=== PATIENT | male | born 1980 | race Caucasian/White ===

== ENCOUNTER 2016-03-21 18:34 | Emergency (ER) | payer SELFPAY ==
[~2016-03-21] VITALS: Ht 172.7 cm; Wt 122.0 kg
[~2016-03-21 18:34] MED LIST: BUPR150T6 PO; CEPASTAT MT; LANT3I SC; LEVO500T72 PO; METF500T PO; NOVO3I SC; Nicotine (14 Mg/24 Hr) TRANSDERM; TOPI25TA38 PO
[2016-03-21 19:07] VITALS: Ht 172.7 cm; Wt 122.0 kg
== END 2016-03-21 18:57 | disposition left against medical advice (07) ==
LOC: E/R 18:34
DX: Z53.21 Procedure and treatment not carried out due to patient leaving prior to being seen by health care provider (principal)

== ENCOUNTER 2016-03-23 12:32 | Emergency (ER) | payer OTHER ==
[~2016-03-23] VITALS: Wt 119.0 kg
[2016-03-23] MEDS ORDERED: SODIUM CHLORIDE 0.9% 1L BAG IV* STA (14:32)
[2016-03-23] MEDS ORDERED: CEFEPIME 2GM/50 ML (PMX) 50 ML IVPB STA (14:32)
[2016-03-23] MEDS ORDERED: LIDOCAINE 1% (MDV) 20 ML INJ SC ONE (15:00)
[2016-03-23] MEDS ORDERED: VANCOMYCIN 1 GM (PMX) 250 ML IVPB ONE (15:00)
[2016-03-23 15:08] LABS: HEMATOCRIT 33.4 % (42.0-52.0); HEMOGLOBIN 10.8 g/dl (14.0-18.0); MEAN CORPUSCULAR HEMOGLOBIN 24.8 pg (29.0-33.0); MEAN CORPUSCULAR HGB CONC 32.5 g/dl (32.0-37.0); MEAN CORPUSCULAR VOLUME 76.5 fl (82.0-101.0); MEAN PLATELET VOLUME 8.7 fl (7.4-10.4); PLATELET COUNT 304 10^3/UL (140-440); RED BLOOD COUNT 4.36 10^6/ul (4.70-6.10); RED CELL DISTRIBUTION WIDTH 15.3 % (11.5-14.5)
[2016-03-23 15:17] LABS: ALBUMIN 3.4 g/dl (3.3-4.9); CHLORIDE 100 mmol/L (97-110); INR 1.17; PT RATIO 1.2; SODIUM 141 mmol/L (135-144)
[2016-03-23 15:18] LABS: POTASSIUM 3.6 mmol/L (3.5-5.1)
[2016-03-23 15:19] LABS: PARTIAL THROMBOPLASTIN TIME 31.7 Sec (25.0-35.0)
[2016-03-23 15:20] LABS: ALANINE AMINOTRANSFERASE 56 IU/L (13-69); ALBUMIN/GLOBULIN RATIO 0.66; ALKALINE PHOSPHATASE 110 IU/L (42-121); ANION GAP 17 (8-16); ASPARTATE AMINO TRANSFERASE 30 IU/L (15-46); BILIRUBIN,INDIRECT 0.1 mg/dl (0-1.1); BILIRUBIN,TOTAL 0.1 mg/dl (0.2-1.3); BLOOD UREA NITROGEN 18 mg/dl (7-20); CARBON DIOXIDE 28 mmol/L (21-31); CREATININE 0.68 mg/dl (0.61-1.24); GLUCOSE 347 mg/dl (70-220); TOTAL PROTEIN 8.5 g/dl (6.1-8.1)
[2016-03-23 15:21] LABS: CALCIUM 8.5 mg/dl (8.4-10.2)
[2016-03-23 15:22] LABS: CONDITION 1; LH ANALYZER COMMENTS 1; SUSPECT 1
--- NOTE | 2016-03-23 15:26 | ERD ---
ER Documentation Chief Complaint Date/Time DATE: 03/23/16 TIME: 15:19 Chief Complaint right foot wound check needs abx and picc line. foul odor HPI Patient is a known noncompliant diabetic who reports to the emergency department complaining of right foot pain. He states that he has been taking care of his foot on his own. He does not know what his blood sugars have been running as he states he has not been taking his insulin nor has he been checking his blood sugars. He states he was getting IV antibiotics through PICC line but the PICC line fell out and he failed to follow up with anybody. He also complains of cough and congestion but denies any sputum production. He denies any sore throat otalgia or rhinorrhea. He denies any carlos alberto chest pain abdominal pain vomiting or diarrhea. ROS All systems reviewed and are negative except as per history of present illness. Medications Home Meds Active Scripts Topiramate* (Topamax*) 25 Mg Tablet, 25 MG PO BID for 30 Days, #60 TAB 1 Refill Prov:IVETTE YAOP S. 03/10/16 Bupropion Hcl* (Bupropion XL*) 150 Mg Tab.er.24h, 150 MG PO DAILY for 30 Days, # 30 1 Refill Prov:AYAAN YAO S. 03/10/16 Insulin Glargine* (Lantus*) 100 Unit/Ml Soln, 45 UNIT SC HS for 30 Days, #1 5 Refills Prov:IVETTE YAOP S. 03/10/16 Throat Lozenges* (Cepastat*) 9 Radha Lozenge, 1 LOZEN[place] MT Q1H Y for SORE THROAT for 30 Days, #90 LOZENGE Prov:IVETTE YAOP S. 03/10/16 [Nicotine (14 Mg/24 Hr)] 1 PATCH PATCH No Conflict Check, 1 PATCH TRANSDERM DAILY for 30 Days, #30 1 Refill Prov:AYAAN YAO S. 03/10/16 Insulin Aspart* (Novolog Insulin Pen*) 100 Unit/Ml Soln, 16 UNIT SC WITH MEALS for 30 Days, #1 5 Refills Prov:IVETTE YAOP S. 03/10/16 Metformin Hcl (Glucophage) 500 Mg Tablet, 500 MG PO BID WITH MEALS for 30 Days, #60 TAB 2 Refills Prov:AYAAN YAO S. 03/10/16 Levofloxacin* (Levaquin*) 500 Mg Tablet, 500 MG PO DAILY@06 for 60 Days, #60 TAB Prov:AYAAN YAO S. 03/10/16 Allergies Allergies: Coded Allergies: codeine (Verified Allergy, Mild, UNKNOWN, 03/23/16) PMhx/Soc History of Surgery: Yes (pls se EMR) Anesthesia Reaction: No Hx Neurological Disorder: No Hx Respiratory Disorders: No Hx Cardiac Disorders: No Hx Psychiatric Problems: No Hx Miscellaneous Medical Probl: Yes (pls see EMR) Hx Alcohol Use: Yes Hx Substance Use: Yes (HEROINE, METAMPHETAMINE) Hx Tobacco Use: Yes FmHx Family History: diabetes Physical Exam Vitals Vital Signs Date Time Temp Pulse Resp B/P Pulse Ox O2 Delivery O2 Flow Rate FiO2 03/23/16 12:45 98.9 102 20 117/83 98 Physical Exam Const: Well-developed well-nourished unkempt male sitting on the bed in no acute distress, obvious foul odor, patient is not making eye contact. He keeps flailing his arms around in keeps his eyes closed. Head: Atraumatic normocephalic Eyes: Normal Conjunctiva ENT: Normal External Ears, Nose and Mouth. Neck: Full range of motion..~ No meningismus. Resp: Clear to auscultation bilaterally Cardio: Regular rate and rhythm, no murmurs Abd: Soft, non tender, non distended. Normal bowel sounds Skin: No petechiae or rashes Back: No midline or flank tenderness Ext: No cyanosis, or edema, right lower extremity has a Kerlix wrap on it which has purulent material soaking through and from which the foul odor seems to be coming Neur: Awake and alert Psych: Normal Mood and Affect Result Diagram: 03/23/16 1445 Results 24 hrs Laboratory Tests Test 03/23/16 14:45 Activated Partial Thromboplast Time Pending Alanine Aminotransferase (ALT/SGPT) Pending Albumin 3.4g/dl Albumin/Globulin Ratio Pending Alkaline Phosphatase Pending Anion Gap Pending Aspartate Amino Transf (AST/SGOT) Pending Blood Urea Nitrogen Pending Calcium Level Pending Carbon Dioxide Level Pending Chloride Level 100mmol/L Creatinine Pending Direct Bilirubin Pending Globulin Pending Glucose Level Pending INR International Normalized Ratio 1.17 Indirect Bilirubin Pending Potassium Level 3.6mmol/L Prothrombin Time 15.0Sec Prothrombin Time Ratio 1.2 Sodium Level 141mmol/L Total Bilirubin Pending Total Protein Pending Troponin I Pending Current Medications Medications (Trade) Dose Ordered Sig/Jovita Route PRN Reason Start Time Stop Time Status Last Admin Dose Admin Sodium Chloride 3690 ml 3,690 ml BOLUS OVER 2 HOURS STAT IV* 03/23/16 14:32 03/23/16 14:38 DC Cefepime HCl 50 ml @ 100 mls/hr ONCE STAT IVPB 03/23/16 14:32 03/23/16 15:01 DC Vancomycin HCl (Vancocin) 250 ml @ 125 mls/hr ONCE ONCE IVPB 03/23/16 15:00 03/23/16 16:59 Lidocaine (Xylocaine 1% (Mdv) 20 ml) 20 ml ONCE ONCE SC 03/23/16 15:00 03/23/16 15:01 DC Procedures/MDM The patient became extremely agitated. He was yelling at other patients and at the nursing staff. He stated he was leaving because he was not getting what he wanted while he was here. At that point he stood up and left the emergency department. Departure Diagnosis: Primary Impression: Cellulitis Site of cellulitis: extremity Site of cellulitis of extremity: lower extremity Laterality: right Qualified Code: L03.115 - Cellulitis of right lower extremity Additional Impressions: Diabetes Diabetes mellitus type: type 2 Diabetes mellitus complication status: with skin complications Diabetes mellitus complication detail: with foot ulcer Diabetes mellitus rat exterminator insulin use: with detention use Qualified Code: E11.621 - Type 2 diabetes mellitus with foot ulcer, with long-term current use of insulin Noncompliance by refusing intervention or support Condition: Fair Patient Instructions: Cellulitis, DIABETES, General Info Referrals: [facility] Additional Instructions: Please see your primary care physician in follow-up. Return to the emergency department for any new or worsening symptoms. JANAE FRENCH Mar 23, 2016 15:25
[2016-03-23 15:38] LABS: TROPONIN-I < 0.010 ng/ml (0.00-0.12)
[2016-03-23 15:50] LABS: EOSINOPHILS # 0.2 10^3/ul (0.0-0.5); LYMPHOCYTES # 1.6 10^3/ul (0.8-2.9); MONOCYTE # 1.1 10^3/ul (0.3-0.9); NEUTROPHIL # 12.3 10^3/ul (1.6-7.5)
== END 2016-03-23 15:10 | disposition left against medical advice (07) ==
LOC: FTE 12:32 → E/R 15:10
DX: L03.115 Cellulitis of right lower limb (principal); E11.621 Type 2 diabetes mellitus with foot ulcer; L97.519 Non-pressure chronic ulcer of other part of right foot with unspecified severity; Z79.4 Long term (current) use of insulin; Z79.84 Long term (current) use of oral hypoglycemic drugs; Z91.19 Patient's noncompliance with other medical treatment and regimen
CPT/HCPCS: 80053; 83605; 84484; 85025; 85610; 85730; 87040; 93005; J7030; Z7502; 82962

== ENCOUNTER 2016-03-23 16:01 | Inpatient (IN) | payer OTHER ==
[~2016-03-23] VITALS: Ht 165.1 cm; Wt 122.0 kg
[2016-03-23] MEDS: INSULIN GLARGINE [LANtus] 3 ML PEN SC SCH (01:00)
[2016-03-23] MEDS ORDERED: SODIUM CHLORIDE 0.9% 1L BAG IV* STA (19:39)
[2016-03-23] MEDS ORDERED: ACETAMINOPHEN 325 MG TAB PO STA (19:39)
[2016-03-23] MEDS ORDERED: PIPER-TAZO 3.375 GM IV (PMX) 100 ML IVPB STA (19:39)
[2016-03-23] MEDS ORDERED: VANCOMYCIN 1 GM (PMX) 250 ML IVPB STA (19:39)
[2016-03-23] MEDS ORDERED: CLINDAMYCIN 900 MG/D5W (PMX) 50 ML IVPB STA (19:39)
[2016-03-23 20:04] LABS: HEMATOCRIT 30.6 % (42.0-52.0); MEAN CORPUSCULAR HGB CONC 32.8 g/dl (32.0-37.0); MEAN CORPUSCULAR VOLUME 76.2 fl (82.0-101.0); MEAN PLATELET VOLUME 8.4 fl (7.4-10.4); PLATELET COUNT 306 10^3/UL (140-440); RED BLOOD COUNT 4.01 10^6/ul (4.70-6.10); RED CELL DISTRIBUTION WIDTH 15.3 % (11.5-14.5); UNCORRECTED WBC 18.7 10^3/ul (4.8-10.8); WHITE BLOOD COUNT 18.7 10^3/ul (4.8-10.8)
[2016-03-23 20:13] LABS: ALBUMIN 2.9 g/dl (3.3-4.9); CHLORIDE 97 mmol/L (97-110); POTASSIUM 3.6 mmol/L (3.5-5.1); SODIUM 134 mmol/L (135-144)
[2016-03-23 20:14] LABS: INR 1.18; PARTIAL THROMBOPLASTIN TIME 32.7 Sec (25.0-35.0); PROTIME 15.1 Sec (12.2-14.2); PT RATIO 1.2
[2016-03-23 20:16] LABS: ALANINE AMINOTRANSFERASE 59 IU/L (13-69); ALKALINE PHOSPHATASE 102 IU/L (42-121); ASPARTATE AMINO TRANSFERASE 29 IU/L (15-46); BILIRUBIN,INDIRECT 0.1 mg/dl (0-1.1); BILIRUBIN,TOTAL 0.1 mg/dl (0.2-1.3); BLOOD UREA NITROGEN 17 mg/dl (7-20); CALCIUM 7.8 mg/dl (8.4-10.2); CARBON DIOXIDE 25 mmol/L (21-31); CREATININE 0.72 mg/dl (0.61-1.24); GLUCOSE 319 mg/dl (70-220); TOTAL PROTEIN 7.4 g/dl (6.1-8.1)
[2016-03-23 20:20] LABS: ALBUMIN/GLOBULIN RATIO 0.64; ANION GAP 16 (8-16)
--- NOTE | 2016-03-23 20:27 | RADRPT ---
PROCEDURE: XR Foot. CLINICAL INDICATION: Right foot pain. Sepsis. TECHNIQUE: AP, lateral and oblique views of the right foot was obtained. The images were reviewed on a PACS workstation. COMPARISON: Right foot series dated 03/02/2016 FINDINGS: Amputation of the first ray at the first metatarsal phalangeal joint. Extensive subcutaneous emphys damian over the foot compatible with infectious process such as gas gangrene. Subcutaneous emphysema is seen from the mid foot to the forefoot, medially and laterally. Emphysema also seen at the plantar aspect of the foot. Soft tissue swelling over the foot. Destructive changes at the head of the second metatarsal, similar in appearance to prior examination , perhaps representing manifestation of osteomyelitis. Plantar and posterior dorsal calcaneal enthesophytes. IMPRESSION: 1. Suspected gas gangrene of the right foot with subcutaneous emphysema from the mid foot to the fo refoot, both medially and laterally. 2. Destructive changes at the head of the second metatarsal suggest sequela of osteomyelitis. RPTAT: [facility] Physician Fitz Date Time Electronically viewed and signed by Physician Fitz on 03/23/2016 20:27 RS/
--- NOTE | 2016-03-23 20:29 | RADRPT ---
PROCEDURE: XR Chest. CLINICAL INDICATION: Patient experiencing possible Sepsis TECHNIQUE: Single AP portable chest. COMPARISON: 03/09/2016 FINDINGS: Evaluation the cardiac silhouette is limited due to marked apical lordotic projection and hypoventil atory changes. This may represent crowding of vascular structures although vascular congestion celia a cannot be excluded. No pneumothorax. The osseous structures and soft tissues are unremarkable. IMPRESSION: Marked hypoventilatory changes limiting evaluation. Vascular congestion and or infiltrate can not b e distinguished vascular crowding from poor inspiratory effort. A repeat study is recommended. RPTAT:AAJJ Bhavya Givens Physician Date Time Electronically viewed and signed by Physician Cathi on 03/23/2016 20:29 ANIYA/
[2016-03-23 20:33] LABS: TROPONIN-I < 0.010 ng/ml (0.00-0.12)
[2016-03-23 20:51] LABS: CONDITION 1; LH ANALYZER COMMENTS 1; SUSPECT 1
[2016-03-23 21:52] LABS: LYMPHOCYTES # 1.7 10^3/ul (0.8-2.9); MONOCYTE # 1.1 10^3/ul (0.3-0.9); NEUTROPHIL # 14.6 10^3/ul (1.6-7.5)
--- NOTE | 2016-03-23 21:54 | ERA ---
ER Documentation Chief Complaint Date/Time DATE: 03/23/16 TIME: 21:53 Chief Complaint right foot pain and drainage and eloped main er. HPI Patient is a 36-year-old male with diabetes and osteomyelitis who presents with foot infection. Please note the history and physical exam is limited secondary to the patient's mental status at this time. The patient had already been seen earlier today but eloped prior to finishing treatment. He was about to pass out so he checked back in. He has a right sided foot infection which he says that he has been dealing with "for a while". Upon review of old medical records he has had multiple visits for foot infections and osteomyelitis. ROS All systems reviewed and are negative except as per history of present illness. Medications Home Meds Active Scripts Topiramate* (Topamax*) 25 Mg Tablet, 25 MG PO BID for 30 Days, #60 TAB 1 Refill Prov:AYAAN YAO S. 03/10/16 Bupropion Hcl* (Bupropion XL*) 150 Mg Tab.er.24h, 150 MG PO DAILY for 30 Days, # 30 1 Refill Prov:AYAAN AYO S. 03/10/16 Insulin Glargine* (Lantus*) 100 Unit/Ml Soln, 45 UNIT SC HS for 30 Days, #1 5 Refills Prov:AYAAN YAO S. 03/10/16 Throat Lozenges* (Cepastat*) 9 Radha Lozenge, 1 LOZ[place] MT Q1H Y for SORE THROAT for 30 Days, #90 LOZENGE Prov:AYAAN YAO S. 03/10/16 [Nicotine (14 Mg/24 Hr)] 1 PATCH PATCH No Conflict Check, 1 PATCH TRANSDERM DAILY for 30 Days, #30 1 Refill Prov:AYAAN YAO S. 03/10/16 Insulin Aspart* (Novolog Insulin Pen*) 100 Unit/Ml Soln, 16 UNIT SC WITH MEALS for 30 Days, #1 5 Refills Prov:IVETTE YAOP S. 03/10/16 Metformin Hcl (Glucophage) 500 Mg Tablet, 500 MG PO BID WITH MEALS for 30 Days, #60 TAB 2 Refills Prov:AYAAN YAO S. 03/10/16 Levofloxacin* (Levaquin*) 500 Mg Tablet, 500 MG PO DAILY@06 for 60 Days, #60 TAB Prov:AYAAN YAO 03/10/16 Allergies Allergies: Coded Allergies: codeine (Verified Allergy, Mild, UNKNOWN, 03/23/16) PMhx/Soc History of Surgery: Yes (pls se EMR) Anesthesia Reaction: No Hx Neurological Disorder: No Hx Respiratory Disorders: No Hx Cardiac Disorders: No Hx Psychiatric Problems: No Hx Miscellaneous Medical Probl: Yes (pls see EMR) Hx Alcohol Use: Yes Hx Substance Use: Yes (HEROINE, METAMPHETAMINE) Hx Tobacco Use: Yes FmHx Unable to obtain Physical Exam Vitals Vital Signs Date Time Temp Pulse Resp B/P Pulse Ox O2 Delivery O2 Flow Rate FiO2 03/23/16 16:44 104.3 132 26 130/77 95 Physical Exam Const: Moderate distress, diaphoretic Head: Atraumatic Eyes: Normal Conjunctiva ENT: Normal External Ears, Nose and Mouth. Neck: Full range of motion..~ No meningismus. Resp: Clear to auscultation bilaterally Cardio: Tachycardic rate without murmur Abd: Soft, non tender, non distended. Normal bowel sounds Skin: Extremely swollen right foot with blistering and skin color changes and putrid smell consistent with gas gangrene, no tracking up the leg to suggest necrotizing fasciitis, diaphoretic Back: No midline or flank tenderness Ext: No cyanosis, or edema Neur: Awake but confused Result Diagram: 03/23/16194403/23/161944 Results 24 hrs Laboratory Tests Test 03/23/16 19:45 Activated Partial Thromboplast Time 32.7Sec Alanine Aminotransferase (ALT/SGPT) 59IU/L Albumin 2.9g/dl Albumin/Globulin Ratio 0.64 Alkaline Phosphatase 102IU/L Anion Gap 16 Aspartate Amino Transf (AST/SGOT) 29IU/L Band Neutrophils % 7.0% Blood Morphology Comment Blood Urea Nitrogen 17mg/dl Calcium Level 7.8mg/dl Carbon Dioxide Level 25mmol/L Chloride Level 97mmol/L Creatinine 0.72mg/dl Direct Bilirubin 0.00mg/dl Globulin 4.50g/dl Glucose Level 319mg/dl Hematocrit 30.6% Hemoglobin 10.0g/dl INR International Normalized Ratio 1.18 Indirect Bilirubin 0.1mg/dl Lactic Acid Level 3.2mmol/L Lymphocytes # 1.710^3/ul Lymphocytes % 9.0% Mean Corpuscular Hemoglobin 25.0pg Mean Corpuscular Hemoglobin Concent 32.8g/dl Mean Corpuscular Volume 76.2fl Mean Platelet Volume 8.4fl Monocytes # 1.110^3/ul Monocytes % 6.0% Neutrophils # 14.610^3/ul Neutrophils % 78.0% Platelet Count 24106^3/UL Potassium Level 3.6mmol/L Prothrombin Time 15.1Sec Prothrombin Time Ratio 1.2 Red Blood Count 4.0110^6/ul Red Cell Distribution Width 15.3% Sodium Level 134mmol/L Total Bilirubin 0.1mg/dl Total Protein 7.4g/dl Troponin I < 0.010ng/ml White Blood Count 18.710^3/ul Current Medications Medications (Trade) Dose Ordered Sig/Jovita Route PRN Reason Start Time Stop Time Status Last Admin Dose Admin Sodium Chloride (NS) 3,800 ml BOLUS OVER 2 HOURS STAT IV* 03/23/16 19:39 03/23/16 19:41 DC 03/23/16 20:38 Acetaminophen 650 mg 650 mg ONCE STAT PO 03/23/16 19:39 03/23/16 19:41 DC 03/23/16 19:39 Vancomycin HCl 250 ml @ 125 mls/hr ONCE STAT IVPB 03/23/16 19:39 03/23/16 21:38 DC 03/23/16 20:40 Clindamycin HCl/ Dextrose 50 ml @ 50 mls/hr ONCE STAT IVPB 03/23/16 19:39 03/23/16 20:38 DC 03/23/16 21:00 Piperacillin Sod/ Tazobactam Sod (Zosyn 3.375gm/ 100 ml (Pmx)) 100 ml @ 100 mls/hr ONCE STAT IVPB 03/23/16 19:39 03/23/16 20:38 DC 03/23/16 20:00 Ondansetron HCl (Zofran Inj) 4 mg BRIDGE ORDER PRN IV NAUSEA AND/OR VOMITING 03/23/16 22:00 03/24/16 21:59 Acetaminophen (Tylenol Tab) 650 mg ER BRIDGE PRN PO MILD PAIN/FEVER 03/23/16 22:00 03/24/16 21:59 Procedures/MDM EKG read by me: Rate/Rhythm: Sinus tachycardia at a rate of 106 Intervals: Normal Impression: Sinus tachycardia without evidence of ischemia Chest x-ray shows no obvious pneumonia per radiology. X-ray Foot 3V Interpreted by me: Bones: Osteomyelitis with gas gangrene Joints: [No dislocation] Foreign body: [None] Admit MDM: Patient's infectious symptoms have not stabilized and the patient is at risk of rapid decompensation. The patient will be admitted for careful hydration, antibiotic therapy, and infectious source control. Severe Sepsis criteria: Infectious source: Gas gangrene of the right foot End organ damage indicated by: Lactate greater than 2 Sepsis Management: Time of recognition of sepsis: 19:45 Within 3 hours of recognition: Blood cultures x 2 before broad-spectrum antibiotics: [Yes] 30 ml/kg NS bolus [Completed] Initial lactate 3.2 Repeat lactate pending Time of recognition of septic shock: [No septic shock] Septic Shock Assessment: Any lactic acid > 4.0 [No] Persistent hypotension (SBP < 90 or 40 mmHg drop, MAP < 65) despite 30 mL/kg IV fluid bolus [No] Volume Re-assessment for Septic Shock (post 30 ml/kg bolus): No septic shock at this time Persistent Hypotension Treatment: Comfort care [No] Central line [Not Required] Vasopressor started [Not required] I considered further perfusion assessment with CVP measurement, SCVO2, bedside ultrasound volume assessment, passive leg raise, trial of further fluid bolus. And proceeded with [30 ml/kg fluid bolus of NSS, broad spectrum antibiotics, and admission.] Accepting Care Team Current data and ongoing care discussed. Admitting Physician: Dr. Nelson Arts Manager(s): Dr. Colten Cuellar from podiatry Outstanding Data: Culture results and repeat lactic acid Critical Care: Critical care time 45 minutes excluding all billable procedures Emergent fluid management while maintaining close respiratory support. Provision of immediate and broad-spectrum antibiotic therapy. Simultaneous assessment for possible sources in order to direct targeted therapy. Consideration for invasive and chemical support to prevent cardiopulmonary collapse. Departure Diagnosis: Primary Impression: Osteomyelitis Qualified Code: M86.171 - Acute osteomyelitis of right foot Additional Impressions: Cellulitis Qualified Code: L03.115 - Cellulitis of right lower extremity Hyperglycemia Severe sepsis Condition: Serious KELIN LESTER MD Mar 23, 2016 21:54
[2016-03-23] MEDS ORDERED: ACETAMINOPHEN 325 MG TAB PO PRN (22:00)
[2016-03-23] MEDS ORDERED: ONDANSETRON 4 MG INJ IV PRN ×2 (22:00→23:00)
[2016-03-23 22:02] LABS: ACETAMINOPHEN < 10.0 ug/ml (10.0-30.0); ETHANOL < 10.0 mg/dl; SALICYLATE < 1.0 mg/dl (5.0-30.0)
[2016-03-23] MEDS ORDERED: NACL 0.9% 3 ML SYG IV SCH (23:00)
[2016-03-23] MEDS ORDERED: VANCOMYCIN IV PER PHARMACY XX SCH (23:00)
[2016-03-23] MEDS ORDERED: DOCUSATE SODIUM 100 MG CAP PO PRN (23:00)
[2016-03-23] MEDS ORDERED: LORAZEPAM 2 MG INJ IV ONE (23:30)
[2016-03-23] MEDS ORDERED: HALOPERIDOL 5 MG INJ IM ONE (23:30)
[2016-03-24] VITALS (10 sets, daily range): BP systolic 126–195; BP diastolic 64–82; PULSE 110–124; RESP 20–24; Ht 165.1 cm; Wt 122.0 kg
[2016-03-24] MEDS ORDERED: DIPHENHYDRAMINE 50 MG INJ IM ONE ×2 (00:30→04:00)
[2016-03-24] MEDS ORDERED: VANCOMYCIN 1 GM in NS 250 ML IVPB ONE (01:00)
[2016-03-24] MEDS: 1/2 NS + KCL 20 MEQ 1,000 ML IV SCH ×3 (01:33→18:47)
[2016-03-24] MEDS: INSULIN ASPART [NOVOLOG] 3 ML PEN SC SCH ×6 (01:34→23:43)
[2016-03-24] MEDS ORDERED: LORAZEPAM 2 MG INJ IV ONE (04:00)
[2016-03-24] MEDS ORDERED: HALOPERIDOL 5 MG INJ IM ONE (04:00)
[2016-03-24] MEDS: morphine 2 MG INJ IV PRN (05:50)
[2016-03-24] MEDS: PIPER-TAZO 3.375 GM IV (PMX) 100 ML IVPB SCH ×5 (06:14→23:49)
[2016-03-24] MEDS: PANTOPRAZOLE 40 MG INJ IV SCH (06:14)
[2016-03-24] MEDS: VANCOMYCIN 1.5 GM in SOD CHLORIDE 0.9% 250 ML IVPB SCH ×3 (06:30→20:00)
--- NOTE | 2016-03-24 06:47 | HP ---
DATE OF ADMISSION: 03/23/2016 TIME: 10:30 p.m. CHIEF COMPLAINT: Right foot pain. HISTORY OF PRESENT ILLNESS: The patient is a 36-year-old male with a history of diabetes and osteom yelitis of the right foot. The patient was recently hospitalized here in February 2016. Patient mueller d a recent I and D of the right foot deep abscess and during the hospitalization, MRI did show osteo myelitis of the right foot. The patient has uncontrolled diabetes, morbid obesity, and history of r ight toe amputation in the past. The patient is currently lethargic and confused. History is obtai inderjit from previous medical records. PAST MEDICAL HISTORY: As per HPI. HOME MEDICATIONS: 1. Topamax. 2. Bupropion. 3. Lantus. 4. Nicotine patch. 5. Throat lozenges. 6. NovoLog. 7. Metformin. 8. Levaquin. ALLERGIES: NO KNOWN DRUG ALLERGIES. FAMILY HISTORY: Unable to obtain. SOCIAL HISTORY: The patient has reported history of alcohol abuse, heroin and methamphetamine abuse , tobacco abuse. REVIEW OF SYSTEMS: A 12-point review of systems cannot be obtained secondary to patient's poor ment ation. PHYSICAL EXAMINATION: VITAL SIGNS: Temperature is 94.3, pulse is 132, respiratory rate is 26, BP is 130/77, saturation 95 % on room air. GENERAL: Lethargic, not alert, not oriented. HEENT: Normocephalic, atraumatic. Pupils equal, round, and reactive to light. LUNGS: Clear to auscultation. CARDIOVASCULAR: Tachycardic. ABDOMEN: Obese, nondistended, nontender, soft. EXTREMITIES: No clubbing, cyanosis, or edema. Right foot infection noted. LABORATORIES: White count 18.7, hemoglobin 7.0, hematocrit 30.6, platelets are 306. Chemistry: So dium is 134, potassium 3.6, creatinine 0.72, glucose 319, lactic acid 3.2. INR is 1.18. Toxicology : Negative alcohol, negative acetaminophen and negative salicylates. DIAGNOSTICS: Foot x-ray shows suspected gas gangrene of the right foot and subacute emphysema of th e midfoot and forefoot, both medially and laterally, and destructive changes of the head of the seco nd metatarsal suggestive of ____ osteomyelitis. Chest x-ray shows marked hypoventilatory changes limiting evaluation as the condition and/or infiltr ate cannot be distinguished from crowding for poor inspiratory effort. ASSESSMENT AND PLAN: 1. Sepsis secondary to right foot osteomyelitis and gas gangrene. The patient has known osteomyeli tis from prior hospitalization. The patient's compliance with antibiotics is questionable. Dr. Cam IBRAHIM has already been called in to the ED. Treat with IV antibiotics. 2. Acute encephalopathy secondary to #1. We will treat underlying sepsis. 3. Diabetes, poor compliance. A1c during last hospitalization was 10.8. We will check another A1c and treat with subcutaneous insulin. 4. History of substance abuse. The patient would benefit from another social science professor evaluation dur ing this hospitalization. 5. Morbid obesity. The patient was advised lifestyle changes upon discharge. 6. Microcytic anemia, likely secondary to chronic disease. 7. Prophylaxis. Heparin. Dictated By: KYLEE LAWRENCE MD BS/NTS Conf#: [id number] DID#: [id number]
[2016-03-24 07:38] LABS: HEMATOCRIT 32.8 % (42.0-52.0); HEMOGLOBIN 10.7 g/dl (14.0-18.0); MEAN CORPUSCULAR HEMOGLOBIN 24.9 pg (29.0-33.0); MEAN CORPUSCULAR HGB CONC 32.5 g/dl (32.0-37.0); MEAN CORPUSCULAR VOLUME 76.6 fl (82.0-101.0); MEAN PLATELET VOLUME 8.6 fl (7.4-10.4); PLATELET COUNT 334 10^3/UL (140-440); RED BLOOD COUNT 4.28 10^6/ul (4.70-6.10); RED CELL DISTRIBUTION WIDTH 15.4 % (11.5-14.5); UNCORRECTED WBC 19.7 10^3/ul (4.8-10.8); WHITE BLOOD COUNT 19.7 10^3/ul (4.8-10.8)
[2016-03-24 07:39] LABS: CONDITION 1; LH ANALYZER COMMENTS 1; SUSPECT 1
[2016-03-24 07:56] LABS: ALBUMIN 3.2 g/dl (3.3-4.9); POTASSIUM 3.7 mmol/L (3.5-5.1)
[2016-03-24 07:58] LABS: CREATININE 0.52 mg/dl (0.61-1.24)
[2016-03-24 07:59] LABS: ALBUMIN/GLOBULIN RATIO 0.65; CALCIUM 7.9 mg/dl (8.4-10.2); PHOSPHORUS 2.9 mg/dl (2.5-4.9); TOTAL PROTEIN 8.1 g/dl (6.1-8.1)
[2016-03-24 08:00] LABS: MAGNESIUM 2.3 mg/dl (1.7-2.5)
[2016-03-24] MEDS: NICOTINE (14 MG/24 HR) PATCH TRANSDERM SCH (09:00)
[2016-03-24] MEDS ORDERED: DEXTROSE 50% 50 ML SYRINGE IV PRN ×2 (09:00)
[2016-03-24] MEDS ORDERED: GLUCOSE GEL 15 GRAM TUBE PO PRN ×2 (09:00)
[2016-03-24] MEDS ORDERED: GLUCAGON 1 MG INJ IM PRN (09:00)
[2016-03-24] MEDS ORDERED: GLUCOSE GEL 15 GRAM TUBE BUCCAL PRN (09:00)
[2016-03-24] MEDS ORDERED: HEPARIN 5,000 UNIT/0.5 ML SYG SC SCH (09:00)
--- NOTE | 2016-03-24 09:14 | CONS ---
Date/Time of Note Date/Time of Note DATE: 03/24/16 TIME: 08:59 Assessment/Plan Assessment/Plan Problems: (1) Gas gangrene of foot Comment: Aseptic bedside drainage and irrigation was done. Irrigation was done using sterile normal saline. Patient is on combination of Haldol, Benadryl and morphine and is nonresponsive to verbal command. Patient has been scheduled for formal incision and drainage. Patient will be monitored closely. (2) Foot abscess, right (3) Noncompliance by refusing intervention or support Status: Acute (4) Osteomyelitis Status: Acute Qualifiers: Qualified Code: M86.171 - Acute osteomyelitis of right foot (5) Diabetes, polyneuropathy Status: Chronic (6) Depression with anxiety Status: Chronic (7) Morbid obesity due to excess calories Status: Chronic (8) Non-pressure chronic ulcer of other part of right foot with fat layer exposed Status: Acute (9) Acquired absence of right great toe Status: Acute (10) Drug abuse and dependence Status: Acute Additional Assessment/Plan Patient to be consented for incision and drainage of right foot deep abscess. Patient is scheduled for surgery Saturday. If patient is not awake to be able to consent, a proxy consent was be obtained. Consultation Date/Type/Reason Admit Date/Time Mar 23, 2016 at 21:33 Date of Consultation: Mar 24, 2016 Type of Consultation: Foot and ankle surgery Reason for Consultation Evaluation of right foot abscess and infection. Hx of Present Illness Thank you very much for involving in the care of this patient. This is a 36- year-old male patient with history of diabetes mellitus, osteomyelitis, previous abscess of the right foot, history of heroin, methamphetamine, alcohol and tobacco abuse who presented to the emergency room on March 23, 2016 with infection of his right foot. He was recently hospitalized in February 2016 and underwent incision and drainage of the right foot deep abscess. During that admission, an MRI showed osteomyelitis of his right foot. Patient currently is sedated on Haldol, morphine and Benadryl and is nonresponsive to verbal command. History was obtained from chart review. As per HPI and H&P. Past Medical History As per history of present illness. Past Surgical History As per history of present illness. Social History Smoking Status: Current every day smoker Exam/Review of Systems Vital Signs Vitals Vital Signs Date Time Temp Pulse Resp B/P Pulse Ox O2 Delivery O2 Flow Rate FiO2 03/24/16 08:29 123 03/24/16 08:05 98.1 20 126/64 92 03/24/16 05:30 Nasal Cannula 3.0 Exam Patient was seen at bedside. He is nonresponsive to verbal commands secondary to being on Haldol, morphine and Benadryl. He has restraints on his hands because he has been combative as per nursing. There is malodor in the room. Bandages from the right foot were removed. Medial midfoot soft eschar present with brown drainage. Macerated skin extending to plantar foot noted with fluctuance. Open wound plantar right foot with yellow, thick purulent drainage noted with surrounding fluctuance. S/P right hallux amputation with fissuring of skin. Cyanotic right fifth toe with maceration. Xray shows lucency in the soft tissue corresponding to the medial foot and soft eschar formation. Non palpable pedal pulses noted on right foot; weakly palpable left foot pedal pulses. Decreased temperature gradient noted on the right lower extremity. Labs and xrays were reviewed. Results Result Diagram: 03/24/16 0646 03/24/16 0646 Results 24 hrs Laboratory Tests Test 03/23/16 19:45 03/23/16 20:59 03/23/16 23:59 03/24/16 06:46 Activated Partial Thromboplast Time 32.7 Alanine Aminotransferase (ALT/SGPT) 59 56 Albumin 2.9 L 3.2 L Albumin/Globulin Ratio 0.64 0.65 Alkaline Phosphatase 102 130 H Anion Gap 16 15 Aspartate Amino Transf (AST/SGOT) 29 34 Band Neutrophils % 7.0 H Blood Morphology Comment Blood Urea Nitrogen 17 13 Calcium Level 7.8 L 7.9 L Carbon Dioxide Level 25 28 Chloride Level 97 104 Creatinine 0.72 0.52 L Direct Bilirubin 0.00 0.00 Globulin 4.50 H 4.90 H Glucose Level 319 H 224 H Hematocrit 30.6 L 32.8 L Hemoglobin 10.0 L 10.7 L INR International Normalized Ratio 1.18 Indirect Bilirubin 0.1 0.0 Lactic Acid Level 3.2 H 1.9 2.1 Lymphocytes # 1.7 Pending Lymphocytes % 9.0 L Pending Mean Corpuscular Hemoglobin 25.0 L 24.9 L Mean Corpuscular Hemoglobin Concent 32.8 32.5 Mean Corpuscular Volume 76.2 L 76.6 L Mean Platelet Volume 8.4 8.6 Monocytes # 1.1 H Pending Monocytes % 6.0 Pending Neutrophils # 14.6 H Pending Neutrophils % 78.0 H Pending Platelet Count 306 334 Potassium Level 3.6 3.7 Prothrombin Time 15.1 H Prothrombin Time Ratio 1.2 Red Blood Count 4.01 L 4.28 L Red Cell Distribution Width 15.3 H 15.4 H Sodium Level 134 L 143 Total Bilirubin 0.1 L 0.0 L Total Protein 7.4 # 8.1 Troponin I < 0.010 White Blood Count 18.7 H 19.7 H Acetaminophen Level < 10.0 L Ethyl Alcohol Level < 10.0 Salicylates Level < 1.0 L Basophils # Pending Basophils % Pending Eosinophils # Pending Eosinophils % Pending Hemoglobin A1c 10.3 H Magnesium Level 2.3 Nucleated Red Blood Cells # Pending Nucleated Red Blood Cells % Pending Phosphorus Level 2.9 Test 03/24/16 08:08 Bedside Glucose 267 H Medications Medications Current Medications Potassium Chloride/Sodium Chloride (03/19 NS + KCl 20 Meq) 1,000 ml @ 100 mls/hr Q10H IV Last administered on 03/24/16 01:33; Admin Dose 100 MLS/HR; Start at 22:47 Ondansetron HCl (Zofran Inj) 4 mg Q6H PRN IV NAUSEA AND/OR VOMITING; Start 03/23 at 23:00 Acetaminophen (Tylenol Tab) 650 mg Q6H PRN PO PAIN LEVEL 1-3 OR FEVER; Start at 23:00 Acetaminophen/ Hydrocodone Bitart ([place] (5/325)) 1 tab Q6H PRN PO MODERATE PAIN LEVEL 4-6; Start 03/23/16 at 23:00 Morphine Sulfate (morphine) 2 mg Q4H PRN IV SEVERE PAIN LEVEL 7-10 Last administered on 03/24/16 05:50; Admin Dose 2 MG; Start 03/23/16 at 23:00 Docusate Sodium (Colace) 100 mg Q12H PRN PO CONSTIPATION; Start 03/23/16 at 23: 00 Pantoprazole (Protonix Iv) 40 mg DAILY@06 IV Last administered on 03/24/16 06: 14; Admin Dose 40 MG; Start 03/24/16 at 06:00 Heparin Sodium (Porcine) 5000 unit 5,000 unit Q12 SC ; Start 03/24/16 at 09:00 Piperacillin Sod/ Tazobactam Sod (Zosyn 3.375gm/ 100 ml (Pmx)) 100 ml @ 200 mls /hr Q6 IVPB Last administered on 03/24/16 06:14; Admin Dose 200 MLS/HR; Start 03/24/16 at 00:00 Nicotine (Nicoderm 14 Mg/ 24hr) 1 patch DAILY TRANSDERM ; Start 03/24/16 at 09:00 Insulin Aspart (Novolog Insulin Pen) NOVOLOG *MODERATE* ALGORI... Q4 SC Last administered on 03/24/16 01:34; Admin Dose 8 UNIT; Start 03/24/16 at 01:00 Insulin Glargine 20 unit 20 unit HS SC Last administered on 03/23/16 01:00; Admin Dose 20 UNIT; Start 03/23/16 at 23:43 Vancomycin HCl/ Sodium Chloride (Vancocin/NS) 250 ml @ 83.333 mls/ hr Q8H IVPB ; Start 03/24/16 at 06:30 Miscellaneous Information 1 ea NOTE XX ; Start 03/24/16 at 09:00 Glucose (Glutose) 15 gm Q15M PRN PO DECREASED GLUCOSE; Start 03/24/16 at 09:00 Glucose (Glutose) 22.5 gm Q15M PRN PO DECREASED GLUCOSE; Start 03/24/16 at 09:00 Dextrose (D50w Syringe) 25 ml Q15M PRN IV DECREASED GLUCOSE; Start 03/24/16 at 09:00 Dextrose (D50w Syringe) 50 ml Q15M PRN IV DECREASED GLUCOSE; Start 03/24/16 at 09:00 Glucagon (Glucagen) 1 mg Q15M PRN IM DECREASED GLUCOSE; Start 03/24/16 at 09:00 Glucose (Glutose) 15 gm Q15M PRN BUCCAL DECREASED GLUCOSE; Start 03/24/16 at 09: 00 ESTEE IBRAHIM DPM Mar 24, 2016 09:11
[2016-03-24] MEDS: LORAZEPAM 2 MG INJ IV PRN ×2 (11:40→19:59)
[2016-03-24 11:42] LABS: LYMPHOCYTES # 1.4 10^3/ul (0.8-2.9)
[2016-03-24 17:17] LABS: HAAIG REFLEX REFLEX FILED
[2016-03-24 18:31] LABS: HEPATITIS B CORE ANTIBODY NEGATIVE (NEGATIVE)
[2016-03-24 18:40] LABS: ADD UMIC YES; URINE BILIRUBIN (Dip) NEGATIVE (NEGATIVE); URINE BLOOD (Dip) 1+ (NEGATIVE); URINE KETONES (Dip) NEGATIVE (NEGATIVE); URINE LEUKOCYTE ESTERASE (Dip) NEGATIVE (NEGATIVE); URINE NITRITE (Dip) NEGATIVE (NEGATIVE); URINE TOTAL PROTEIN (Dip) 1+ (NEGATIVE); URINE UROBILINOGEN (Dip) 0.2 E.U./dL (0.1-1.0)
[2016-03-24] MEDS: ACETAMINOPHEN 325 MG TAB PO PRN (18:49)
[2016-03-24 18:58] LABS: URINE COLOR YELLOW (YELLOW)
[2016-03-24 19:13] LABS: BACTERIA,URINE FEW; MUCUS,URINE FEW; URINE RBCS 0-2 /HPF (0)
--- NOTE | 2016-03-24 20:25 | PN ---
DATE: 03/24/2016 SUBJECTIVE: The patient was recently discharged from the hospital, readmitted with severe sepsis, a cute encephalopathy, and left lower extremity wet gangrene. VITAL SIGNS: He came in with a temperature of 104.3, pulse 132, respirations 26, blood pressure 130 /77, saturation 95%. WBC 18.7, with H and H 10 and 30.6, platelets 216,000, neutrophils 78, bands 7, lymphs 9, monos 6. Sodium 134, BUN 17, creatinine 0.72, glucose 319. Lactic acid 3.2, total bilirubin 0.1, negative tr oponin, normal LFT, albumin 2.9. DIAGNOSTICS: Chest x-ray revealed vascular congestion, questionable infiltrate. X-ray of the foot revealed gas gangrene of the right foot with subcutaneous emphysema, as well as destructive changes at the head of the second metatarsal, suggestive of osteomyelitis. ANTIMICROBIALS: Patient is currently on IV vancomycin and Zosyn. PHYSICAL EXAMINATION: GENERAL: This is a morbidly obese, ill-appearing, middle-aged white man, who is obtunded, restless, in no distress. HEENT: Head atraumatic, normocephalic. Sclerae anicteric. Buccal mucosa dry. NECK: Supple. CHEST: Rise symmetrical. Breath sounds diminished to bases. HEART: S1, S2. ABDOMEN: Soft, obese. Bowel tones present. EXTREMITIES: Left foot dressing intact; however, with a strong foul odor, and some drainage present on the dressing. ASSESSMENT: 1. Severe sepsis with fevers, leukocytosis, lactic acidosis, and acute encephalopathy. 2. Left foot osteomyelitis, abscess, wet gangrene with cultures previously growing Pseudomonas, St reptococcus agalactia, and Corynebacterium species. 3. Morbid obesity. 4. History of drug use 5. Poorly controlled diabetes. 6. History of right hallux amputation. 7. Peripheral vascular disease. PLAN: The patient is covered with broad spectrum antibiotics. Cultures are pending. Podiatry on c ase. We will check his urine drug screen, continue present care, antibiotics, anti-aspiration measu res. Consider checking CT of the brain once patient is less restless. Dictated By: KIRSTEN OLIVAREZ MUSIC SOUND LIGHT TECHNICIAN for [facility] PATIÑO/ROBIN Conf#: [id number] DID#: [id number]
[2016-03-24] MEDS: NYSTATIN 15 GM OINT TOP SCH (21:00)
[2016-03-24] MEDS: INSULIN GLARGINE [LANtus] 3 ML PEN SC SCH (23:42)
[2016-03-25] VITALS (18 sets, daily range): BP systolic 123–165; BP diastolic 64–82; PULSE 103–122; RESP 18–24
[2016-03-25] MEDS: morphine 2 MG INJ IV PRN ×3 (00:07→11:25)
[2016-03-25] MEDS: INSULIN ASPART [NOVOLOG] 3 ML PEN SC SCH ×6 (01:00→20:53)
[2016-03-25] MEDS: ACETAMINOPHEN 650 MG SUPP PR PRN ×2 (01:54→11:23)
[2016-03-25] MEDS: LORAZEPAM 2 MG INJ IV PRN (02:39)
[2016-03-25] MEDS: VANCOMYCIN 1.5 GM in SOD CHLORIDE 0.9% 250 ML IVPB SCH ×2 (02:43→11:23)
[2016-03-25] MEDS: 1/2 NS + KCL 20 MEQ 1,000 ML IV SCH ×2 (04:47→14:47)
[2016-03-25] MEDS: PIPER-TAZO 3.375 GM IV (PMX) 100 ML IVPB SCH ×3 (06:33→18:18)
[2016-03-25] MEDS: PANTOPRAZOLE 40 MG INJ IV SCH (06:33)
--- NOTE | 2016-03-25 07:32 | PN ---
DATE: 03/24/2016 SUBJECTIVE: The patient is still very lethargic, requiring Ativan. Did receive Haldol yesterday as well. Presently being evaluated by infectious diseases' team. Seen by podiatry team earlier this morning. OBJECTIVE: VITAL SIGNS: Presently afebrile, when he came in, he had a T-max of 104.3, 24 hours ago, pulse is 1 10-123, respirations 20-24, blood pressure 126-156 systolic/64-69 diastolic, saturating at 92%-95% o n 3 liters nasal cannula. PHYSICAL EXAMINATION: GENERAL: Patient is moving extremities, but very lethargic. Not alert, not oriented. HEENT: Pupils equal, round, reactive to light. Extraocular muscles intact. NECK: Supple, no thyromegaly. LUNGS: Clear to auscultation bilaterally. CARDIOVASCULAR: S1 and S2 are tachycardic. No rubs or gallops. ABDOMEN: Obese, but otherwise nontender, nondistended, soft. MUSCULOSKELETAL: Right foot significantly infected with bandage noted over the right foot, with colleen kage to the bandage site. Otherwise, no lower-extremity edema bilaterally. NEUROLOGIC: Moves upper and lower extremities. LABORATORY DATA: WBC 19.7, hemoglobin 10.7, hematocrit 32.8, platelets of 334,000. His A1c is 10.3 . His basic metabolic panel is normal. His LFTs are normal, but his sugars have been running from 224-267. His salicylate, Tylenol, and blood alcohol levels are normal. Drug screen is pending. Fo ot x-ray yesterday showed suspected gas gangrene of the right foot with subcutaneous emphysema from the midfoot to the forefoot, both medially and laterally, destructive changes at the head of the sec ond metatarsal, suggesting osteomyelitis. ASSESSMENT AND PLAN: A 36-year-old male, presumably noncompliant history of type 2 diabetes, uncont rolled, and osteomyelitis of the right foot, diagnosed in February 2016, who comes in with sepsis se condary to osteomyelitis and gas gangrene findings. 1. Sepsis. Again secondary to right foot osteomyelitis with gas gangrene found. Follow podiatry a nd infectious diseases' recommendations. Continue broad broad-spectrum antibiotics, wound care as w ell, IV fluids. When sepsis subsides, may need to consider I and D as well. Follow up final cultur e results. Tylenol p.r.n. pain and fevers. 2. Type 2 diabetes, uncontrolled. Continue sliding scale insulin. 3. History of substance abuse. Follow drug screen. On last admission, he had positive methampheta mine, and he is showing signs of lethargy and agitation, and possible withdrawal. Ativan p.r.n. for that and also IV fluids. 4. Morbid obesity. Lifestyle changes will be educated again with the patient 5. History of positive group B strep and Corynebacterium pseudomonas wound infections from the foot last time. Follow up final culture results now. 6. History of smoking. Add nicotine patch. 7. Possible history of depression. Continue to monitor for now. He is on Ativan p.r.n. 8. Gastrointestinal prophylaxis. Continue PPI. 9. Deep venous thrombosis prophylaxis. Add heparin. Dictated By: AYAAN IGNACIO Conf#: [id number] DID#: [id number]
[2016-03-25 07:47] LABS: BASOPHIL # 0.1 10^3/ul (0.0-0.1); BASOPHILS % 0.4 % (0.0-2.0); EOSINOPHILS % 0.2 % (0.0-7.0); HEMATOCRIT 31.2 % (42.0-52.0); HEMOGLOBIN 10.2 g/dl (14.0-18.0); LYMPHOCYTES % 13.2 % (15.0-51.0); MEAN CORPUSCULAR HGB CONC 32.8 g/dl (32.0-37.0); MEAN CORPUSCULAR VOLUME 76.4 fl (82.0-101.0); MEAN PLATELET VOLUME 7.9 fl (7.4-10.4); MONOCYTE # 1.2 10^3/ul (0.3-0.9); MONOCYTES % 7.8 % (0.0-11.0); NEUTROPHILS % 78.4 % (39.0-77.0); PLATELET COUNT 414 10^3/UL (140-440); RED BLOOD COUNT 4.09 10^6/ul (4.70-6.10); RED CELL DISTRIBUTION WIDTH 15.6 % (11.5-14.5); UNCORRECTED WBC 15.4 10^3/ul (4.8-10.8); WHITE BLOOD COUNT 15.4 10^3/ul (4.8-10.8)
[2016-03-25 07:50] LABS: CONDITION 1; LH ANALYZER COMMENTS 1
[2016-03-25 07:59] LABS: POTASSIUM 3.7 mmol/L (3.5-5.1)
[2016-03-25 08:01] LABS: CREATININE 0.58 mg/dl (0.61-1.24)
[2016-03-25 08:02] LABS: CALCIUM 7.8 mg/dl (8.4-10.2)
[2016-03-25] MEDS: NYSTATIN 15 GM OINT TOP SCH ×3 (10:07→20:54)
[2016-03-25] MEDS: NICOTINE (14 MG/24 HR) PATCH TRANSDERM SCH (10:08)
--- NOTE | 2016-03-25 12:16 | PN ---
Date/Time of Note Date/Time of Note DATE: 03/25/16 TIME: 12:10 Assessment/Plan VTE Prophylaxis VTE Prophylaxis Intervention: heparin Lines/Catheters IV Catheter Type (from Nrs): Peripheral IV Urinary Cath still in place: Yes Reason Cath still needed: urinary retention Assessment/Plan Chief Complaint/Hosp Course ASSESSMENT AND PLAN: 36-year-old male, presumably noncompliant history of type 2 diabetes, uncontrolled, and osteomyelitis of the right foot, diagnosed in February 2016, who comes in with sepsis secondary to osteomyelitis and gas gangrene findings. 1. Sepsis - secondary to right foot osteomyelitis with gas gangrene found. - Follow podiatry and infectious diseases' recommendations. - Continue broad broad-spectrum antibiotics, wound care as well, IV fluids. - When sepsis subsides, may need to consider I and D as well. - Follow up final culture results. - Tylenol p.r.n. pain and fevers. 2. Type 2 diabetes, uncontrolled at home, FS improved here in hospital now. - Continue sliding scale insulin. 3. History of substance abuse - On last admission, he had positive methamphetamine, and he is showing signs of lethargy and agitation, and possible withdrawal. - Follow drug screen. - Ativan p.r.n. for that and also IV fluids. 4. Morbid obesity. Lifestyle changes will be educated again with the patient 5. History of positive group B strep and Corynebacterium pseudomonas wound infections from the foot last time. Follow up final culture results now. 6. History of smoking. Add nicotine patch. 7. Possible history of depression. Continue to monitor for now. He is on Ativan p.r.n. 8. Gastrointestinal prophylaxis. Continue PPI. 9. Deep venous thrombosis prophylaxis. Add heparin. Problems: Subjective 24 Hr Interval Summary Free Text/Dictation Pt on restraints, + fevers, seen by podiatry and ID teams. Exam/Review of Systems Vital Signs Vitals Vital Signs Date Time Temp Pulse Resp B/P Pulse Ox O2 Delivery O2 Flow Rate FiO2 03/25/16 11:46 101.2 113 22 123/69 98 03/25/16 09:00 Simple Mask 6.0 Intake and Output 03/24/16 03/24/16 03/25/16 15:00 23:00 07:00 Intake Total 100 ml 350 ml Output Total 1500 ml Balance -1400 ml 350 ml Exam GENERAL: Patient is sleeping presently, in restraints. Not alert, not oriented. HEENT: Pupils equal, round, reactive to light. Extraocular muscles intact. NECK: Supple, no thyromegaly. LUNGS: Clear to auscultation bilaterally. CARDIOVASCULAR: S1 and S2 are tachycardic. No rubs or gallops. ABDOMEN: Obese, but otherwise nontender, nondistended, soft. MUSCULOSKELETAL: Right foot significantly infected with bandage noted over the right foot, with leakage to the bandage site. Otherwise, no lower-extremity edema bilaterally. NEUROLOGIC: Moves upper and lower extremities. Results Result Diagram: 03/25/16 0711 03/25/16 0711 Results 24 hrs Laboratory Tests Test 03/24/16 12:19 03/24/16 16:40 03/24/16 17:00 03/24/16 18:26 Bedside Glucose 238 H 163 Hepatitis B Core Total Antibody NEGATIVE Hepatitis B Surface Antibody INDETERMINATE Hepatitis B Surface Antigen NEGATIVE Hepatitis C Antibody REACTIVE H Urine Amorphous Urates FEW Urine Bacteria FEW Urine Bilirubin NEGATIVE Urine Clarity CLEAR Urine Color YELLOW Urine Glucose 0.5% H Urine Hemoglobin 1+ H Urine Ketones NEGATIVE Urine Leukocyte Esterase NEGATIVE Urine Microscopic RBC 0-2 Urine Microscopic WBC 0-2 Urine Mucus FEW Urine Nitrite NEGATIVE Urine Specific [place] >=1.030 H Urine Total Protein 1+ H Urine Urobilinogen 0.2 E.U./dL Urine pH 5.0 Test 03/24/16 22:42 03/25/16 01:11 03/25/16 06:27 03/25/16 07:11 Bedside Glucose 178 193 132 Anion Gap 14 Basophils # 0.1 Basophils % 0.4 Blood Morphology Comment Blood Urea Nitrogen 14 Calcium Level 7.8 L Carbon Dioxide Level 34 H Chloride Level 105 Creatinine 0.58 L Eosinophils # 0.0 Eosinophils % 0.2 Glucose Level 139 # Hematocrit 31.2 L Hemoglobin 10.2 L Lymphocytes # 2.0 Lymphocytes % 13.2 L Mean Corpuscular Hemoglobin 25.0 L Mean Corpuscular Hemoglobin Concent 32.8 Mean Corpuscular Volume 76.4 L Mean Platelet Volume 7.9 Monocytes # 1.2 H Monocytes % 7.8 Neutrophils # 12.0 H Neutrophils % 78.4 H Nucleated Red Blood Cells # 0.0 Nucleated Red Blood Cells % 0.0 Platelet Count 414 # Potassium Level 3.7 Red Blood Count 4.09 L Red Cell Distribution Width 15.6 H Sodium Level 149 H White Blood Count 15.4 #H Test 03/25/16 08:11 03/25/16 10:10 Bedside Glucose 148 Vancomycin Level Trough 9.9 L Medications Medications Current Medications Potassium Chloride/Sodium Chloride (03/19 NS + KCl 20 Meq) 1,000 ml @ 100 mls/hr Q10H IV Last administered on 03/24/16 10:11; Admin Dose 100 MLS/HR; Start at 22:47 Ondansetron HCl (Zofran Inj) 4 mg Q6H PRN IV NAUSEA AND/OR VOMITING; Start 03/23 at 23:00 Acetaminophen (Tylenol Tab) 650 mg Q6H PRN PO PAIN LEVEL 1-3 OR FEVER Last administered on 03/24/16 18:49; Admin Dose 650 MG; Start 03/23/16 at 23:00 Acetaminophen/ Hydrocodone Bitart ([place] (5/325)) 1 tab Q6H PRN PO MODERATE PAIN LEVEL 4-6; Start 03/23/16 at 23:00 Morphine Sulfate (morphine) 2 mg Q4H PRN IV SEVERE PAIN LEVEL 7-10 Last administered on 03/25/16 11:25; Admin Dose 2 MG; Start 03/23/16 at 23:00 Docusate Sodium (Colace) 100 mg Q12H PRN PO CONSTIPATION; Start 03/23/16 at 23: 00 Pantoprazole 40 mg 40 mg DAILY@06 IV Last administered on 03/25/16 06:33; Admin Dose 40 MG; Start 03/24/16 at 06:00 Piperacillin Sod/ Tazobactam Sod (Zosyn 3.375gm/ 100 ml (Pmx)) 100 ml @ 200 mls /hr Q6 IVPB Last administered on 03/25/16 06:33; Admin Dose 200 MLS/HR; Start 03/24/16 at 00:00 Nicotine (Nicoderm 14 Mg/ 24hr) 1 patch DAILY TRANSDERM Last administered on 10:08; Admin Dose 1 PATCH; Start 03/24/16 at 09:00 Insulin Aspart (Novolog Insulin Pen) NOVOLOG *MODERATE* ALGORI... Q4 SC Last administered on 03/25/16 10:48; Admin Dose 2 UNIT; Start 03/24/16 at 01:00 Insulin Glargine (Lantus) 20 unit HS SC Last administered on 03/24/16 23:42; Admin Dose 20 UNIT; Start 03/23/16 at 23:43 Miscellaneous Information 1 ea NOTE XX ; Start 03/24/16 at 09:00 Glucose (Glutose) 15 gm Q15M PRN PO DECREASED GLUCOSE; Start 03/24/16 at 09:00 Glucose (Glutose) 22.5 gm Q15M PRN PO DECREASED GLUCOSE; Start 03/24/16 at 09:00 Dextrose (D50w Syringe) 25 ml Q15M PRN IV DECREASED GLUCOSE; Start 03/24/16 at 09:00 Dextrose (D50w Syringe) 50 ml Q15M PRN IV DECREASED GLUCOSE; Start 03/24/16 at 09:00 Glucagon (Glucagen) 1 mg Q15M PRN IM DECREASED GLUCOSE; Start 03/24/16 at 09:00 Glucose 15 gm 15 gm Q15M PRN BUCCAL DECREASED GLUCOSE; Start 03/24/16 at 09:00 Vancomycin HCl/ Sodium Chloride (Vancocin/NS) 250 ml @ 83.333 mls/ hr Q8H IVPB Last administered on 03/25/16 11:23; Admin Dose 83.333 MLS/HR; Start 03/24/16 at 19:00 Lorazepam (Ativan) 1 mg Q2H PRN IV AGITATION Last administered on 03/25/16 02: 39; Admin Dose 1 MG; Start 03/24/16 at 11:30 Acetaminophen (Tylenol Supp) 650 mg Q6H PRN [place] fever Last administered on 11:23; Admin Dose 650 MG; Start 03/24/16 at 19:00 Nystatin (Nystatin Oint) 1 applic TID TOP Last administered on 03/25/16 10:07; Admin Dose 1 APPLIC; Start 03/24/16 at 21:00 AYAAN YAO Mar 25, 2016 12:15
--- NOTE | 2016-03-25 14:36 | CONS ---
Date/Time of Note Date/Time of Note DATE: 03/25/16 TIME: 14:34 Consult Date/Type/Reason Admit Date/Time Mar 23, 2016 at 21:33 Initial Consult Date 03/24/16 Type of Consultation: ID Subjective no events, lethargic, nad, spiking fevers Objective Vital Signs Date Time Temp Pulse Resp B/P Pulse Ox O2 Delivery O2 Flow Rate FiO2 03/25/16 14:07 99.4 98 22 148/82 98 03/25/16 09:00 Simple Mask 6.0 Intake and Output 03/24/16 03/24/16 03/25/16 15:00 23:00 07:00 Intake Total 100 ml 350 ml Output Total 1500 ml Balance -1400 ml 350 ml Results/Medications Result Diagram: 03/25/16 0711 03/25/16 0711 Results 24 hrs Laboratory Tests Test 03/24/16 16:40 03/24/16 17:00 03/24/16 18:26 03/24/16 22:42 Hepatitis B Core Total Antibody NEGATIVE Hepatitis B Surface Antibody INDETERMINATE Hepatitis B Surface Antigen NEGATIVE Hepatitis C Antibody REACTIVE H Urine Amorphous Urates FEW Urine Bacteria FEW Urine Bilirubin NEGATIVE Urine Clarity CLEAR Urine Color YELLOW Urine Glucose 0.5% H Urine Hemoglobin 1+ H Urine Ketones NEGATIVE Urine Leukocyte Esterase NEGATIVE Urine Microscopic RBC 0-2 Urine Microscopic WBC 0-2 Urine Mucus FEW Urine Nitrite NEGATIVE Urine Specific [place] >=1.030 H Urine Total Protein 1+ H Urine Urobilinogen 0.2 E.U./dL Urine pH 5.0 Bedside Glucose 163 178 Test 03/25/16 01:11 03/25/16 06:27 03/25/16 07:11 03/25/16 08:11 Bedside Glucose 193 132 148 Anion Gap 14 Basophils # 0.1 Basophils % 0.4 Blood Morphology Comment Blood Urea Nitrogen 14 Calcium Level 7.8 L Carbon Dioxide Level 34 H Chloride Level 105 Creatinine 0.58 L Eosinophils # 0.0 Eosinophils % 0.2 Glucose Level 139 # Hematocrit 31.2 L Hemoglobin 10.2 L Lymphocytes # 2.0 Lymphocytes % 13.2 L Mean Corpuscular Hemoglobin 25.0 L Mean Corpuscular Hemoglobin Concent 32.8 Mean Corpuscular Volume 76.4 L Mean Platelet Volume 7.9 Monocytes # 1.2 H Monocytes % 7.8 Neutrophils # 12.0 H Neutrophils % 78.4 H Nucleated Red Blood Cells # 0.0 Nucleated Red Blood Cells % 0.0 Platelet Count 414 # Potassium Level 3.7 Red Blood Count 4.09 L Red Cell Distribution Width 15.6 H Sodium Level 149 H White Blood Count 15.4 #H Test 03/25/16 10:10 03/25/16 13:17 Vancomycin Level Trough 9.9 L Bedside Glucose 113 Medications Current Medications Potassium Chloride/Sodium Chloride (1/2 NS + KCl 20 Meq) 1,000 ml @ 100 mls/hr Q10H IV Last administered on 03/24/16 10:11; Admin Dose 100 MLS/HR; Start at 22:47 Ondansetron HCl (Zofran Inj) 4 mg Q6H PRN IV NAUSEA AND/OR VOMITING; Start 03/23 at 23:00 Acetaminophen (Tylenol Tab) 650 mg Q6H PRN PO PAIN LEVEL 1-3 OR FEVER Last administered on 03/24/16 18:49; Admin Dose 650 MG; Start 03/23/16 at 23:00 Acetaminophen/ Hydrocodone Bitart ([place] (5/325)) 1 tab Q6H PRN PO MODERATE PAIN LEVEL 4-6; Start 03/23/16 at 23:00 Morphine Sulfate (morphine) 2 mg Q4H PRN IV SEVERE PAIN LEVEL 7-10 Last administered on 03/25/16 11:25; Admin Dose 2 MG; Start 03/23/16 at 23:00 Docusate Sodium (Colace) 100 mg Q12H PRN PO CONSTIPATION; Start 03/23/16 at 23: 00 Pantoprazole 40 mg 40 mg DAILY@06 IV Last administered on 03/25/16 06:33; Admin Dose 40 MG; Start 03/24/16 at 06:00 Piperacillin Sod/ Tazobactam Sod (Zosyn 3.375gm/ 100 ml (Pmx)) 100 ml @ 200 mls /hr Q6 IVPB Last administered on 03/25/16 13:13; Admin Dose 200 MLS/HR; Start 03/24/16 at 00:00 Nicotine (Nicoderm 14 Mg/ 24hr) 1 patch DAILY TRANSDERM Last administered on 10:08; Admin Dose 1 PATCH; Start 03/24/16 at 09:00 Insulin Aspart (Novolog Insulin Pen) NOVOLOG *MODERATE* ALGORI... Q4 SC Last administered on 03/25/16 10:48; Admin Dose 2 UNIT; Start 03/24/16 at 01:00 Insulin Glargine (Lantus) 20 unit HS SC Last administered on 03/24/16 23:42; Admin Dose 20 UNIT; Start 03/23/16 at 23:43 Miscellaneous Information 1 ea NOTE XX ; Start 03/24/16 at 09:00 Glucose (Glutose) 15 gm Q15M PRN PO DECREASED GLUCOSE; Start 03/24/16 at 09:00 Glucose (Glutose) 22.5 gm Q15M PRN PO DECREASED GLUCOSE; Start 03/24/16 at 09:00 Dextrose (D50w Syringe) 25 ml Q15M PRN IV DECREASED GLUCOSE; Start 03/24/16 at 09:00 Dextrose (D50w Syringe) 50 ml Q15M PRN IV DECREASED GLUCOSE; Start 03/24/16 at 09:00 Glucagon (Glucagen) 1 mg Q15M PRN IM DECREASED GLUCOSE; Start 03/24/16 at 09:00 Glucose (Glutose) 15 gm Q15M PRN BUCCAL DECREASED GLUCOSE; Start 03/24/16 at 09: 00 Lorazepam (Ativan) 1 mg Q2H PRN IV AGITATION Last administered on 03/25/16 02: 39; Admin Dose 1 MG; Start 03/24/16 at 11:30 Acetaminophen (Tylenol Supp) 650 mg Q6H PRN [place] fever Last administered on 11:23; Admin Dose 650 MG; Start 03/24/16 at 19:00 Nystatin 1 applic 1 applic TID TOP Last administered on 03/25/16 13:16; Admin Dose 1 APPLIC; Start 03/24/16 at 21:00 Vancomycin HCl/ Sodium Chloride (Vancocin/NS) 500 ml @ 125 mls/hr Q8H IVPB ; Start 03/25/16 at 18:30 Assessment/Plan Chief Complaint/Hosp Course DIAGNOSTICS: Chest x-ray revealed vascular congestion, questionable infiltrate. X-ray of the foot revealed gas gangrene of the right foot with subcutaneous emphysema, as well as destructive changes at the head of the second metatarsal, suggestive of osteomyelitis. ANTIMICROBIALS: IV vancomycin and Zosyn. PHYSICAL EXAMINATION: GENERAL: This is a morbidly obese, ill-appearing, middle-aged white man, who is obtunded, restless, in no distress. HEENT: Head atraumatic, normocephalic. Sclerae anicteric. Buccal mucosa dry. NECK: Supple. CHEST: Rise symmetrical. Breath sounds diminished to bases. HEART: S1, S2. ABDOMEN: Soft, obese. Bowel tones present. EXTREMITIES: Left foot dressing intact; however, with a strong foul odor, and some drainage present on the dressing. ASSESSMENT: 1. Severe sepsis with fevers, leukocytosis, lactic acidosis, and acute encephalopathy 2 to #2. 2. Left foot osteomyelitis, abscess, wet gangrene with cultures previously growing Pseudomonas, Streptococcus agalactia, and Corynebacterium species. 3. Morbid obesity. 4. History of drug use 5. Poorly controlled diabetes. 6. History of right hallux amputation. 7. Peripheral vascular disease. PLAN: Remains unchanged, covered with broad spectrum antibiotics. Cultures are pending. Podiatry on case. Continue present care, antibiotics, anti- aspiration measures. [facility] staff Problems: KIRSTEN OLIVAREZ NP Mar 25, 2016 14:36
--- NOTE | 2016-03-25 18:04 | PN ---
Date/Time of Note Date/Time of Note DATE: 03/25/16 TIME: 17:55 Assessment/Plan Lines/Catheters [facility] Mar[facility]cal [facility] Yes Assessment/Plan Problems: (1) Foot abscess, right Comment: This patient is not properly consented for surgery today. His overall clinical condition is improved slightly since yesterday after I attempted bedside drainage of his right foot. I attempted a second drainage of right foot using aseptic technique at bedside. Proper consent for surgery will be reattempted either from the patient when he is awake and oriented or with medical proxy. At this time, patient will be monitored closely. If condition starts to get worse, then his surgical status will be reevaluated. Patient will be followed in house. (2) Non-pressure chronic ulcer of other part of right foot with fat layer exposed Status: Acute (3) Acquired absence of right great toe Status: Acute (4) Drug abuse and dependence Status: Acute (5) Noncompliance by refusing intervention or support Status: Acute (6) Foot osteomyelitis, right Status: Acute (7) Diabetes, polyneuropathy Status: Chronic Subjective 24 Hr Interval Summary Patient was seen at bedside. He continues to remain sedated and is non responsive to verbal command. Nursing contacted me that the were able to obtain consent from his "roommate" for his surgery. Next of kin not available for consent. He is scheduled for surgery today. Additional Comments Patient is sedated and unable to obtain history from patient. Exam/Review of Systems Vital Signs Vitals Vital Signs Date Time Temp Pulse Resp B/P Pulse Ox O2 Delivery O2 Flow Rate FiO2 03/25/16 16:45 103 03/25/16 15:54 99.4 22 127/74 95 03/25/16 15:26 3.0 03/25/16 09:00 Simple Mask Intake and Output 03/24/16 03/24/16 03/25/16 15:00 23:00 07:00 Intake Total 100 ml 350 ml Output Total 1500 ml Balance -1400 ml 350 ml Exam Free Text/Dictation Morbidly obese male, sedated and in no acute distress. Bandages were removed from his right foot. There is significant malodor present in the room Necrosis of right foot noted in several places with underlying fluctuance. There is macerated soft eschar on the medial and plantar right fifth MPJ with yellow purulent drainage and fluctuance. The right 4th toe is gangrenous with purulent drainage from the base of the toe. Medial right rearfoot soft eschar present with underlying fluctuance and dark colored drainage and malodor. There is an open wound on the plantar right foot s/p previous incision and drainage with yellow pus draining. Overall, there is decrease in edema of the right foot with improved temperature gradient. His WBC is also dropped since admission. Dorsalis pedis and posterior tibial pulses are not palpable. Results Result Diagram: 03/25/16 0711 03/25/16 0711 ESTEE IBRAHIM DPM Mar 25, 2016 18:04
[2016-03-25] MEDS: VANCOMYCIN 1.75 GM in NS 500 ML IVPB SCH (19:05)
[2016-03-25] MEDS: INSULIN GLARGINE [LANtus] 3 ML PEN SC SCH (21:01)
[2016-03-26] VITALS (13 sets, daily range): BP systolic 132–182; BP diastolic 62–86; PULSE 85–104; RESP 18–24
[2016-03-26] MEDS: PIPER-TAZO 3.375 GM IV (PMX) 100 ML IVPB SCH ×5 (00:03→23:39)
[2016-03-26] MEDS: 1/2 NS + KCL 20 MEQ 1,000 ML IV SCH ×3 (00:03→21:42)
[2016-03-26] MEDS: INSULIN ASPART [NOVOLOG] 3 ML PEN SC SCH ×6 (01:00→21:57)
[2016-03-26] MEDS: VANCOMYCIN 1.75 GM in NS 500 ML IVPB SCH ×3 (02:44→21:40)
[2016-03-26] MEDS: PANTOPRAZOLE 40 MG INJ IV SCH (06:02)
[2016-03-26 07:32] LABS: BASOPHIL # 0.1 10^3/ul (0.0-0.1); BASOPHILS % 0.4 % (0.0-2.0); EOSINOPHILS # 0.2 10^3/ul (0.0-0.5); EOSINOPHILS % 1.3 % (0.0-7.0); HEMATOCRIT 32.9 % (42.0-52.0); HEMOGLOBIN 10.6 g/dl (14.0-18.0); LYMPHOCYTES # 1.7 10^3/ul (0.8-2.9); LYMPHOCYTES % 14.3 % (15.0-51.0); MEAN CORPUSCULAR HEMOGLOBIN 24.7 pg (29.0-33.0); MEAN CORPUSCULAR HGB CONC 32.2 g/dl (32.0-37.0); MEAN CORPUSCULAR VOLUME 76.6 fl (82.0-101.0); MEAN PLATELET VOLUME 7.8 fl (7.4-10.4); MONOCYTE # 0.8 10^3/ul (0.3-0.9); MONOCYTES % 6.3 % (0.0-11.0); NEUTROPHIL # 9.3 10^3/ul (1.6-7.5); NEUTROPHILS % 77.7 % (39.0-77.0); PLATELET COUNT 424 10^3/UL (140-440); RED BLOOD COUNT 4.29 10^6/ul (4.70-6.10); RED CELL DISTRIBUTION WIDTH 15.4 % (11.5-14.5)
[2016-03-26 07:36] LABS: CONDITION 1; LH ANALYZER COMMENTS 1
[2016-03-26 07:51] LABS: POTASSIUM 3.7 mmol/L (3.5-5.1)
[2016-03-26 07:53] LABS: CREATININE 0.53 mg/dl (0.61-1.24)
[2016-03-26 07:54] LABS: CALCIUM 8.1 mg/dl (8.4-10.2)
[2016-03-26] MEDS: NYSTATIN 15 GM OINT TOP SCH ×3 (09:00→21:49)
[2016-03-26] MEDS: NICOTINE (14 MG/24 HR) PATCH TRANSDERM SCH (10:27)
--- NOTE | 2016-03-26 12:03 | CONS ---
Date/Time of Note Date/Time of Note DATE: 03/26/16 TIME: 12:01 Consult Date/Type/Reason Admit Date/Time Mar 23, 2016 at 21:33 Initial Consult Date 03/24/16 Type of Consultation: ID Subjective no events, sleeping, nad, no fevers Objective Vital Signs Date Time Temp Pulse Resp B/P Pulse Ox O2 Delivery O2 Flow Rate FiO2 03/26/16 10:57 98.2 87 18 182/86 100 03/26/16 08:15 Nasal Cannula 3.0 Intake and Output 03/25/16 03/25/16 03/26/16 15:00 23:00 07:00 Intake Total 800 ml 2800 ml Output Total 900 ml 1100 ml 2000 ml Balance -900 ml -300 ml 800 ml Results/Medications Result Diagram: 03/26/16 0640 03/26/16 0640 Results 24 hrs Laboratory Tests Test 03/25/16 13:17 03/25/16 18:17 03/25/16 20:53 03/26/16 01:20 Bedside Glucose 113 102 109 112 Test 03/26/16 04:53 03/26/16 06:40 03/26/16 10:14 Bedside Glucose 124 144 Anion Gap 15 Basophils # 0.1 Basophils % 0.4 Blood Morphology Comment Blood Urea Nitrogen 14 Calcium Level 8.1 L Carbon Dioxide Level 34 H Chloride Level 100 Creatinine 0.53 L Eosinophils # 0.2 Eosinophils % 1.3 Glucose Level 125 Hematocrit 32.9 L Hemoglobin 10.6 L Lymphocytes # 1.7 Lymphocytes % 14.3 L Mean Corpuscular Hemoglobin 24.7 L Mean Corpuscular Hemoglobin Concent 32.2 Mean Corpuscular Volume 76.6 L Mean Platelet Volume 7.8 Monocytes # 0.8 Monocytes % 6.3 Neutrophils # 9.3 H Neutrophils % 77.7 H Nucleated Red Blood Cells # 0.0 Nucleated Red Blood Cells % 0.0 Platelet Count 424 Potassium Level 3.7 Red Blood Count 4.29 L Red Cell Distribution Width 15.4 H Sodium Level 145 H White Blood Count 12.0 #H Medications Current Medications Potassium Chloride/Sodium Chloride (1/2 NS + KCl 20 Meq) 1,000 ml @ 100 mls/hr Q10H IV Last administered on 03/26/16t 00:03; Admin Dose 100 MLS/HR; Start at 22:47 Ondansetron HCl (Zofran Inj) 4 mg Q6H PRN IV NAUSEA AND/OR VOMITING; Start 03/23 at 23:00 Acetaminophen (Tylenol Tab) 650 mg Q6H PRN PO PAIN LEVEL 1-3 OR FEVER Last administered on 03/24/16 18:49; Admin Dose 650 MG; Start 03/23/16 at 23:00 Acetaminophen/ Hydrocodone Bitart ([place] (5/325)) 1 tab Q6H PRN PO MODERATE PAIN LEVEL 4-6; Start 03/23/16 at 23:00 Morphine Sulfate (morphine) 2 mg Q4H PRN IV SEVERE PAIN LEVEL 7-10 Last administered on 03/25/16 11:25; Admin Dose 2 MG; Start 03/23/16 at 23:00 Docusate Sodium (Colace) 100 mg Q12H PRN PO CONSTIPATION; Start 03/23/16 at 23: 00 Pantoprazole 40 mg 40 mg DAILY@06 IV Last administered on 03/26/16 06:02; Admin Dose 40 MG; Start 03/24/16 at 06:00 Piperacillin Sod/ Tazobactam Sod (Zosyn 3.375gm/ 100 ml (Pmx)) 100 ml @ 200 mls /hr Q6 IVPB Last administered on 03/26/16 06:02; Admin Dose 200 MLS/HR; Start 03/24/16 at 00:00 Nicotine (Nicoderm 14 Mg/ 24hr) 1 patch DAILY TRANSDERM Last administered on 10:27; Admin Dose 1 PATCH; Start 03/24/16 at 09:00 Insulin Glargine (Lantus) 20 unit HS SC Last administered on 03/25/16 21:01; Admin Dose 20 UNIT; Start 03/23/16 at 23:43 Miscellaneous Information 1 ea NOTE XX ; Start 03/24/16 at 09:00 Glucose (Glutose) 15 gm Q15M PRN PO DECREASED GLUCOSE; Start 03/24/16 at 09:00 Glucose (Glutose) 22.5 gm Q15M PRN PO DECREASED GLUCOSE; Start 03/24/16 at 09:00 Dextrose (D50w Syringe) 25 ml Q15M PRN IV DECREASED GLUCOSE; Start 03/24/16 at 09:00 Dextrose (D50w Syringe) 50 ml Q15M PRN IV DECREASED GLUCOSE; Start 03/24/16 at 09:00 Glucagon (Glucagen) 1 mg Q15M PRN IM DECREASED GLUCOSE; Start 03/24/16 at 09:00 Glucose (Glutose) 15 gm Q15M PRN BUCCAL DECREASED GLUCOSE; Start 03/24/16 at 09: 00 Lorazepam (Ativan) 1 mg Q2H PRN IV AGITATION Last administered on 03/25/16 02: 39; Admin Dose 1 MG; Start 03/24/16 at 11:30 Acetaminophen (Tylenol Supp) 650 mg Q6H PRN [place] fever Last administered on 11:23; Admin Dose 650 MG; Start 03/24/16 at 19:00 Nystatin 1 applic 1 applic TID TOP Last administered on 03/26/16 09:00; Admin Dose 1 APPLIC; Start 03/24/16 at 21:00 Vancomycin HCl/ Sodium Chloride (Vancocin/NS) 500 ml @ 125 mls/hr Q8H IVPB Last administered on 03/26/16 10:35; Admin Dose 125 MLS/HR; Start 03/25/16 at 18: 30 Diagnostic Test (Pha) (Accucheck) 1 ea 02 XX ; Start 03/27/16 at 02:00 Assessment/Plan Chief Complaint/Hosp Course DIAGNOSTICS: Chest x-ray revealed vascular congestion, questionable infiltrate. X-ray of the foot revealed gas gangrene of the right foot with subcutaneous emphysema, as well as destructive changes at the head of the second metatarsal, suggestive of osteomyelitis. ANTIMICROBIALS: IV vancomycin and Zosyn. PHYSICAL EXAMINATION: GENERAL: This is a morbidly obese, ill-appearing, middle-aged white man, who is sleeping, in no distress. HEENT: Head atraumatic, normocephalic. Sclerae anicteric. Buccal mucosa dry. NECK: Supple. CHEST: Rise symmetrical. Breath sounds diminished to bases. HEART: S1, S2. ABDOMEN: Soft, obese. Bowel tones present. EXTREMITIES: Left foot dressing intact; however, with a strong foul odor, and some drainage present on the dressing. ASSESSMENT: 1. Severe sepsis with fevers, leukocytosis, lactic acidosis, and acute encephalopathy 2 to #2. 2. Left foot osteomyelitis, abscess, wet gangrene with cultures previously growing Pseudomonas, Streptococcus agalactia, and Corynebacterium species==> s/ p bedside debridement. 3. Morbid obesity. 4. History of drug use 5. Poorly controlled diabetes. 6. History of right hallux amputation. 7. Peripheral vascular disease. PLAN: Stable, wbc decreasing, no fevers, covered with broad spectrum antibiotics. Cultures are pending. Podiatry on case. Continue present care, antibiotics, anti-aspiration measures. [facility] staff Problems: KIRSTEN OLIVAREZ NP Mar 26, 2016 12:03
--- NOTE | 2016-03-26 18:55 | PN ---
Date/Time of Note Date/Time of Note DATE: 03/26/16 TIME: 18:46 Assessment/Plan Lines/Catheters IV Catheter Type (from [facility]): Peripheral IV Mariscal in Place (from [facility]): Yes Assessment/Plan Problems: (1) Non-pressure chronic ulcer of other part of right foot with fat layer exposed Status: Acute (2) Osteomyelitis Status: Acute Qualifiers: Osteomyelitis location: foot Laterality: right Chronicity: acute Qualified Code: M86.171 - Acute osteomyelitis of right foot (3) Foot osteomyelitis, right Status: Acute (4) Acquired absence of right great toe Status: Acute (5) Diabetes, polyneuropathy Status: Chronic (6) Morbid obesity due to excess calories Status: Chronic Assessment/Plan My recommendation for this patient is below the knee amputation. Patient's condition and his compliance is of great concern. He has not been compliant with his treatment regimen that was given to him during his last visit to the hospital. He complains that he cannot afford the medication. Patient's condition is severe and his prognosis is poor. His clinical status has improved since his admission to the hospital but he continues to have a limb threatening condition. I have also discussed my findings with infectious disease specialist. Patient will be followed in-house. Subjective 24 Hr Interval Summary Patient was seen and examined at bedside. He is more awake and alert. Patient reports "I did not do any drugs" when I asked him what type of illegal drugs he was taking prior to his admission. Patient reports pain in his right foot. Reports no chest pain and denies fever or chills. Constitutional: no complaints Exam/Review of Systems Vital Signs Vitals Vital Signs Date Time Temp Pulse Resp B/P Pulse Ox O2 Delivery O2 Flow Rate FiO2 03/26/16 16:37 87 03/26/16 15:12 97.6 20 132/86 95 03/26/16 08:15 Nasal Cannula 3.0 Intake and Output 03/25/16 03/25/16 03/26/16 15:00 23:00 07:00 Intake Total 800 ml 2800 ml Output Total 900 ml 1100 ml 2000 ml Balance -900 ml -300 ml 800 ml Exam Free Text/Dictation Morbidly obese male in no acute distress. Lethargic. Bandages removed from the right foot. Open wound present plantar right foot with purulent drainage. Necrosis of medial right foot with brown drainage and malodor. Necrosis of right fifth MPJ which is extensive and has deep tissue necrosis. Probing to bone. Fourth toe gangrene continues with purulent drainage. There is decrease in erythema and decrease in edema of the right foot. Temperature gradient is improved on the right lower extremity. No other changes noted on examination today. Results Result Diagram: 03/26/16 0640 03/26/16 0640 ESTEE IBRAHIM DPM Mar 26, 2016 18:55
--- NOTE | 2016-03-26 19:19 | PN ---
Date/Time of Note Date/Time of Note DATE: 03/26/16 TIME: 19:15 Assessment/Plan VTE Prophylaxis VTE Prophylaxis Intervention: heparin Lines/Catheters IV Catheter Type (from Nrs): Peripheral IV Urinary Cath still in place: Yes Reason Cath still needed: other (indicate) (will d/c) Assessment/Plan Assessment/Plan 36-year-old male, presumably noncompliant history of type 2 diabetes, uncontrolled, and osteomyelitis of the right foot, diagnosed in February 2016, who comes in with sepsis secondary to osteomyelitis and gas gangrene findings. 1. Sepsis - secondary to right foot osteomyelitis with gas gangrene found. Blood cultures noted / wound cultures still pending / abx per ID 2. Type 2 diabetes, uncontrolled at home, FS improved here in hospital now. - Continue sliding scale insulin. 3. History of substance abuse - On last admission, he had positive methamphetamine, and he is showing signs of lethargy and agitation, and possible withdrawal. - Follow drug screen. - Ativan p.r.n. for that and also IV fluids. 4. Morbid obesity. Lifestyle changes will be educated again with the patient 5. Group B strep and Corynebacterium pseudomonas wound infections from the foot last time. Follow up final culture results now. 6. Tobacco use/ dependence. Tobacco cessation counselling done and will continue to be reinforced throughout hospitalization. / Nicotine patch 7. Chronic Depression Patient has a history of this condition. No acute issues so far on this admission. 8. Gastrointestinal prophylaxis. Continue PPI. 9. Deep venous thrombosis prophylaxis. Add heparin. Dispo: continue abx / f/upodiatry plan / cont supportive care Subjective 24 Hr Interval Summary Free Text/Dictation Patient seen and examined. continued pain and foul smell R foot Exam/Review of Systems Vital Signs Vitals Vital Signs Date Time Temp Pulse Resp B/P Pulse Ox O2 Delivery O2 Flow Rate FiO2 03/26/16 16:37 87 03/26/16 15:12 97.6 20 132/86 95 03/26/16 08:15 Nasal Cannula 3.0 Intake and Output 03/25/16 03/25/16 03/26/16 15:00 23:00 07:00 Intake Total 800 ml 2800 ml Output Total 900 ml 1100 ml 2000 ml Balance -900 ml -300 ml 800 ml Exam GENERAL: Patient is awake/ alert / oriented HEENT: Pupils equal, round, reactive to light. Extraocular muscles intact. NECK: Supple, no thyromegaly. LUNGS: Clear to auscultation bilaterally. CARDIOVASCULAR: S1 and S2 only. No rubs or gallops. ABDOMEN: Obese, but otherwise nontender, nondistended, soft. MUSCULOSKELETAL: Right foot significantly infected with bandage noted over the right foot, with leakage to the bandage site. Otherwise, no lower-extremity edema bilaterally. NEUROLOGIC: Moves upper and lower extremities. Results Result Diagram: 03/26/16 0640 03/26/16 0640 Results 24 hrs Laboratory Tests Test 03/25/16 20:53 03/26/16 01:20 03/26/16 04:53 03/26/16 06:40 Bedside Glucose 109 112 124 Anion Gap 15 Basophils # 0.1 Basophils % 0.4 Blood Morphology Comment Blood Urea Nitrogen 14 Calcium Level 8.1 L Carbon Dioxide Level 34 H Chloride Level 100 Creatinine 0.53 L Eosinophils # 0.2 Eosinophils % 1.3 Glucose Level 125 Hematocrit 32.9 L Hemoglobin 10.6 L Lymphocytes # 1.7 Lymphocytes % 14.3 L Mean Corpuscular Hemoglobin 24.7 L Mean Corpuscular Hemoglobin Concent 32.2 Mean Corpuscular Volume 76.6 L Mean Platelet Volume 7.8 Monocytes # 0.8 Monocytes % 6.3 Neutrophils # 9.3 H Neutrophils % 77.7 H Nucleated Red Blood Cells # 0.0 Nucleated Red Blood Cells % 0.0 Platelet Count 424 Potassium Level 3.7 Red Blood Count 4.29 L Red Cell Distribution Width 15.4 H Sodium Level 145 H White Blood Count 12.0 #H Test 03/26/16 10:14 03/26/16 12:24 03/26/16 18:47 Bedside Glucose 144 155 373 H Medications Medications Current Medications Potassium Chloride/Sodium Chloride (1/2 NS + KCl 20 Meq) 1,000 ml @ 100 mls/hr Q10H IV Last administered on 03/26/16 00:03; Admin Dose 100 MLS/HR; Start at 22:47 Ondansetron HCl (Zofran Inj) 4 mg Q6H PRN IV NAUSEA AND/OR VOMITING; Start 03/23 at 23:00 Acetaminophen (Tylenol Tab) 650 mg Q6H PRN PO PAIN LEVEL 1-3 OR FEVER Last administered on 03/24/16 18:49; Admin Dose 650 MG; Start 03/23/16 at 23:00 Acetaminophen/ Hydrocodone Bitart ([place] (5/325)) 1 tab Q6H PRN PO MODERATE PAIN LEVEL 4-6; Start 03/23/16 at 23:00 Morphine Sulfate (morphine) 2 mg Q4H PRN IV SEVERE PAIN LEVEL 7-10 Last administered on 03/25/16 11:25; Admin Dose 2 MG; Start 03/23/16 at 23:00 Docusate Sodium (Colace) 100 mg Q12H PRN PO CONSTIPATION; Start 03/23/16 at 23: 00 Pantoprazole 40 mg 40 mg DAILY@06 IV Last administered on 03/26/16 06:02; Admin Dose 40 MG; Start 03/24/16 at 06:00 Piperacillin Sod/ Tazobactam Sod (Zosyn 3.375gm/ 100 ml (Pmx)) 100 ml @ 200 mls /hr Q6 IVPB Last administered on 03/26/16 18:45; Admin Dose 200 MLS/HR; Start 03/24/16 at 00:00 Nicotine (Nicoderm 14 Mg/ 24hr) 1 patch DAILY TRANSDERM Last administered on 10:27; Admin Dose 1 PATCH; Start 03/24/16 at 09:00 Insulin Glargine (Lantus) 20 unit HS SC Last administered on 03/25/16 21:01; Admin Dose 20 UNIT; Start 03/23/16 at 23:43 Miscellaneous Information 1 ea NOTE XX ; Start 03/24/16 at 09:00 Glucose (Glutose) 15 gm Q15M PRN PO DECREASED GLUCOSE; Start 03/24/16 at 09:00 Glucose (Glutose) 22.5 gm Q15M PRN PO DECREASED GLUCOSE; Start 03/24/16 at 09:00 Dextrose (D50w Syringe) 25 ml Q15M PRN IV DECREASED GLUCOSE; Start 03/24/16 at 09:00 Dextrose (D50w Syringe) 50 ml Q15M PRN IV DECREASED GLUCOSE; Start 03/24/16 at 09:00 Glucagon (Glucagen) 1 mg Q15M PRN IM DECREASED GLUCOSE; Start 03/24/16 at 09:00 Glucose (Glutose) 15 gm Q15M PRN BUCCAL DECREASED GLUCOSE; Start 03/24/16 at 09: 00 Lorazepam (Ativan) 1 mg Q2H PRN IV AGITATION Last administered on 03/25/16 02: 39; Admin Dose 1 MG; Start 03/24/16 at 11:30 Acetaminophen (Tylenol Supp) 650 mg Q6H PRN OR fever Last administered on 11:23; Admin Dose 650 MG; Start 03/24/16 at 19:00 Nystatin 1 applic 1 applic TID TOP Last administered on 03/26/16 13:00; Admin Dose 1 APPLIC; Start 03/24/16 at 21:00 Vancomycin HCl/ Sodium Chloride (Vancocin/NS) 500 ml @ 125 mls/hr Q8H IVPB Last administered on 03/26/16 10:35; Admin Dose 125 MLS/HR; Start 03/25/16 at 18: 30 Diagnostic Test (Pha) (Accucheck) 1 ea 02 XX ; Start 03/27/16 at 02:00 DOMENICO BENSON Mar 26, 2016 19:19
[2016-03-26] MEDS: INSULIN GLARGINE [LANtus] 3 ML PEN SC SCH (21:54)
[2016-03-27] VITALS (13 sets, daily range): BP systolic 101–132; BP diastolic 62–78; PULSE 80–112; RESP 15–20
[2016-03-27] MEDS: VANCOMYCIN 1.75 GM in NS 500 ML IVPB SCH (02:41)
[2016-03-27] MEDS: ACCUCHECK XX SCH (02:43)
[2016-03-27] MEDS: PIPER-TAZO 3.375 GM IV (PMX) 100 ML IVPB SCH ×3 (05:11→17:26)
[2016-03-27] MEDS: PANTOPRAZOLE 40 MG INJ IV SCH (05:11)
[2016-03-27] MEDS: morphine 2 MG INJ IV PRN ×2 (05:11→20:26)
[2016-03-27] MEDS: 1/2 NS + KCL 20 MEQ 1,000 ML IV SCH (06:26)
[2016-03-27 07:04] LABS: BASOPHILS % 0.4 % (0.0-2.0); EOSINOPHILS # 0.3 10^3/ul (0.0-0.5); HEMATOCRIT 31.6 % (42.0-52.0); HEMOGLOBIN 10.2 g/dl (14.0-18.0); LYMPHOCYTES # 1.6 10^3/ul (0.8-2.9); LYMPHOCYTES % 18.6 % (15.0-51.0); MEAN CORPUSCULAR HEMOGLOBIN 24.9 pg (29.0-33.0); MEAN CORPUSCULAR HGB CONC 32.4 g/dl (32.0-37.0); MEAN CORPUSCULAR VOLUME 76.7 fl (82.0-101.0); MEAN PLATELET VOLUME 7.6 fl (7.4-10.4); MONOCYTE # 0.5 10^3/ul (0.3-0.9); MONOCYTES % 6.2 % (0.0-11.0); NEUTROPHIL # 6.1 10^3/ul (1.6-7.5); NEUTROPHILS % 71.8 % (39.0-77.0); PLATELET COUNT 358 10^3/UL (140-440); RED BLOOD COUNT 4.11 10^6/ul (4.70-6.10); RED CELL DISTRIBUTION WIDTH 15.8 % (11.5-14.5); UNCORRECTED WBC 8.4 10^3/ul (4.8-10.8); WHITE BLOOD COUNT 8.4 10^3/ul (4.8-10.8)
[2016-03-27 07:07] LABS: POTASSIUM 3.7 mmol/L (3.5-5.1)
[2016-03-27 07:08] LABS: CONDITION 1; LH ANALYZER COMMENTS 1
[2016-03-27 07:10] LABS: CREATININE 0.65 mg/dl (0.61-1.24)
[2016-03-27 07:11] LABS: CALCIUM 7.7 mg/dl (8.4-10.2)
[2016-03-27] MEDS: NICOTINE (14 MG/24 HR) PATCH TRANSDERM SCH (08:22)
[2016-03-27] MEDS: INSULIN ASPART [NOVOLOG] 3 ML PEN SC SCH ×5 (08:22→20:28)
[2016-03-27] MEDS: NYSTATIN TOP SCH ×3 (12:31→20:30)
--- NOTE | 2016-03-27 13:38 | CONS ---
Date/Time of Note Date/Time of Note DATE: 03/27/16 TIME: 13:36 Consult Date/Type/Reason Admit Date/Time Mar 23, 2016 at 21:33 Initial Consult Date 03/24/16 Type of Consultation: ID Subjective no acute changes, looks comfortable, no fevers, nad Objective Vital Signs Date Time Temp Pulse Resp B/P Pulse Ox O2 Delivery O2 Flow Rate FiO2 03/27/16 12:15 112 03/27/16 11:36 98.2 20 115/62 100 03/27/16 08:18 3.0 03/26/16 20:10 Nasal Cannula Intake and Output 03/26/16 03/26/16 03/27/16 15:00 23:00 07:00 Intake Total 4700 ml 1200 ml Output Total 2000 ml Balance 2700 ml 1200 ml Results/Medications Result Diagram: 03/27/16 0600 03/27/16 0600 Results 24 hrs Laboratory Tests Test 03/26/16 18:47 03/26/16 21:15 03/27/16 02:40 03/27/16 06:00 Bedside Glucose 373 H 308 H 208 Anion Gap 12 Basophils # 0.0 Basophils % 0.4 Blood Morphology Comment Blood Urea Nitrogen 16 Calcium Level 7.7 L Carbon Dioxide Level 34 H Chloride Level 99 Creatinine 0.65 Eosinophils # 0.3 Eosinophils % 3.0 Glucose Level 196 Hematocrit 31.6 L Hemoglobin 10.2 L Lymphocytes # 1.6 Lymphocytes % 18.6 Mean Corpuscular Hemoglobin 24.9 L Mean Corpuscular Hemoglobin Concent 32.4 Mean Corpuscular Volume 76.7 L Mean Platelet Volume 7.6 Monocytes # 0.5 Monocytes % 6.2 Neutrophils # 6.1 Neutrophils % 71.8 Nucleated Red Blood Cells # 0.0 Nucleated Red Blood Cells % 0.0 Platelet Count 358 Potassium Level 3.7 Red Blood Count 4.11 L Red Cell Distribution Width 15.8 H Sodium Level 141 White Blood Count 8.4 # Test 03/27/16 08:05 03/27/16 09:15 03/27/16 11:43 Bedside Glucose 223 H 183 Vancomycin Level Trough 23.5 *H Medications Current Medications Potassium Chloride/Sodium Chloride (1/2 NS + KCl 20 Meq) 1,000 ml @ 100 mls/hr Q10H IV Last administered on 03/26/16t 21:42; Admin Dose 100 MLS/HR; Start at 22:47 Ondansetron HCl (Zofran Inj) 4 mg Q6H PRN IV NAUSEA AND/OR VOMITING; Start 03/23 at 23:00 Acetaminophen (Tylenol Tab) 650 mg Q6H PRN PO PAIN LEVEL 1-3 OR FEVER Last administered on 03/24/16 18:49; Admin Dose 650 MG; Start 03/23/16 at 23:00 Acetaminophen/ Hydrocodone Bitart ([place] (5/325)) 1 tab Q6H PRN PO MODERATE PAIN LEVEL 4-6; Start 03/23/16 at 23:00 Morphine Sulfate (morphine) 2 mg Q4H PRN IV SEVERE PAIN LEVEL 7-10 Last administered on 03/27/16 05:11; Admin Dose 2 MG; Start 03/23/16 at 23:00 Docusate Sodium (Colace) 100 mg Q12H PRN PO CONSTIPATION; Start 03/23/16 at 23: 00 Pantoprazole 40 mg 40 mg DAILY@06 IV Last administered on 03/27/16 05:11; Admin Dose 40 MG; Start 03/24/16 at 06:00 Piperacillin Sod/ Tazobactam Sod (Zosyn 3.375gm/ 100 ml (Pmx)) 100 ml @ 200 mls /hr Q6 IVPB Last administered on 03/27/16 12:31; Admin Dose 200 MLS/HR; Start 03/24/16 at 00:00 Nicotine (Nicoderm 14 Mg/ 24hr) 1 patch DAILY TRANSDERM Last administered on 08:22; Admin Dose 1 PATCH; Start 03/24/16 at 09:00 Miscellaneous Information 1 ea NOTE XX ; Start 03/24/16 at 09:00 Glucose (Glutose) 15 gm Q15M PRN PO DECREASED GLUCOSE; Start 03/24/16 at 09:00 Glucose (Glutose) 22.5 gm Q15M PRN PO DECREASED GLUCOSE; Start 03/24/16 at 09:00 Dextrose (D50w Syringe) 25 ml Q15M PRN IV DECREASED GLUCOSE; Start 03/24/16 at 09:00 Dextrose (D50w Syringe) 50 ml Q15M PRN IV DECREASED GLUCOSE; Start 03/24/16 at 09:00 Glucagon (Glucagen) 1 mg Q15M PRN IM DECREASED GLUCOSE; Start 03/24/16 at 09:00 Glucose (Glutose) 15 gm Q15M PRN BUCCAL DECREASED GLUCOSE; Start 03/24/16 at 09: 00 Lorazepam (Ativan) 1 mg Q2H PRN IV AGITATION Last administered on 03/25/16 02: 39; Admin Dose 1 MG; Start 03/24/16 at 11:30 Acetaminophen (Tylenol Supp) 650 mg Q6H PRN [place] fever Last administered on 11:23; Admin Dose 650 MG; Start 03/24/16 at 19:00 Diagnostic Test (Pha) (Accucheck) 1 ea 02 XX Last administered on 03/27/16 02: 43; Admin Dose 1 EA; Start 03/27/16 at 02:00 Insulin Glargine (Lantus) 25 unit HS SC Last administered on 03/26/16 21:54; Admin Dose 25 UNIT; Start 03/26/16 at 21:00 Nystatin 1 applic 1 applic TID TOP Last administered on 03/27/16 12:31; Admin Dose 1 APPLIC; Start 03/27/16 at 09:00 Vancomycin HCl/ Sodium Chloride (Vancocin/NS) 250 ml @ 83.333 mls/ hr Q8H IVPB ; Start 03/27/16 at 16:00 Miscellaneous Information (*Rx Drug Level Order Reminder*) VANCO TROUGH @ 1, 500 ON... ONCE ONCE XX ; Start 03/28/16 at 15:00; Stop 03/28/16 at 15:01 Heparin Sodium (Porcine) (Heparin (5000 Units/0.5 ml)) 5,000 unit Q8 SC ; Start 03/27/16 at 14:00 Assessment/Plan Chief Complaint/Hosp Course DIAGNOSTICS: Chest x-ray revealed vascular congestion, questionable infiltrate. X-ray of the foot revealed gas gangrene of the right foot with subcutaneous emphysema, as well as destructive changes at the head of the second metatarsal, suggestive of osteomyelitis. ANTIMICROBIALS: IV vancomycin and Zosyn. PHYSICAL EXAMINATION: GENERAL: This is a morbidly obese, ill-appearing, middle-aged white man, who is sleeping, in no distress. HEENT: Head atraumatic, normocephalic. Sclerae anicteric. Buccal mucosa dry. NECK: Supple. CHEST: Rise symmetrical. Breath sounds diminished to bases. HEART: S1, S2. ABDOMEN: Soft, obese. Bowel tones present. EXTREMITIES: Left foot dressing intact; however, with a strong foul odor, and some drainage present on the dressing. ASSESSMENT: 1. Severe sepsis with fevers, leukocytosis, lactic acidosis, and acute encephalopathy 2 to #2. 2. Left foot osteomyelitis, abscess, wet gangrene with cultures previously growing Pseudomonas, Streptococcus agalactia, and Corynebacterium species==> s/ p bedside debridement. 3. Morbid obesity. 4. History of drug use 5. Poorly controlled diabetes. 6. History of right hallux amputation. 7. Peripheral vascular disease. PLAN: Improving, no fevers, covered with broad spectrum antibiotics. Cultures are pending. Podiatry on case. Continue present care, antibiotics, anti- aspiration measures. INGE staff Problems: KIRSTEN OLIVAREZ NP Mar 27, 2016 13:38
--- NOTE | 2016-03-27 13:39 | PN ---
Date/Time of Note Date/Time of Note DATE: 03/27/16 TIME: 13:16 Assessment/Plan VTE Prophylaxis VTE Prophylaxis Intervention: heparin Lines/Catheters IV C[facility] Type [facility]from [facility] Peripheral IV Urinary Cath still in place: No Assessment/Plan Assessment/Plan 36-year-old male, presumably noncompliant history of type 2 diabetes, uncontrolled, and osteomyelitis of the right foot, diagnosed in February 2016, who comes in with sepsis secondary to osteomyelitis and gas gangrene findings. 1. Sepsis - secondary to #2 2. Right foot osteomyelitis with gas gangrene found. s/p bedside drainage x2 so far / Blood cultures noted / wound cultures still pending / abx per ID 3. Type 2 diabetes, uncontrolled at home, FS improved here in hospital but still suboptimal. - Continue sliding scale insulin / adjust Lantus dosage and add premeal novolog 4. Substance abuse - On last admission, he had positive methamphetamine, and he is showing signs of lethargy and agitation, and possible withdrawal: improved - Follow drug screen. - Ativan p.r.n. for that and also IV fluids. 5. Morbid obesity. Lifestyle changes will be educated again with the patient 6. Group B strep and Corynebacterium pseudomonas wound infections from the foot last time. Follow up final culture results now. 7. Tobacco use/ dependence. Tobacco cessation counselling done and will continue to be reinforced throughout hospitalization. / Nicotine patch 8. Chronic Depression Patient has a history of this condition. No acute issues so far on this admission. 9. Hepatitis C Dispo: -Patient still with mild tachycardia and on 3L O2 / will repeat CXR / 2D echo. -Spoke in detail with podiatry. We have a treatment dilemma with this patient. This patient is known to us and has a chronic history of noncompliance, but however requires extensive surgical intervention to save his foot. Podiatry is hesitant to intervene, because patient will need fpc wound care, nursing , antibiotics and good hygiene to prevent worse infection. He will need regular doctor visits and good blood sugar control. Patient is not likely to comply. Podiatry recommends a BKA as the safest route but even with that will require the above. -Will obtain Bioethic consultation to assist us on how to proceed. -Continue abx / cont supportive care Gastrointestinal prophylaxis. Continue PPI. Deep venous thrombosis prophylaxis. Add heparin. Exam/Review of Systems Vital Signs Vitals Vital Signs Date Time Temp Pulse Resp B/P Pulse Ox O2 Delivery O2 Flow Rate FiO2 03/27/16 12:15 112 03/27/16 11:36 98.2 20 115/62 100 03/27/16 08:18 3.0 03/26/16 20:10 Nasal Cannula Intake and Output 03/26/16 03/26/16 03/27/16 15:00 23:00 07:00 Intake Total 4700 ml 1200 ml Output Total 2000 ml Balance 2700 ml 1200 ml Results Result Diagram: 03/27/16 0600 03/27/16 0600 Results 24 hrs Laboratory Tests Test 03/26/16 18:47 03/26/16 21:15 03/27/16 02:40 03/27/16 06:00 Bedside Glucose 373 H 308 H 208 Anion Gap 12 Basophils # 0.0 Basophils % 0.4 Blood Morphology Comment Blood Urea Nitrogen 16 Calcium Level 7.7 L Carbon Dioxide Level 34 H Chloride Level 99 Creatinine 0.65 Eosinophils # 0.3 Eosinophils % 3.0 Glucose Level 196 Hematocrit 31.6 L Hemoglobin 10.2 L Lymphocytes # 1.6 Lymphocytes % 18.6 Mean Corpuscular Hemoglobin 24.9 L Mean Corpuscular Hemoglobin Concent 32.4 Mean Corpuscular Volume 76.7 L Mean Platelet Volume 7.6 Monocytes # 0.5 Monocytes % 6.2 Neutrophils # 6.1 Neutrophils % 71.8 Nucleated Red Blood Cells # 0.0 Nucleated Red Blood Cells % 0.0 Platelet Count 358 Potassium Level 3.7 Red Blood Count 4.11 L Red Cell Distribution Width 15.8 H Sodium Level 141 White Blood Count 8.4 # Test 03/27/16 08:05 03/27/16 09:15 03/27/16 11:43 Bedside Glucose 223 H 183 Vancomycin Level Trough 23.5 *H Medications Medications Current Medications Potassium Chloride/Sodium Chloride (1/2 NS + KCl 20 Meq) 1,000 ml @ 100 mls/hr Q10H IV Last administered on 03/26/16t 21:42; Admin Dose 100 MLS/HR; Start at 22:47 Ondansetron HCl (Zofran Inj) 4 mg Q6H PRN IV NAUSEA AND/OR VOMITING; Start 03/23 at 23:00 Acetaminophen (Tylenol Tab) 650 mg Q6H PRN PO PAIN LEVEL 1-3 OR FEVER Last administered on 03/24/16 18:49; Admin Dose 650 MG; Start 03/23/16 at 23:00 Acetaminophen/ Hydrocodone Bitart ([place] (5/325)) 1 tab Q6H PRN PO MODERATE PAIN LEVEL 4-6; Start 03/23/16 at 23:00 Morphine Sulfate (morphine) 2 mg Q4H PRN IV SEVERE PAIN LEVEL 7-10 Last administered on 03/27/16 05:11; Admin Dose 2 MG; Start 03/23/16 at 23:00 Docusate Sodium (Colace) 100 mg Q12H PRN PO CONSTIPATION; Start 03/23/16 at 23: 00 Pantoprazole 40 mg 40 mg DAILY@06 IV Last administered on 03/27/16 05:11; Admin Dose 40 MG; Start 03/24/16 at 06:00 Piperacillin Sod/ Tazobactam Sod (Zosyn 3.375gm/ 100 ml (Pmx)) 100 ml @ 200 mls /hr Q6 IVPB Last administered on 03/27/16 12:31; Admin Dose 200 MLS/HR; Start 03/24/16 at 00:00 Nicotine (Nicoderm 14 Mg/ 24hr) 1 patch DAILY TRANSDERM Last administered on 08:22; Admin Dose 1 PATCH; Start 03/24/16 at 09:00 Miscellaneous Information 1 ea NOTE XX ; Start 03/24/16 at 09:00 Glucose (Glutose) 15 gm Q15M PRN PO DECREASED GLUCOSE; Start 03/24/16 at 09:00 Glucose (Glutose) 22.5 gm Q15M PRN PO DECREASED GLUCOSE; Start 03/24/16 at 09:00 Dextrose (D50w Syringe) 25 ml Q15M PRN IV DECREASED GLUCOSE; Start 03/24/16 at 09:00 Dextrose (D50w Syringe) 50 ml Q15M PRN IV DECREASED GLUCOSE; Start 03/24/16 at 09:00 Glucagon (Glucagen) 1 mg Q15M PRN IM DECREASED GLUCOSE; Start 03/24/16 at 09:00 Glucose (Glutose) 15 gm Q15M PRN BUCCAL DECREASED GLUCOSE; Start 03/24/16 at 09: 00 Lorazepam (Ativan) 1 mg Q2H PRN IV AGITATION Last administered on 03/25/16 02: 39; Admin Dose 1 MG; Start 03/24/16 at 11:30 Acetaminophen (Tylenol Supp) 650 mg Q6H PRN [place] fever Last administered on 11:23; Admin Dose 650 MG; Start 03/24/16 at 19:00 Diagnostic Test (Pha) (Accucheck) 1 ea 02 XX Last administered on 03/27/16 02: 43; Admin Dose 1 EA; Start 03/27/16 at 02:00 Insulin Glargine (Lantus) 25 unit HS SC Last administered on 03/26/16 21:54; Admin Dose 25 UNIT; Start 03/26/16 at 21:00 Nystatin 1 applic 1 applic TID TOP Last administered on 03/27/16 12:31; Admin Dose 1 APPLIC; Start 03/27/16 at 09:00 Vancomycin HCl/ Sodium Chloride (Vancocin/NS) 250 ml @ 83.333 mls/ hr Q8H IVPB ; Start 03/27/16 at 16:00 Miscellaneous Information (*Rx Drug Level Order Reminder*) VANCO TROUGH @ 1, 500 ON... ONCE ONCE XX ; Start 03/28/16 at 15:00; Stop 03/28/16 at 15:01 DOMENICO BENSON Mar 27, 2016 13:30
[2016-03-27] MEDS: HEPARIN 5,000 UNIT/0.5 ML SYG SC SCH ×2 (14:44→22:31)
--- NOTE | 2016-03-27 16:04 | RADRPT ---
PROCEDURE: XR Chest. CLINICAL INDICATION: Hypoxia. Shortness of breath. TECHNIQUE: Single frontal view. COMPARISON: 03/23/2016. FINDINGS: There are low lung volumes and mild atelectasis at the lung bases. The lungs are otherwise clear. The heart size is normal. There is no pleural effusion. There is no pneumothorax. IMPRESSION: 1. Low lung volumes. 2. Mild atelectasis at the lung bases. 3. Otherwise normal chest radiograph. RPTAT: QQ .Romain Wallace MD, MD Date Time Electronically viewed and signed by .Romain Wallace MD, MD on 03/27/2016 16:04 .R/
[2016-03-27] MEDS: VANCOMYCIN 1.25 GM in SOD CHLORIDE 0.9% 250 ML IVPB SCH (16:30)
[2016-03-27] MEDS: INSULIN GLARGINE [LANtus] 3 ML PEN SC SCH (20:30)
[2016-03-27] MEDS ORDERED: INSULIN GLARGINE [LANtus] 3 ML PEN SC SCH (21:00)
[2016-03-28] VITALS (13 sets, daily range): BP systolic 117–135; BP diastolic 62–77; PULSE 83–109; RESP 16–20
[2016-03-28] MEDS: PIPER-TAZO 3.375 GM IV (PMX) 100 ML IVPB SCH ×2 (00:38→06:29)
[2016-03-28] MEDS: ACCUCHECK XX SCH ×2 (02:25→21:16)
[2016-03-28] MEDS: VANCOMYCIN 1.25 GM in SOD CHLORIDE 0.9% 250 ML IVPB SCH (03:44)
[2016-03-28] MEDS: PANTOPRAZOLE 40 MG INJ IV SCH (06:29)
[2016-03-28] MEDS: HEPARIN 5,000 UNIT/0.5 ML SYG SC SCH ×3 (06:33→21:16)
[2016-03-28] MEDS: morphine 2 MG INJ IV PRN (06:33)
[2016-03-28 06:51] LABS: BASOPHILS % 0.6 % (0.0-2.0); EOSINOPHILS # 0.2 10^3/ul (0.0-0.5); EOSINOPHILS % 2.6 % (0.0-7.0); HEMATOCRIT 30.4 % (42.0-52.0); LYMPHOCYTES # 2.1 10^3/ul (0.8-2.9); LYMPHOCYTES % 25.5 % (15.0-51.0); MEAN CORPUSCULAR VOLUME 75.8 fl (82.0-101.0); MEAN PLATELET VOLUME 7.6 fl (7.4-10.4); MONOCYTE # 0.5 10^3/ul (0.3-0.9); NEUTROPHIL # 5.3 10^3/ul (1.6-7.5); NEUTROPHILS % 65.3 % (39.0-77.0); PLATELET COUNT 431 10^3/UL (140-440); RED BLOOD COUNT 4.01 10^6/ul (4.70-6.10); RED CELL DISTRIBUTION WIDTH 15.3 % (11.5-14.5); UNCORRECTED WBC 8.1 10^3/ul (4.8-10.8); WHITE BLOOD COUNT 8.1 10^3/ul (4.8-10.8)
[2016-03-28 06:54] LABS: CONDITION 1; LH ANALYZER COMMENTS 1
[2016-03-28 07:13] LABS: POTASSIUM 3.7 mmol/L (3.5-5.1)
[2016-03-28 07:15] LABS: CREATININE 0.85 mg/dl (0.61-1.24)
[2016-03-28] MEDS: NICOTINE (14 MG/24 HR) PATCH TRANSDERM SCH (08:35)
[2016-03-28] MEDS: NYSTATIN TOP SCH ×3 (08:35→21:16)
[2016-03-28] MEDS: INSULIN ASPART [NOVOLOG] 3 ML PEN SC SCH ×7 (08:37→20:50)
[2016-03-28] MEDS ORDERED: VANCOMYCIN 1.25 GM in SOD CHLORIDE 0.9% 250 ML IVPB SCH (12:00)
--- NOTE | 2016-03-28 13:08 | PN ---
Date/Time of Note Date/Time of Note DATE: 03/28/16 TIME: 13:02 Assessment/Plan VTE Prophylaxis VTE Prophylaxis Intervention: heparin Lines/Catheters IV [facility] [place] Urinary Cath still in place: No Assessment/Plan Assessment/Plan 36-year-old male, presumably noncompliant history of type 2 diabetes, uncontrolled, and osteomyelitis of the right foot, diagnosed in February 2016, who comes in with sepsis secondary to osteomyelitis and gas gangrene findings. 1. Sepsis - secondary to #2 2. Right foot osteomyelitis with gas gangrene found. s/p bedside drainage x2 so far / Blood cultures noted / wound cultures still pending / abx per ID 3. Type 2 diabetes, uncontrolled at home, FS improved here in hospital but still suboptimal. - Continue sliding scale insulin / adjust Lantus dosage and add premeal novolog 4. Substance abuse - On last admission, he had positive methamphetamine, and he is showing signs of lethargy and agitation, and possible withdrawal: improved - Follow drug screen. - Ativan p.r.n. for that and also IV fluids. 5. Morbid obesity. Lifestyle changes will be educated again with the patient 6. Group B strep and Corynebacterium pseudomonas wound infections from the foot last time. Follow up final culture results now. 7. Tobacco use/ dependence. Tobacco cessation counselling done and will continue to be reinforced throughout hospitalization. / Nicotine patch 8. Chronic Depression Patient has a history of this condition. No acute issues so far on this admission. 9. Hepatitis C Dispo: -Downgrade to [facility] -Spoke in detail with podiatry. He will review patient again today and likely proceed with radical debridement as patient does not desire amputation. Patient will likely then need prolonged hospitalization and probable SNF placement. -Continue abx / cont supportive care Gastrointestinal prophylaxis. Continue PPI. Deep venous thrombosis prophylaxis. Add heparin. Subjective 24 Hr Interval Summary Free Text/Dictation Patient seen and examined. Nursing reports no acute overnight events no new complaints Exam/Review of Systems Vital Signs Vitals Vital Signs Date Time Temp Pulse Resp B/P Pulse Ox O2 Delivery O2 Flow Rate FiO2 03/28/16 12:18 93 03/28/16 11:52 98.3 20 135/75 99 03/28/16 05:54 3.0 03/26/16 20:10 Nasal Cannula Intake and Output 03/27/16 03/27/16 03/28/16 15:00 23:00 07:00 Intake Total 1400 ml 250 ml Balance 1400 ml 250 ml Exam GENERAL: Patient is awake/ alert / oriented HEENT: Pupils equal, round, reactive to light. Extraocular muscles intact. NECK: Supple, no thyromegaly. LUNGS: Clear to auscultation bilaterally. CARDIOVASCULAR: S1 and S2 only. No rubs or gallops. ABDOMEN: Obese, but otherwise nontender, nondistended, soft. MUSCULOSKELETAL: Right foot significantly infected with bandage noted over the right foot, foul smelling still. NEUROLOGIC: Moves upper and lower extremities. Results Result Diagram: 03/28/16 0615 03/28/16 0615 Results 24 hrs Laboratory Tests Test 03/27/16 17:06 03/27/16 20:24 03/28/16 02:30 03/28/16 06:15 Bedside Glucose 132 197 242 H Anion Gap 13 Basophils # 0.0 Basophils % 0.6 Blood Morphology Comment Blood Urea Nitrogen 15 Calcium Level 8.0 L Carbon Dioxide Level 31 Chloride Level 100 Creatinine 0.85 Eosinophils # 0.2 Eosinophils % 2.6 Glucose Level 258 H Hematocrit 30.4 L Hemoglobin 10.0 L Lymphocytes # 2.1 Lymphocytes % 25.5 Mean Corpuscular Hemoglobin 25.0 L Mean Corpuscular Hemoglobin Concent 33.0 Mean Corpuscular Volume 75.8 L Mean Platelet Volume 7.6 Monocytes # 0.5 Monocytes % 6.0 Neutrophils # 5.3 Neutrophils % 65.3 Nucleated Red Blood Cells # 0.0 Nucleated Red Blood Cells % 0.0 Platelet Count 431 # Potassium Level 3.7 Red Blood Count 4.01 L Red Cell Distribution Width 15.3 H Sodium Level 140 White Blood Count 8.1 Test 03/28/16 08:26 03/28/16 11:59 Bedside Glucose 228 H 174 Medications Medications Current Medications Ondansetron HCl (Zofran Inj) 4 mg Q6H PRN IV NAUSEA AND/OR VOMITING; Start 03/23 at 23:00 Acetaminophen (Tylenol Tab) 650 mg Q6H PRN PO PAIN LEVEL 1-3 OR FEVER Last administered on 03/24/16t 18:49; Admin Dose 650 MG; Start 03/23/16 at 23:00 Acetaminophen/ Hydrocodone Bitart ([place] (5/325)) 1 tab Q6H PRN PO MODERATE PAIN LEVEL 4-6; Start 03/23/16 at 23:00 Morphine Sulfate (morphine) 2 mg Q4H PRN IV SEVERE PAIN LEVEL 7-10 Last administered on 03/28/16 06:33; Admin Dose 2 MG; Start 03/23/16 at 23:00 Docusate Sodium (Colace) 100 mg Q12H PRN PO CONSTIPATION; Start 03/23/16 at 23: 00 Pantoprazole (Protonix Iv) 40 mg DAILY@06 IV Last administered on 03/28/16 06: 29; Admin Dose 40 MG; Start 03/24/16 at 06:00 Nicotine (Nicoderm 14 Mg/ 24hr) 1 patch DAILY TRANSDERM Last administered on 08:35; Admin Dose 1 PATCH; Start 03/24/16 at 09:00 Miscellaneous Information 1 ea NOTE XX ; Start 03/24/16 at 09:00 Glucose (Glutose) 15 gm Q15M PRN PO DECREASED GLUCOSE; Start 03/24/16 at 09:00 Glucose (Glutose) 22.5 gm Q15M PRN PO DECREASED GLUCOSE; Start 03/24/16 at 09:00 Dextrose (D50w Syringe) 25 ml Q15M PRN IV DECREASED GLUCOSE; Start 03/24/16 at 09:00 Dextrose (D50w Syringe) 50 ml Q15M PRN IV DECREASED GLUCOSE; Start 03/24/16 at 09:00 Glucagon (Glucagen) 1 mg Q15M PRN IM DECREASED GLUCOSE; Start 03/24/16 at 09:00 Glucose (Glutose) 15 gm Q15M PRN BUCCAL DECREASED GLUCOSE; Start 03/24/16 at 09: 00 Lorazepam (Ativan) 1 mg Q2H PRN IV AGITATION Last administered on 03/25/16 02: 39; Admin Dose 1 MG; Start 03/24/16 at 11:30 Acetaminophen (Tylenol Supp) 650 mg Q6H PRN [place] fever Last administered on 11:23; Admin Dose 650 MG; Start 03/24/16 at 19:00 Diagnostic Test (Pha) (Accucheck) 1 ea 02 XX Last administered on 03/28/16 02: 25; Admin Dose 1 EA; Start 03/27/16 at 02:00 Insulin Glargine (Lantus) 25 unit HS SC Last administered on 03/27/16 20:30; Admin Dose 25 UNIT; Start 03/26/16 at 21:00 Nystatin (Nystatin Oint) 1 applic TID TOP Last administered on 03/28/16 08:35 ; Admin Dose 1 APPLIC; Start 03/27/16 at 09:00 Miscellaneous Information (*Rx Drug Level Order Reminder*) VANCO TROUGH @ 1, 500 ON... ONCE ONCE XX ; Start 03/28/16 at 15:00; Stop 03/28/16 at 15:01 Heparin Sodium (Porcine) 5000 unit 5,000 unit Q8 SC Last administered on 06:33; Admin Dose 5,000 UNIT; Start 03/27/16 at 14:00 Vancomycin HCl 1.25 gm/Sodium Chloride 250 ml @ 83.333 mls/ hr Q8H IVPB ; Start 03/28/16 at 12:00 Levofloxacin/ Dextrose (Levaquin 750 Mg/ D5W 150 ml (Pmx)) 150 ml @ 100 mls/hr Q24H IVPB ; Start 03/28/16 at 12:30 DOMENICO BENSON Mar 28, 2016 13:08
[2016-03-28] MEDS: metroNIDAZOLE 500 MG TAB PO SCH ×2 (13:58→21:16)
--- NOTE | 2016-03-28 15:50 | RADRPT ---
Echocardiogram Report Patient Name: SHANE PIRES Gender: Male Date: 1980 Study Date: 27-Mar-2016 Global Climate Change Researcher: Renate Casanova [facility] Location: [id number] Ref. Physician: DOMENICO BENSON Quality: Good Procedures: Transthoracic echocardiogram with complete 2D, M-Mode, and doppler examination. Indications: hypoxia. 2D/M Mode Doppler Measurement Value Normal Ranges Measurement Value Normal Ranges LVIDd 2D 5.0 3.5 - 5.6 cm AV Peak Daniel 1.2 m/sec LVIDs 2D 3.1 2.1 - 4.1 cm AV Peak PG 6.0 mmHg FS 2D 37.9 % LVOT Peak Daniel 1.1 m/sec LVPWd 2D 1.1 0.6 - 1.1 cm LVOT Peak PG 5.0 mmHg IVSd 2D 1.3 0.6 - 1.1 cm MV E Peak Daniel 0.5 m/sec IVS/LVPW 2D 1.1 MV A Peak Danile 0.6 m/sec AoR Diam 2D 2.9 2.0 - 3.7 cm MV E/A 0.9 LA/Ao 2D 2 0 - 1 MV Decel Time 141 msec EDV 2D 124.0 cm3 MV E/A 0.9 ESV 2D 29.8 cm3 TR Peak Daniel 2.6 m/sec LA Dimen 2D 4.6 2.3 - 4.0 cm TR Peak PG 27.0 mmHg RVSP 30.0 mmHg Findings Left Ventricle: Lower limits of normal systolic function. Normal left ventricular cavity size. Mild concentric left ventricular hypertrophy. Ejection fraction is visually estimated at 5055 %. Tissue Doppler/Mitral Doppler indices are consistent with impaired relaxation (Stage I diastolic dysfunction). Right Ventricle: Normal right ventricular size. Normal right ventricular systolic function. Left Atrium: There is mild enlargement of left atrium. Right Atrium: The right atrium is normal in size. Mitral Valve: Mitral valve leaflets appear mildly thickened. Mild mitral annular calcification. Trace mitral regurgitation. Aortic Valve: Normal appearance of the aortic valve. No significant aortic stenosis or insufficiency. Tricuspid Valve: Normal appearance of the tricuspid valve. Estimated peak PA systolic pressure 30 mmHg. There is trace tricuspid regurgitation. Pulmonic Valve: Normal pulmonic valve appearance. There is trace pulmonic regurgitation. Pericardium: Normal pericardium with no significant pericardial effusion. Aorta: Normal aortic root. IVC: Normal size and normal respiratory collapse consistent with normal right atrial pressure. Conclusions 1.Lower limits of normal systolic function. Normal left ventricular cavity size. Mild concentric left ventricular hypertrophy. Ejection fraction is visually estimated at 50-55 %. Tissue Doppler/Mitral Doppler indices are consistent with impaired relaxation (Stage I diastolic dysfunction). 2.There is mild enlargement of left atrium. 3.Mitral valve leaflets appear mildly thickened. Mild mitral annular calcification. Trace mitral regurgitation. 4.Normal appearance of the tricuspid valve. Estimated peak PA systolic pressure 30 mmHg. There is trace tricuspid regurgitation. 5.Normal pulmonic valve appearance. There is trace pulmonic regurgitation. Electronically Signed By: Rafal Augustine 28-Mar-2016 15:50:01 -0800 Patient Name: SHANE PIRES Study Date: 27-Mar-2016 [id number]
--- NOTE | 2016-03-28 16:04 | PN ---
DATE: 03/28/2016 INFECTIOUS DISEASE PROGRESS NOTE SUBJECTIVE: No events overnight. The patient is alert, sitting up in a chair. Denies pain, looks comfortable, no fevers. MICROBIOLOGY: Wound culture growing Stenotrophomonas maltophilia susceptible to Bactrim and Levaqui n. Blood cultures have been negative. ANTIMICROBIALS: 1. Vancomycin. 2. Levaquin. OBJECTIVE: GENERAL: This is a morbidly obese, well-developed, middle-aged white man who is alert, in no distre ss. HEENT: Head atraumatic, normocephalic. Sclerae anicteric. Buccal mucosa dry. NECK: Supple. CHEST: Rise symmetrical. Breath sounds clear. HEART: S1, S2. ABDOMEN: Soft, bowel tones present. EXTREMITIES: Left foot dressing intact, still with foul odor that you can feel standing about 2 met ers away from the patient. ASSESSMENT 1. Status post severe sepsis with shock and acute encephalopathy. 2. Left foot ongoing osteomyelitis, gangrene, status post incision and drainage at bedside. 3. Morbid obesity. 4. History of substance abuse. 5. Poorly controlled diabetes. 6. History of noncompliance. PLAN: The patient remains clinically and hemodynamically stable. We will add Flagyl for anaerobic coverage to the regimen. Continue vancomycin and Levaquin. Per podiatry recommendations, the patie nt would need to have below knee amputation; however, compliance is a great concern. Dictated By: KIRSTEN OLIVAREZ DAIRY SCIENCE TEACHER for GORDON PALMA MD NI/NTS Conf#: [id number] DID#: [id number]
[2016-03-28] MEDS: VANCOMYCIN 1.5 GM in SOD CHLORIDE 0.9% 250 ML IVPB SCH (17:00)
[2016-03-28] MEDS: LEVOFLOXACIN 750MG/D5W (PMX) 150 ML IVPB SCH (17:05)
[2016-03-28] MEDS ORDERED: INSULIN GLARGINE [LANtus] 3 ML PEN SC SCH (21:00)
--- NOTE | 2016-03-28 23:39 | PN ---
Date/Time of Note Date/Time of Note DATE: 03/28/16 TIME: 23:39 Assessment/Plan Lines/Catheters IV Catheter Type (from [facility]): Saline Lock Mariscal in Place (from Nrs): No Assessment/Plan Problems: (1) Foot osteomyelitis, right Status: Acute (2) Non-pressure chronic ulcer of other part of right foot with fat layer exposed Status: Acute (3) Acquired absence of right great toe Status: Acute (4) Drug abuse and dependence Status: Acute (5) Foot abscess, right (6) Diabetes, polyneuropathy Status: Chronic Assessment/Plan Patient is scheduled for surgical debridement and I&D of his right foot necrosis with amputation of right 4th toe gangrene. Patient will require advanced wound care including wound VAC Tx, IVAbx with PICC line, admission to SNF for duration of treatment, HBOT, drug rehab, physical therapy and custom inserts with shoes. Patient will be followed in house. Subjective 24 Hr Interval Summary Patient was seen at bedside in no acute distress. Patient reports that he does not want his right leg amputated and he is willing to cooperate with the treatment plan. He says that he wants to change his life. Pain Control: well controlled Exam/Review of Systems Vital Signs Vitals Vital Signs Date Time Temp Pulse Resp B/P Pulse Ox O2 Delivery O2 Flow Rate FiO2 04/03/16 07:23 97.8 89 18 133/74 95 03/31/16 21:00 21 03/31/16 12:40 Nasal Cannula 2.0 Intake and Output 04/02/16 04/02/16 04/03/16 15:00 23:00 07:00 Intake Total 250 ml 2240 ml 1480 ml Balance 250 ml 2240 ml 1480 ml Exam Free Text/Dictation Morbidly obese male laying supine in bed in no acute distress. Bandages were removed from the right foot. Bandages were loose and it was serosanguineous strikethrough noted. There is foul smell present. Multiple areas of necrosis noted on the right foot including the medial foot with brown drainage. There is a slitlike open wound on the plantar aspect of the right foot with yellow pus. There is a necrotic soft open wound on the fifth MPJ and gangrenous changes to the right fifth toe. There is purulent drainage noted from the fifth MPJ as well. Erythema and edema has decreased since his stay in the hospital and since he has been on IV antibiotics. Patient reports pain on examination of the right foot. Dorsalis pedis and posterior tibial pulse is not palpable in the right foot. No open wound noted on the left foot. Contracted toes present on the left foot. Patient has had amputation of his right big toe and the incision site is healed with cracking of skin noted. There is no bleeding and no pus present. Results Result Diagram: 04/03/16 0500 04/03/16 0500 ESTEE IBRAHIM DPM Mar 28, 2016 23:39
[2016-03-29] VITALS (10 sets, daily range): BP systolic 132–161; BP diastolic 75–83; PULSE 83–97; RESP 16–20
[2016-03-29] MEDS: VANCOMYCIN 1.5 GM in SOD CHLORIDE 0.9% 250 ML IVPB SCH ×3 (00:07→16:19)
[2016-03-29] MEDS: PANTOPRAZOLE (EC) 40 MG TAB PO SCH (05:30)
[2016-03-29] MEDS: metroNIDAZOLE 500 MG TAB PO SCH ×3 (05:30→22:36)
[2016-03-29] MEDS: HEPARIN 5,000 UNIT/0.5 ML SYG SC SCH ×3 (05:31→22:38)
[2016-03-29] MEDS: NICOTINE (14 MG/24 HR) PATCH TRANSDERM SCH (08:52)
[2016-03-29] MEDS: NYSTATIN TOP SCH ×3 (08:52→20:18)
[2016-03-29] MEDS: INSULIN ASPART [NOVOLOG] 3 ML PEN SC SCH ×7 (08:54→20:18)
--- NOTE | 2016-03-29 11:52 | PN ---
Date/Time of Note Date/Time of Note DATE: 03/29/16 TIME: 11:51 Assessment/Plan VTE Prophylaxis VTE Prophylaxis Intervention: heparin Lines/Catheters IV Catheter Type (from [facility]): Peripheral IV Urinary Cath still in place: No Assessment/Plan Assessment/Plan 36-year-old male, presumably noncompliant history of type 2 diabetes, uncontrolled, and osteomyelitis of the right foot, diagnosed in February 2016, who comes in with sepsis secondary to osteomyelitis and gas gangrene findings. 1. Sepsis - secondary to #2 2. Right foot osteomyelitis with gas gangrene found. s/p bedside drainage x2 so far / Blood cultures noted / wound cultures still pending / abx per ID 3. Type 2 diabetes, uncontrolled at home, FS improved here in hospital but still suboptimal. - Continue sliding scale insulin / adjust Lantus dosage and add premeal novolog 4. Substance abuse - On last admission, he had positive methamphetamine, and he is showing signs of lethargy and agitation, and possible withdrawal: improved - Follow drug screen. - Ativan p.r.n. for that and also IV fluids. 5. Morbid obesity. Lifestyle changes will be educated again with the patient 6. Group B strep and Corynebacterium pseudomonas wound infections from the foot last time. Follow up final culture results now. 7. Tobacco use/ dependence. Tobacco cessation counselling done and will continue to be reinforced throughout hospitalization. / Nicotine patch 8. Chronic Depression Patient has a history of this condition. No acute issues so far on this admission. 9. Hepatitis C Dispo: -continue wound care and abx -Podiatry to proceed with radical debridement as patient does not desire amputation. Timing? -Patient will likely then need prolonged hospitalization and probable SNF placement. Gastrointestinal prophylaxis. Continue PPI. Deep venous thrombosis prophylaxis. heparin. Subjective 24 Hr Interval Summary Free Text/Dictation Patient seen and examined. no new issues Exam/Review of Systems Vital Signs Vitals Vital Signs Date Time Temp Pulse Resp B/P Pulse Ox O2 Delivery O2 Flow Rate FiO2 03/29/16 09:48 96 03/29/16 08:23 97.8 20 161/75 97 03/29/16 04:55 3.0 03/26/16 20:10 Nasal Cannula Intake and Output 03/28/16 03/28/16 03/29/16 15:00 23:00 07:00 Intake Total 800 ml 1080 ml 1800 ml Balance 800 ml 1080 ml 1800 ml Exam GENERAL: Patient is awake/ alert / oriented HEENT: Pupils equal, round, reactive to light. Extraocular muscles intact. NECK: Supple, no thyromegaly. LUNGS: Clear to auscultation bilaterally. CARDIOVASCULAR: S1 and S2 only. No rubs or gallops. ABDOMEN: Obese, but otherwise nontender, nondistended, soft. MUSCULOSKELETAL: Right foot significantly infected with bandage noted over the right foot, foul smelling still. NEUROLOGIC: Moves upper and lower extremities. Results Result Diagram: 03/28/16 0615 03/28/16 0615 Results 24 hrs Laboratory Tests Test 03/28/16 11:59 03/28/16 15:15 03/28/16 17:50 03/28/16 20:49 Bedside Glucose 174 207 170 Vancomycin Level Trough 8.0 L Test 03/29/16 07:49 03/29/16 11:31 Bedside Glucose 168 143 Medications Medications Current Medications Ondansetron HCl (Zofran Inj) 4 mg Q6H PRN IV NAUSEA AND/OR VOMITING; Start 03/23 at 23:00 Acetaminophen (Tylenol Tab) 650 mg Q6H PRN PO PAIN LEVEL 1-3 OR FEVER Last administered on 03/24/16 18:49; Admin Dose 650 MG; Start 03/23/16 at 23:00 Acetaminophen/ Hydrocodone Bitart ([place] (5/325)) 1 tab Q6H PRN PO MODERATE PAIN LEVEL 4-6; Start 03/23/16 at 23:00 Morphine Sulfate (morphine) 2 mg Q4H PRN IV SEVERE PAIN LEVEL 7-10 Last administered on 03/28/16 06:33; Admin Dose 2 MG; Start 03/23/16 at 23:00 Docusate Sodium (Colace) 100 mg Q12H PRN PO CONSTIPATION; Start 03/23/16 at 23: 00 Nicotine (Nicoderm 14 Mg/ 24hr) 1 patch DAILY TRANSDERM Last administered on 08:52; Admin Dose 1 PATCH; Start 03/24/16 at 09:00 Miscellaneous Information 1 ea NOTE XX ; Start 03/24/16 at 09:00 Glucose (Glutose) 15 gm Q15M PRN PO DECREASED GLUCOSE; Start 03/24/16 at 09:00 Glucose (Glutose) 22.5 gm Q15M PRN PO DECREASED GLUCOSE; Start 03/24/16 at 09:00 Dextrose (D50w Syringe) 25 ml Q15M PRN IV DECREASED GLUCOSE; Start 03/24/16 at 09:00 Dextrose (D50w Syringe) 50 ml Q15M PRN IV DECREASED GLUCOSE; Start 03/24/16 at 09:00 Glucagon (Glucagen) 1 mg Q15M PRN IM DECREASED GLUCOSE; Start 03/24/16 at 09:00 Glucose (Glutose) 15 gm Q15M PRN BUCCAL DECREASED GLUCOSE; Start 03/24/16 at 09: 00 Lorazepam (Ativan) 1 mg Q2H PRN IV AGITATION Last administered on 03/25/16 02: 39; Admin Dose 1 MG; Start 03/24/16 at 11:30 Acetaminophen (Tylenol Supp) 650 mg Q6H PRN [place] fever Last administered on 11:23; Admin Dose 650 MG; Start 03/24/16 at 19:00 Diagnostic Test (Pha) (Accucheck) 1 ea 02 XX Last administered on 03/28/16 02: 25; Admin Dose 1 EA; Start 03/27/16 at 02:00 Nystatin (Nystatin Oint) 1 applic TID TOP Last administered on 03/29/16 08:52 ; Admin Dose 1 APPLIC; Start 03/27/16 at 09:00 Heparin Sodium (Porcine) 5000 unit 5,000 unit Q8 SC Last administered on 05:31; Admin Dose 5,000 UNIT; Start 03/27/16 at 14:00 Levofloxacin/ Dextrose (Levaquin 750 Mg/ D5W 150 ml (Pmx)) 150 ml @ 100 mls/hr Q24H IVPB Last administered on 03/28/16 17:05; Admin Dose 100 MLS/HR; Start at 12:30 Insulin Glargine (Lantus) 30 unit HS SC Last administered on 03/28/16 21:15; Admin Dose 30 UNIT; Start 03/28/16 at 21:00 Metronidazole 500 mg 500 mg Q8 PO Last administered on 03/29/16 05:30; Admin Dose 500 MG; Start 03/28/16 at 14:00 Vancomycin HCl/ Sodium Chloride (Vancocin/NS) 250 ml @ 83.333 mls/ hr Q8H IVPB Last administered on 03/29/16 09:01; Admin Dose 83.333 MLS/HR; Start at 17:00 Pantoprazole (Protonix Tab) 40 mg DAILY@06 PO Last administered on 03/29/16 05 :30; Admin Dose 40 MG; Start 03/29/16 at 06:00 DOMENICO BENSON Mar 29, 2016 11:52
[2016-03-29] MEDS: LEVOFLOXACIN 750MG/D5W (PMX) 150 ML IVPB SCH (13:04)
[2016-03-29 14:02] LABS: BASOPHILS % 0.5 % (0.0-2.0); EOSINOPHILS # 0.3 10^3/ul (0.0-0.5); EOSINOPHILS % 3.7 % (0.0-7.0); HEMATOCRIT 33.4 % (42.0-52.0); HEMOGLOBIN 10.8 g/dl (14.0-18.0); LYMPHOCYTES # 1.6 10^3/ul (0.8-2.9); LYMPHOCYTES % 22.5 % (15.0-51.0); MEAN CORPUSCULAR HEMOGLOBIN 24.9 pg (29.0-33.0); MEAN CORPUSCULAR HGB CONC 32.4 g/dl (32.0-37.0); MEAN CORPUSCULAR VOLUME 76.7 fl (82.0-101.0); MEAN PLATELET VOLUME 7.9 fl (7.4-10.4); MONOCYTE # 0.3 10^3/ul (0.3-0.9); MONOCYTES % 3.9 % (0.0-11.0); NEUTROPHIL # 5.1 10^3/ul (1.6-7.5); NEUTROPHILS % 69.4 % (39.0-77.0); PLATELET COUNT 293 10^3/UL (140-440); RED BLOOD COUNT 4.36 10^6/ul (4.70-6.10); RED CELL DISTRIBUTION WIDTH 15.8 % (11.5-14.5); UNCORRECTED WBC 7.3 10^3/ul (4.8-10.8); WHITE BLOOD COUNT 7.3 10^3/ul (4.8-10.8)
[2016-03-29 14:04] LABS: CONDITION 1; LH ANALYZER COMMENTS 1
[2016-03-29 14:09] LABS: POTASSIUM 4.3 mmol/L (3.5-5.1)
[2016-03-29 14:11] LABS: CREATININE 0.56 mg/dl (0.61-1.24)
[2016-03-29 14:12] LABS: CALCIUM 8.4 mg/dl (8.4-10.2)
--- NOTE | 2016-03-29 15:37 | CONS ---
Date/Time of Note Date/Time of Note DATE: 03/29/16 TIME: 15:35 Consult Date/Type/Reason Admit Date/Time Mar 23, 2016 at 21:33 Initial Consult Date 03/24/16 Type of Consultation: ID Subjective no acute changes, awake, no fevers, nad Objective Vital Signs Date Time Temp Pulse Resp B/P Pulse Ox O2 Delivery O2 Flow Rate FiO2 03/29/16 12:56 87 03/29/16 08:23 97.8 20 161/75 97 03/29/16 04:55 3.0 03/26/16 20:10 Nasal Cannula Intake and Output 03/28/16 03/28/16 03/29/16 15:00 23:00 07:00 Intake Total 800 ml 1080 ml 1800 ml Balance 800 ml 1080 ml 1800 ml Results/Medications Result Diagram: 03/29/16 1350 03/29/16 1350 Results 24 hrs Laboratory Tests Test 03/28/16 17:50 03/28/16 20:49 03/29/16 07:49 03/29/16 11:31 Bedside Glucose 207 170 168 143 Test 03/29/16 13:50 Anion Gap 14 Basophils # 0.0 Basophils % 0.5 Blood Morphology Comment Blood Urea Nitrogen 17 Calcium Level 8.4 Carbon Dioxide Level 28 Chloride Level 101 Creatinine 0.56 L Eosinophils # 0.3 Eosinophils % 3.7 Glucose Level 185 Hematocrit 33.4 L Hemoglobin 10.8 L Lymphocytes # 1.6 Lymphocytes % 22.5 Mean Corpuscular Hemoglobin 24.9 L Mean Corpuscular Hemoglobin Concent 32.4 Mean Corpuscular Volume 76.7 L Mean Platelet Volume 7.9 Monocytes # 0.3 Monocytes % 3.9 Neutrophils # 5.1 Neutrophils % 69.4 Nucleated Red Blood Cells # 0.0 Nucleated Red Blood Cells % 0.0 Platelet Count 293 # Potassium Level 4.3 Red Blood Count 4.36 L Red Cell Distribution Width 15.8 H Sodium Level 139 White Blood Count 7.3 Medications Current Medications Ondansetron HCl (Zofran Inj) 4 mg Q6H PRN IV NAUSEA AND/OR VOMITING; Start 03/23 at 23:00 Acetaminophen (Tylenol Tab) 650 mg Q6H PRN PO PAIN LEVEL 1-3 OR FEVER Last administered on 03/24/16t 18:49; Admin Dose 650 MG; Start 03/23/16 at 23:00 Acetaminophen/ Hydrocodone Bitart ([place] (5/325)) 1 tab Q6H PRN PO MODERATE PAIN LEVEL 4-6; Start 03/23/16 at 23:00 Morphine Sulfate (morphine) 2 mg Q4H PRN IV SEVERE PAIN LEVEL 7-10 Last administered on 03/28/16 06:33; Admin Dose 2 MG; Start 03/23/16 at 23:00 Docusate Sodium (Colace) 100 mg Q12H PRN PO CONSTIPATION; Start 03/23/16 at 23: 00 Nicotine (Nicoderm 14 Mg/ 24hr) 1 patch DAILY TRANSDERM Last administered on 08:52; Admin Dose 1 PATCH; Start 03/24/16 at 09:00 Miscellaneous Information 1 ea NOTE XX ; Start 03/24/16 at 09:00 Glucose (Glutose) 15 gm Q15M PRN PO DECREASED GLUCOSE; Start 03/24/16 at 09:00 Glucose (Glutose) 22.5 gm Q15M PRN PO DECREASED GLUCOSE; Start 03/24/16 at 09:00 Dextrose (D50w Syringe) 25 ml Q15M PRN IV DECREASED GLUCOSE; Start 03/24/16 at 09:00 Dextrose (D50w Syringe) 50 ml Q15M PRN IV DECREASED GLUCOSE; Start 03/24/16 at 09:00 Glucagon (Glucagen) 1 mg Q15M PRN IM DECREASED GLUCOSE; Start 03/24/16 at 09:00 Glucose (Glutose) 15 gm Q15M PRN BUCCAL DECREASED GLUCOSE; Start 03/24/16 at 09: 00 Lorazepam (Ativan) 1 mg Q2H PRN IV AGITATION Last administered on 03/25/16 02: 39; Admin Dose 1 MG; Start 03/24/16 at 11:30 Acetaminophen (Tylenol Supp) 650 mg Q6H PRN [place] fever Last administered on 11:23; Admin Dose 650 MG; Start 03/24/16 at 19:00 Diagnostic Test (Pha) (Accucheck) 1 ea 02 XX Last administered on 03/28/16 02: 25; Admin Dose 1 EA; Start 03/27/16 at 02:00 Nystatin (Nystatin Oint) 1 applic TID TOP Last administered on 03/29/16 13:06 ; Admin Dose 1 APPLIC; Start 03/27/16 at 09:00 Heparin Sodium (Porcine) 5000 unit 5,000 unit Q8 SC Last administered on 14:02; Admin Dose 5,000 UNIT; Start 03/27/16 at 14:00 Levofloxacin/ Dextrose (Levaquin 750 Mg/ D5W 150 ml (Pmx)) 150 ml @ 100 mls/hr Q24H IVPB Last administered on 03/29/16 13:04; Admin Dose 100 MLS/HR; Start at 12:30 Metronidazole 500 mg 500 mg Q8 PO Last administered on 03/29/16 14:01; Admin Dose 500 MG; Start 03/28/16 at 14:00 Vancomycin HCl/ Sodium Chloride (Vancocin/NS) 250 ml @ 83.333 mls/ hr Q8H IVPB Last administered on 03/29/16 09:01; Admin Dose 83.333 MLS/HR; Start at 17:00 Pantoprazole (Protonix Tab) 40 mg DAILY@06 PO Last administered on 03/29/16 05 :30; Admin Dose 40 MG; Start 03/29/16 at 06:00 Insulin Glargine (Lantus) 33 unit HS SC ; Start 03/29/16 at 21:00 Assessment/Plan Chief Complaint/Hosp Course MICROBIOLOGY: Wound culture growing Stenotrophomonas maltophilia susceptible to Bactrim and Levaquin. Blood cultures have been negative. ANTIMICROBIALS: 1. Vancomycin. 2. Levaquin. 3. Flagyl OBJECTIVE: GENERAL: This is a morbidly obese, well-developed, middle-aged white man who is alert, in no distress. HEENT: Head atraumatic, normocephalic. Sclerae anicteric. Buccal mucosa dry. NECK: Supple. CHEST: Rise symmetrical. Breath sounds clear. HEART: S1, S2. ABDOMEN: Soft, bowel tones present. EXTREMITIES: Left foot dressing intact, still with foul odor that you can feel standing about 2 meters away from the patient. ASSESSMENT 1. Status post severe sepsis with shock and acute encephalopathy. 2. Left foot ongoing osteomyelitis, gangrene, status post incision and drainage at bedside. 3. Morbid obesity. 4. History of substance abuse. 5. Poorly controlled diabetes. 6. History of noncompliance. PLAN: The patient remains clinically and hemodynamically stable. Continue abx, pending debridement/gangrenous toe amputation. Will likely need PICC and wound vac DW staff Problems: KIRSTEN OLIVAREZ NP Mar 29, 2016 15:37
[2016-03-29] MEDS: morphine 2 MG INJ IV PRN ×2 (16:28→21:18)
[2016-03-29] MEDS: INSULIN GLARGINE [LANtus] 3 ML PEN SC SCH (20:18)
[2016-03-30] MEDS: VANCOMYCIN 1.5 GM in SOD CHLORIDE 0.9% 250 ML IVPB SCH ×3 (01:03→17:45)
[2016-03-30] MEDS: ACCUCHECK XX SCH (01:26)
[2016-03-30] MEDS: PANTOPRAZOLE (EC) 40 MG TAB PO SCH (06:18)
[2016-03-30] MEDS: metroNIDAZOLE 500 MG TAB PO SCH ×3 (06:18→20:36)
[2016-03-30] MEDS: HEPARIN 5,000 UNIT/0.5 ML SYG SC SCH ×3 (06:19→20:29)
[2016-03-30 07:09] LABS: IRON 61 ug/dl (35-150)
[2016-03-30 07:18] LABS: TOTAL IRON BINDING CAPACITY 275 ug/dl (241-421)
[2016-03-30] MEDS: INSULIN ASPART [NOVOLOG] 3 ML PEN SC SCH ×7 (08:00→20:17)
[2016-03-30 08:14] VITALS: BP 129/64; RESP 20
[2016-03-30] MEDS: NYSTATIN TOP SCH ×3 (09:00→20:38)
[2016-03-30] MEDS: NICOTINE (14 MG/24 HR) PATCH TRANSDERM SCH (09:12)
[2016-03-30] MEDS: morphine 2 MG INJ IV PRN ×2 (12:01→15:57)
--- NOTE | 2016-03-30 12:58 | CONS ---
Date/Time of Note Date/Time of Note DATE: 03/30/16 TIME: 12:57 Consult Date/Type/Reason Admit Date/Time Mar 23, 2016 at 21:33 Initial Consult Date 03/24/16 Type of Consultation: ID Subjective no events, no fevers, nad Objective Vital Signs Date Time Temp Pulse Resp B/P Pulse Ox O2 Delivery O2 Flow Rate FiO2 03/30/16 09:02 3.0 03/30/16 08:14 98.8 18 20 129/64 96 03/26/16 20:10 Nasal Cannula Intake and Output 03/29/16 03/29/16 03/30/16 15:00 23:00 07:00 Intake Total 800 ml 960 ml Output Total 700 ml Balance -700 ml 800 ml 960 ml Results/Medications Result Diagram: 03/29/16 1350 03/29/16 1350 Results 24 hrs Laboratory Tests Test 03/29/16 13:50 03/29/16 16:24 03/29/16 20:15 03/30/16 04:59 Anion Gap 14 Basophils # 0.0 Basophils % 0.5 Blood Morphology Comment Blood Urea Nitrogen 17 Calcium Level 8.4 Carbon Dioxide Level 28 Chloride Level 101 Creatinine 0.56 L Eosinophils # 0.3 Eosinophils % 3.7 Glucose Level 185 Hematocrit 33.4 L Hemoglobin 10.8 L Lymphocytes # 1.6 Lymphocytes % 22.5 Mean Corpuscular Hemoglobin 24.9 L Mean Corpuscular Hemoglobin Concent 32.4 Mean Corpuscular Volume 76.7 L Mean Platelet Volume 7.9 Monocytes # 0.3 Monocytes % 3.9 Neutrophils # 5.1 Neutrophils % 69.4 Nucleated Red Blood Cells # 0.0 Nucleated Red Blood Cells % 0.0 Platelet Count 293 # Potassium Level 4.3 Red Blood Count 4.36 L Red Cell Distribution Width 15.8 H Sodium Level 139 White Blood Count 7.3 Bedside Glucose 167 122 117 Test 03/30/16 05:01 03/30/16 08:01 03/30/16 11:37 Iron Level 61 Percent Iron Saturation 22 Total Iron Binding Capacity 275 Bedside Glucose 132 128 Medications Current Medications Ondansetron HCl (Zofran Inj) 4 mg Q6H PRN IV NAUSEA AND/OR VOMITING; Start 03/23 at 23:00 Acetaminophen (Tylenol Tab) 650 mg Q6H PRN PO PAIN LEVEL 1-3 OR FEVER Last administered on 03/24/16 18:49; Admin Dose 650 MG; Start 03/23/16 at 23:00 Acetaminophen/ Hydrocodone Bitart ([place] (5/325)) 1 tab Q6H PRN PO MODERATE PAIN LEVEL 4-6; Start 03/23/16 at 23:00 Morphine Sulfate (morphine) 2 mg Q4H PRN IV SEVERE PAIN LEVEL 7-10 Last administered on 03/30/16 12:01; Admin Dose 2 MG; Start 03/23/16 at 23:00 Docusate Sodium (Colace) 100 mg Q12H PRN PO CONSTIPATION; Start 03/23/16 at 23: 00 Nicotine (Nicoderm 14 Mg/ 24hr) 1 patch DAILY TRANSDERM Last administered on 09:12; Admin Dose 1 PATCH; Start 03/24/16 at 09:00 Miscellaneous Information 1 ea NOTE XX ; Start 03/24/16 at 09:00 Glucose (Glutose) 15 gm Q15M PRN PO DECREASED GLUCOSE; Start 03/24/16 at 09:00 Glucose (Glutose) 22.5 gm Q15M PRN PO DECREASED GLUCOSE; Start 03/24/16 at 09:00 Dextrose (D50w Syringe) 25 ml Q15M PRN IV DECREASED GLUCOSE; Start 03/24/16 at 09:00 Dextrose (D50w Syringe) 50 ml Q15M PRN IV DECREASED GLUCOSE; Start 03/24/16 at 09:00 Glucagon (Glucagen) 1 mg Q15M PRN IM DECREASED GLUCOSE; Start 03/24/16 at 09:00 Glucose (Glutose) 15 gm Q15M PRN BUCCAL DECREASED GLUCOSE; Start 03/24/16 at 09: 00 Lorazepam (Ativan) 1 mg Q2H PRN IV AGITATION Last administered on 03/25/16 02: 39; Admin Dose 1 MG; Start 03/24/16 at 11:30 Acetaminophen (Tylenol Supp) 650 mg Q6H PRN [place] fever Last administered on 11:23; Admin Dose 650 MG; Start 03/24/16 at 19:00 Diagnostic Test (Pha) (Accucheck) 1 ea 02 XX Last administered on 03/28/16 02: 25; Admin Dose 1 EA; Start 03/27/16 at 02:00 Nystatin (Nystatin Oint) 1 applic TID TOP Last administered on 03/30/16 09:00 ; Admin Dose 1 APPLIC; Start 03/27/16 at 09:00 Heparin Sodium (Porcine) 5000 unit 5,000 unit Q8 SC Last administered on 06:19; Admin Dose 5,000 UNIT; Start 03/27/16 at 14:00 Levofloxacin/ Dextrose (Levaquin 750 Mg/ D5W 150 ml (Pmx)) 150 ml @ 100 mls/hr Q24H IVPB Last administered on 03/29/16 13:04; Admin Dose 100 MLS/HR; Start at 12:30 Metronidazole 500 mg 500 mg Q8 PO Last administered on 03/30/16 06:18; Admin Dose 500 MG; Start 03/28/16 at 14:00 Vancomycin HCl/ Sodium Chloride (Vancocin/NS) 250 ml @ 83.333 mls/ hr Q8H IVPB Last administered on 03/30/16 10:00; Admin Dose 83.333 MLS/HR; Start at 17:00 Pantoprazole (Protonix Tab) 40 mg DAILY@06 PO Last administered on 03/30/16 06 :18; Admin Dose 40 MG; Start 03/29/16 at 06:00 Insulin Glargine (Lantus) 33 unit HS SC Last administered on 03/29/16 20:18; Admin Dose 33 UNIT; Start 03/29/16 at 21:00 Miscellaneous Information (*Rx Drug Level Order Reminder*) 1 ONCE ONCE XX ; Start 03/31/16 at 00:00; Stop 03/31/16 at 00:01 Assessment/Plan Chief Complaint/Hosp Course MICROBIOLOGY: Wound culture growing Stenotrophomonas maltophilia susceptible to Bactrim and Levaquin and Corynebact sp. Blood cultures have been negative. ANTIMICROBIALS: 1. Vancomycin. 2. Levaquin. 3. Flagyl OBJECTIVE: GENERAL: This is a morbidly obese, well-developed, middle-aged white man who is alert, in no distress. HEENT: Head atraumatic, normocephalic. Sclerae anicteric. Buccal mucosa dry. NECK: Supple. CHEST: Rise symmetrical. Breath sounds clear. HEART: S1, S2. ABDOMEN: Soft, bowel tones present. EXTREMITIES: Left foot dressing intact, still with foul odor that you can feel standing about 2 meters away from the patient. ASSESSMENT 1. Status post severe sepsis with shock and acute encephalopathy. 2. Left foot ongoing osteomyelitis, gangrene, status post incision and drainage at bedside. 3. Morbid obesity. 4. History of substance abuse. 5. Poorly controlled diabetes. 6. History of noncompliance. PLAN: The patient remains stable. Awaiting for debridement/gangrenous toe amputation. Will likely need PICC and wound vac DW staff Problems: KIRSTEN OLIVAREZ NP Mar 30, 2016 12:58
[2016-03-30] MEDS: LEVOFLOXACIN 750MG/D5W (PMX) 150 ML IVPB SCH (14:00)
[2016-03-30] MEDS: ACETAMINOPHEN 325 MG TAB PO PRN (14:53)
--- NOTE | 2016-03-30 14:56 | PN ---
Date/Time of Note Date/Time of Note DATE: 03/30/16 TIME: 14:52 Assessment/Plan VTE Prophylaxis VTE Prophylaxis Intervention: heparin Lines/Catheters IV [facility] Type [facility]from [facility] Saline Lock Urinary Cath still in place: No Assessment/Plan Assessment/Plan 36-year-old male, presumably noncompliant history of type 2 diabetes, uncontrolled, and osteomyelitis of the right foot, diagnosed in February 2016, who comes in with sepsis secondary to osteomyelitis and gas gangrene findings. 1. Sepsis - secondary to #2 2. Right foot osteomyelitis with gas gangrene found. s/p bedside drainage x2 so far / Blood cultures noted / wound cultures still pending / abx per ID 3. Type 2 diabetes, uncontrolled at home, FS improved here in hospital - Continue sliding scale insulin / adjust Lantus dosage and continue premeal novolog 4. Substance abuse - On last admission, he had positive methamphetamine, and he is showing signs of lethargy and agitation, and possible withdrawal: improved - Patient state he is clean now - Ativan p.r.n. for that and also IV fluids. 5. Morbid obesity. Lifestyle changes will be educated again with the patient 6. Group B strep and Corynebacterium pseudomonas wound infections from the foot last time. Cultures still showing Corynebact and Stenotrophomonas / abx per ID 7. Tobacco use/ dependence. Tobacco cessation counselling done and will continue to be reinforced throughout hospitalization. / Nicotine patch 8. Chronic Depression Patient has a history of this condition. No acute issues so far on this admission. 9. Hepatitis C Dispo: -continue wound care and abx -Podiatry to proceed with radical debridement as patient does not desire amputation. Planned for saturday -Patient will likely then need prolonged hospitalization and probable SNF placement. Gastrointestinal prophylaxis. Continue PPI. Deep venous thrombosis prophylaxis. heparin. Subjective 24 Hr Interval Summary Free Text/Dictation Patient seen and examined. Nursing reports no acute overnight events. new issues we discussed upcoming surgery. Exam/Review of Systems Vital Signs Vitals Vital Signs Date Time Temp Pulse Resp B/P Pulse Ox O2 Delivery O2 Flow Rate FiO2 03/30/16 09:02 3.0 03/30/16 08:14 98.8 18 20 129/64 96 03/26/16 20:10 Nasal Cannula Intake and Output 03/29/16 03/29/16 03/30/16 15:00 23:00 07:00 Intake Total 800 ml 960 ml Output Total 700 ml Balance -700 ml 800 ml 960 ml Exam GENERAL: Patient is awake/ alert / oriented HEENT: Pupils equal, round, reactive to light. Extraocular muscles intact. NECK: Supple, no thyromegaly. LUNGS: Clear to auscultation bilaterally. CARDIOVASCULAR: S1 and S2 only. No rubs or gallops. ABDOMEN: Obese, but otherwise nontender, nondistended, soft. MUSCULOSKELETAL: Right foot significantly infected with bandage noted over the right foot, foul smelling still. NEUROLOGIC: Moves upper and lower extremities. Results Result Diagram: 03/29/16 1350 03/29/16 1350 Results 24 hrs Laboratory Tests Test 03/29/16 16:24 03/29/16 20:15 03/30/16 04:59 03/30/16 05:01 Bedside Glucose 167 122 117 Iron Level 61 Percent Iron Saturation 22 Total Iron Binding Capacity 275 Test 03/30/16 08:01 03/30/16 11:37 Bedside Glucose 132 128 Medications Medications Current Medications Ondansetron HCl (Zofran Inj) 4 mg Q6H PRN IV NAUSEA AND/OR VOMITING; Start 03/23 at 23:00 Acetaminophen (Tylenol Tab) 650 mg Q6H PRN PO PAIN LEVEL 1-3 OR FEVER Last administered on 03/24/16 18:49; Admin Dose 650 MG; Start 03/23/16 at 23:00 Acetaminophen/ Hydrocodone Bitart ([place] (5/325)) 1 tab Q6H PRN PO MODERATE PAIN LEVEL 4-6; Start 03/23/16 at 23:00 Morphine Sulfate (morphine) 2 mg Q4H PRN IV SEVERE PAIN LEVEL 7-10 Last administered on 03/30/16 12:01; Admin Dose 2 MG; Start 03/23/16 at 23:00 Docusate Sodium (Colace) 100 mg Q12H PRN PO CONSTIPATION; Start 03/23/16 at 23: 00 Nicotine (Nicoderm 14 Mg/ 24hr) 1 patch DAILY TRANSDERM Last administered on 09:12; Admin Dose 1 PATCH; Start 03/24/16 at 09:00 Miscellaneous Information 1 ea NOTE XX ; Start 03/24/16 at 09:00 Glucose (Glutose) 15 gm Q15M PRN PO DECREASED GLUCOSE; Start 03/24/16 at 09:00 Glucose (Glutose) 22.5 gm Q15M PRN PO DECREASED GLUCOSE; Start 03/24/16 at 09:00 Dextrose (D50w Syringe) 25 ml Q15M PRN IV DECREASED GLUCOSE; Start 03/24/16 at 09:00 Dextrose (D50w Syringe) 50 ml Q15M PRN IV DECREASED GLUCOSE; Start 03/24/16 at 09:00 Glucagon (Glucagen) 1 mg Q15M PRN IM DECREASED GLUCOSE; Start 03/24/16 at 09:00 Glucose (Glutose) 15 gm Q15M PRN BUCCAL DECREASED GLUCOSE; Start 03/24/16 at 09: 00 Lorazepam (Ativan) 1 mg Q2H PRN IV AGITATION Last administered on 03/25/16 02: 39; Admin Dose 1 MG; Start 03/24/16 at 11:30 Acetaminophen (Tylenol Supp) 650 mg Q6H PRN [place] fever Last administered on 11:23; Admin Dose 650 MG; Start 03/24/16 at 19:00 Diagnostic Test (Pha) (Accucheck) 1 ea 02 XX Last administered on 03/28/16 02: 25; Admin Dose 1 EA; Start 03/27/16 at 02:00 Nystatin (Nystatin Oint) 1 applic TID TOP Last administered on 03/30/16 09:00 ; Admin Dose 1 APPLIC; Start 03/27/16 at 09:00 Heparin Sodium (Porcine) 5000 unit 5,000 unit Q8 SC Last administered on 06:19; Admin Dose 5,000 UNIT; Start 03/27/16 at 14:00 Levofloxacin/ Dextrose (Levaquin 750 Mg/ D5W 150 ml (Pmx)) 150 ml @ 100 mls/hr Q24H IVPB Last administered on 03/29/16 13:04; Admin Dose 100 MLS/HR; Start at 12:30 Metronidazole 500 mg 500 mg Q8 PO Last administered on 03/30/16 06:18; Admin Dose 500 MG; Start 03/28/16 at 14:00 Vancomycin HCl/ Sodium Chloride (Vancocin/NS) 250 ml @ 83.333 mls/ hr Q8H IVPB Last administered on 03/30/16 10:00; Admin Dose 83.333 MLS/HR; Start at 17:00 Pantoprazole (Protonix Tab) 40 mg DAILY@06 PO Last administered on 03/30/16 06 :18; Admin Dose 40 MG; Start 03/29/16 at 06:00 Insulin Glargine (Lantus) 33 unit HS SC Last administered on 03/29/16 20:18; Admin Dose 33 UNIT; Start 03/29/16 at 21:00 Miscellaneous Information (*Rx Drug Level Order Reminder*) 1 ONCE ONCE XX ; Start 03/31/16 at 00:00; Stop 03/31/16 at 00:01 DOMENICO BENSON Mar 30, 2016 14:56
[2016-03-30 20:05] VITALS: BP 157/90; RESP 18
[2016-03-30] MEDS: INSULIN GLARGINE [LANtus] 3 ML PEN SC SCH (20:38)
[2016-03-31] VITALS (11 sets, daily range): BP systolic 78–120; BP diastolic 52–68; PULSE 92–100; RESP 14–20
[2016-03-31] MEDS: INSULIN ASPART [NOVOLOG] 3 ML PEN SC SCH ×6 (01:00→20:11)
[2016-03-31] MEDS: SOD CHLORIDE 0.9% 1,000 ML IV SCH ×2 (01:42→14:20)
[2016-03-31] MEDS: morphine 2 MG INJ IV PRN ×2 (01:42→17:41)
[2016-03-31] MEDS: NICOTINE (14 MG/24 HR) PATCH TRANSDERM SCH (01:42)
[2016-03-31] MEDS: LORAZEPAM 2 MG INJ IV PRN (02:25)
[2016-03-31] MEDS: VANCOMYCIN 1.5 GM in SOD CHLORIDE 0.9% 250 ML IVPB SCH ×2 (02:25→09:00)
[2016-03-31] MEDS: metroNIDAZOLE 500 MG TAB PO SCH ×3 (04:55→21:06)
[2016-03-31] MEDS: PANTOPRAZOLE (EC) 40 MG TAB PO SCH (04:55)
[2016-03-31] MEDS: HEPARIN 5,000 UNIT/0.5 ML SYG SC SCH ×3 (04:56→21:08)
[2016-03-31 06:44] LABS: CREATININE 0.73 mg/dl (0.61-1.24)
[2016-03-31] MEDS: NYSTATIN TOP SCH ×3 (09:00→20:12)
--- NOTE | 2016-03-31 09:23 | HPN ---
Date/Time of Note Date/Time of Note DATE: 03/31/16 TIME: 09:22 Interval H&P Admission Note Pt. seen H&P reviewed: No system changes ESTEE IBRAHIM DPM Mar 31, 2016 09:22
[2016-03-31] MEDS ORDERED: FENTAnyl 50 MCG/ML VIAL ONE (10:34)
[2016-03-31] MEDS ORDERED: ONDANSETRON 4 MG INJ ONE (10:34)
[2016-03-31] MEDS ORDERED: NEOSTIGMINE 3 MG/3 ML SYRINGE ONE (10:34)
[2016-03-31] MEDS ORDERED: GLYCOPYRROLATE 0.4 MG INJ ONE (10:34)
[2016-03-31] MEDS ORDERED: LIDOCAINE 100 MG SYRINGE ONE (10:34)
[2016-03-31] MEDS ORDERED: PROPOFOL 20 ML ONE (10:34)
[2016-03-31] MEDS ORDERED: ROCURONIUM 50 MG INJ ONE (10:34)
[2016-03-31] MEDS ORDERED: MIDAZOLAM 1 MG/ML 2 ML INJ ONE (10:34)
[2016-03-31] MEDS ORDERED: DEXAMETHASONE 4 MG/ML 1 ML INJ ONE (10:34)
--- NOTE | 2016-03-31 11:25 | PN ---
Date/Time of Note Date/Time of Note DATE: 03/31/16 TIME: 11:22 Assessment/Plan VTE Prophylaxis VTE Prophylaxis Intervention: heparin Lines/Catheters IV C[facility]ter Type (from [facility]): Saline Lock Urinary Cath still in place: No Assessment/Plan Assessment/Plan 36-year-old male, presumably noncompliant history of type 2 diabetes, uncontrolled, and osteomyelitis of the right foot, diagnosed in February 2016, who comes in with sepsis secondary to osteomyelitis and gas gangrene findings. 1. Sepsis - secondary to #2 2. Right foot osteomyelitis with gas gangrene found. s/p bedside drainage x2 so far / Blood cultures noted / wound cultures still pending / abx per ID 3. Type 2 diabetes, uncontrolled at home, FS improved here in hospital - Continue sliding scale insulin / adjust Lantus dosage and continue premeal novolog 4. Substance abuse with signs of withdrawal on admission - On last admission , he had positive methamphetamine,l: improved - Patient state he is clean now - Ativan p.r.n. for that and also IV fluids. 5. Morbid obesity. Lifestyle changes will be educated again with the patient 6. Group B strep and Corynebacterium pseudomonas wound infections from the foot last time. Cultures still showing Corynebact and Stenotrophomonas / abx per ID 7. Tobacco use/ dependence. Tobacco cessation counselling done and will continue to be reinforced throughout hospitalization. / Nicotine patch 8. Chronic Depression Patient has a history of this condition. No acute issues so far on this admission. 9. Hepatitis C Dispo: -continue wound care and abx -Podiatry to proceed with radical debridement as patient does not desire amputation today -Patient will likely then need prolonged hospitalization and probable SNF placement. Gastrointestinal prophylaxis. Continue PPI. Deep venous thrombosis prophylaxis. heparin. Subjective 24 Hr Interval Summary Free Text/Dictation Patient seen and examined. Nursing reports no acute overnight events. Planned for radical debridement today Exam/Review of Systems Vital Signs Vitals Vital Signs Date Time Temp Pulse Resp B/P Pulse Ox O2 Delivery O2 Flow Rate FiO2 03/31/16 07:34 97.7 95 20 100/56 93 03/31/16 02:44 3.0 Intake and Output 03/30/16 03/30/16 03/31/16 15:00 23:00 07:00 Intake Total 250 ml 1600 ml 1670 ml Output Total 1000 ml Balance 250 ml 1600 ml 670 ml Exam GENERAL: Patient is awake/ alert / oriented HEENT: Pupils equal, round, reactive to light. Extraocular muscles intact. NECK: Supple, no thyromegaly. LUNGS: Clear to auscultation bilaterally. CARDIOVASCULAR: S1 and S2 only. No rubs or gallops. ABDOMEN: Obese, but otherwise nontender, nondistended, soft. MUSCULOSKELETAL: Right foot significantly infected with bandage noted over the right foot, foul smelling still. NEUROLOGIC: Moves upper and lower extremities. Results Result Diagram: 03/29/16 1350 03/31/16 0445 Results 24 hrs Laboratory Tests Test 03/30/16 11:37 03/30/16 17:43 03/30/16 20:15 03/31/16 01:15 Bedside Glucose 128 138 113 Vancomycin Level Trough 11.4 Test 03/31/16 04:37 03/31/16 04:45 03/31/16 07:54 Bedside Glucose 130 151 Blood Urea Nitrogen 16 Creatinine 0.73 Medications Medications Current Medications Ondansetron HCl (Zofran Inj) 4 mg Q6H PRN IV NAUSEA AND/OR VOMITING; Start 03/23 at 23:00 Acetaminophen (Tylenol Tab) 650 mg Q6H PRN PO PAIN LEVEL 1-3 OR FEVER Last administered on 03/30/16 14:53; Admin Dose 650 MG; Start 03/23/16 at 23:00 Acetaminophen/ Hydrocodone Bitart ([place] (5/325)) 1 tab Q6H PRN PO MODERATE PAIN LEVEL 4-6; Start 03/23/16 at 23:00 Morphine Sulfate (morphine) 2 mg Q4H PRN IV SEVERE PAIN LEVEL 7-10 Last administered on 03/31/16 01:42; Admin Dose 2 MG; Start 03/23/16 at 23:00 Docusate Sodium (Colace) 100 mg Q12H PRN PO CONSTIPATION; Start 03/23/16 at 23: 00 Nicotine (Nicoderm 14 Mg/ 24hr) 1 patch DAILY TRANSDERM Last administered on 01:42; Admin Dose 1 PATCH; Start 03/24/16 at 09:00 Miscellaneous Information 1 ea NOTE XX ; Start 03/24/16 at 09:00 Glucose (Glutose) 15 gm Q15M PRN PO DECREASED GLUCOSE; Start 03/24/16 at 09:00 Glucose (Glutose) 22.5 gm Q15M PRN PO DECREASED GLUCOSE; Start 03/24/16 at 09:00 Dextrose (D50w Syringe) 25 ml Q15M PRN IV DECREASED GLUCOSE; Start 03/24/16 at 09:00 Dextrose (D50w Syringe) 50 ml Q15M PRN IV DECREASED GLUCOSE; Start 03/24/16 at 09:00 Glucagon (Glucagen) 1 mg Q15M PRN IM DECREASED GLUCOSE; Start 03/24/16 at 09:00 Glucose (Glutose) 15 gm Q15M PRN BUCCAL DECREASED GLUCOSE; Start 03/24/16 at 09: 00 Lorazepam (Ativan) 1 mg Q2H PRN IV AGITATION Last administered on 03/31/16 02: 25; Admin Dose 1 MG; Start 03/24/16 at 11:30 Acetaminophen (Tylenol Supp) 650 mg Q6H PRN [place] fever Last administered on 11:23; Admin Dose 650 MG; Start 03/24/16 at 19:00 Nystatin (Nystatin Oint) 1 applic TID TOP Last administered on 03/30/16 20:38 ; Admin Dose 1 APPLIC; Start 03/27/16 at 09:00 Heparin Sodium (Porcine) 5000 unit 5,000 unit Q8 SC Last administered on 14:55; Admin Dose 5,000 UNIT; Start 03/27/16 at 14:00 Levofloxacin/ Dextrose (Levaquin 750 Mg/ D5W 150 ml (Pmx)) 150 ml @ 100 mls/hr Q24H IVPB Last administered on 03/30/16 14:00; Admin Dose 100 MLS/HR; Start at 12:30 Metronidazole 500 mg 500 mg Q8 PO Last administered on 03/30/16 20:36; Admin Dose 500 MG; Start 03/28/16 at 14:00 Vancomycin HCl/ Sodium Chloride (Vancocin/NS) 250 ml @ 83.333 mls/ hr Q8H IVPB Last administered on 03/31/16 02:25; Admin Dose 83.333 MLS/HR; Start at 17:00 Pantoprazole (Protonix Tab) 40 mg DAILY@06 PO Last administered on 03/30/16 06 :18; Admin Dose 40 MG; Start 03/29/16 at 06:00 Insulin Glargine (Lantus) 33 unit HS SC Last administered on 03/30/16 20:38; Admin Dose 10 UNIT; Start 03/29/16 at 21:00 Insulin Aspart NOVOLOG *MILD* ALGORI... Q4 SC ; Start 03/31/16 at 01:00 Sodium Chloride (NS) 1,000 ml @ 75 mls/hr [id number] IV Last administered on 03/31 01:42; Admin Dose 75 MLS/HR; Start 03/31/16 at 01:00 DOMENICO BENSON Mar 31, 2016 11:25
[2016-03-31] MEDS ORDERED: FENTAnyl 50 MCG/ML VIAL IV PRN ×3 (12:00)
[2016-03-31] MEDS ORDERED: MIDAZOLAM 1 MG/ML 2 ML INJ IV PRN (12:00)
[2016-03-31] MEDS ORDERED: HYDROmorphONE (0.2 MG/ML) 10ML SYG IV PRN ×3 (12:00)
[2016-03-31] MEDS ORDERED: EPHEDrine SULFATE 50 MG/5 ML SYG IV PRN (12:00)
[2016-03-31] MEDS ORDERED: MEPERIDINE 25 MG INJ IV PRN (12:00)
[2016-03-31] MEDS ORDERED: LABETALOL HCL 20MG INJ IV PRN (12:00)
[2016-03-31] MEDS ORDERED: DIPHENHYDRAMINE 50 MG INJ IV PRN (12:00)
[2016-03-31] MEDS ORDERED: TRIMETHOBENZAMIDE 100 MG/ML VIAL IM PRN (12:00)
[2016-03-31] MEDS ORDERED: hydrALAzine 20 MG INJ IV PRN (12:00)
[2016-03-31] MEDS ORDERED: ONDANSETRON 4 MG INJ IV PRN (12:00)
--- NOTE | 2016-03-31 12:04 | OPR ---
Date/Time of Note Date/Time of Note DATE: 03/31/16 TIME: 11:59 Operative Report Procedure Date: Mar 31, 2016 Preoperative Diagnosis Right foot abscess with cellulitis Necrotic right foot open wounds Gangrene of right fifth toe S/P prior amputation of right hallux Diabetes mellitus Peripheral neuropathy Peripheral vascular disease Morbid obesity Hx of substance abuse Postoperative Diagnosis Right foot abscess with cellulitis Necrotic right foot open wounds Gangrene of right fifth toe S/P prior amputation of right hallux Diabetes mellitus Peripheral neuropathy Peripheral vascular disease Morbid obesity Hx of substance abuse Operation Performed Incision and drainage of right foot abscess with cellulitis Surgical debridement of necrotic open wounds of the left foot Surgeon: ESTEE IBRAHIM DPM Anesthesia: general Estimated Blood Loss: minimal Complications: None Pt Condition Post Procedure: stable Disposition: PACU Indications This is an unfortunate 36-year-old male patient who has history of illegal substance abuse including heroin and methamphetamines who was brought to the hospital and was found to have a significant infection in his right foot. Upon arrival, patient was apparently very combative and he was placed on Haldol, morphine and Ativan. Initially, patient was not medically stable for anesthesia so I did bedside drainage of his multiple abscess formations in the right foot. This was done the second day as well. Patient requires extensive surgical debridement of his right foot. Patient is in significantly high risk for limb loss. This is an attempt for limb salvage and will require multiple surgical procedures. Patient will require staged procedures as there is extensive necrosis. Risks and complications of this type surgery was discussed with patient in great detail. Patient understands risks and complications. A consent was obtained, signed and placed in the chart. Operative Findings Abscess medial right foot, necrotic with malodor and purulent drainage. Abscess distal fifth MPJ with necrotic tissue and cellulitis. Gangrene of right fifth toe with necrosis and drainage of pus. Procedure Description Procedure in detail: The patient was brought into the operating room and was placed on the operating table in the supine position. General anesthesia was administered to the patient by the anesthesiologist. All bony prominences were padded probably. A timeout was called by the circulating nurse. The correct site of surgery was identified. All instrumentation was checked. All necessary preoperative medications have been administered. The right foot was scrubbed, prepped and draped in the usual aseptic manner. Procedure #1: Attention was directed to the right foot: Using sharp instrumentation such as #10 blade, curet, pickups and scissors, I surgically debrided necrotic tissue all the way to bone on the right foot multiple areas including the medial foot, distal fifth MPJ, and fifth toe. There was extensive necrosis of soft tissue noted with multiple deep sinus tracts in both areas. The versa jet was used for fine debridement to bleeding tissue. 3 L of sterile normal saline and bacitracin was used with pulse irrigation to irrigate the wounds. All wounds were packed with iodoform packing. Sterile dressing was applied to the right foot. Patient will require a second debridement and this will be scheduled. The patient tolerated the procedure and anesthesia well. He was transferred to the recovery room with vital signs stable and vascular status intact to the right foot. Patient will be sent back to the floor after postoperative monitoring. Postoperative orders have been written. Patient will be followed up in-house. Nonweightbearing ordered for the right foot. Prognosis is poor. Patient is at high risk for limb loss. ESTEE IBRAHIM DPM Mar 31, 2016 12:04
[2016-03-31] MEDS: LEVOFLOXACIN 750MG/D5W (PMX) 150 ML IVPB SCH (13:29)
[2016-03-31] MEDS: VANCOMYCIN IVPB SCH ×2 (15:16→21:07)
[2016-03-31] MEDS: SOD CHLORIDE 0.9% IVPB SCH ×2 (15:16→21:07)
--- NOTE | 2016-03-31 17:05 | CONS ---
Date/Time of Note Date/Time of Note DATE: 03/31/16 TIME: 17:05 Assessment/Plan Assessment/Plan Chief Complaint/Hosp Course ID PROGRESS NOTE TOTAL ABX DAY # => Vanco IV, Levquin, Flagyl 24H INTERVAL SUMMARY = POD #1 * A/A/O sitting up in chair eating salad, fruit, and 2 large canned sugar sweetened Ice Tea * Low grade temps, VSS, NAD * WOUND CX PRELIMINARY WOUND CULTURE Final Organism 1 CORYNEBACTERIUM SPECIES QUANTITY 3+ No growth after 1 day CORYN SPS Zone Size RX --------- --- * AMPICILLIN S * AMPICILLIN/SULBACTAM S * CEFAZOLIN S * CEFOTAXIME S * CEFUROXIME S * CIPROFLOXACIN S * CLINDAMYCIN R * ERYTHROMYCIN R * PENICILLIN S * VANCOMYCIN S WOUND CULTURE Final Organism 1 STENOTROPHOMONAS MALTOPHILIA QUANTITY 1+ Stenotrophomonas maltophilia susceptibilities are not performed. The drug of choice is Trimethoprim sulfamethoxazole. Aminoglycosides, Imipenem or Quinolones are not effective. STENMAL M.I.C. RX --------- --- LEVOFLOXACIN 0.25 S TRIMETHOPRIM/SULFAMETHOXAZOLE <=20 S PHYSICAL EXAMINATION: GENERAL: 36 yo M, VSS, NAD, A/A/O sitting up in chair HEENT: Unremarkable NECK: Supple, trachea midline. CHEST: Rise symmetrical without dyspnea HEART: RRR ABDOMEN: Soft EXTREMITIES: Warm w/ right foot DSG C/D/I ID ASSESSMENT: 36 yo M w/Morbid obesity, noncompliance admit with: POD #1 =>S/P 03/31/16 Operation Performed: * Incision and drainage of right foot abscess with cellulitis * Surgical debridement of necrotic open wounds of the left foot 1. Status post severe sepsis with shock and acute encephalopathy. 2. Left foot ongoing osteomyelitis, gangrene, status post incision and drainage at bedside. 3. Right foot abscess w/cellulitis 4. History of substance abuse. 5. Poorly controlled diabetes T2 w/DM peripheral neuropathy 6. History of noncompliance. INVASIVES: *PIV CURRENT ABX: # => Vanco IV, Levquin, Flagyl s/p ID RECOMMENDATIONS: CONTINUE Current ABX Will need at least 6 weeks for concern osteomyelitis PICC line per primary if no contraindications . Problems: Consultation Date/Type/Reason Admit Date/Time Mar 23, 2016 at 21:33 Initial Consult Date 03/24/16 Type of Consultation: ID Exam/Review of Systems Vital Signs Vitals Vital Signs Date Time Temp Pulse Resp B/P Pulse Ox O2 Delivery O2 Flow Rate FiO2 03/31/16 12:40 98 18 110/63 96 Nasal Cannula 2.0 03/31/16 12:05 99.2 Intake and Output 03/30/16 03/30/16 03/31/16 15:00 23:00 07:00 Intake Total 250 ml 1600 ml 1670 ml Output Total 1000 ml Balance 250 ml 1600 ml 670 ml Results Result Diagram: 03/29/16 1350 03/31/16 0445 Results 24 hrs Laboratory Tests Test 03/30/16 17:43 03/30/16 20:15 03/31/16 01:15 03/31/16 04:37 Bedside Glucose 138 113 130 Vancomycin Level Trough 11.4 Test 03/31/16 04:45 03/31/16 07:54 03/31/16 13:28 Blood Urea Nitrogen 16 Creatinine 0.73 Bedside Glucose 151 168 Medications Medications Current Medications Ondansetron HCl (Zofran Inj) 4 mg Q6H PRN IV NAUSEA AND/OR VOMITING; Start 03/23 at 23:00 Acetaminophen (Tylenol Tab) 650 mg Q6H PRN PO PAIN LEVEL 1-3 OR FEVER Last administered on 03/30/16 14:53; Admin Dose 650 MG; Start 03/23/16 at 23:00 Acetaminophen/ Hydrocodone Bitart ([place] (5/325)) 1 tab Q6H PRN PO MODERATE PAIN LEVEL 4-6; Start 03/23/16 at 23:00 Morphine Sulfate (morphine) 2 mg Q4H PRN IV SEVERE PAIN LEVEL 7-10 Last administered on 03/31/16 01:42; Admin Dose 2 MG; Start 03/23/16 at 23:00 Docusate Sodium (Colace) 100 mg Q12H PRN PO CONSTIPATION; Start 03/23/16 at 23: 00 Nicotine (Nicoderm 14 Mg/ 24hr) 1 patch DAILY TRANSDERM Last administered on 01:42; Admin Dose 1 PATCH; Start 03/24/16 at 09:00 Miscellaneous Information 1 ea NOTE XX ; Start 03/24/16 at 09:00 Glucose (Glutose) 15 gm Q15M PRN PO DECREASED GLUCOSE; Start 03/24/16 at 09:00 Glucose (Glutose) 22.5 gm Q15M PRN PO DECREASED GLUCOSE; Start 03/24/16 at 09:00 Dextrose (D50w Syringe) 25 ml Q15M PRN IV DECREASED GLUCOSE; Start 03/24/16 at 09:00 Dextrose (D50w Syringe) 50 ml Q15M PRN IV DECREASED GLUCOSE; Start 03/24/16 at 09:00 Glucagon (Glucagen) 1 mg Q15M PRN IM DECREASED GLUCOSE; Start 03/24/16 at 09:00 Glucose (Glutose) 15 gm Q15M PRN BUCCAL DECREASED GLUCOSE; Start 03/24/16 at 09: 00 Lorazepam (Ativan) 1 mg Q2H PRN IV AGITATION Last administered on 03/31/16 02: 25; Admin Dose 1 MG; Start 03/24/16 at 11:30 Acetaminophen (Tylenol Supp) 650 mg Q6H PRN [place] fever Last administered on 11:23; Admin Dose 650 MG; Start 03/24/16 at 19:00 Nystatin (Nystatin Oint) 1 applic TID TOP Last administered on 03/31/16 13:34 ; Admin Dose 1 APPLIC; Start 03/27/16 at 09:00 Heparin Sodium (Porcine) 5000 unit 5,000 unit Q8 SC Last administered on 15:13; Admin Dose 5,000 UNIT; Start 03/27/16 at 14:00 Levofloxacin/ Dextrose (Levaquin 750 Mg/ D5W 150 ml (Pmx)) 150 ml @ 100 mls/hr Q24H IVPB Last administered on 03/31/16 13:29; Admin Dose 100 MLS/HR; Start at 12:30 Metronidazole (Flagyl) 500 mg Q8 PO Last administered on 03/31/16 15:10; Admin Dose 500 MG; Start 03/28/16 at 14:00 Pantoprazole (Protonix Tab) 40 mg DAILY@06 PO Last administered on 03/30/16 06 :18; Admin Dose 40 MG; Start 03/29/16 at 06:00 Insulin Glargine (Lantus) 33 unit HS SC Last administered on 03/30/16 20:38; Admin Dose 10 UNIT; Start 03/29/16 at 21:00 Insulin Aspart NOVOLOG *MILD* [place]... Q4 SC Last administered on 03/31/16 13 :32; Admin Dose 1 UNIT; Start 03/31/16 at 01:00 Sodium Chloride 1,000 ml @ 75 mls/hr [id number] IV Last administered on 01:42; Admin Dose 75 MLS/HR; Start 03/31/16 at 01:00 Vancomycin HCl/ Sodium Chloride (Vancocin/NS) 250 ml @ 83.333 mls/ hr Q8 IVPB Last administered on 03/31/16 15:16; Admin Dose 83.333 MLS/HR; Start 03/31/16 at 14:00 LORIE DARLING NP Mar 31, 2016 17:05
--- NOTE | 2016-03-31 19:29 | RADRPT ---
PROCEDURE: XR Right Foot. CLINICAL INDICATION: Right foot pain. TECHNIQUE: Three views. Frontal, lateral, and oblique. COMPARISON: 03/23/2016. FINDINGS: There has been amputation of the first toe as seen previously. There is chronic deformity of the se cond and third metatarsal heads. There is osteopenia of the fifth metatarsal head which may indicat e osteomyelitis at this site. There is gas in the soft tissues proximally medially and distally lat erally as seen previously. Probable ulcers are present at these sites. Subcutaneous emphysema in the mid foot is no longer present. The articular surfaces are otherwise intact. There is no lytic or blastic lesion. There is no radiopaque foreign body. IMPRESSION: 1. Amputation of the first toe unchanged. 2. Chronic deformity of the second and third middle tarsal heads. 3. Osteopenia of the fifth metatarsal head which may indicate osteomyelitis. 4. Soft tissue ulcers. 5. Improved subcutaneous emphysema. RPTAT: QQ .Romain Wallace MD, MD Date Time Electronically viewed and signed by .Romain Wallace MD, on 03/31/2016 19:29 .R/
[2016-03-31] MEDS: INSULIN GLARGINE [LANtus] 3 ML PEN SC SCH (20:11)
[2016-04-01] MEDS: INSULIN ASPART [NOVOLOG] 3 ML PEN SC SCH ×6 (01:33→20:29)
[2016-04-01] MEDS: morphine 2 MG INJ IV PRN ×3 (01:36→21:50)
[2016-04-01] MEDS: SOD CHLORIDE 0.9% 1,000 ML IV SCH ×3 (03:38→21:42)
[2016-04-01] MEDS: PANTOPRAZOLE (EC) 40 MG TAB PO SCH (05:07)
[2016-04-01] MEDS: metroNIDAZOLE 500 MG TAB PO SCH ×3 (05:07→21:40)
[2016-04-01] MEDS: HEPARIN 5,000 UNIT/0.5 ML SYG SC SCH ×3 (05:09→21:41)
[2016-04-01] MEDS: SOD CHLORIDE 0.9% IVPB SCH ×3 (05:10→21:41)
[2016-04-01] MEDS: VANCOMYCIN IVPB SCH ×3 (05:10→21:41)
[2016-04-01] MEDS: LORAZEPAM 2 MG INJ IV PRN (05:23)
[2016-04-01 07:27] VITALS: BP 118/74; RESP 18
[2016-04-01] MEDS: NICOTINE (14 MG/24 HR) PATCH TRANSDERM SCH (08:40)
[2016-04-01] MEDS: NYSTATIN TOP SCH ×3 (08:51→20:32)
--- NOTE | 2016-04-01 11:20 | PN ---
Date/Time of Note Date/Time of Note DATE: 04/01/16 TIME: 11:16 Assessment/Plan VTE Prophylaxis VTE Prophylaxis Intervention: heparin Lines/Catheters IV Catheter Type (from [facility]): Peripheral IV Urinary Cath still in place: No Assessment/Plan Assessment/Plan 36-year-old male, presumably noncompliant history of type 2 diabetes, uncontrolled, and osteomyelitis of the right foot, diagnosed in February 2016, who comes in with sepsis secondary to osteomyelitis and gas gangrene findings. 1. Sepsis - secondary to #2 2. Right foot osteomyelitis with gas gangrene found. s/p bedside drainage x2 so far / Blood cultures noted / wound cultures still pending / abx per ID 3. Type 2 diabetes, uncontrolled at home, FS improved here in hospital - Continue sliding scale insulin / adjust Lantus dosage and continue premeal novolog 4. Substance abuse with signs of withdrawal on admission - On last admission , he had positive methamphetamine: resolved - Patient state he is clean now - Ativan p.r.n. for that and also IV fluids. 5. Morbid obesity. Lifestyle changes will be educated again with the patient 6. Group B strep and Corynebacterium pseudomonas wound infections from the foot last time. Cultures still showing Corynebact and Stenotrophomonas / abx per ID 7. Tobacco use/ dependence. Tobacco cessation counselling done and will continue to be reinforced throughout hospitalization. / Nicotine patch 8. Chronic Depression Patient has a history of this condition. No acute issues so far on this admission. 9. Hepatitis C 10. Non compliance: non compliant with NWB , with diet/ daily counselling on the need for strict compliance /?psych eval re: lack of insight Dispo: -continue wound care and abx -Podiatry to proceed with radical debridement as patient does not desire amputation today -Patient will likely then need prolonged hospitalization and probable SNF placement. Gastrointestinal prophylaxis. Continue PPI. Deep venous thrombosis prophylaxis. heparin. Subjective 24 Hr Interval Summary Free Text/Dictation Patient seen and examined. s/p debridement yesterday Exam/Review of Systems Vital Signs Vitals Vital Signs Date Time Temp Pulse Resp B/P Pulse Ox O2 Delivery O2 Flow Rate FiO2 04/01/16 07:27 98.4 102 18 118/74 96 03/31/16 21:00 21 03/31/16 12:40 Nasal Cannula 2.0 Intake and Output 103/31/16 04/01/16 15:00 23:00 07:00 Intake Total 600 ml 890.00 ml 1910 ml Output Total 10 ml Balance 590 ml 890.00 ml 1910 ml Exam GENERAL: Patient is awake/ alert / oriented HEENT: Pupils equal, round, reactive to light. Extraocular muscles intact. NECK: Supple, no thyromegaly. LUNGS: Clear to auscultation bilaterally. CARDIOVASCULAR: S1 and S2 only. No rubs or gallops. ABDOMEN: Obese, but otherwise nontender, nondistended, soft. MUSCULOSKELETAL: Right foot bandaged, no more foul smell NEUROLOGIC: Moves upper and lower extremities. Results Result Diagram: 03/29/16 1350 03/31/16 0445 Results 24 hrs Laboratory Tests Test 03/31/16 13:28 03/31/16 17:40 03/31/16 19:42 04/01/16 01:24 Bedside Glucose 168 246 H 240 H 152 Test 04/01/16 05:01 04/01/16 08:41 Bedside Glucose 145 263 H Medications Medications Current Medications Ondansetron HCl (Zofran Inj) 4 mg Q6H PRN IV NAUSEA AND/OR VOMITING; Start 03/23 at 23:00 Acetaminophen (Tylenol Tab) 650 mg Q6H PRN PO PAIN LEVEL 1-3 OR FEVER Last administered on 03/30/16 14:53; Admin Dose 650 MG; Start 03/23/16 at 23:00 Acetaminophen/ Hydrocodone Bitart ([place] (5/325)) 1 tab Q6H PRN PO MODERATE PAIN LEVEL 4-6; Start 03/23/16 at 23:00 Morphine Sulfate (morphine) 2 mg Q4H PRN IV SEVERE PAIN LEVEL 7-10 Last administered on 04/01/16 01:36; Admin Dose 2 MG; Start 03/23/16 at 23:00 Docusate Sodium (Colace) 100 mg Q12H PRN PO CONSTIPATION; Start 03/23/16 at 23: 00 Nicotine (Nicoderm 14 Mg/ 24hr) 1 patch DAILY TRANSDERM Last administered on 08:40; Admin Dose 1 PATCH; Start 03/24/16 at 09:00 Miscellaneous Information 1 ea NOTE XX ; Start 03/24/16 at 09:00 Glucose (Glutose) 15 gm Q15M PRN PO DECREASED GLUCOSE; Start 03/24/16 at 09:00 Glucose (Glutose) 22.5 gm Q15M PRN PO DECREASED GLUCOSE; Start 03/24/16 at 09:00 Dextrose (D50w Syringe) 25 ml Q15M PRN IV DECREASED GLUCOSE; Start 03/24/16 at 09:00 Dextrose (D50w Syringe) 50 ml Q15M PRN IV DECREASED GLUCOSE; Start 03/24/16 at 09:00 Glucagon (Glucagen) 1 mg Q15M PRN IM DECREASED GLUCOSE; Start 03/24/16 at 09:00 Glucose (Glutose) 15 gm Q15M PRN BUCCAL DECREASED GLUCOSE; Start 03/24/16 at 09: 00 Lorazepam (Ativan) 1 mg Q2H PRN IV AGITATION Last administered on 04/01/16 05: 23; Admin Dose 1 MG; Start 03/24/16 at 11:30 Acetaminophen (Tylenol Supp) 650 mg Q6H PRN [place] fever Last administered on 11:23; Admin Dose 650 MG; Start 03/24/16 at 19:00 Nystatin (Nystatin Oint) 1 applic TID TOP Last administered on 04/01/16 08:51 ; Admin Dose 1 APPLIC; Start 03/27/16 at 09:00 Heparin Sodium (Porcine) 5000 unit 5,000 unit Q8 SC Last administered on 05:09; Admin Dose 5,000 UNIT; Start 03/27/16 at 14:00 Levofloxacin/ Dextrose (Levaquin 750 Mg/ D5W 150 ml (Pmx)) 150 ml @ 100 mls/hr Q24H IVPB Last administered on 03/31/16 13:29; Admin Dose 100 MLS/HR; Start at 12:30 Metronidazole (Flagyl) 500 mg Q8 PO Last administered on 04/01/16 05:07; Admin Dose 500 MG; Start 03/28/16 at 14:00 Pantoprazole (Protonix Tab) 40 mg DAILY@06 PO Last administered on 04/01/16 05 :07; Admin Dose 40 MG; Start 03/29/16 at 06:00 Insulin Glargine (Lantus) 33 unit HS SC Last administered on 03/31/16 20:11; Admin Dose 33 UNIT; Start 03/29/16 at 21:00 Insulin Aspart NOVOLOG *MILD* ALGORI... Q4 SC Last administered on 04/01/16 08 :45; Admin Dose 4 UNIT; Start 03/31/16 at 01:00 Sodium Chloride 1,000 ml @ 75 mls/hr [id number] IV Last administered on 01:42; Admin Dose 75 MLS/HR; Start 03/31/16 at 01:00 Vancomycin HCl/ Sodium Chloride (Vancocin/NS) 250 ml @ 83.333 mls/ hr Q8 IVPB Last administered on 04/01/16 05:10; Admin Dose 83.333 MLS/HR; Start 03/31/16 at 14:00 DOMENICO BENSON Apr 01, 2016 11:20
[2016-04-01] MEDS: LEVOFLOXACIN 750MG/D5W (PMX) 150 ML IVPB SCH (14:02)
--- NOTE | 2016-04-01 17:26 | CONS ---
Date/Time of Note Date/Time of Note DATE: 04/01/16 TIME: 17:15 Assessment/Plan Assessment/Plan Chief Complaint/Hosp Course ID PROGRESS NOTE TOTAL ABX DAY #9 => Vanco IV #9, Levaquin #5, Flagyl #5 24H INTERVAL SUMMARY => POD #1 Operation Performed: R-foot I&D abscess + L-foot debridement open necrotic wounds * Doing well, no new issues * Low grade temps, VSS, NAD * WOUND CX PRELIMINARY WOUND CULTURE Final Organism 1 CORYNEBACTERIUM SPECIES QUANTITY 3+ No growth after 1 day CORYN SPS Zone Size RX --------- --- * AMPICILLIN S * AMPICILLIN/SULBACTAM S * CEFAZOLIN S * CEFOTAXIME S * CEFUROXIME S * CIPROFLOXACIN S * CLINDAMYCIN R * ERYTHROMYCIN R * PENICILLIN S * VANCOMYCIN S WOUND CULTURE Final Organism 1 STENOTROPHOMONAS MALTOPHILIA QUANTITY 1+ Stenotrophomonas maltophilia susceptibilities are not performed. The drug of choice is Trimethoprim sulfamethoxazole. Aminoglycosides, Imipenem or Quinolones are not effective. [facility] M.I.C. RX --------- --- LEVOFLOXACIN 0.25 S TRIMETHOPRIM/SULFAMETHOXAZOLE <=20 S 03/31/16 FOOT X-FAY: IMPRESSION: 1. Amputation of the first toe unchanged. 2. Chronic deformity of the second and third middle tarsal heads. 3. Osteopenia of the fifth metatarsal head which may indicate osteomyelitis. 4. Soft tissue ulcers. 5. Improved subcutaneous emphysema. PHYSICAL EXAMINATION: GENERAL: 36 yo M, VSS, NAD, A/A/O sitting up in chair HEENT: Unremarkable NECK: Supple, trachea midline. CHEST: Rise symmetrical without dyspnea HEART: RRR ABDOMEN: Soft EXTREMITIES: Warm w/ right foot DSG C/D/I ID ASSESSMENT: 36 yo M w/Morbid obesity, noncompliance admit with: * POD #1=> Operation Performed: R-foot I&D abscess + L-foot debridement open necrotic wounds 1. Status post severe sepsis with shock and acute encephalopathy. 2. Left foot ongoing osteomyelitis, gangrene, status post incision and drainage at bedside. 3. Right foot abscess w/cellulitis -> Possible osteomyelitis * 03/31/15 X-RAY RIGHT FOOT: Osteopenia of the fifth metatarsal head which may indicate osteomyelitis. * RIGHT FOOT WOUND CX: STENOTROPHOMONAS MALTOPHILIA + CORYNEBACTERIUM SPECIES (Not JK) 4. History of substance abuse. 5. Poorly controlled diabetes T2 w/DM peripheral neuropathy 6. History of noncompliance. INVASIVES: *PIV CURRENT ABX: TOTAL ABX DAY #9 => Vanco IV #9, Levaquin #5, Flagyl #5 s/p ID RECOMMENDATIONS: CONTINUE Current ABX Will need at least 6 weeks for concern osteomyelitis => Vanco IV x 6 weeks + Levaquin 500mg IV PICC line per primary if no contraindications . Problems: Consultation Date/Type/Reason Admit Date/Time Mar 23, 2016 at 21:33 Initial Consult Date 03/24/16 Type of Consultation: ID Exam/Review of Systems Vital Signs Vitals Vital Signs Date Time Temp Pulse Resp B/P Pulse Ox O2 Delivery O2 Flow Rate FiO2 04/01/16 07:27 98.4 102 18 118/74 96 03/31/16 21:00 21 03/31/16 12:40 Nasal Cannula 2.0 Intake and Output 03/31/16 03/31/16 04/01/16 15:00 23:00 07:00 Intake Total 600 ml 890.00 ml 1910 ml Output Total 10 ml Balance 590 ml 890.00 ml 1910 ml Results Result Diagram: 03/29/16 1350 03/31/16 0445 Results 24 hrs Laboratory Tests Test 03/31/16 17:40 03/31/16 19:42 04/01/16 01:24 04/01/16 05:01 Bedside Glucose 246 H 240 H 152 145 Test 04/01/16 08:41 04/01/16 11:48 04/01/16 16:55 Bedside Glucose 263 H 104 115 Medications Medications Current Medications Ondansetron HCl (Zofran Inj) 4 mg Q6H PRN IV NAUSEA AND/OR VOMITING; Start 03/23 at 23:00 Acetaminophen (Tylenol Tab) 650 mg Q6H PRN PO PAIN LEVEL 1-3 OR FEVER Last administered on 03/30/16 14:53; Admin Dose 650 MG; Start 03/23/16 at 23:00 Acetaminophen/ Hydrocodone Bitart ([place] (5/325)) 1 tab Q6H PRN PO MODERATE PAIN LEVEL 4-6; Start 03/23/16 at 23:00 Morphine Sulfate (morphine) 2 mg Q4H PRN IV SEVERE PAIN LEVEL 7-10 Last administered on 04/01/16 14:16; Admin Dose 2 MG; Start 03/23/16 at 23:00 Docusate Sodium (Colace) 100 mg Q12H PRN PO CONSTIPATION; Start 03/23/16 at 23: 00 Nicotine (Nicoderm 14 Mg/ 24hr) 1 patch DAILY TRANSDERM Last administered on 08:40; Admin Dose 1 PATCH; Start 03/24/16 at 09:00 Miscellaneous Information 1 ea NOTE XX ; Start 03/24/16 at 09:00 Glucose (Glutose) 15 gm Q15M PRN PO DECREASED GLUCOSE; Start 03/24/16 at 09:00 Glucose (Glutose) 22.5 gm Q15M PRN PO DECREASED GLUCOSE; Start 03/24/16 at 09:00 Dextrose (D50w Syringe) 25 ml Q15M PRN IV DECREASED GLUCOSE; Start 03/24/16 at 09:00 Dextrose (D50w Syringe) 50 ml Q15M PRN IV DECREASED GLUCOSE; Start 03/24/16 at 09:00 Glucagon (Glucagen) 1 mg Q15M PRN IM DECREASED GLUCOSE; Start 03/24/16 at 09:00 Glucose (Glutose) 15 gm Q15M PRN BUCCAL DECREASED GLUCOSE; Start 03/24/16 at 09: 00 Lorazepam (Ativan) 1 mg Q2H PRN IV AGITATION Last administered on 04/01/16 05: 23; Admin Dose 1 MG; Start 03/24/16 at 11:30 Acetaminophen (Tylenol Supp) 650 mg Q6H PRN [place] fever Last administered on 11:23; Admin Dose 650 MG; Start 03/24/16 at 19:00 Nystatin (Nystatin Oint) 1 applic TID TOP Last administered on 04/01/16 14:01 ; Admin Dose 1 APPLIC; Start 03/27/16 at 09:00 Heparin Sodium (Porcine) 5000 unit 5,000 unit Q8 SC Last administered on 14:22; Admin Dose 5,000 UNIT; Start 03/27/16 at 14:00 Levofloxacin/ Dextrose (Levaquin 750 Mg/ D5W 150 ml (Pmx)) 150 ml @ 100 mls/hr Q24H IVPB Last administered on 04/01/16 14:02; Admin Dose 100 MLS/HR; Start at 12:30 Metronidazole (Flagyl) 500 mg Q8 PO Last administered on 04/01/16 14:17; Admin Dose 500 MG; Start 03/28/16 at 14:00 Pantoprazole (Protonix Tab) 40 mg DAILY@06 PO Last administered on 04/01/16 05 :07; Admin Dose 40 MG; Start 03/29/16 at 06:00 Insulin Glargine 33 unit 33 unit HS SC Last administered on 03/31/16 20:11; Admin Dose 33 UNIT; Start 03/29/16 at 21:00 Sodium Chloride 1,000 ml @ 75 mls/hr [id number] IV Last administered on 01:42; Admin Dose 75 MLS/HR; Start 03/31/16 at 01:00 Vancomycin HCl/ Sodium Chloride (Vancocin/NS) 250 ml @ 83.333 mls/ hr Q8 IVPB Last administered on 04/01/16 16:19; Admin Dose 83.333 MLS/HR; Start 03/31/16 at 14:00 Zolpidem Tartrate (Ambien) 5 mg QHS PRN PO INSOMNIA; Start 04/01/16 at 13:30 Miscellaneous Information (*Rx Drug Level Order Reminder*) VANCO TROUGH @ 0, 500 ON... ONCE ONCE XX ; Start 04/02/16 at 05:00; Stop 04/02/16 at 05:01 LORIE DARLING NP Apr 01, 2016 17:25
[2016-04-01 20:23] VITALS: BP 130/73; RESP 20
[2016-04-01] MEDS: INSULIN GLARGINE [LANtus] 3 ML PEN SC SCH (20:31)
[2016-04-02] MEDS: morphine 2 MG INJ IV PRN ×2 (04:33→21:50)
[2016-04-02] MEDS: PANTOPRAZOLE (EC) 40 MG TAB PO SCH (06:15)
[2016-04-02] MEDS: metroNIDAZOLE 500 MG TAB PO SCH ×3 (06:15→21:47)
[2016-04-02] MEDS: HEPARIN 5,000 UNIT/0.5 ML SYG SC SCH ×3 (06:15→21:48)
[2016-04-02 06:29] LABS: CREATININE 0.88 mg/dl (0.61-1.24)
[2016-04-02] MEDS: VANCOMYCIN IVPB SCH ×3 (06:58→21:47)
[2016-04-02] MEDS: SOD CHLORIDE 0.9% IVPB SCH ×3 (06:58→21:47)
[2016-04-02 07:27] VITALS: BP 124/85; RESP 16
[2016-04-02] MEDS: LORAZEPAM 2 MG INJ IV PRN (08:32)
[2016-04-02] MEDS: NICOTINE (14 MG/24 HR) PATCH TRANSDERM SCH (08:33)
[2016-04-02] MEDS: INSULIN ASPART [NOVOLOG] 3 ML PEN SC SCH ×5 (08:36→21:00)
[2016-04-02] MEDS: NYSTATIN TOP SCH ×3 (08:37→21:47)
--- NOTE | 2016-04-02 11:54 | PN ---
Date/Time of Note Date/Time of Note DATE: 04/02/16 TIME: 11:49 Assessment/Plan VTE Prophylaxis VTE Prophylaxis Intervention: LMWH Lines/Catheters IV Catheter Type (from Nrs): Peripheral IV Urinary Cath still in place: No Assessment/Plan Chief Complaint/Hosp Course Assessment and plan 1. Right foot abscess; sp debridement. Stable cont wound care. Will need physical therapy SNF/wound VAC. 2. Right fourth toe gangrene; refused amputation 3. Diabetic foot infection/osteomyelitis. Cont antibiotics. PO vs IV's. High risk of nonadherence w PICC! Will check with infectious disease. 4. Nonadherence; high risk of sepsis/life and limb loss. 5. Chronic diabetes 6. Substance abuse: Heroin, meth, tobacco 7. Chronic hepatitis C viremia 8. Debility Problems: Subjective 24 Hr Interval Summary Free Text/Dictation Hospitalist coverage: Events noted. No fever. Pain controlled. Exam/Review of Systems Vital Signs Vitals Vital Signs Date Time Temp Pulse Resp B/P Pulse Ox O2 Delivery O2 Flow Rate FiO2 04/02/16 07:27 98.5 96 16 124/85 98 03/31/16 21:00 21 03/31/16 12:40 Nasal Cannula 2.0 Intake and Output 04/01/16 04/01/16 04/02/16 15:00 23:00 07:00 Intake Total 100 ml 4243.33 ml 1330 ml Balance 100 ml 4243.33 ml 1330 ml Exam Cardiovascular: regular rate and rhythm Gastrointestinal: non-tender (nondistended, no r r g. Positive obesity.), soft Extremities: other (right foot dressed.) Results Result Diagram: 03/29/16 1350 04/02/16 0455 Results 24 hrs Laboratory Tests Test 04/01/16 16:55 04/01/16 19:48 04/02/16 04:55 04/02/16 07:50 Bedside Glucose 115 140 167 Blood Urea Nitrogen 16 Creatinine 0.88 Vancomycin Level Trough 18.6 Medications Medications Current Medications Ondansetron HCl (Zofran Inj) 4 mg Q6H PRN IV NAUSEA AND/OR VOMITING; Start 03/23 at 23:00 Acetaminophen (Tylenol Tab) 650 mg Q6H PRN PO PAIN LEVEL 1-3 OR FEVER Last administered on 03/30/16t 14:53; Admin Dose 650 MG; Start 03/23/16 at 23:00 Acetaminophen/ Hydrocodone Bitart ([place] (5/325)) 1 tab Q6H PRN PO MODERATE PAIN LEVEL 4-6; Start 03/23/16 at 23:00 Morphine Sulfate (morphine) 2 mg Q4H PRN IV SEVERE PAIN LEVEL 7-10 Last administered on 04/02/16 04:33; Admin Dose 2 MG; Start 03/23/16 at 23:00 Docusate Sodium (Colace) 100 mg Q12H PRN PO CONSTIPATION; Start 03/23/16 at 23: 00 Nicotine (Nicoderm 14 Mg/ 24hr) 1 patch DAILY TRANSDERM Last administered on 08:33; Admin Dose 1 PATCH; Start 03/24/16 at 09:00 Miscellaneous Information 1 ea NOTE XX ; Start 03/24/16 at 09:00 Glucose (Glutose) 15 gm Q15M PRN PO DECREASED GLUCOSE; Start 03/24/16 at 09:00 Glucose (Glutose) 22.5 gm Q15M PRN PO DECREASED GLUCOSE; Start 03/24/16 at 09:00 Dextrose (D50w Syringe) 25 ml Q15M PRN IV DECREASED GLUCOSE; Start 03/24/16 at 09:00 Dextrose (D50w Syringe) 50 ml Q15M PRN IV DECREASED GLUCOSE; Start 03/24/16 at 09:00 Glucagon (Glucagen) 1 mg Q15M PRN IM DECREASED GLUCOSE; Start 03/24/16 at 09:00 Glucose (Glutose) 15 gm Q15M PRN BUCCAL DECREASED GLUCOSE; Start 03/24/16 at 09: 00 Lorazepam (Ativan) 1 mg Q2H PRN IV AGITATION Last administered on 04/02/16 08: 32; Admin Dose 1 MG; Start 03/24/16 at 11:30 Acetaminophen (Tylenol Supp) 650 mg Q6H PRN [place] fever Last administered on 11:23; Admin Dose 650 MG; Start 03/24/16 at 19:00 Nystatin (Nystatin Oint) 1 applic TID TOP Last administered on 04/02/16 08:37 ; Admin Dose 1 APPLIC; Start 03/27/16 at 09:00 Heparin Sodium (Porcine) 5000 unit 5,000 unit Q8 SC Last administered on 06:15; Admin Dose 5,000 UNIT; Start 03/27/16 at 14:00 Levofloxacin/ Dextrose (Levaquin 750 Mg/ D5W 150 ml (Pmx)) 150 ml @ 100 mls/hr Q24H IVPB Last administered on 04/01/16 14:02; Admin Dose 100 MLS/HR; Start at 12:30 Metronidazole (Flagyl) 500 mg Q8 PO Last administered on 04/02/16 06:15; Admin Dose 500 MG; Start 03/28/16 at 14:00 Pantoprazole (Protonix Tab) 40 mg DAILY@06 PO Last administered on 04/02/16 06 :15; Admin Dose 40 MG; Start 03/29/16 at 06:00 Insulin Glargine 33 unit 33 unit HS SC Last administered on 04/01/16 20:31; Admin Dose 33 UNIT; Start 03/29/16 at 21:00 Sodium Chloride 1,000 ml @ 75 mls/hr [id number] IV Last administered on 21:42; Admin Dose 75 MLS/HR; Start 03/31/16 at 01:00 Vancomycin HCl/ Sodium Chloride (Vancocin/NS) 250 ml @ 83.333 mls/ hr Q8 IVPB Last administered on 04/02/16 06:58; Admin Dose 83.333 MLS/HR; Start 03/31/16 at 14:00 Zolpidem Tartrate (Ambien) 5 mg QHS PRN PO INSOMNIA; Start 04/01/16 at 13:30 Miscellaneous Information (*Rx Drug Level Order Reminder*) VANCOMYCIN TROUGH AT 0500 ONCE ONCE XX ; Start 04/03/16 at 05:00; Stop 04/03/16 at 05:01 MAK FARIAS MD Apr 02, 2016 11:54
[2016-04-02] MEDS: ACETAMINOPHEN 325 MG TAB PO PRN (11:59)
[2016-04-02] MEDS: MULTIVITAMINS THERAPEUTIC TAB PO SCH (12:59)
[2016-04-02] MEDS: LACTOBACILLUS RHAMNOSUS CAP PO SCH ×2 (13:02→21:47)
[2016-04-02] MEDS: HYDROCODONE/APAP (5/325) TAB PO PRN (15:04)
--- NOTE | 2016-04-02 19:02 | CONS ---
Date/Time of Note Date/Time of Note DATE: 04/02/16 TIME: 18:58 Assessment/Plan Assessment/Plan Chief Complaint/Hosp Course ID PROGRESS NOTE TOTAL ABX DAY #10 => Vanco IV #10, Levaquin #6, Flagyl #6 24H INTERVAL SUMMARY => POD #2 Operation Performed on 03/31/16 => R-foot I&D abscess + L-foot debridement open necrotic wounds * Patient is noncompliant -- friends visiting him daily and he has been doing "METH" and drinking tall sugar sweetened TEA * Otherwise d oing well, no new issues * Low grade temps, VSS, NAD * WOUND CX PRELIMINARY WOUND CULTURE Final Organism 1 CORYNEBACTERIUM SPECIES QUANTITY 3+ No growth after 1 day CORYN SPS Zone Size RX --------- --- * AMPICILLIN S * AMPICILLIN/SULBACTAM S * CEFAZOLIN S * CEFOTAXIME S * CEFUROXIME S * CIPROFLOXACIN S * CLINDAMYCIN R * ERYTHROMYCIN R * PENICILLIN S * VANCOMYCIN S WOUND CULTURE Final Organism 1 STENOTROPHOMONAS MALTOPHILIA QUANTITY 1+ Stenotrophomonas maltophilia susceptibilities are not performed. The drug of choice is Trimethoprim sulfamethoxazole. Aminoglycosides, Imipenem or Quinolones are not effective. [facility] M.I.C. RX --------- --- LEVOFLOXACIN 0.25 S TRIMETHOPRIM/SULFAMETHOXAZOLE <=20 S 03/31/16 FOOT X-FAY: IMPRESSION: 1. Amputation of the first toe unchanged. 2. Chronic deformity of the second and third middle tarsal heads. 3. Osteopenia of the fifth metatarsal head which may indicate osteomyelitis. 4. Soft tissue ulcers. 5. Improved subcutaneous emphysema. PHYSICAL EXAMINATION: GENERAL: 36 yo M, VSS, NAD, A/A/O sitting up in chair HEENT: Unremarkable NECK: Supple, trachea midline. CHEST: Rise symmetrical without dyspnea HEART: RRR ABDOMEN: Soft EXTREMITIES: Warm w/ right foot DSG C/D/I ID ASSESSMENT: 36 yo M w/Morbid obesity, noncompliance admit with: * POD #2=> Operation Performed: R-foot I&D abscess + L-foot debridement open necrotic wounds 1. Status post severe sepsis with shock and acute encephalopathy. 2. Left foot ongoing osteomyelitis, gangrene, status post incision and drainage at bedside. 3. Right foot abscess w/cellulitis -> Possible osteomyelitis * 03/31/15 X-RAY RIGHT FOOT: Osteopenia of the fifth metatarsal head which may indicate osteomyelitis. * RIGHT FOOT WOUND CX: STENOTROPHOMONAS MALTOPHILIA + CORYNEBACTERIUM SPECIES (Not JK) 4. History of substance abuse. 5. Poorly controlled diabetes T2 w/DM peripheral neuropathy 6. History of noncompliance. INVASIVES: *PIV CURRENT ABX: TOTAL ABX DAY #10 => Vanco IV #10, Levaquin #6, Flagyl #6 s/p ID RECOMMENDATIONS: CONTINUE Current ABX Will need at least 6 weeks for concern osteomyelitis => Vanco IV x 6 weeks + Levaquin 500mg IV PICC line per primary if no contraindications *NOTE: Patient is noncompliant -- friends visiting him daily and he has been doing "METH" and drinking tall sugar sweetened TEA . Problems: Consultation Date/Type/Reason Admit Date/Time Mar 23, 2016 at 21:33 Initial Consult Date 03/24/16 Type of Consultation: ID Exam/Review of Systems Vital Signs Vitals Vital Signs Date Time Temp Pulse Resp B/P Pulse Ox O2 Delivery O2 Flow Rate FiO2 04/02/16 07:27 98.5 96 16 124/85 98 03/31/16 21:00 21 03/31/16 12:40 Nasal Cannula 2.0 Intake and Output 04/01/16 04/01/16 04/02/16 15:00 23:00 07:00 Intake Total 100 ml 4243.33 ml 1330 ml Balance 100 ml 4243.33 ml 1330 ml Results Result Diagram: 03/29/16 1350 04/02/16 0455 Results 24 hrs Laboratory Tests Test 04/01/16 19:48 04/02/16 04:55 04/02/16 07:50 04/02/16 11:52 Bedside Glucose 140 167 120 Blood Urea Nitrogen 16 Creatinine 0.88 Vancomycin Level Trough 18.6 Test 04/02/16 16:46 Bedside Glucose 141 Medications Medications Current Medications Ondansetron HCl (Zofran Inj) 4 mg Q6H PRN IV NAUSEA AND/OR VOMITING; Start 03/23 at 23:00 Acetaminophen (Tylenol Tab) 650 mg Q6H PRN PO PAIN LEVEL 1-3 OR FEVER Last administered on 04/02/16 11:59; Admin Dose 650 MG; Start 03/23/16 at 23:00 Acetaminophen/ Hydrocodone Bitart ([place] (5/325)) 1 tab Q6H PRN PO MODERATE PAIN LEVEL 4-6 Last administered on 04/02/16 15:04; Admin Dose 1 TAB; Start 03/23/16 at 23:00 Morphine Sulfate (morphine) 2 mg Q4H PRN IV SEVERE PAIN LEVEL 7-10 Last administered on 04/02/16 04:33; Admin Dose 2 MG; Start 03/23/16 at 23:00 Docusate Sodium (Colace) 100 mg Q12H PRN PO CONSTIPATION Last administered on 15:04; Admin Dose 100 MG; Start 03/23/16 at 23:00 Nicotine (Nicoderm 14 Mg/ 24hr) 1 patch DAILY TRANSDERM Last administered on 08:33; Admin Dose 1 PATCH; Start 03/24/16 at 09:00 Miscellaneous Information 1 ea NOTE XX ; Start 03/24/16 at 09:00 Glucose (Glutose) 15 gm Q15M PRN PO DECREASED GLUCOSE; Start 03/24/16 at 09:00 Glucose (Glutose) 22.5 gm Q15M PRN PO DECREASED GLUCOSE; Start 03/24/16 at 09:00 Dextrose (D50w Syringe) 25 ml Q15M PRN IV DECREASED GLUCOSE; Start 03/24/16 at 09:00 Dextrose (D50w Syringe) 50 ml Q15M PRN IV DECREASED GLUCOSE; Start 03/24/16 at 09:00 Glucagon (Glucagen) 1 mg Q15M PRN IM DECREASED GLUCOSE; Start 03/24/16 at 09:00 Glucose (Glutose) 15 gm Q15M PRN BUCCAL DECREASED GLUCOSE; Start 03/24/16 at 09: 00 Lorazepam (Ativan) 1 mg Q2H PRN IV AGITATION Last administered on 04/02/16 08: 32; Admin Dose 1 MG; Start 03/24/16 at 11:30 Nystatin (Nystatin Oint) 1 applic TID TOP Last administered on 04/02/16 11:59 ; Admin Dose 1 APPLIC; Start 03/27/16 at 09:00 Heparin Sodium (Porcine) (Heparin (5000 Units/0.5 ml)) 5,000 unit Q8 SC Last administered on 04/02/16 13:02; Admin Dose 5,000 UNIT; Start 03/27/16 at 14:00 Metronidazole (Flagyl) 500 mg Q8 PO Last administered on 04/02/16 13:03; Admin Dose 500 MG; Start 03/28/16 at 14:00 Pantoprazole 40 mg 40 mg DAILY@06 PO Last administered on 04/02/16 06:15; Admin Dose 40 MG; Start 03/29/16 at 06:00 Vancomycin HCl/ Sodium Chloride (Vancocin/NS) 250 ml @ 83.333 mls/ hr Q8 IVPB Last administered on 04/02/16 13:03; Admin Dose 83.333 MLS/HR; Start 03/31/16 at 14:00 Zolpidem Tartrate (Ambien) 5 mg QHS PRN PO INSOMNIA; Start 04/01/16 at 13:30 Miscellaneous Information (*Rx Drug Level Order Reminder*) VANCOMYCIN TROUGH AT 0500 ONCE ONCE XX ; Start 04/03/16 at 05:00; Stop 04/03/16 at 05:01 Levofloxacin (Levaquin) 750 mg DAILY@06 PO ; Start 04/03/16 at 06:00 Lactobacillus Acidophilus/ Rhamnosus (Culturelle) 1 cap BID PO Last administered on 04/02/16 13:02; Admin Dose 1 CAP; Start 04/02/16 at 12:00 Multivitamins Therapeutic (Theragran) 1 tab DAILY PO Last administered on 12:59; Admin Dose 1 TAB; Start 04/02/16 at 12:00 Insulin Glargine (Lantus) 20 unit HS SC ; Start 04/02/16 at 21:00 Acetaminophen/ Hydrocodone Bitart ([place] (10/325)) 1 tab Q3H PRN PO PAIN; Start 04/02/16 at 13:00 LORIE DARLING NP Apr 02, 2016 19:02
[2016-04-02 20:20] VITALS: BP 137/78; RESP 19
[2016-04-02] MEDS: INSULIN GLARGINE [LANtus] 3 ML PEN SC SCH (21:49)
[2016-04-03] MEDS: morphine 2 MG INJ IV PRN ×2 (05:51→21:47)
[2016-04-03] MEDS: metroNIDAZOLE 500 MG TAB PO SCH ×3 (05:51→21:42)
[2016-04-03] MEDS: LEVOFLOXACIN 750 MG TABLET PO SCH (05:51)
[2016-04-03] MEDS: PANTOPRAZOLE (EC) 40 MG TAB PO SCH (05:51)
[2016-04-03] MEDS: HEPARIN 5,000 UNIT/0.5 ML SYG SC SCH ×3 (05:54→21:45)
[2016-04-03] MEDS: VANCOMYCIN IVPB SCH (06:00)
[2016-04-03] MEDS: SOD CHLORIDE 0.9% IVPB SCH (06:00)
[2016-04-03 06:10] LABS: INR 1.01; PROTIME 13.3 Sec (12.2-14.2)
[2016-04-03 06:27] LABS: ALBUMIN 3.4 g/dl (3.3-4.9); POTASSIUM 4.1 mmol/L (3.5-5.1)
[2016-04-03 06:29] LABS: BILIRUBIN,INDIRECT 0.2 mg/dl (0-1.1); BILIRUBIN,TOTAL 0.2 mg/dl (0.2-1.3); CREATININE 0.83 mg/dl (0.61-1.24)
[2016-04-03 06:30] LABS: ALBUMIN/GLOBULIN RATIO 0.75; CALCIUM 8.7 mg/dl (8.4-10.2); MAGNESIUM 2.1 mg/dl (1.7-2.5); PHOSPHORUS 4.8 mg/dl (2.5-4.9); TOTAL PROTEIN 7.9 g/dl (6.1-8.1)
[2016-04-03 07:00] LABS: THYROID STIMULATING HORMONE 2.65 MIU/L (0.465-4.680)
[2016-04-03 07:23] VITALS: BP 133/74; RESP 18
[2016-04-03 08:04] LABS: BASOPHILS % 0.5 % (0.0-2.0); EOSINOPHILS # 0.1 10^3/ul (0.0-0.5); EOSINOPHILS % 1.2 % (0.0-7.0); HEMATOCRIT 37.5 % (42.0-52.0); HEMOGLOBIN 12.2 g/dl (14.0-18.0); LYMPHOCYTES # 2.6 10^3/ul (0.8-2.9); MEAN CORPUSCULAR HGB CONC 32.5 g/dl (32.0-37.0); MEAN CORPUSCULAR VOLUME 76.7 fl (82.0-101.0); MEAN PLATELET VOLUME 7.7 fl (7.4-10.4); MONOCYTE # 0.6 10^3/ul (0.3-0.9); MONOCYTES % 5.7 % (0.0-11.0); NEUTROPHILS % 67.6 % (39.0-77.0); PLATELET COUNT 395 10^3/UL (140-440); RED BLOOD COUNT 4.89 10^6/ul (4.70-6.10); UNCORRECTED WBC 10.3 10^3/ul (4.8-10.8); WHITE BLOOD COUNT 10.3 10^3/ul (4.8-10.8)
[2016-04-03 08:06] LABS: CONDITION 1; LH ANALYZER COMMENTS 1
[2016-04-03] MEDS: INSULIN ASPART [NOVOLOG] 3 ML PEN SC SCH ×7 (08:59→21:00)
[2016-04-03] MEDS: LACTOBACILLUS RHAMNOSUS CAP PO SCH ×2 (09:00→21:46)
[2016-04-03] MEDS: MULTIVITAMINS THERAPEUTIC TAB PO SCH (09:00)
[2016-04-03] MEDS: NICOTINE (14 MG/24 HR) PATCH TRANSDERM SCH (09:00)
[2016-04-03] MEDS: NYSTATIN TOP SCH ×3 (09:06→21:48)
[2016-04-03] MEDS: VANCOMYCIN 1.25 GM in SOD CHLORIDE 0.9% 250 ML IVPB SCH ×2 (11:06→17:34)
--- NOTE | 2016-04-03 11:09 | PN ---
Date/Time of Note Date/Time of Note DATE: 04/03/16 TIME: 11:06 Assessment/Plan VTE Prophylaxis VTE Prophylaxis Intervention: LMWH Lines/Catheters [facility] Peripheral IV Urinary Cath still in place: No Assessment/Plan Chief Complaint/Hosp Course A/P 1. Rt foot abscess; sp debridement. Stable, cont wound care. Will need PT/home health; no SNF. wound VAC? 2. Rt fourth toe gangrene; refused amputation? Rt fifth metatarsal likely osteomyelitis/gangrene. Reconsider if adherent. 3. Diabetic foot infection/osteomyelitis. Cont atb's: PO vs IVs. High risk of nonadherence w PICC! Will check w ID. 4. Nonadherence; high risk of sepsis/life & limb loss. sp counseling 5. Chronic diabetes; still with dietary nonadherence. A1c 9.1 6. Substance abuse: Heroin, meth, tobacco; tox screen pending 7. Chr HCV viremia 8. Debility Problems: Subjective 24 Hr Interval Summary Free Text/Dictation Hospitalist coverage: No fever chills toxicity. Awake alert/encephalopathy resolved. Appreciate social service assistance. Seen by podiatry yesterday. If adherence is appropriate and substance abuse has resolved, consider further aggressive surgical intervention. Exam/Review of Systems Vital Signs Vitals Vital Signs Date Time Temp Pulse Resp B/P Pulse Ox O2 Delivery O2 Flow Rate FiO2 04/03/16 07:23 97.8 89 18 133/74 95 03/31/16 21:00 21 03/31/16 12:40 Nasal Cannula 2.0 Intake and Output 04/02/16 04/02/16 04/03/16 15:00 23:00 07:00 Intake Total 250 ml 2240 ml 1480 ml Balance 250 ml 2240 ml 1480 ml Exam Constitutional: alert, oriented Respiratory: clear to auscultation Cardiovascular: regular rate and rhythm Gastrointestinal: non-tender, soft Extremities: other (right foot dressed.) Results Result Diagram: 04/03/16 0500 04/03/16 0500 Results 24 hrs Laboratory Tests Test 04/02/16 11:52 04/02/16 16:46 04/02/16 20:04 04/03/16 05:00 Bedside Glucose 120 141 127 Alanine Aminotransferase (ALT/SGPT) 32 Albumin 3.4 Albumin/Globulin Ratio 0.75 Alkaline Phosphatase 75 Anion Gap 15 Aspartate Amino Transf (AST/SGOT) 20 Basophils # 0.0 Basophils % 0.5 Blood Morphology Comment Blood Urea Nitrogen 16 Calcium Level 8.7 Carbon Dioxide Level 27 Chloride Level 100 Creatinine 0.83 Direct Bilirubin 0.00 Eosinophils # 0.1 Eosinophils % 1.2 Globulin 4.50 H Glucose Level 148 Hematocrit 37.5 L Hemoglobin 12.2 L Hemoglobin A1c 9.3 H INR International Normalized Ratio 1.01 Indirect Bilirubin 0.2 Lymphocytes # 2.6 Lymphocytes % 25.0 Magnesium Level 2.1 Mean Corpuscular Hemoglobin 25.0 L Mean Corpuscular Hemoglobin Concent 32.5 Mean Corpuscular Volume 76.7 L Mean Platelet Volume 7.7 Monocytes # 0.6 Monocytes % 5.7 Neutrophils # 7.0 Neutrophils % 67.6 Nucleated Red Blood Cells # 0.0 Nucleated Red Blood Cells % 0.0 Phosphorus Level 4.8 Platelet Count 395 # Potassium Level 4.1 Prothrombin Time 13.3 Prothrombin Time Ratio 1.0 Red Blood Count 4.89 Red Cell Distribution Width 17.0 H Sodium Level 138 Thyroid Stimulating Hormone (TSH) 2.650 Total Bilirubin 0.2 Total Protein 7.9 Vancomycin Level Trough 23.1 *H White Blood Count 10.3 # Test 04/03/16 07:58 Bedside Glucose 150 Medications Medications Current Medications Ondansetron HCl (Zofran Inj) 4 mg Q6H PRN IV NAUSEA AND/OR VOMITING; Start 03/23 at 23:00 Acetaminophen (Tylenol Tab) 650 mg Q6H PRN PO PAIN LEVEL 1-3 OR FEVER Last administered on 04/02/16 11:59; Admin Dose 650 MG; Start 03/23/16 at 23:00 Acetaminophen/ Hydrocodone Bitart ([place] (5/325)) 1 tab Q6H PRN PO MODERATE PAIN LEVEL 4-6 Last administered on 04/02/16 15:04; Admin Dose 1 TAB; Start 03/23/16 at 23:00 Morphine Sulfate (morphine) 2 mg Q4H PRN IV SEVERE PAIN LEVEL 7-10 Last administered on 04/03/16 05:51; Admin Dose 2 MG; Start 03/23/16 at 23:00 Docusate Sodium (Colace) 100 mg Q12H PRN PO CONSTIPATION Last administered on 15:04; Admin Dose 100 MG; Start 03/23/16 at 23:00 Nicotine (Nicoderm 14 Mg/ 24hr) 1 patch DAILY TRANSDERM Last administered on 09:00; Admin Dose 1 PATCH; Start 03/24/16 at 09:00 Miscellaneous Information 1 ea NOTE XX ; Start 03/24/16 at 09:00 Glucose (Glutose) 15 gm Q15M PRN PO DECREASED GLUCOSE; Start 03/24/16 at 09:00 Glucose (Glutose) 22.5 gm Q15M PRN PO DECREASED GLUCOSE; Start 03/24/16 at 09:00 Dextrose (D50w Syringe) 25 ml Q15M PRN IV DECREASED GLUCOSE; Start 03/24/16 at 09:00 Dextrose (D50w Syringe) 50 ml Q15M PRN IV DECREASED GLUCOSE; Start 03/24/16 at 09:00 Glucagon (Glucagen) 1 mg Q15M PRN IM DECREASED GLUCOSE; Start 03/24/16 at 09:00 Glucose (Glutose) 15 gm Q15M PRN BUCCAL DECREASED GLUCOSE; Start 03/24/16 at 09: 00 Lorazepam (Ativan) 1 mg Q2H PRN IV AGITATION Last administered on 04/02/16 08: 32; Admin Dose 1 MG; Start 03/24/16 at 11:30 Nystatin (Nystatin Oint) 1 applic TID TOP Last administered on 04/03/16 09:06 ; Admin Dose 1 APPLIC; Start 03/27/16 at 09:00 Heparin Sodium (Porcine) (Heparin (5000 Units/0.5 ml)) 5,000 unit Q8 SC Last administered on 04/03/16 05:54; Admin Dose 5,000 UNIT; Start 03/27/16 at 14:00 Metronidazole (Flagyl) 500 mg Q8 PO Last administered on 04/03/16 05:51; Admin Dose 500 MG; Start 03/28/16 at 14:00 Pantoprazole (Protonix Tab) 40 mg DAILY@06 PO Last administered on 04/03/16 05 :51; Admin Dose 40 MG; Start 03/29/16 at 06:00 Zolpidem Tartrate (Ambien) 5 mg QHS PRN PO INSOMNIA; Start 04/01/16 at 13:30 Levofloxacin (Levaquin) 750 mg DAILY@06 PO Last administered on 04/03/16 05:51 ; Admin Dose 750 MG; Start 04/03/16 at 06:00 Lactobacillus Acidophilus/ Rhamnosus (Culturelle) 1 cap BID PO Last administered on 04/03/16 09:00; Admin Dose 1 CAP; Start 04/02/16 at 12:00 Multivitamins Therapeutic (Theragran) 1 tab DAILY PO Last administered on 09:00; Admin Dose 1 TAB; Start 04/02/16 at 12:00 Insulin Glargine (Lantus) 20 unit HS SC Last administered on 04/02/16 21:49; Admin Dose 20 UNIT; Start 04/02/16 at 21:00 Acetaminophen/ Hydrocodone Bitart 1 tab 1 tab Q3H PRN PO PAIN; Start 04/02/16 at 13:00 Vancomycin HCl/ Sodium Chloride (Vancocin/NS) 250 ml @ 83.333 mls/ hr Q8H IVPB ; Start 04/03/16 at 10:00 MAK FARIAS MD Apr 03, 2016 11:09
[2016-04-03 12:31] LABS: ADD UMIC NO; URINE BILIRUBIN (Dip) NEGATIVE (NEGATIVE); URINE BLOOD (Dip) NEGATIVE (NEGATIVE); URINE COLOR LT. YELLOW (YELLOW); URINE GLUCOSE (Dip) NEGATIVE (NEGATIVE); URINE KETONES (Dip) NEGATIVE (NEGATIVE); URINE LEUKOCYTE ESTERASE (Dip) NEGATIVE (NEGATIVE); URINE NITRITE (Dip) NEGATIVE (NEGATIVE); URINE TOTAL PROTEIN (Dip) NEGATIVE (NEGATIVE); URINE UROBILINOGEN (Dip) 0.2 E.U./dL (0.1-1.0)
--- NOTE | 2016-04-03 13:48 | CONS ---
Date/Time of Note Date/Time of Note DATE: 04/03/16 TIME: 13:46 Consult Date/Type/Reason Admit Date/Time Mar 23, 2016 at 21:33 Initial Consult Date 03/24/16 Type of Consultation: ID Subjective all noted, awake, no fevers, nad Objective Vital Signs Date Time Temp Pulse Resp B/P Pulse Ox O2 Delivery O2 Flow Rate FiO2 04/03/16 07:23 97.8 89 18 133/74 95 03/31/16 21:00 21 03/31/16 12:40 Nasal Cannula 2.0 Intake and Output 04/02/16 04/02/16 04/03/16 15:00 23:00 07:00 Intake Total 250 ml 2240 ml 1480 ml Balance 250 ml 2240 ml 1480 ml Results/Medications Result Diagram: 04/03/16 0500 04/03/16 0500 Results 24 hrs Laboratory Tests Test 04/02/16 16:46 04/02/16 20:04 04/03/16 05:00 04/03/16 07:58 Bedside Glucose 141 127 150 Alanine Aminotransferase (ALT/SGPT) 32 Albumin 3.4 Albumin/Globulin Ratio 0.75 Alkaline Phosphatase 75 Anion Gap 15 Aspartate Amino Transf (AST/SGOT) 20 Basophils # 0.0 Basophils % 0.5 Blood Morphology Comment Blood Urea Nitrogen 16 Calcium Level 8.7 Carbon Dioxide Level 27 Chloride Level 100 Creatinine 0.83 Direct Bilirubin 0.00 Eosinophils # 0.1 Eosinophils % 1.2 Globulin 4.50 H Glucose Level 148 Hematocrit 37.5 L Hemoglobin 12.2 L Hemoglobin A1c 9.3 H INR International Normalized Ratio 1.01 Indirect Bilirubin 0.2 Lymphocytes # 2.6 Lymphocytes % 25.0 Magnesium Level 2.1 Mean Corpuscular Hemoglobin 25.0 L Mean Corpuscular Hemoglobin Concent 32.5 Mean Corpuscular Volume 76.7 L Mean Platelet Volume 7.7 Monocytes # 0.6 Monocytes % 5.7 Neutrophils # 7.0 Neutrophils % 67.6 Nucleated Red Blood Cells # 0.0 Nucleated Red Blood Cells % 0.0 Phosphorus Level 4.8 Platelet Count 395 # Potassium Level 4.1 Prothrombin Time 13.3 Prothrombin Time Ratio 1.0 Red Blood Count 4.89 Red Cell Distribution Width 17.0 H Sodium Level 138 Thyroid Stimulating Hormone (TSH) 2.650 Total Bilirubin 0.2 Total Protein 7.9 Vancomycin Level Trough 23.1 *H White Blood Count 10.3 # Test 04/03/16 11:20 04/03/16 11:24 Urine Bilirubin NEGATIVE Urine Clarity CLEAR Urine Color LT. YELLOW Urine Glucose NEGATIVE Urine Hemoglobin NEGATIVE Urine Ketones NEGATIVE Urine Leukocyte Esterase NEGATIVE Urine Nitrite NEGATIVE Urine Specific [place] 1.010 Urine Total Protein NEGATIVE Urine Urobilinogen 0.2 E.U./dL Urine pH 6.0 Bedside Glucose 136 Medications Current Medications Ondansetron HCl (Zofran Inj) 4 mg Q6H PRN IV NAUSEA AND/OR VOMITING; Start 03/23 at 23:00 Acetaminophen (Tylenol Tab) 650 mg Q6H PRN PO PAIN LEVEL 1-3 OR FEVER Last administered on 04/02/16 11:59; Admin Dose 650 MG; Start 03/23/16 at 23:00 Acetaminophen/ Hydrocodone Bitart ([place] (5/325)) 1 tab Q6H PRN PO MODERATE PAIN LEVEL 4-6 Last administered on 04/02/16 15:04; Admin Dose 1 TAB; Start 03/23/16 at 23:00 Morphine Sulfate (morphine) 2 mg Q4H PRN IV SEVERE PAIN LEVEL 7-10 Last administered on 04/03/16 05:51; Admin Dose 2 MG; Start 03/23/16 at 23:00 Docusate Sodium (Colace) 100 mg Q12H PRN PO CONSTIPATION Last administered on 15:04; Admin Dose 100 MG; Start 03/23/16 at 23:00 Nicotine (Nicoderm 14 Mg/ 24hr) 1 patch DAILY TRANSDERM Last administered on 09:00; Admin Dose 1 PATCH; Start 03/24/16 at 09:00 Miscellaneous Information 1 ea NOTE XX ; Start 03/24/16 at 09:00 Glucose (Glutose) 15 gm Q15M PRN PO DECREASED GLUCOSE; Start 03/24/16 at 09:00 Glucose (Glutose) 22.5 gm Q15M PRN PO DECREASED GLUCOSE; Start 03/24/16 at 09:00 Dextrose (D50w Syringe) 25 ml Q15M PRN IV DECREASED GLUCOSE; Start 03/24/16 at 09:00 Dextrose (D50w Syringe) 50 ml Q15M PRN IV DECREASED GLUCOSE; Start 03/24/16 at 09:00 Glucagon (Glucagen) 1 mg Q15M PRN IM DECREASED GLUCOSE; Start 03/24/16 at 09:00 Glucose (Glutose) 15 gm Q15M PRN BUCCAL DECREASED GLUCOSE; Start 03/24/16 at 09: 00 Lorazepam (Ativan) 1 mg Q2H PRN IV AGITATION Last administered on 04/02/16 08: 32; Admin Dose 1 MG; Start 03/24/16 at 11:30 Nystatin (Nystatin Oint) 1 applic TID TOP Last administered on 04/03/16 12:03 ; Admin Dose 1 APPLIC; Start 03/27/16 at 09:00 Heparin Sodium (Porcine) (Heparin (5000 Units/0.5 ml)) 5,000 unit Q8 SC Last administered on 04/03/16 05:54; Admin Dose 5,000 UNIT; Start 03/27/16 at 14:00 Metronidazole (Flagyl) 500 mg Q8 PO Last administered on 04/03/16 05:51; Admin Dose 500 MG; Start 03/28/16 at 14:00 Zolpidem Tartrate (Ambien) 5 mg QHS PRN PO INSOMNIA; Start 04/01/16 at 13:30 Levofloxacin (Levaquin) 750 mg DAILY@06 PO Last administered on 04/03/16 05:51 ; Admin Dose 750 MG; Start 04/03/16 at 06:00 Lactobacillus Acidophilus/ Rhamnosus (Culturelle) 1 cap BID PO Last administered on 04/03/16 09:00; Admin Dose 1 CAP; Start 04/02/16 at 12:00 Multivitamins Therapeutic (Theragran) 1 tab DAILY PO Last administered on 09:00; Admin Dose 1 TAB; Start 04/02/16 at 12:00 Insulin Glargine (Lantus) 20 unit HS SC Last administered on 04/02/16 21:49; Admin Dose 20 UNIT; Start 04/02/16 at 21:00 Acetaminophen/ Hydrocodone Bitart 1 tab 1 tab Q3H PRN PO PAIN; Start 04/02/16 at 13:00 Vancomycin HCl/ Sodium Chloride (Vancocin/NS) 250 ml @ 83.333 mls/ hr Q8H IVPB Last administered on 04/03/16 11:06; Admin Dose 83.333 MLS/HR; Start at 10:00 Famotidine (Pepcid) 20 mg DAILY PO ; Start 04/04/16 at 09:00 Miscellaneous Information (*Rx Drug Level Order Reminder*) VANCO TROUGH @ 0, 900 ON... ONCE ONCE XX ; Start 04/04/16 at 09:00; Stop 04/04/16 at 09:01 Assessment/Plan Chief Complaint/Hosp Course MICROBIOLOGY: Wound culture growing Stenotrophomonas maltophilia susceptible to Bactrim and Levaquin and Corynebact sp. Blood cultures have been negative. ANTIMICROBIALS: 1. Vancomycin. 2. Levaquin. 3. Flagyl OBJECTIVE: GENERAL: This is a morbidly obese, well-developed, middle-aged white man who is alert, in no distress. HEENT: Head atraumatic, normocephalic. Sclerae anicteric. Buccal mucosa dry. NECK: Supple. CHEST: Rise symmetrical. Breath sounds clear. HEART: S1, S2. ABDOMEN: Soft, bowel tones present. EXTREMITIES: Left foot dressing intact, still with foul odor that you can feel standing about 2 meters away from the patient. ASSESSMENT 1. Status post severe sepsis with shock and acute encephalopathy. 2. Left foot ongoing osteomyelitis, gangrene, status post incision and drainage at bedside. 3. Morbid obesity. 4. Substance abuse==> ongoing. 5. Poorly controlled diabetes. 6. History of noncompliance. PLAN: Remains unchanged, pending another debridement, not a candidate for PICC 2 to substance abuse, will try to get approval for Zyvox and anticipate to send home on PO abx. DW staff INGE [place] Problems: KIRSTEN OLIVAREZ NP Apr 03, 2016 13:48
[2016-04-03] MEDS: ACETAMINOPHEN 325 MG TAB PO PRN (14:00)
[2016-04-03] MEDS: INSULIN GLARGINE [LANtus] 3 ML PEN SC SCH (21:44)
[2016-04-04] MEDS: morphine 2 MG INJ IV PRN (02:04)
[2016-04-04] MEDS: VANCOMYCIN 1.25 GM in SOD CHLORIDE 0.9% 250 ML IVPB SCH ×4 (02:15→20:43)
[2016-04-04] MEDS: LEVOFLOXACIN 750 MG TABLET PO SCH (05:54)
[2016-04-04] MEDS: metroNIDAZOLE 500 MG TAB PO SCH ×3 (05:54→21:09)
[2016-04-04] MEDS: HEPARIN 5,000 UNIT/0.5 ML SYG SC SCH ×3 (05:55→21:09)
[2016-04-04] MEDS: NICOTINE (14 MG/24 HR) PATCH TRANSDERM SCH (08:10)
[2016-04-04] MEDS: FAMOTIDINE 20 MG TAB PO SCH (08:10)
[2016-04-04] MEDS: LACTOBACILLUS RHAMNOSUS CAP PO SCH ×2 (08:11→20:47)
[2016-04-04] MEDS: MULTIVITAMINS THERAPEUTIC TAB PO SCH (08:11)
[2016-04-04] MEDS: INSULIN ASPART [NOVOLOG] 3 ML PEN SC SCH ×7 (08:12→20:52)
[2016-04-04] MEDS: NYSTATIN TOP SCH ×3 (08:14→20:58)
[2016-04-04 08:17] VITALS: BP 123/63; PULSE 98; RESP 18
[2016-04-04] MEDS: HYDROCODONE/APAP (5/325) TAB PO PRN ×2 (11:30→20:53)
--- NOTE | 2016-04-04 15:22 | PN ---
Date/Time of Note Date/Time of Note DATE: 04/04/16 TIME: 15:15 Assessment/Plan VTE Prophylaxis VTE Prophylaxis Intervention: heparin Lines/Catheters IV Catheter Type (from [facility]): Peripheral IV Urinary Cath still in place: No Assessment/Plan Chief Complaint/Hosp Course Assessment and plan 1. Right foot cellulitis/abscess with suspect osteomyelitis. Patient is status post debridement. Continue with wound care per podiatry. Continue on antibiotics per ID recommendations. Analgesics as needed. Tentative plan for further podiatry intervention. Continue with surgeon recommendations 2. Diabetic foot infection. Continue with insulin regimen. Adjust as needed 3. Medical noncompliance. Patient advised about consequences of medical noncompliance. We'll follow-up 4. History of substance abuse with methamphetamine. Patient did have positive history of methamphetamine with also admission of amphetamine use. Patient educated about cessation. 5. Morbid obese. Reduction advised 6. Corynebacterium Pseudomonas wound infection on right foot. Continue antibiotics per ID 7. History of hepatitis C. No active issue noted at this time. Patient to follow -up with this as outpatient Disposition and plan: Continue on antibiotics. Tentative plan for podiatry intervention. We'll follow-up. Discussed plan of care with Dr. Ramey Problems: Subjective 24 Hr Interval Summary Free Text/Dictation Comfortable at present per no current distress seen. Exam/Review of Systems Vital Signs Vitals Vital Signs Date Time Temp Pulse Resp B/P Pulse Ox O2 Delivery O2 Flow Rate FiO2 04/04/16 08:17 98.1 98 18 123/63 97 Room Air 03/31/16 21:00 21 03/31/16 12:40 2.0 Intake and Output 04/03/16 04/03/16 04/04/16 14:59 22:59 06:59 Intake Total 2160 ml 2406.66 ml Balance 2160 ml 2406.66 ml Exam General: No acute signs or symptoms of distress Eyes: pupils equal round, Anicteric sclera Neck: Supple nontender, no JVD Cardiac: S1, S2 auscultated, regular rhythm and rate Pulmonary: No coarse rhonchi or breathing auscultated GI: Abdomen soft nontender nondistended, bowel sounds active Extremities: [Right lower extremity edema minimal. Wrapped in Bi wraps Skin: Surgical site on right lower extremity clean dry and intact Neurologic: Alert to person place and time and situation Results Result Diagram: 04/03/16 0500 04/03/16 0500 Results 24 hrs Laboratory Tests Test 04/03/16 16:55 04/03/16 21:41 04/04/16 08:06 04/04/16 09:00 Bedside Glucose 156 166 146 Vancomycin Level Trough 16.1 Test 04/04/16 11:25 Bedside Glucose 134 Medications Medications Current Medications Ondansetron HCl (Zofran Inj) 4 mg Q6H PRN IV NAUSEA AND/OR VOMITING; Start 03/23 at 23:00 Acetaminophen (Tylenol Tab) 650 mg Q6H PRN PO PAIN LEVEL 1-3 OR FEVER Last administered on 04/03/16 14:00; Admin Dose 650 MG; Start 03/23/16 at 23:00 Acetaminophen/ Hydrocodone Bitart ([place] (5/325)) 1 tab Q6H PRN PO MODERATE PAIN LEVEL 4-6 Last administered on 04/04/16 11:30; Admin Dose 1 TAB; Start 03/23/16 at 23:00 Morphine Sulfate (morphine) 2 mg Q4H PRN IV SEVERE PAIN LEVEL 7-10 Last administered on 04/04/16 02:04; Admin Dose 2 MG; Start 03/23/16 at 23:00 Docusate Sodium (Colace) 100 mg Q12H PRN PO CONSTIPATION Last administered on 15:04; Admin Dose 100 MG; Start 03/23/16 at 23:00 Nicotine (Nicoderm 14 Mg/ 24hr) 1 patch DAILY TRANSDERM Last administered on 08:10; Admin Dose 1 PATCH; Start 03/24/16 at 09:00 Miscellaneous Information 1 ea NOTE XX ; Start 03/24/16 at 09:00 Glucose (Glutose) 15 gm Q15M PRN PO DECREASED GLUCOSE; Start 03/24/16 at 09:00 Glucose (Glutose) 22.5 gm Q15M PRN PO DECREASED GLUCOSE; Start 03/24/16 at 09:00 Dextrose (D50w Syringe) 25 ml Q15M PRN IV DECREASED GLUCOSE; Start 03/24/16 at 09:00 Dextrose (D50w Syringe) 50 ml Q15M PRN IV DECREASED GLUCOSE; Start 03/24/16 at 09:00 Glucagon (Glucagen) 1 mg Q15M PRN IM DECREASED GLUCOSE; Start 03/24/16 at 09:00 Glucose (Glutose) 15 gm Q15M PRN BUCCAL DECREASED GLUCOSE; Start 03/24/16 at 09: 00 Lorazepam (Ativan) 1 mg Q2H PRN IV AGITATION Last administered on 04/02/16 08: 32; Admin Dose 1 MG; Start 03/24/16 at 11:30 Nystatin (Nystatin Oint) 1 applic TID TOP Last administered on 04/04/16 13:40 ; Admin Dose 1 APPLIC; Start 03/27/16 at 09:00 Heparin Sodium (Porcine) (Heparin (5000 Units/0.5 ml)) 5,000 unit Q8 SC Last administered on 04/04/16 13:30; Admin Dose 5,000 UNIT; Start 03/27/16 at 14:00 Metronidazole (Flagyl) 500 mg Q8 PO Last administered on 04/04/16 13:30; Admin Dose 500 MG; Start 03/28/16 at 14:00 Zolpidem Tartrate (Ambien) 5 mg QHS PRN PO INSOMNIA; Start 04/01/16 at 13:30 Levofloxacin (Levaquin) 750 mg DAILY@06 PO Last administered on 04/04/16 05:54 ; Admin Dose 750 MG; Start 04/03/16 at 06:00 Lactobacillus Acidophilus/ Rhamnosus (Culturelle) 1 cap BID PO Last administered on 04/04/16 08:11; Admin Dose 1 CAP; Start 04/02/16 at 12:00 Multivitamins Therapeutic (Theragran) 1 tab DAILY PO Last administered on 08:11; Admin Dose 1 TAB; Start 04/02/16 at 12:00 Insulin Glargine (Lantus) 20 unit HS SC Last administered on 04/03/16 21:44; Admin Dose 20 UNIT; Start 04/02/16 at 21:00 Acetaminophen/ Hydrocodone Bitart ([place]night (10325)) 1 tab Q3H PRN PO PAIN; Start 04/02/16 at 13:00 Famotidine 20 mg 20 mg DAILY PO Last administered on 04/04/16 08:10; Admin Dose 20 MG; Start 04/04/16 at 09:00 Vancomycin HCl/ Sodium Chloride (Vancocin/NS) 250 ml @ 83.333 mls/ hr Q8H IVPB Last administered on 04/04/16t 13:30; Admin Dose 83.333 MLS/HR; Start at 12:00 IGNACIO ROSALES Apr 04, 2016 15:22
[2016-04-04 19:33] VITALS: BP 116/65; RESP 18
[2016-04-04] MEDS: ACETAMINOPHEN 325 MG TAB PO PRN (20:41)
[2016-04-04] MEDS: INSULIN GLARGINE [LANtus] 3 ML PEN SC SCH (20:53)
[2016-04-04] MEDS: LORAZEPAM 2 MG INJ IV PRN (23:39)
[2016-04-04] MEDS: ZOLPIDEM 5 MG TAB PO PRN (23:39)
[2016-04-05] MEDS: VANCOMYCIN 1.25 GM in SOD CHLORIDE 0.9% 250 ML IVPB SCH ×3 (04:04→21:28)
[2016-04-05] MEDS: metroNIDAZOLE 500 MG TAB PO SCH ×3 (06:25→21:25)
[2016-04-05] MEDS: LEVOFLOXACIN 750 MG TABLET PO SCH (06:25)
[2016-04-05] MEDS: HEPARIN 5,000 UNIT/0.5 ML SYG SC SCH ×3 (06:27→21:29)
[2016-04-05] MEDS: INSULIN ASPART [NOVOLOG] 3 ML PEN SC SCH ×7 (09:05→21:30)
[2016-04-05] MEDS: MULTIVITAMINS THERAPEUTIC TAB PO SCH (09:06)
[2016-04-05] MEDS: FAMOTIDINE 20 MG TAB PO SCH (09:06)
[2016-04-05] MEDS: NICOTINE (14 MG/24 HR) PATCH TRANSDERM SCH (09:06)
[2016-04-05] MEDS: LACTOBACILLUS RHAMNOSUS CAP PO SCH ×2 (09:09→21:25)
[2016-04-05] MEDS: HYDROCODONE/APAP (5/325) TAB PO PRN ×3 (09:09→21:26)
[2016-04-05] MEDS: NYSTATIN TOP SCH ×3 (09:13→21:26)
[2016-04-05 12:18] LABS: CREATININE 0.72 mg/dl (0.61-1.24)
--- NOTE | 2016-04-05 13:55 | PN ---
Date/Time of Note Date/Time of Note DATE: 04/05/16 TIME: 13:52 Assessment/Plan VTE Prophylaxis VTE Prophylaxis Intervention: heparin Lines/Catheters IV [facility] Type [facility] Saline Lock Urinary Cath still in place: No Assessment/Plan Chief Complaint/Hosp Course Assessment and plan 1. Right foot cellulitis/abscess with suspect osteomyelitis. Patient is status post debridement. Continue with wound care per podiatry. Continue on antibiotics per ID recommendations. Analgesics as needed. Tentative plan for further podiatry intervention. Continue with surgeon recommendations 2. Diabetic foot infection. Continue with insulin regimen. Adjust as needed 3. Medical noncompliance. Patient advised about consequences of medical noncompliance. We'll follow-up 4. History of substance abuse with methamphetamine. Patient did have positive history of methamphetamine with also admission of amphetamine use. Patient educated about cessation. 5. Morbid obese. Reduction advised 6. Corynebacterium Pseudomonas wound infection on right foot. Continue antibiotics per ID 7. History of hepatitis C. No active issue noted at this time. Patient to follow -up with this as outpatient Disposition and plan: Continue on antibiotics. Tentative plan for podiatry intervention. Continue with wound care. Of note patient was recently told that his ex-partner was recently diagnosed with AIDS. We'll follow-up on HIV panel and CD4 for the patient Discussed plan of care with Dr. Ramey Problems: Subjective 24 Hr Interval Summary Free Text/Dictation no s/s of distress. comfortable at this time Exam/Review of Systems Vital Signs Vitals Vital Signs Date Time Temp Pulse Resp B/P Pulse Ox O2 Delivery O2 Flow Rate FiO2 04/04/16 19:33 98.6 98 18 116/65 97 04/04/16 08:17 Room Air Intake and Output 04/04/16 04/04/16 04/05/16 15:00 23:00 07:00 Intake Total 1480 ml 1310 ml Output Total 200 ml Balance 1280 ml 1310 ml Exam General: No acute signs or symptoms of distress Eyes: pupils equal round, Anicteric sclera Neck: Supple nontender, no JVD Cardiac: S1, S2 auscultated, regular rhythm and rate Pulmonary: No coarse rhonchi or breathing auscultated GI: Abdomen soft nontender nondistended, bowel sounds active Extremities: [Right lower extremity edema minimal. Wrapped in Bi wraps Skin: Surgical site on right lower extremity clean dry and intact Neurologic: Alert to person place and time and situation Results Result Diagram: 04/03/16 0500 04/05/16 1145 Results 24 hrs Laboratory Tests Test 04/04/16 16:23 04/04/16 20:43 04/05/16 02:20 04/05/16 08:05 Bedside Glucose 147 178 172 126 Test 04/05/16 11:45 04/05/16 12:01 Blood Urea Nitrogen 20 Creatinine 0.72 Bedside Glucose 138 Medications Medications Current Medications Ondansetron HCl (Zofran Inj) 4 mg Q6H PRN IV NAUSEA AND/OR VOMITING; Start 03/23 at 23:00 Acetaminophen (Tylenol Tab) 650 mg Q6H PRN PO PAIN LEVEL 1-3 OR FEVER Last administered on 04/04/16 20:41; Admin Dose 650 MG; Start 03/23/16 at 23:00 Acetaminophen/ Hydrocodone Bitart ([place] (5/325)) 1 tab Q6H PRN PO MODERATE PAIN LEVEL 4-6 Last administered on 04/05/16 09:09; Admin Dose 1 TAB; Start 03/23/16 at 23:00 Morphine Sulfate (morphine) 2 mg Q4H PRN IV SEVERE PAIN LEVEL 7-10 Last administered on 04/04/16 02:04; Admin Dose 2 MG; Start 03/23/16 at 23:00 Docusate Sodium (Colace) 100 mg Q12H PRN PO CONSTIPATION Last administered on 15:04; Admin Dose 100 MG; Start 03/23/16 at 23:00 Nicotine (Nicoderm 14 Mg/ 24hr) 1 patch DAILY TRANSDERM Last administered on 09:06; Admin Dose 1 PATCH; Start 03/24/16 at 09:00 Miscellaneous Information 1 ea NOTE XX ; Start 03/24/16 at 09:00 Glucose (Glutose) 15 gm Q15M PRN PO DECREASED GLUCOSE; Start 03/24/16 at 09:00 Glucose (Glutose) 22.5 gm Q15M PRN PO DECREASED GLUCOSE; Start 03/24/16 at 09:00 Dextrose (D50w Syringe) 25 ml Q15M PRN IV DECREASED GLUCOSE; Start 03/24/16 at 09:00 Dextrose (D50w Syringe) 50 ml Q15M PRN IV DECREASED GLUCOSE; Start 03/24/16 at 09:00 Glucagon (Glucagen) 1 mg Q15M PRN IM DECREASED GLUCOSE; Start 03/24/16 at 09:00 Glucose (Glutose) 15 gm Q15M PRN BUCCAL DECREASED GLUCOSE; Start 03/24/16 at 09: 00 Lorazepam (Ativan) 1 mg Q2H PRN IV AGITATION Last administered on 04/04/16 23: 39; Admin Dose 1 MG; Start 03/24/16 at 11:30 Nystatin (Nystatin Oint) 1 applic TID TOP Last administered on 04/05/16 09:13 ; Admin Dose 1 APPLIC; Start 03/27/16 at 09:00 Heparin Sodium (Porcine) (Heparin (5000 Units/0.5 ml)) 5,000 unit Q8 SC Last administered on 04/05/16 06:27; Admin Dose 5,000 UNIT; Start 03/27/16 at 14:00 Metronidazole (Flagyl) 500 mg Q8 PO Last administered on 04/05/16 06:25; Admin Dose 500 MG; Start 03/28/16 at 14:00 Zolpidem Tartrate (Ambien) 5 mg QHS PRN PO INSOMNIA Last administered on 23:39; Admin Dose 5 MG; Start 04/01/16 at 13:30 Levofloxacin (Levaquin) 750 mg DAILY@06 PO Last administered on 04/05/16 06:25 ; Admin Dose 750 MG; Start 04/03/16 at 06:00 Lactobacillus Acidophilus/ Rhamnosus (Culturelle) 1 cap BID PO Last administered on 04/05/16 09:09; Admin Dose 1 CAP; Start 04/02/16 at 12:00 Multivitamins Therapeutic (Theragran) 1 tab DAILY PO Last administered on 09:06; Admin Dose 1 TAB; Start 04/02/16 at 12:00 Insulin Glargine (Lantus) 20 unit HS SC Last administered on 04/04/16 20:53; Admin Dose 20 UNIT; Start 04/02/16 at 21:00 Acetaminophen/ Hydrocodone Bitart ([place]one (10/325)) 1 tab Q3H PRN PO PAIN; Start 04/02/16 at 13:00 Famotidine 20 mg 20 mg DAILY PO Last administered on 04/05/16 09:06; Admin Dose 20 MG; Start 04/04/16 at 09:00 Vancomycin HCl/ Sodium Chloride (Vancocin/NS) 250 ml @ 83.333 mls/ hr Q8H IVPB Last administered on 04/05/16 12:15; Admin Dose 83.333 MLS/HR; Start at 12:00 IGNACIO ROSALES Apr 05, 2016 13:55
[2016-04-05 20:04] VITALS: BP 138/80; RESP 18
[2016-04-05] MEDS: INSULIN GLARGINE [LANtus] 3 ML PEN SC SCH (21:31)
[2016-04-05] MEDS: ZOLPIDEM 5 MG TAB PO PRN (23:49)
[2016-04-05] MEDS: LORAZEPAM 2 MG INJ IV PRN (23:50)
[2016-04-06] MEDS: HYDROCODONE/APAP (5/325) TAB PO PRN ×4 (03:18→23:32)
[2016-04-06] MEDS: VANCOMYCIN 1.25 GM in SOD CHLORIDE 0.9% 250 ML IVPB SCH ×2 (04:49→11:49)
[2016-04-06] MEDS: metroNIDAZOLE 500 MG TAB PO SCH ×3 (06:21→21:17)
[2016-04-06] MEDS: LEVOFLOXACIN 750 MG TABLET PO SCH (06:21)
[2016-04-06] MEDS: HEPARIN 5,000 UNIT/0.5 ML SYG SC SCH ×3 (06:23→21:28)
[2016-04-06 06:55] LABS: BASOPHILS % 0.5 % (0.0-2.0); EOSINOPHILS # 0.2 10^3/ul (0.0-0.5); EOSINOPHILS % 1.8 % (0.0-7.0); HEMATOCRIT 37.1 % (42.0-52.0); HEMOGLOBIN 12.1 g/dl (14.0-18.0); LYMPHOCYTES # 2.6 10^3/ul (0.8-2.9); LYMPHOCYTES % 27.8 % (15.0-51.0); MEAN CORPUSCULAR HGB CONC 32.7 g/dl (32.0-37.0); MEAN CORPUSCULAR VOLUME 76.5 fl (82.0-101.0); MEAN PLATELET VOLUME 7.6 fl (7.4-10.4); MONOCYTE # 0.7 10^3/ul (0.3-0.9); MONOCYTES % 7.1 % (0.0-11.0); NEUTROPHIL # 5.9 10^3/ul (1.6-7.5); NEUTROPHILS % 62.8 % (39.0-77.0); PLATELET COUNT 351 10^3/UL (140-440); RED BLOOD COUNT 4.85 10^6/ul (4.70-6.10); RED CELL DISTRIBUTION WIDTH 17.2 % (11.5-14.5); UNCORRECTED WBC 9.4 10^3/ul (4.8-10.8); WHITE BLOOD COUNT 9.4 10^3/ul (4.8-10.8)
[2016-04-06 07:04] LABS: POTASSIUM 4.3 mmol/L (3.5-5.1)
[2016-04-06 07:07] LABS: CREATININE 0.72 mg/dl (0.61-1.24)
[2016-04-06 07:08] LABS: CALCIUM 8.7 mg/dl (8.4-10.2)
[2016-04-06 07:15] LABS: CONDITION 1; LH ANALYZER COMMENTS 1
[2016-04-06 07:36] VITALS: BP 135/81; RESP 18
[2016-04-06] MEDS: INSULIN ASPART [NOVOLOG] 3 ML PEN SC SCH ×7 (08:39→21:26)
[2016-04-06] MEDS: NICOTINE (14 MG/24 HR) PATCH TRANSDERM SCH (08:41)
[2016-04-06] MEDS: FAMOTIDINE 20 MG TAB PO SCH (08:41)
[2016-04-06] MEDS: LACTOBACILLUS RHAMNOSUS CAP PO SCH ×2 (08:41→21:34)
[2016-04-06] MEDS: MULTIVITAMINS THERAPEUTIC TAB PO SCH (08:41)
[2016-04-06] MEDS: NYSTATIN TOP SCH ×3 (08:42→21:18)
[2016-04-06 13:22] LABS: ALBUMIN 3.7 g/dl (3.3-4.9)
[2016-04-06 13:24] LABS: BILIRUBIN,INDIRECT 0.1 mg/dl (0-1.1); BILIRUBIN,TOTAL 0.1 mg/dl (0.2-1.3)
[2016-04-06 13:25] LABS: TOTAL PROTEIN 8.3 g/dl (6.1-8.1)
--- NOTE | 2016-04-06 14:04 | PN ---
Date/Time of Note Date/Time of Note DATE: 04/06/16 TIME: 14:02 Assessment/Plan VTE Prophylaxis VTE Prophylaxis Intervention: heparin Lines/Catheters IV C[facility]ter Type (from [facility]): Saline Lock Urinary Cath still in place: No Assessment/Plan Chief Complaint/Hosp Course Assessment and plan 1. Right foot cellulitis/abscess with suspect osteomyelitis. Patient is status post debridement. Continue with wound care per podiatry. Continue on antibiotics per ID recommendations. Analgesics as needed. Tentative plan for further podiatry intervention. Continue with surgeon recommendations 2. Diabetic foot infection. Continue with insulin regimen. Adjust as needed 3. Medical noncompliance. Patient advised about consequences of medical noncompliance. We'll follow-up 4. History of substance abuse with methamphetamine. Patient did have positive history of methamphetamine with also admission of amphetamine use. Patient educated about cessation. 5. Morbid obese. Reduction advised 6. Corynebacterium Pseudomonas wound infection on right foot. Continue antibiotics per ID 7. History of hepatitis C. No active issue noted at this time. Patient to follow -up with this as outpatient Disposition and plan: Continue on antibiotics. Tentative plan for podiatry intervention. Await podiatry input. Discussed plan of care with Dr. Ramey Problems: Subjective 24 Hr Interval Summary Free Text/Dictation No current distress noted at this time. Appears comfortable Exam/Review of Systems Vital Signs Vitals Vital Signs Date Time Temp Pulse Resp B/P Pulse Ox O2 Delivery O2 Flow Rate FiO2 04/06/16 07:36 97.6 95 18 135/81 97 04/04/16 08:17 Room Air Intake and Output 04/05/16 04/05/16 04/06/16 14:59 22:59 06:59 Intake Total 250 ml 2750 ml 1310 ml Balance 250 ml 2750 ml 1310 ml Exam General: No acute signs or symptoms of distress Eyes: pupils equal round, Anicteric sclera Neck: Supple nontender, no JVD Cardiac: S1, S2 auscultated, regular rhythm and rate Pulmonary: No coarse rhonchi or breathing auscultated GI: Abdomen soft nontender nondistended, bowel sounds active Extremities: [Right lower extremity edema minimal. Wrapped in Bi wraps Skin: Surgical site on right lower extremity clean dry and intact Neurologic: Alert to person place and time and situation Results Result Diagram: 04/06/1625 04/06/16 0623 Results 24 hrs Laboratory Tests Test 04/05/16 16:35 04/05/16 19:46 04/06/16 02:37 04/06/16 06:23 Bedside Glucose 161 174 143 Anion Gap 15 Blood Urea Nitrogen 17 Calcium Level 8.7 Carbon Dioxide Level 27 Chloride Level 102 Creatinine 0.72 Glucose Level 142 Potassium Level 4.3 Sodium Level 140 Test 04/06/16 06:25 04/06/16 07:45 04/06/16 11:23 04/06/16 12:55 Basophils # 0.0 Basophils % 0.5 Blood Morphology Comment Eosinophils # 0.2 Eosinophils % 1.8 Hematocrit 37.1 L Hemoglobin 12.1 L Lymphocytes # 2.6 Lymphocytes % 27.8 Mean Corpuscular Hemoglobin 25.0 L Mean Corpuscular Hemoglobin Concent 32.7 Mean Corpuscular Volume 76.5 L Mean Platelet Volume 7.6 Monocytes # 0.7 Monocytes % 7.1 Neutrophils # 5.9 Neutrophils % 62.8 Nucleated Red Blood Cells # 0.0 Nucleated Red Blood Cells % 0.0 Platelet Count 351 Red Blood Count 4.85 Red Cell Distribution Width 17.2 H White Blood Count 9.4 Bedside Glucose 153 137 Alanine Aminotransferase (ALT/SGPT) 32 Albumin 3.7 Alkaline Phosphatase 69 Aspartate Amino Transf (AST/SGOT) 21 Direct Bilirubin 0.00 Indirect Bilirubin 0.1 Total Bilirubin 0.1 L Total Protein 8.3 H Medications Medications Current Medications Ondansetron HCl (Zofran Inj) 4 mg Q6H PRN IV NAUSEA AND/OR VOMITING; Start 03/23 at 23:00 Acetaminophen (Tylenol Tab) 650 mg Q6H PRN PO PAIN LEVEL 1-3 OR FEVER Last administered on 04/04/16 20:41; Admin Dose 650 MG; Start 03/23/16 at 23:00 Acetaminophen/ Hydrocodone Bitart ([place] (5/325)) 1 tab Q6H PRN PO MODERATE PAIN LEVEL 4-6 Last administered on 04/06/16 08:52; Admin Dose 1 TAB; Start 03/23/16 at 23:00 Morphine Sulfate (morphine) 2 mg Q4H PRN IV SEVERE PAIN LEVEL 7-10 Last administered on 04/04/16 02:04; Admin Dose 2 MG; Start 03/23/16 at 23:00 Docusate Sodium (Colace) 100 mg Q12H PRN PO CONSTIPATION Last administered on 15:04; Admin Dose 100 MG; Start 03/23/16 at 23:00 Nicotine (Nicoderm 14 Mg/ 24hr) 1 patch DAILY TRANSDERM Last administered on 08:41; Admin Dose 1 PATCH; Start 03/24/16 at 09:00 Miscellaneous Information 1 ea NOTE XX ; Start 03/24/16 at 09:00 Glucose (Glutose) 15 gm Q15M PRN PO DECREASED GLUCOSE; Start 03/24/16 at 09:00 Glucose (Glutose) 22.5 gm Q15M PRN PO DECREASED GLUCOSE; Start 03/24/16 at 09:00 Dextrose (D50w Syringe) 25 ml Q15M PRN IV DECREASED GLUCOSE; Start 03/24/16 at 09:00 Dextrose (D50w Syringe) 50 ml Q15M PRN IV DECREASED GLUCOSE; Start 03/24/16 at 09:00 Glucagon (Glucagen) 1 mg Q15M PRN IM DECREASED GLUCOSE; Start 03/24/16 at 09:00 Glucose (Glutose) 15 gm Q15M PRN BUCCAL DECREASED GLUCOSE; Start 03/24/16 at 09: 00 Lorazepam (Ativan) 1 mg Q2H PRN IV AGITATION Last administered on 04/05/16 23: 50; Admin Dose 1 MG; Start 03/24/16 at 11:30 Nystatin (Nystatin Oint) 1 applic TID TOP Last administered on 04/06/16 11:52 ; Admin Dose 1 APPLIC; Start 03/27/16 at 09:00 Heparin Sodium (Porcine) (Heparin (5000 Units/0.5 ml)) 5,000 unit Q8 SC Last administered on 04/06/16 13:26; Admin Dose 5,000 UNIT; Start 03/27/16 at 14:00 Metronidazole (Flagyl) 500 mg Q8 PO Last administered on 04/06/16 13:26; Admin Dose 500 MG; Start 03/28/16 at 14:00 Zolpidem Tartrate (Ambien) 5 mg QHS PRN PO INSOMNIA Last administered on 23:49; Admin Dose 5 MG; Start 04/01/16 at 13:30 Levofloxacin (Levaquin) 750 mg DAILY@06 PO Last administered on 04/06/16 06:21 ; Admin Dose 750 MG; Start 04/03/16 at 06:00 Lactobacillus Acidophilus/ Rhamnosus (Culturelle) 1 cap BID PO Last administered on 04/06/16 08:41; Admin Dose 1 CAP; Start 04/02/16 at 12:00 Multivitamins Therapeutic (Theragran) 1 tab DAILY PO Last administered on 08:41; Admin Dose 1 TAB; Start 04/02/16 at 12:00 Insulin Glargine (Lantus) 20 unit HS SC Last administered on 04/05/16 21:31; Admin Dose 20 UNIT; Start 04/02/16 at 21:00 Acetaminophen/ Hydrocodone Bitart ([place] (10/325)) 1 tab Q3H PRN PO PAIN; Start 04/02/16 at 13:00 Famotidine 20 mg 20 mg DAILY PO Last administered on 04/06/16 08:41; Admin Dose 20 MG; Start 04/04/16 at 09:00 Vancomycin HCl/ Sodium Chloride (Vancocin/NS) 250 ml @ 83.333 mls/ hr Q8H IVPB Last administered on 04/06/16 11:49; Admin Dose 83.333 MLS/HR; Start at 12:00 Collagenase (Santyl) 1 applic DAILY TOP ; Start 04/06/16 at 13:30 IGNACIO ROSALES Apr 06, 2016 14:04
[2016-04-06] MEDS: COLLAGENASE 30 GM TUBE TOP SCH (14:50)
[2016-04-06 19:45] VITALS: BP 103/67; RESP 19
[2016-04-06] MEDS ORDERED: VANCOMYCIN 1.25 GM in SOD CHLORIDE 0.9% 250 ML IVPB SCH (21:00)
[2016-04-06] MEDS: INSULIN GLARGINE [LANtus] 3 ML PEN SC SCH (21:27)
[2016-04-06] MEDS: VANCOMYCIN IVPB SCH (21:32)
[2016-04-06] MEDS: SOD CHLORIDE 0.9% IVPB SCH (21:32)
[2016-04-06] MEDS: ZOLPIDEM 5 MG TAB PO PRN (23:32)
[2016-04-07] VITALS (11 sets, daily range): BP systolic 99–136; BP diastolic 54–85; PULSE 82–92; RESP 12–25
[2016-04-07] MEDS: LORAZEPAM 2 MG INJ IV PRN ×2 (00:20→23:36)
[2016-04-07] MEDS: metroNIDAZOLE 500 MG TAB PO SCH ×3 (04:25→21:31)
[2016-04-07] MEDS: HEPARIN 5,000 UNIT/0.5 ML SYG SC SCH ×3 (04:26→21:33)
[2016-04-07] MEDS: LEVOFLOXACIN 750 MG TABLET PO SCH (04:26)
[2016-04-07] MEDS: SOD CHLORIDE 0.9% IVPB SCH ×3 (04:29→23:36)
[2016-04-07] MEDS: VANCOMYCIN IVPB SCH ×3 (04:29→23:36)
[2016-04-07] MEDS: INSULIN ASPART [NOVOLOG] 3 ML PEN SC SCH ×7 (05:49→21:00)
[2016-04-07] MEDS ORDERED: ETOMIDATE 20 MG INJ ONE (07:00)
--- NOTE | 2016-04-07 08:03 | HPN ---
Date/Time of Note Date/Time of Note DATE: 04/07/16 TIME: 08:03 Interval H&P Admission Note Pt. seen H&P reviewed: No system changes ESTEE IBRAHIM DPM Apr 07, 2016 08:03
[2016-04-07] MEDS: MULTIVITAMINS THERAPEUTIC TAB PO SCH (08:09)
[2016-04-07] MEDS: FAMOTIDINE 20 MG TAB PO SCH (08:09)
[2016-04-07] MEDS: COLLAGENASE 30 GM TUBE TOP SCH (08:09)
[2016-04-07] MEDS: LACTOBACILLUS RHAMNOSUS CAP PO SCH ×2 (08:09→21:31)
[2016-04-07] MEDS: NYSTATIN TOP SCH ×4 (08:09→23:41)
[2016-04-07] MEDS: NICOTINE (14 MG/24 HR) PATCH TRANSDERM SCH (08:09)
[2016-04-07] MEDS ORDERED: MIDAZOLAM 1 MG/ML 2 ML INJ ONE (08:12)
[2016-04-07] MEDS ORDERED: PROPOFOL 20 ML ONE (08:59)
[2016-04-07] MEDS ORDERED: CEFAZOLIN 1 GM INJ ONE (08:59)
[2016-04-07] MEDS ORDERED: LIDOCAINE 2% (SDV) 5 ML INJ ONE (08:59)
[2016-04-07] MEDS ORDERED: DIPHENHYDRAMINE 50 MG INJ IV PRN (09:00)
[2016-04-07] MEDS ORDERED: MEPERIDINE 25 MG INJ IV PRN (09:00)
[2016-04-07] MEDS ORDERED: FENTAnyl 50 MCG/ML VIAL IV PRN (09:00)
[2016-04-07] MEDS ORDERED: ONDANSETRON 4 MG INJ ONE (09:00)
[2016-04-07] MEDS ORDERED: ONDANSETRON 4 MG INJ IV PRN (09:00)
[2016-04-07] MEDS ORDERED: HYDROmorphONE (0.2 MG/ML) 10ML SYG IV PRN ×2 (09:00)
--- NOTE | 2016-04-07 09:12 | OPR ---
Date/Time of Note Date/Time of Note DATE: 04/07/16 TIME: 09:11 Operative Report Procedure Date: Apr 07, 2016 Preoperative Diagnosis Gangrene of the right fifth toe Multiple necrotic open wounds of the right foot S/P right hallux amputation Diabetes mellitus Peripheral vascular disease Peripheral neuropathy Morbid obesity History of substance abuse Postoperative Diagnosis Gangrene of the right fifth toe Multiple necrotic open wounds of the right foot S/P right hallux amputation Diabetes mellitus Peripheral vascular disease Peripheral neuropathy Morbid obesity History of substance abuse Operation Performed 1. Amputation of gangrenous right fifth toe 2. Surgical debridement of multiple open wounds using a sharp #15 blade to bleeding tendon and muscle tissue measuring 8 x 8 cm Surgeon: ESTEE IBRAHIM DPM Anesthesia: general Estimated Blood Loss: 0 - 10 ml's Specimens Right fifth gangrenous toe Complications: None Pt Condition Post Procedure: stable Disposition: PACU Indications Severe infection of the right foot with gangrene of the right fifth toe and necrotic open wounds in various stage of healing. S/P prior right hallux amputation. This is an unfortunate 36-year-old male patient suffering from severe infection of his right foot with multiple open wounds and gangrene of the right fifth toe. Patient has undergone one set of surgical debridement and requires a second set. He has been on IV antibiotics for several days in the hospital. Risks and complications of this type surgery was discussed with patient in great detail including but not limited to postoperative infection, postoperative pain, limb loss, failure of surgery to correct the problem, need for additional surgical procedures, DVT and loss of life. An informed consent was obtained, signed and placed in the chart. Procedure Description The patient was brought into the operating room and was placed on the operating table in the supine position. General anesthesia was administered by the anesthesiologist. The right lower extremity was scrubbed, prepped and draped in the usual aseptic manner. Attention was directed to the right foot. The right fifth toe was amputated at the base using a sharp #10 blade. Bleeders were cauterized as necessary. The toe was disarticulated at the metatarsophalangeal joint. Corresponding lateral proximal MPJ wound was also sharply debrided to bleeding tissue. This area was communicating after the debridement of necrotic tissues. There was extensive necrosis of bone muscle and tendon along with soft tissues in this area. All necrotic soft tissue bone and tendon was sharply debrided using a #10 blade, curet, scissors and pickups. A second open wound was on the medial aspect of the rear foot on the right foot. This area was also sharply debrided using a #15 blade to bleeding tendon and muscle tissue. A versa jet was used for debridement of both areas. Copious amounts of sterile normal saline was used for irrigation. I packed both wounds with half inch iodoform packing. Sterile dressing was applied to the right foot. The wound on the medial right rear foot measures 3 x 4 cm with undermining. The wound on the distal lateral aspect of the right foot measures 6 x 3 cm. Patient tolerated the procedure and anesthesia well. He was transferred to the recovery room with vital signs stable and vascular status intact to the right lower extremity. Patient will be seen postoperatively in-house. Nonweightbearing in the right foot. Patient continues to remain at risk for limb loss. ESTEE IBRAHIM DPM Apr 07, 2016 09:12
[2016-04-07] MEDS: HYDROCODONE/APAP (5/325) TAB PO PRN (12:27)
--- NOTE | 2016-04-07 13:16 | PN ---
Date/Time of Note Date/Time of Note DATE: 04/07/16 TIME: 13:12 Assessment/Plan VTE Prophylaxis VTE Prophylaxis Intervention: heparin Lines/Catheters IV [facility] (from [facility] Saline Lock Urinary Cath still in place: No Assessment/Plan Chief Complaint/Hosp Course Assessment and plan 1. Right foot cellulitis/abscess with suspect osteomyelitis. Patient is status post debridement. Continue with wound care per podiatry. Continue on antibiotics per ID recommendations. Analgesics as needed. s/p podiatry intervention 04/07/16. Continue with surgeon recommendations 2. Diabetic foot infection. Continue with insulin regimen. Adjust as needed 3. Medical noncompliance. Patient advised about consequences of medical noncompliance. We'll follow-up 4. History of substance abuse with methamphetamine. Patient did have positive history of methamphetamine with also admission of amphetamine use. Patient educated about cessation. 5. Morbid obese. Reduction advised 6. Corynebacterium Pseudomonas wound infection on right foot. Continue antibiotics per ID 7. History of hepatitis C. No active issue noted at this time. Patient to follow -up with this as outpatient Disposition and plan: Continue on antibiotics. cont wound care. Follow up with case management for abx therapy as outpatient Discussed plan of care with Dr. Ramey Problems: Subjective 24 Hr Interval Summary Free Text/Dictation comfortable, s/p podiatry intervention. No apparent distress Exam/Review of Systems Vital Signs Vitals Vital Signs Date Time Temp Pulse Resp B/P Pulse Ox O2 Delivery O2 Flow Rate FiO2 04/07/16 09:49 86 18 111/74 96 Room Air 04/07/16 09:18 98.0 04/07/16 09:14 8.0 Intake and Output 04/06/16 04/06/16 04/07/16 15:00 23:00 07:00 Intake Total 250 ml 1683.33 ml 1136.66 ml Output Total 900 ml Balance 250 ml 1683.33 ml 236.66 ml Exam General: No acute signs or symptoms of distress Eyes: pupils equal round, Anicteric sclera Neck: Supple nontender, no JVD Cardiac: S1, S2 auscultated, regular rhythm and rate Pulmonary: No coarse rhonchi or breathing auscultated GI: Abdomen soft nontender nondistended, bowel sounds active Extremities: [Right lower extremity edema minimal. Wrapped in Bi wraps Skin: Surgical site on right lower extremity clean dry and intact Neurologic: Alert to person place and time and situation Results Result Diagram: 04/06/16 0625 04/06/16 0623 Results 24 hrs Laboratory Tests Test 04/06/16 16:26 04/06/16 21:15 04/07/16 05:33 04/07/16 12:10 Bedside Glucose 170 161 134 231 H Medications Medications Current Medications Ondansetron HCl (Zofran Inj) 4 mg Q6H PRN IV NAUSEA AND/OR VOMITING; Start 03/23 at 23:00 Acetaminophen (Tylenol Tab) 650 mg Q6H PRN PO PAIN LEVEL 1-3 OR FEVER Last administered on 04/04/16 20:41; Admin Dose 650 MG; Start 03/23/16 at 23:00 Acetaminophen/ Hydrocodone Bitart (Penn (5/325)) 1 tab Q6H PRN PO MODERATE PAIN LEVEL 4-6 Last administered on 04/07/16 12:27; Admin Dose 1 TAB; Start 03/23/16 at 23:00 Morphine Sulfate (morphine) 2 mg Q4H PRN IV SEVERE PAIN LEVEL 7-10 Last administered on 04/04/16 02:04; Admin Dose 2 MG; Start 03/23/16 at 23:00 Docusate Sodium (Colace) 100 mg Q12H PRN PO CONSTIPATION Last administered on 15:04; Admin Dose 100 MG; Start 03/23/16 at 23:00 Nicotine (Nicoderm 14 Mg/ 24hr) 1 patch DAILY TRANSDERM Last administered on 08:41; Admin Dose 1 PATCH; Start 03/24/16 at 09:00 Miscellaneous Information 1 ea NOTE XX ; Start 03/24/16 at 09:00 Glucose (Glutose) 15 gm Q15M PRN PO DECREASED GLUCOSE; Start 03/24/16 at 09:00 Glucose (Glutose) 22.5 gm Q15M PRN PO DECREASED GLUCOSE; Start 03/24/16 at 09:00 Dextrose (D50w Syringe) 25 ml Q15M PRN IV DECREASED GLUCOSE; Start 03/24/16 at 09:00 Dextrose (D50w Syringe) 50 ml Q15M PRN IV DECREASED GLUCOSE; Start 03/24/16 at 09:00 Glucagon (Glucagen) 1 mg Q15M PRN IM DECREASED GLUCOSE; Start 03/24/16 at 09:00 Glucose (Glutose) 15 gm Q15M PRN BUCCAL DECREASED GLUCOSE; Start 03/24/16 at 09: 00 Lorazepam (Ativan) 1 mg Q2H PRN IV AGITATION Last administered on 04/07/16 00: 20; Admin Dose 1 MG; Start 03/24/16 at 11:30 Nystatin (Nystatin Oint) 1 applic TID TOP Last administered on 04/07/16 12:19 ; Admin Dose 1 APPLIC; Start 03/27/16 at 09:00 Heparin Sodium (Porcine) (Heparin (5000 Units/0.5 ml)) 5,000 unit Q8 SC Last administered on 04/06/16 21:28; Admin Dose 5,000 UNIT; Start 03/27/16 at 14:00 Metronidazole (Flagyl) 500 mg Q8 PO Last administered on 04/06/16 21:17; Admin Dose 500 MG; Start 03/28/16 at 14:00 Zolpidem Tartrate (Ambien) 5 mg QHS PRN PO INSOMNIA Last administered on 23:32; Admin Dose 5 MG; Start 04/01/16 at 13:30 Levofloxacin (Levaquin) 750 mg DAILY@06 PO Last administered on 04/06/16 06:21 ; Admin Dose 750 MG; Start 04/03/16 at 06:00 Lactobacillus Acidophilus/ Rhamnosus (Culturelle) 1 cap BID PO Last administered on 04/06/16 21:34; Admin Dose 1 CAP; Start 04/02/16 at 12:00 Multivitamins Therapeutic (Theragran) 1 tab DAILY PO Last administered on 08:41; Admin Dose 1 TAB; Start 04/02/16 at 12:00 Insulin Glargine (Lantus) 20 unit HS SC Last administered on 04/06/16 21:27; Admin Dose 20 UNIT; Start 04/02/16 at 21:00 Acetaminophen/ Hydrocodone Bitart (Penn (10/325)) 1 tab Q3H PRN PO PAIN; Start 04/02/16 at 13:00 Famotidine (Pepcid) 20 mg DAILY PO Last administered on 04/06/16 08:41; Admin Dose 20 MG; Start 04/04/16 at 09:00 Collagenase 1 applic 1 applic DAILY TOP Last administered on 04/06/16 14:50; Admin Dose 1 APPLIC; Start 04/06/16 at 13:30 Vancomycin HCl/ Sodium Chloride (Vancocin/NS) 250 ml @ 83.333 mls/ hr Q8H IVPB Last administered on 04/07/16 12:15; Admin Dose 83.333 MLS/HR; Start at 21:00 IGNACIO ROSALES Apr 07, 2016 13:16
[2016-04-07 15:18] LABS: LYMPHOCYTE - % CD4 (HELPER) 44 % (30-61); LYMPHOCYTE - %CD8 (SUPPRESSOR) 24 % (12-42); LYMPHOCYTE - ABSOLUTE CD4 1151 cells/uL (490-1740); LYMPHOCYTE - ABSOLUTE CD8 634 cells/uL (180-1170); LYMPHOCYTE - CD4/CD8 RATIO 1.82 (0.86-5.00)
--- NOTE | 2016-04-07 20:35 | RADRPT ---
PROCEDURE: XR Foot. CLINICAL INDICATION: Post operative xrays TECHNIQUE: AP, lateral and oblique views of the right foot was obtained. COMPARISON: None. FINDINGS: Postoperative changes compatible with amputation of the fifth toe. The right toe is surgically abse nt at the metatarsophalangeal joint. The remaining bones of the foot are intact. Postsurgical yao ges of the soft tissues of the anterolateral foot. IMPRESSION: Postoperative changes compatible with amputation of the fifth toe. RPTAT:AAJJ Physician Cathi Date Time Electronically viewed and signed by Physician Cathi on 04/07/2016 20:35 ANIYA/
[2016-04-07] MEDS: INSULIN GLARGINE [LANtus] 3 ML PEN SC SCH (21:34)
[2016-04-08] MEDS: HYDROCODONE/APAP (10/325) TAB PO PRN ×4 (01:34→20:32)
[2016-04-08] MEDS: LEVOFLOXACIN 750 MG TABLET PO SCH (05:06)
[2016-04-08] MEDS: metroNIDAZOLE 500 MG TAB PO SCH ×3 (05:06→21:48)
[2016-04-08] MEDS: HEPARIN 5,000 UNIT/0.5 ML SYG SC SCH ×3 (05:09→21:50)
[2016-04-08] MEDS: VANCOMYCIN IVPB SCH ×3 (06:07→23:22)
[2016-04-08] MEDS: SOD CHLORIDE 0.9% IVPB SCH ×3 (06:07→23:22)
[2016-04-08] MEDS: INSULIN ASPART [NOVOLOG] 3 ML PEN SC SCH ×7 (07:30→20:55)
[2016-04-08 08:00] VITALS: BP 126/76; PULSE 89; RESP 18
[2016-04-08] MEDS: FAMOTIDINE 20 MG TAB PO SCH (08:04)
[2016-04-08] MEDS: LACTOBACILLUS RHAMNOSUS CAP PO SCH ×2 (08:04→20:33)
[2016-04-08] MEDS: MULTIVITAMINS THERAPEUTIC TAB PO SCH (08:04)
[2016-04-08] MEDS: NICOTINE (14 MG/24 HR) PATCH TRANSDERM SCH (08:04)
[2016-04-08] MEDS: COLLAGENASE 30 GM TUBE TOP SCH (08:12)
[2016-04-08] MEDS ORDERED: KETOROLAC 30 MG INJ IV STA (10:39)
[2016-04-08] MEDS: NYSTATIN TOP SCH ×2 (12:04→20:53)
--- NOTE | 2016-04-08 12:12 | PN ---
Date/Time of Note Date/Time of Note DATE: 04/08/16 TIME: 12:11 Assessment/Plan VTE Prophylaxis VTE Prophylaxis Intervention: heparin Lines/Catheters IV [facility] Type [facility]from [facility] Saline Lock Urinary Cath still in place: No Assessment/Plan Chief Complaint/Hosp Course Assessment and plan 1. Right foot cellulitis/abscess with suspect osteomyelitis. Patient is status post debridement. Continue with wound care per podiatry. Continue on antibiotics per ID recommendations. Analgesics as needed. s/p podiatry intervention 04/07/16. Continue with surgeon recommendations 2. Diabetic foot infection. Continue with insulin regimen. Adjust as needed 3. Medical noncompliance. Patient advised about consequences of medical noncompliance. We'll follow-up 4. History of substance abuse with methamphetamine. Patient did have positive history of methamphetamine with also admission of amphetamine use. Patient educated about cessation. 5. Morbid obese. Reduction advised 6. Corynebacterium Pseudomonas wound infection on right foot. Continue antibiotics per ID 7. History of hepatitis C. No active issue noted at this time. Patient to follow -up with this as outpatient Disposition and plan: Continue on antibiotics. cont wound care. Case management following. Await outpatient set up for abx. d/c when cleared by consultants Discussed plan of care with Dr. Ramey Problems: Subjective 24 Hr Interval Summary Free Text/Dictation Comfortable at present. No specific complaints Exam/Review of Systems Vital Signs Vitals Vital Signs Date Time Temp Pulse Resp B/P Pulse Ox O2 Delivery O2 Flow Rate FiO2 04/08/16 08:00 97.9 89 18 126/76 99 Room Air 04/07/16 09:14 8.0 Intake and Output 04/07/16 04/07/16 04/08/16 15:00 23:00 07:00 Intake Total 433.33 ml 1260 ml 1150 ml Output Total 5 ml Balance 428.33 ml 1260 ml 1150 ml Exam General: No acute signs or symptoms of distress Eyes: pupils equal round, Anicteric sclera Neck: Supple nontender, no JVD Cardiac: S1, S2 auscultated, regular rhythm and rate Pulmonary: No coarse rhonchi or breathing auscultated GI: Abdomen soft nontender nondistended, bowel sounds active Extremities: [Right lower extremity edema minimal. Wrapped in Bi wraps Skin: Surgical site on right lower extremity clean dry and intact Neurologic: Alert to person place and time and situation Results Result Diagram: 04/06/16 0625 04/06/16 0623 Results 24 hrs Laboratory Tests Test 04/07/16 17:05 04/07/16 20:12 04/08/16 01:09 04/08/16 08:03 Bedside Glucose 107 126 118 129 Test 04/08/16 11:55 Bedside Glucose 122 Medications Medications Current Medications Ondansetron HCl (Zofran Inj) 4 mg Q6H PRN IV NAUSEA AND/OR VOMITING; Start 03/23 at 23:00 Acetaminophen (Tylenol Tab) 650 mg Q6H PRN PO PAIN LEVEL 1-3 OR FEVER Last administered on 04/04/16 20:41; Admin Dose 650 MG; Start 03/23/16 at 23:00 Acetaminophen/ Hydrocodone Bitart ([place]olph (5/325)) 1 tab Q6H PRN PO MODERATE PAIN LEVEL 4-6 Last administered on 04/07/16 12:27; Admin Dose 1 TAB; Start 03/23/16 at 23:00 Morphine Sulfate (morphine) 2 mg Q4H PRN IV SEVERE PAIN LEVEL 7-10 Last administered on 04/04/16 02:04; Admin Dose 2 MG; Start 03/23/16 at 23:00 Docusate Sodium (Colace) 100 mg Q12H PRN PO CONSTIPATION Last administered on 15:04; Admin Dose 100 MG; Start 03/23/16 at 23:00 Nicotine (Nicoderm 14 Mg/ 24hr) 1 patch DAILY TRANSDERM Last administered on 08:04; Admin Dose 1 PATCH; Start 03/24/16 at 09:00 Miscellaneous Information 1 ea NOTE XX ; Start 03/24/16 at 09:00 Glucose (Glutose) 15 gm Q15M PRN PO DECREASED GLUCOSE; Start 03/24/16 at 09:00 Glucose (Glutose) 22.5 gm Q15M PRN PO DECREASED GLUCOSE; Start 03/24/16 at 09:00 Dextrose (D50w Syringe) 25 ml Q15M PRN IV DECREASED GLUCOSE; Start 03/24/16 at 09:00 Dextrose (D50w Syringe) 50 ml Q15M PRN IV DECREASED GLUCOSE; Start 03/24/16 at 09:00 Glucagon (Glucagen) 1 mg Q15M PRN IM DECREASED GLUCOSE; Start 03/24/16 at 09:00 Glucose (Glutose) 15 gm Q15M PRN BUCCAL DECREASED GLUCOSE; Start 03/24/16 at 09: 00 Lorazepam (Ativan) 1 mg Q2H PRN IV AGITATION Last administered on 04/07/16 23: 36; Admin Dose 1 MG; Start 03/24/16 at 11:30 Nystatin (Nystatin Oint) 1 applic TID TOP Last administered on 04/08/16 12:04 ; Admin Dose 1 APPLIC; Start 03/27/16 at 09:00 Heparin Sodium (Porcine) (Heparin (5000 Units/0.5 ml)) 5,000 unit Q8 SC Last administered on 04/08/16 05:09; Admin Dose 5,000 UNIT; Start 03/27/16 at 14:00 Metronidazole (Flagyl) 500 mg Q8 PO Last administered on 04/08/16 05:06; Admin Dose 500 MG; Start 03/28/16 at 14:00 Zolpidem Tartrate (Ambien) 5 mg QHS PRN PO INSOMNIA Last administered on 23:32; Admin Dose 5 MG; Start 04/01/16 at 13:30 Levofloxacin (Levaquin) 750 mg DAILY@06 PO Last administered on 04/08/16 05:06 ; Admin Dose 750 MG; Start 04/03/16 at 06:00 Lactobacillus Acidophilus/ Rhamnosus (Culturelle) 1 cap BID PO Last administered on 04/08/16 08:04; Admin Dose 1 CAP; Start 04/02/16 at 12:00 Multivitamins Therapeutic (Theragran) 1 tab DAILY PO Last administered on 08:04; Admin Dose 1 TAB; Start 04/02/16 at 12:00 Insulin Glargine (Lantus) 20 unit HS SC Last administered on 04/07/16 21:34; Admin Dose 20 UNIT; Start 04/02/16 at 21:00 Acetaminophen/ Hydrocodone Bitart (Randolph (10/325)) 1 tab Q3H PRN PO PAIN Last administered on 04/08/16 08:07; Admin Dose 1 TAB; Start 04/02/16 at 13:00 Famotidine (Pepcid) 20 mg DAILY PO Last administered on 04/08/16 08:04; Admin Dose 20 MG; Start 04/04/16 at 09:00 Collagenase 1 applic 1 applic DAILY TOP Last administered on 04/06/16 14:50; Admin Dose 1 APPLIC; Start 04/06/16 at 13:30 Vancomycin HCl/ Sodium Chloride (Vancocin/NS) 250 ml @ 83.333 mls/ hr Q8H IVPB Last administered on 04/08/16 06:07; Admin Dose 83.333 MLS/HR; Start at 23:00 IGNACIO ROSALES Apr 08, 2016 12:12
[2016-04-08 20:00] VITALS: BP 119/80; RESP 19
[2016-04-08] MEDS: LORAZEPAM 2 MG INJ IV PRN (20:33)
[2016-04-08] MEDS: INSULIN GLARGINE [LANtus] 3 ML PEN SC SCH (20:54)
[2016-04-09] MEDS: LORAZEPAM 2 MG INJ IV PRN ×2 (03:31→23:26)
[2016-04-09] MEDS: LEVOFLOXACIN 750 MG TABLET PO SCH (05:42)
[2016-04-09] MEDS: metroNIDAZOLE 500 MG TAB PO SCH ×3 (05:42→22:21)
[2016-04-09] MEDS: HEPARIN 5,000 UNIT/0.5 ML SYG SC SCH ×3 (05:47→22:22)
[2016-04-09 06:19] LABS: CREATININE 0.72 mg/dl (0.61-1.24)
[2016-04-09] MEDS: SOD CHLORIDE 0.9% IVPB SCH ×3 (06:33→23:26)
[2016-04-09] MEDS: VANCOMYCIN IVPB SCH ×3 (06:33→23:26)
[2016-04-09] MEDS: INSULIN ASPART [NOVOLOG] 3 ML PEN SC SCH ×7 (07:30→21:00)
[2016-04-09 08:10] VITALS: BP 117/70; RESP 18
[2016-04-09] MEDS: LACTOBACILLUS RHAMNOSUS CAP PO SCH ×2 (09:05→20:49)
[2016-04-09] MEDS: FAMOTIDINE 20 MG TAB PO SCH (09:05)
[2016-04-09] MEDS: COLLAGENASE 30 GM TUBE TOP SCH (09:05)
[2016-04-09] MEDS: NYSTATIN TOP SCH ×3 (09:05→21:03)
[2016-04-09] MEDS: MULTIVITAMINS THERAPEUTIC TAB PO SCH (09:05)
[2016-04-09] MEDS: NICOTINE (14 MG/24 HR) PATCH TRANSDERM SCH (09:07)
[2016-04-09] MEDS: HYDROCODONE/APAP (10/325) TAB PO PRN ×2 (13:44→20:49)
--- NOTE | 2016-04-09 15:08 | PN ---
Date/Time of Note Date/Time of Note DATE: 04/09/16 TIME: 15:06 Assessment/Plan VTE Prophylaxis VTE Prophylaxis Intervention: SCD's Lines/Catheters IV Catheter Type (from [facility]): Saline Lock Urinary Cath still in place: No Assessment/Plan Chief Complaint/Hosp Course Assessment and plan 1. Right foot cellulitis/abscess with suspect osteomyelitis. Patient is status post debridement. Continue with wound care per podiatry. Continue on antibiotics per ID recommendations. Analgesics as needed. s/p podiatry intervention 04/07/16. Continue with surgeon recommendations. Nonweightbearing for now 2. Diabetic foot infection. Continue with insulin regimen. Adjust as needed 3. Medical noncompliance. Patient advised about consequences of medical noncompliance. We'll follow-up 4. History of substance abuse with methamphetamine. Patient did have positive history of methamphetamine with also admission of amphetamine use. Patient educated about cessation. 5. Morbid obese. Reduction advised 6. Corynebacterium Pseudomonas wound infection on right foot. Continue antibiotics per ID 7. History of hepatitis C. No active issue noted at this time. Patient to follow -up with this as outpatient Disposition and plan: Continue on antibiotics. cont wound care. Discussed with podiatry, patient remains nonweightbearing. Case management following. We'll await also set up for antibiotics as outpatient. Discharge when cleared by consultants Discussed plan of care with Dr. Gruber Problems: Subjective 24 Hr Interval Summary Free Text/Dictation no s/s of distress. comfortable at this time Exam/Review of Systems Vital Signs Vitals Vital Signs Date Time Temp Pulse Resp B/P Pulse Ox O2 Delivery O2 Flow Rate FiO2 04/09/16 08:10 98.2 92 18 117/70 97 04/08/16 08:00 Room Air 04/07/16 09:14 8.0 Intake and Output 04/08/16 04/08/16 04/09/16 14:59 22:59 06:59 Intake Total 250 ml 2730 ml 250 ml Balance 250 ml 2730 ml 250 ml Exam General: No acute signs or symptoms of distress Eyes: pupils equal round, Anicteric sclera Neck: Supple nontender, no JVD Cardiac: S1, S2 auscultated, regular rhythm and rate Pulmonary: No coarse rhonchi or breathing auscultated GI: Abdomen soft nontender nondistended, bowel sounds active Extremities: [Right lower extremity edema minimal. Wrapped in Bi wraps Skin: Surgical site on right lower extremity clean dry and intact Neurologic: Alert to person place and time and situation Results Result Diagram: 04/06/16 0625 04/09/16 0505 Results 24 hrs Laboratory Tests Test 04/08/16 17:23 04/08/16 20:48 04/08/16 22:21 04/09/16 05:05 Bedside Glucose 116 183 Vancomycin Level Trough 13.5 Blood Urea Nitrogen 20 Creatinine 0.72 Test 04/09/16 08:10 04/09/16 12:10 Bedside Glucose 119 134 Medications Medications Current Medications Ondansetron HCl (Zofran Inj) 4 mg Q6H PRN IV NAUSEA AND/OR VOMITING; Start 03/23 at 23:00 Acetaminophen (Tylenol Tab) 650 mg Q6H PRN PO PAIN LEVEL 1-3 OR FEVER Last administered on 04/04/16 20:41; Admin Dose 650 MG; Start 03/23/16 at 23:00 Acetaminophen/ Hydrocodone Bitart ([place] (5/325)) 1 tab Q6H PRN PO MODERATE PAIN LEVEL 4-6 Last administered on 04/07/16 12:27; Admin Dose 1 TAB; Start 03/23/16 at 23:00 Morphine Sulfate (morphine) 2 mg Q4H PRN IV SEVERE PAIN LEVEL 7-10 Last administered on 04/04/16 02:04; Admin Dose 2 MG; Start 03/23/16 at 23:00 Docusate Sodium (Colace) 100 mg Q12H PRN PO CONSTIPATION Last administered on 15:04; Admin Dose 100 MG; Start 03/23/16 at 23:00 Nicotine (Nicoderm 14 Mg/ 24hr) 1 patch DAILY TRANSDERM Last administered on 09:07; Admin Dose 1 PATCH; Start 03/24/16 at 09:00 Miscellaneous Information 1 ea NOTE XX ; Start 03/24/16 at 09:00 Glucose (Glutose) 15 gm Q15M PRN PO DECREASED GLUCOSE; Start 03/24/16 at 09:00 Glucose (Glutose) 22.5 gm Q15M PRN PO DECREASED GLUCOSE; Start 03/24/16 at 09:00 Dextrose (D50w Syringe) 25 ml Q15M PRN IV DECREASED GLUCOSE; Start 03/24/16 at 09:00 Dextrose (D50w Syringe) 50 ml Q15M PRN IV DECREASED GLUCOSE; Start 03/24/16 at 09:00 Glucagon (Glucagen) 1 mg Q15M PRN IM DECREASED GLUCOSE; Start 03/24/16 at 09:00 Glucose (Glutose) 15 gm Q15M PRN BUCCAL DECREASED GLUCOSE; Start 03/24/16 at 09: 00 Lorazepam (Ativan) 1 mg Q2H PRN IV AGITATION Last administered on 04/09/16 03: 31; Admin Dose 1 MG; Start 03/24/16 at 11:30 Nystatin (Nystatin Oint) 1 applic TID TOP Last administered on 04/09/16 12:14 ; Admin Dose 1 APPLIC; Start 03/27/16 at 09:00 Heparin Sodium (Porcine) (Heparin (5000 Units/0.5 ml)) 5,000 unit Q8 SC Last administered on 04/09/16 13:43; Admin Dose 5,000 UNIT; Start 03/27/16 at 14:00 Metronidazole (Flagyl) 500 mg Q8 PO Last administered on 04/09/16 13:40; Admin Dose 500 MG; Start 03/28/16 at 14:00 Zolpidem Tartrate (Ambien) 5 mg QHS PRN PO INSOMNIA Last administered on 23:32; Admin Dose 5 MG; Start 04/01/16 at 13:30 Levofloxacin (Levaquin) 750 mg DAILY@06 PO Last administered on 04/09/16 05:42 ; Admin Dose 750 MG; Start 04/03/16 at 06:00 Lactobacillus Acidophilus/ Rhamnosus (Culturelle) 1 cap BID PO Last administered on 04/09/16 09:05; Admin Dose 1 CAP; Start 04/02/16 at 12:00 Multivitamins Therapeutic (Theragran) 1 tab DAILY PO Last administered on 09:05; Admin Dose 1 TAB; Start 04/02/16 at 12:00 Insulin Glargine (Lantus) 20 unit HS SC Last administered on 04/08/16 20:54; Admin Dose 20 UNIT; Start 04/02/16 at 21:00 Acetaminophen/ Hydrocodone Bitart ([place] (10325)) 1 tab Q3H PRN PO PAIN Last administered on 04/09/16 13:44; Admin Dose 1 TAB; Start 04/02/16 at 13:00 Famotidine (Pepcid) 20 mg DAILY PO Last administered on 04/09/16 09:05; Admin Dose 20 MG; Start 04/04/16 at 09:00 Collagenase 1 applic 1 applic DAILY TOP Last administered on 04/09/16 09:05; Admin Dose 1 APPLIC; Start 04/06/16 at 13:30 Vancomycin HCl/ Sodium Chloride (Vancocin/NS) 250 ml @ 83.333 mls/ hr Q8H IVPB Last administered on 04/09/16 06:33; Admin Dose 83.333 MLS/HR; Start at 23:00 IGNACIO ROSALES Apr 09, 2016 15:08
[2016-04-09 19:50] VITALS: BP 120/65; RESP 19
[2016-04-09] MEDS: INSULIN GLARGINE [LANtus] 3 ML PEN SC SCH (20:58)
--- NOTE | 2016-04-09 22:16 | PN ---
Date/Time of Note Date/Time of Note DATE: 04/09/16 TIME: 22:13 Assessment/Plan Lines/Catheters [facility] Type (from [facility] Saline Lock [facility] in Place (from [facility]): No Assessment/Plan Problems: (1) Non-pressure chronic ulcer of other part of right foot with fat layer exposed Status: Acute (2) Foot osteomyelitis, right Status: Acute (3) Drug abuse and dependence Status: Acute (4) Diabetes, polyneuropathy Status: Chronic (5) Morbid obesity due to excess calories Status: Chronic (6) Depression with anxiety Status: Chronic Assessment/Plan Patient is demonstrating clinical improvement in his right foot. Packing was removed and Santyl ointment was applied to the wounds. Dry dressing was reapplied along with an Bi bandage. Extensive counseling was done regarding wound care and weightbearing. Weightbearing status at this time is nonweightbearing. Patient is at high risk for limb loss. Patient will be monitored in-house. Subjective 24 Hr Interval Summary Patient is status post amputation of right fifth gangrenous toe and surgical debridement of necrotic open wounds of the right foot on April 07, 2016. Patient reports no fever chills nausea or vomiting. He denies trauma to his right foot. Patient states that he has been sober for the past few days and has not done any illegal drugs. He says that he also has not received any heroin from his friends. Constitutional: no complaints Pain Control: well controlled Exam/Review of Systems Vital Signs Vitals Vital Signs Date Time Temp Pulse Resp B/P Pulse Ox O2 Delivery O2 Flow Rate FiO2 04/09/16 19:50 98.4 19 120/65 99 04/09/16 08:10 92 04/08/16 08:00 Room Air 04/07/16 09:14 8.0 Intake and Output 04/08/16 04/08/16 04/09/16 15:00 23:00 07:00 Intake Total 250 ml 2730 ml 333.33 ml Balance 250 ml 2730 ml 333.33 ml Exam Free Text/Dictation Morbidly obese male in no acute distress. Right foot bandages were removed. Packing was removed from the wounds. He is status post right fifth toe gangrene amputation and surgical debridement of multiple necrotic open wounds of the right foot. The wounds look viable and there is no malodor. Previous plantar wound is closed with no complication. There is significant decrease in edema and no erythema today. He status post hallux amputation which is well- healed with no clinical complications. Labs and imaging were reviewed. Results Result Diagram: 04/06/16 0625 04/09/16 0505 ESTEE IBRAHIM DPM Apr 09, 2016 22:16
[2016-04-10] MEDS: metroNIDAZOLE 500 MG TAB PO SCH ×3 (06:36→22:29)
[2016-04-10] MEDS: LEVOFLOXACIN 750 MG TABLET PO SCH (06:36)
[2016-04-10] MEDS: HEPARIN 5,000 UNIT/0.5 ML SYG SC SCH ×3 (06:37→22:31)
[2016-04-10] MEDS: VANCOMYCIN IVPB SCH ×3 (07:05→23:26)
[2016-04-10] MEDS: SOD CHLORIDE 0.9% IVPB SCH ×3 (07:05→23:26)
[2016-04-10] MEDS: INSULIN ASPART [NOVOLOG] 3 ML PEN SC SCH ×7 (07:30→20:45)
[2016-04-10 08:03] VITALS: BP 119/67; RESP 18
[2016-04-10] MEDS: NICOTINE (14 MG/24 HR) PATCH TRANSDERM SCH (09:18)
[2016-04-10] MEDS: HYDROCODONE/APAP (10/325) TAB PO PRN ×4 (09:19→20:38)
[2016-04-10] MEDS: FAMOTIDINE 20 MG TAB PO SCH (09:19)
[2016-04-10] MEDS: MULTIVITAMINS THERAPEUTIC TAB PO SCH (09:19)
[2016-04-10] MEDS: LACTOBACILLUS RHAMNOSUS CAP PO SCH ×2 (09:19→20:37)
[2016-04-10] MEDS: NYSTATIN TOP SCH ×3 (09:22→20:37)
[2016-04-10] MEDS: COLLAGENASE 30 GM TUBE TOP SCH (09:22)
--- NOTE | 2016-04-10 13:08 | PN ---
Date/Time of Note Date/Time of Note DATE: 04/10/16 TIME: 13:05 Assessment/Plan VTE Prophylaxis VTE Prophylaxis Intervention: heparin Lines/Catheters IV Catheter Type (from [facility]): Saline Lock Urinary Cath still in place: No Assessment/Plan Chief Complaint/Hosp Course Assessment and plan 1. Right foot cellulitis/abscess with suspect osteomyelitis. Patient is status post debridement. Continue with wound care per podiatry. Continue on antibiotics per ID recommendations. Analgesics as needed. s/p podiatry intervention 04/07/16. Continue with surgeon recommendations. Nonweightbearing for now 2. Diabetic foot infection. Continue with insulin regimen. Adjust as needed 3. Medical noncompliance. Patient advised about consequences of medical noncompliance. We'll follow-up 4. History of substance abuse with methamphetamine. Patient did have positive history of methamphetamine with also admission of amphetamine use. Patient educated about cessation. 5. Morbid obese. Reduction advised 6. Corynebacterium Pseudomonas wound infection on right foot. Continue antibiotics per ID 7. History of hepatitis C. No active issue noted at this time. Patient to follow -up with this as outpatient Disposition and plan: Continue antibiotics and wound care per podiatry. Still having difficulty with placement due to patient's insurance issue as well as previous medical amphetamine use and need for IV antibiotic. Follow-up with case management for discharge planning. Discussed plan of care with Dr. Gruber Problems: Subjective 24 Hr Interval Summary Free Text/Dictation Comfortable at present. No apparent distress Exam/Review of Systems Vital Signs Vitals Vital Signs Date Time Temp Pulse Resp B/P Pulse Ox O2 Delivery O2 Flow Rate FiO2 04/10/16 08:03 97.4 90 18 119/67 95 04/08/16 08:00 Room Air 04/07/16 09:14 8.0 Intake and Output 04/09/16 04/09/16 04/10/16 15:00 23:00 07:00 Intake Total 166.67 ml 1366.66 ml 1050 ml Balance 166.67 ml 1366.66 ml 1050 ml Exam General: No acute signs or symptoms of distress Eyes: pupils equal round, Anicteric sclera Neck: Supple nontender, no JVD Cardiac: S1, S2 auscultated, regular rhythm and rate Pulmonary: No coarse rhonchi or breathing auscultated GI: Abdomen soft nontender nondistended, bowel sounds active Extremities: [Right lower extremity edema minimal. Wrapped in Bi wraps Skin: Surgical site on right lower extremity clean dry and intact Neurologic: Alert to person place and time and situation Results Result Diagram: 04/06/16 0625 04/09/16 0505 Results 24 hrs Laboratory Tests Test 04/09/16 17:50 04/09/16 20:55 04/10/16 08:02 04/10/16 09:48 Bedside Glucose 135 109 120 Lab Scanned Report REFERENCE LAB Test 04/10/16 12:08 Bedside Glucose 148 Medications Medications Current Medications Ondansetron HCl (Zofran Inj) 4 mg Q6H PRN IV NAUSEA AND/OR VOMITING; Start 03/23 at 23:00 Acetaminophen (Tylenol Tab) 650 mg Q6H PRN PO PAIN LEVEL 1-3 OR FEVER Last administered on 04/04/16 20:41; Admin Dose 650 MG; Start 03/23/16 at 23:00 Acetaminophen/ Hydrocodone Bitart ([place] (5/325)) 1 tab Q6H PRN PO MODERATE PAIN LEVEL 4-6 Last administered on 04/07/16 12:27; Admin Dose 1 TAB; Start 03/23/16 at 23:00 Morphine Sulfate (morphine) 2 mg Q4H PRN IV SEVERE PAIN LEVEL 7-10 Last administered on 04/04/16 02:04; Admin Dose 2 MG; Start 03/23/16 at 23:00 Docusate Sodium (Colace) 100 mg Q12H PRN PO CONSTIPATION Last administered on 15:04; Admin Dose 100 MG; Start 03/23/16 at 23:00 Nicotine (Nicoderm 14 Mg/ 24hr) 1 patch DAILY TRANSDERM Last administered on 09:18; Admin Dose 1 PATCH; Start 03/24/16 at 09:00 Miscellaneous Information 1 ea NOTE XX ; Start 03/24/16 at 09:00 Glucose (Glutose) 15 gm Q15M PRN PO DECREASED GLUCOSE; Start 03/24/16 at 09:00 Glucose (Glutose) 22.5 gm Q15M PRN PO DECREASED GLUCOSE; Start 03/24/16 at 09:00 Dextrose (D50w Syringe) 25 ml Q15M PRN IV DECREASED GLUCOSE; Start 03/24/16 at 09:00 Dextrose (D50w Syringe) 50 ml Q15M PRN IV DECREASED GLUCOSE; Start 03/24/16 at 09:00 Glucagon (Glucagen) 1 mg Q15M PRN IM DECREASED GLUCOSE; Start 03/24/16 at 09:00 Glucose (Glutose) 15 gm Q15M PRN BUCCAL DECREASED GLUCOSE; Start 03/24/16 at 09: 00 Lorazepam (Ativan) 1 mg Q2H PRN IV AGITATION Last administered on 04/09/16 23: 26; Admin Dose 1 MG; Start 03/24/16 at 11:30 Nystatin (Nystatin Oint) 1 applic TID TOP Last administered on 04/10/16 12:12 ; Admin Dose 1 APPLIC; Start 03/27/16 at 09:00 Heparin Sodium (Porcine) (Heparin (5000 Units/0.5 ml)) 5,000 unit Q8 SC Last administered on 04/10/16 06:37; Admin Dose 5,000 UNIT; Start 03/27/16 at 14:00 Metronidazole (Flagyl) 500 mg Q8 PO Last administered on 04/10/16 06:36; Admin Dose 500 MG; Start 03/28/16 at 14:00 Zolpidem Tartrate (Ambien) 5 mg QHS PRN PO INSOMNIA Last administered on 23:32; Admin Dose 5 MG; Start 04/01/16 at 13:30 Levofloxacin (Levaquin) 750 mg DAILY@06 PO Last administered on 04/10/16 06:36 ; Admin Dose 750 MG; Start 04/03/16 at 06:00 Lactobacillus Acidophilus/ Rhamnosus (Culturelle) 1 cap BID PO Last administered on 04/10/16 09:19; Admin Dose 1 CAP; Start 04/02/16 at 12:00 Multivitamins Therapeutic (Theragran) 1 tab DAILY PO Last administered on 09:19; Admin Dose 1 TAB; Start 04/02/16 at 12:00 Insulin Glargine (Lantus) 20 unit HS SC Last administered on 04/09/16 20:58; Admin Dose 20 UNIT; Start 04/02/16 at 21:00 Acetaminophen/ Hydrocodone Bitart ([place] (10/325)) 1 tab Q3H PRN PO PAIN Last administered on 04/10/16 09:19; Admin Dose 1 TAB; Start 04/02/16 at 13:00 Famotidine (Pepcid) 20 mg DAILY PO Last administered on 04/10/16 09:19; Admin Dose 20 MG; Start 04/04/16 at 09:00 Collagenase 1 applic 1 applic DAILY TOP Last administered on 04/10/16 09:22; Admin Dose 1 APPLIC; Start 04/06/16 at 13:30 Vancomycin HCl/ Sodium Chloride (Vancocin/NS) 250 ml @ 83.333 mls/ hr Q8H IVPB Last administered on 04/10/16 07:05; Admin Dose 83.333 MLS/HR; Start at 23:00 IGNACIO ROSALES Apr 10, 2016 13:08
[2016-04-10 20:10] VITALS: BP 134/85; RESP 18
[2016-04-10] MEDS: INSULIN GLARGINE [LANtus] 3 ML PEN SC SCH (20:46)
[2016-04-10] MEDS: LORAZEPAM 2 MG INJ IV PRN (23:39)
[2016-04-11] MEDS: VANCOMYCIN IVPB SCH ×3 (06:32→23:05)
[2016-04-11] MEDS: SOD CHLORIDE 0.9% IVPB SCH ×3 (06:32→23:05)
[2016-04-11] MEDS: metroNIDAZOLE 500 MG TAB PO SCH ×3 (06:32→21:43)
[2016-04-11] MEDS: HEPARIN 5,000 UNIT/0.5 ML SYG SC SCH ×3 (06:33→21:48)
[2016-04-11] MEDS: LEVOFLOXACIN 750 MG TABLET PO SCH (06:39)
[2016-04-11] MEDS: INSULIN ASPART [NOVOLOG] 3 ML PEN SC SCH ×7 (07:30→21:00)
[2016-04-11 08:36] VITALS: BP 110/62; RESP 20
[2016-04-11] MEDS: HYDROCODONE/APAP (10/325) TAB PO PRN ×4 (09:02→22:14)
[2016-04-11] MEDS: MULTIVITAMINS THERAPEUTIC TAB PO SCH (09:17)
[2016-04-11] MEDS: NICOTINE (14 MG/24 HR) PATCH TRANSDERM SCH (09:18)
[2016-04-11] MEDS: FAMOTIDINE 20 MG TAB PO SCH (09:18)
[2016-04-11] MEDS: LACTOBACILLUS RHAMNOSUS CAP PO SCH ×2 (09:18→21:44)
--- NOTE | 2016-04-11 12:51 | PN ---
Date/Time of Note Date/Time of Note DATE: 04/11/16 TIME: 12:49 Assessment/Plan VTE Prophylaxis VTE Prophylaxis Intervention: heparin Lines/Catheters IV [facility] Type [facility]from [facility]): Saline Lock Urinary Cath still in place: No Assessment/Plan Chief Complaint/Hosp Course Assessment and plan 1. Right foot cellulitis/abscess with suspect osteomyelitis. Patient is status post debridement. Continue with wound care per podiatry. Continue on antibiotics per ID recommendations. Analgesics as needed. s/p podiatry intervention 04/07/16. Continue with surgeon recommendations. Nonweightbearing for now 2. Diabetic foot infection. Continue with insulin regimen. Adjust as needed 3. Medical noncompliance. Patient advised about consequences of medical noncompliance. We'll follow-up 4. History of substance abuse with methamphetamine. Patient did have positive history of methamphetamine with also admission of amphetamine use. Patient educated about cessation. 5. Morbid obese. Reduction advised 6. Corynebacterium Pseudomonas wound infection on right foot. Continue antibiotics per ID 7. History of hepatitis C. No active issue noted at this time. Patient to follow -up with this as outpatient Disposition and plan: Continue antibiotics and wound care per podiatry. Still having difficulty with placement due to patient's insurance issue as well as previous amphetamine use and need for IV antibiotic. Follow-up with case management for discharge planning. cont supportive care for now. Discussed plan of care with Dr. Gruber Problems: Subjective 24 Hr Interval Summary Free Text/Dictation no s/s of distress. comfortable at this time Exam/Review of Systems Vital Signs Vitals Vital Signs Date Time Temp Pulse Resp B/P Pulse Ox O2 Delivery O2 Flow Rate FiO2 04/11/16 08:36 97.8 80 20 110/62 96 04/08/16 08:00 Room Air 04/07/16 09:14 8.0 Intake and Output 04/10/16 04/10/16 04/11/16 15:00 23:00 07:00 Intake Total 2710 ml 1750 ml Balance 2710 ml 1750 ml Exam General: No acute signs or symptoms of distress Eyes: pupils equal round, Anicteric sclera Neck: Supple nontender, no JVD Cardiac: S1, S2 auscultated, regular rhythm and rate Pulmonary: No coarse rhonchi or breathing auscultated GI: Abdomen soft nontender nondistended, bowel sounds active Extremities: [Right lower extremity edema minimal. Wrapped in Bi wraps Skin: Surgical site on right lower extremity clean dry and intact Neurologic: Alert to person place and time and situation Results Result Diagram: 04/09/16 0505 Results 24 hrs Laboratory Tests Test 04/10/16 17:02 04/10/16 20:41 04/11/16 07:21 04/11/16 11:39 Bedside Glucose 150 156 124 109 Medications Medications Current Medications Ondansetron HCl (Zofran Inj) 4 mg Q6H PRN IV NAUSEA AND/OR VOMITING; Start 03/23 at 23:00 Acetaminophen (Tylenol Tab) 650 mg Q6H PRN PO PAIN LEVEL 1-3 OR FEVER Last administered on 04/04/16 20:41; Admin Dose 650 MG; Start 03/23/16 at 23:00 Acetaminophen/ Hydrocodone Bitart ([place] (5/325)) 1 tab Q6H PRN PO MODERATE PAIN LEVEL 4-6 Last administered on 04/07/16 12:27; Admin Dose 1 TAB; Start 03/23/16 at 23:00 Morphine Sulfate (morphine) 2 mg Q4H PRN IV SEVERE PAIN LEVEL 7-10 Last administered on 04/04/16 02:04; Admin Dose 2 MG; Start 03/23/16 at 23:00 Docusate Sodium (Colace) 100 mg Q12H PRN PO CONSTIPATION Last administered on 15:04; Admin Dose 100 MG; Start 03/23/16 at 23:00 Nicotine (Nicoderm 14 Mg/ 24hr) 1 patch DAILY TRANSDERM Last administered on 09:18; Admin Dose 1 PATCH; Start 03/24/16 at 09:00 Miscellaneous Information 1 ea NOTE XX ; Start 03/24/16 at 09:00 Glucose (Glutose) 15 gm Q15M PRN PO DECREASED GLUCOSE; Start 03/24/16 at 09:00 Glucose (Glutose) 22.5 gm Q15M PRN PO DECREASED GLUCOSE; Start 03/24/16 at 09:00 Dextrose (D50w Syringe) 25 ml Q15M PRN IV DECREASED GLUCOSE; Start 03/24/16 at 09:00 Dextrose (D50w Syringe) 50 ml Q15M PRN IV DECREASED GLUCOSE; Start 03/24/16 at 09:00 Glucagon (Glucagen) 1 mg Q15M PRN IM DECREASED GLUCOSE; Start 03/24/16 at 09:00 Glucose (Glutose) 15 gm Q15M PRN BUCCAL DECREASED GLUCOSE; Start 03/24/16 at 09: 00 Lorazepam (Ativan) 1 mg Q2H PRN IV AGITATION Last administered on 04/10/16 23: 39; Admin Dose 1 MG; Start 03/24/16 at 11:30 Nystatin (Nystatin Oint) 1 applic TID TOP Last administered on 04/10/16 20:37 ; Admin Dose 1 APPLIC; Start 03/27/16 at 09:00 Heparin Sodium (Porcine) (Heparin (5000 Units/0.5 ml)) 5,000 unit Q8 SC Last administered on 04/11/16 06:33; Admin Dose 5,000 UNIT; Start 03/27/16 at 14:00 Metronidazole (Flagyl) 500 mg Q8 PO Last administered on 04/11/16 06:32; Admin Dose 500 MG; Start 03/28/16 at 14:00 Zolpidem Tartrate (Ambien) 5 mg QHS PRN PO INSOMNIA Last administered on 23:32; Admin Dose 5 MG; Start 04/01/16 at 13:30 Levofloxacin (Levaquin) 750 mg DAILY@06 PO Last administered on 04/11/16 06:39 ; Admin Dose 750 MG; Start 04/03/16 at 06:00 Lactobacillus Acidophilus/ Rhamnosus (Culturelle) 1 cap BID PO Last administered on 04/11/16 09:18; Admin Dose 1 CAP; Start 04/02/16 at 12:00 Multivitamins Therapeutic (Theragran) 1 tab DAILY PO Last administered on 09:17; Admin Dose 1 TAB; Start 04/02/16 at 12:00 Insulin Glargine (Lantus) 20 unit HS SC Last administered on 04/10/16 20:46; Admin Dose 20 UNIT; Start 04/02/16 at 21:00 Acetaminophen/ Hydrocodone Bitart ([place] (10/325)) 1 tab Q3H PRN PO PAIN Last administered on 04/11/16 11:58; Admin Dose 1 TAB; Start 04/02/16 at 13:00 Famotidine (Pepcid) 20 mg DAILY PO Last administered on 04/11/16 09:18; Admin Dose 20 MG; Start 04/04/16 at 09:00 Collagenase 1 applic 1 applic DAILY TOP Last administered on 04/10/16 09:22; Admin Dose 1 APPLIC; Start 04/06/16 at 13:30 Vancomycin HCl/ Sodium Chloride (Vancocin/NS) 250 ml @ 83.333 mls/ hr Q8H IVPB Last administered on 04/11/16 06:32; Admin Dose 83.333 MLS/HR; Start at 23:00 Miscellaneous Information (*Rx Drug Level Order Reminder*) VANCOMYCIN TROUGH AT 2200 ONCE ONCE XX ; Start 04/11/16 at 22:00; Stop 04/11/16 at 22:01 IGNACIO ROSALES Apr 11, 2016 12:51
[2016-04-11] MEDS: NYSTATIN TOP SCH ×3 (13:00→21:44)
[2016-04-11] MEDS: COLLAGENASE 30 GM TUBE TOP SCH (15:03)
[2016-04-11 19:30] VITALS: BP 124/71; RESP 18
[2016-04-11] MEDS: INSULIN GLARGINE [LANtus] 3 ML PEN SC SCH (21:45)
[2016-04-11] MEDS: ZOLPIDEM 5 MG TAB PO PRN (22:14)
[2016-04-12] MEDS: HYDROCODONE/APAP (10/325) TAB PO PRN ×5 (03:00→21:04)
[2016-04-12] MEDS: metroNIDAZOLE 500 MG TAB PO SCH ×3 (05:39→21:03)
[2016-04-12] MEDS: LEVOFLOXACIN 750 MG TABLET PO SCH (05:39)
[2016-04-12] MEDS: HEPARIN 5,000 UNIT/0.5 ML SYG SC SCH ×2 (05:40→13:45)
[2016-04-12 07:29] VITALS: BP 124/64; RESP 18
[2016-04-12] MEDS: INSULIN ASPART [NOVOLOG] 3 ML PEN SC SCH ×7 (07:30→21:07)
[2016-04-12] MEDS: COLLAGENASE 30 GM TUBE TOP SCH (09:29)
[2016-04-12] MEDS: NYSTATIN TOP SCH ×3 (09:30→21:06)
[2016-04-12] MEDS: LACTOBACILLUS RHAMNOSUS CAP PO SCH ×2 (09:30→21:03)
[2016-04-12] MEDS: MULTIVITAMINS THERAPEUTIC TAB PO SCH (09:30)
[2016-04-12] MEDS: FAMOTIDINE 20 MG TAB PO SCH (09:30)
[2016-04-12] MEDS: NICOTINE (14 MG/24 HR) PATCH TRANSDERM SCH (09:31)
[2016-04-12] MEDS: SOD CHLORIDE 0.9% IVPB SCH ×2 (10:11→15:15)
[2016-04-12] MEDS: VANCOMYCIN IVPB SCH ×2 (10:11→15:15)
[2016-04-12] MEDS: LORAZEPAM 2 MG INJ IV PRN (13:43)
--- NOTE | 2016-04-12 16:33 | PN ---
Date/Time of Note Date/Time of Note DATE: 04/12/16 TIME: 16:32 Assessment/Plan VTE Prophylaxis VTE Prophylaxis Intervention: heparin Lines/Catheters IV Catheter Type (from [facility]): Peripheral IV Urinary Cath still in place: No Assessment/Plan Chief Complaint/Hosp Course 1. Right foot cellulitis/abscess with suspect osteomyelitis. Patient is status post debridement. Continue with wound care per podiatry. Continue on antibiotics per ID recommendations. Analgesics as needed. s/p podiatry intervention 04/07/16. Continue with surgeon recommendations. Nonweightbearing for now 2. Diabetic foot infection. Continue with insulin regimen. Adjust as needed 3. Medical noncompliance. Patient advised about consequences of medical noncompliance. We'll follow-up 4. History of substance abuse with methamphetamine. Patient did have positive history of methamphetamine with also admission of amphetamine use. Patient educated about cessation. 5. Morbid obese. Reduction advised 6. Corynebacterium Pseudomonas wound infection on right foot. Continue antibiotics per ID 7. History of hepatitis C. No active issue noted at this time. Patient to follow -up with this as outpatient Disposition and plan: Continue antibiotics and wound care per podiatry. Still having difficulty with placement due to patient's insurance issue as well as previous amphetamine use and need for IV antibiotic. Follow-up with case management for discharge planning. cont supportive care for now PPx- Heparin Problems: Subjective 24 Hr Interval Summary Constitutional: no complaints Exam/Review of Systems Vital Signs Vitals Vital Signs Date Time Temp Pulse Resp B/P Pulse Ox O2 Delivery O2 Flow Rate FiO2 04/12/16 07:29 98.6 86 18 124/64 100 04/08/16 08:00 Room Air Intake and Output 04/11/16 04/11/16 04/12/16 15:00 23:00 07:00 Intake Total 250 ml 1210 ml 1250 ml Balance 250 ml 1210 ml 1250 ml Exam Constitutional: alert, oriented Respiratory: clear to auscultation Cardiovascular: regular rate and rhythm Gastrointestinal: soft, No distended Musculoskeletal: No nl extremities to inspection Results Result Diagram: 04/09/16 0505 Results 24 hrs Laboratory Tests Test 04/11/16 16:51 04/11/16 20:09 04/11/16 21:55 04/12/16 08:05 Bedside Glucose 215 134 125 Vancomycin Level Trough 14.8 Test 04/12/16 11:57 Bedside Glucose 159 Medications Medications Current Medications Ondansetron HCl (Zofran Inj) 4 mg Q6H PRN IV NAUSEA AND/OR VOMITING; Start 03/23 at 23:00 Acetaminophen (Tylenol Tab) 650 mg Q6H PRN PO PAIN LEVEL 1-3 OR FEVER Last administered on 04/04/16 20:41; Admin Dose 650 MG; Start 03/23/16 at 23:00 Acetaminophen/ Hydrocodone Bitart ([place] (5/325)) 1 tab Q6H PRN PO MODERATE PAIN LEVEL 4-6 Last administered on 04/07/16 12:27; Admin Dose 1 TAB; Start 03/23/16 at 23:00 Morphine Sulfate (morphine) 2 mg Q4H PRN IV SEVERE PAIN LEVEL 7-10 Last administered on 04/04/16 02:04; Admin Dose 2 MG; Start 03/23/16 at 23:00 Docusate Sodium (Colace) 100 mg Q12H PRN PO CONSTIPATION Last administered on 15:04; Admin Dose 100 MG; Start 03/23/16 at 23:00 Nicotine (Nicoderm 14 Mg/ 24hr) 1 patch DAILY TRANSDERM Last administered on 09:31; Admin Dose 1 PATCH; Start 03/24/16 at 09:00 Miscellaneous Information 1 ea NOTE XX ; Start 03/24/16 at 09:00 Glucose (Glutose) 15 gm Q15M PRN PO DECREASED GLUCOSE; Start 03/24/16 at 09:00 Glucose (Glutose) 22.5 gm Q15M PRN PO DECREASED GLUCOSE; Start 03/24/16 at 09:00 Dextrose (D50w Syringe) 25 ml Q15M PRN IV DECREASED GLUCOSE; Start 03/24/16 at 09:00 Dextrose (D50w Syringe) 50 ml Q15M PRN IV DECREASED GLUCOSE; Start 03/24/16 at 09:00 Glucagon (Glucagen) 1 mg Q15M PRN IM DECREASED GLUCOSE; Start 03/24/16 at 09:00 Glucose (Glutose) 15 gm Q15M PRN BUCCAL DECREASED GLUCOSE; Start 03/24/16 at 09: 00 Lorazepam (Ativan) 1 mg Q2H PRN IV AGITATION Last administered on 04/12/16 13: 43; Admin Dose 1 MG; Start 03/24/16 at 11:30 Nystatin (Nystatin Oint) 1 applic TID TOP Last administered on 04/12/16 12:04 ; Admin Dose 1 APPLIC; Start 03/27/16 at 09:00 Heparin Sodium (Porcine) (Heparin (5000 Units/0.5 ml)) 5,000 unit Q8 SC Last administered on 04/12/16 13:45; Admin Dose 5,000 UNIT; Start 03/27/16 at 14:00 Metronidazole (Flagyl) 500 mg Q8 PO Last administered on 04/12/16 13:40; Admin Dose 500 MG; Start 03/28/16 at 14:00 Zolpidem Tartrate (Ambien) 5 mg QHS PRN PO INSOMNIA Last administered on 22:14; Admin Dose 5 MG; Start 04/01/16 at 13:30 Levofloxacin (Levaquin) 750 mg DAILY@06 PO Last administered on 04/12/16 05:39 ; Admin Dose 750 MG; Start 04/03/16 at 06:00 Lactobacillus Acidophilus/ Rhamnosus (Culturelle) 1 cap BID PO Last administered on 04/12/16 09:30; Admin Dose 1 CAP; Start 04/02/16 at 12:00 Multivitamins Therapeutic (Theragran) 1 tab DAILY PO Last administered on 09:30; Admin Dose 1 TAB; Start 04/02/16 at 12:00 Insulin Glargine (Lantus) 20 unit HS SC Last administered on 04/11/16 21:45; Admin Dose 20 UNIT; Start 04/02/16 at 21:00 Acetaminophen/ Hydrocodone Bitart ([place] (10/325)) 1 tab Q3H PRN PO PAIN Last administered on 04/12/16 13:43; Admin Dose 1 TAB; Start 04/02/16 at 13:00 Famotidine (Pepcid) 20 mg DAILY PO Last administered on 04/12/16 09:30; Admin Dose 20 MG; Start 04/04/16 at 09:00 Collagenase 1 applic 1 applic DAILY TOP Last administered on 04/12/16 09:29; Admin Dose 1 APPLIC; Start 04/06/16 at 13:30 Vancomycin HCl/ Sodium Chloride (Vancocin/NS) 250 ml @ 83.333 mls/ hr Q8H IVPB Last administered on 04/12/16t 15:15; Admin Dose 83.333 MLS/HR; Start at 23:00 KYLEE LAWRENCE Apr 12, 2016 16:33
[2016-04-12 20:28] VITALS: BP 116/76; RESP 19
[2016-04-12] MEDS: INSULIN GLARGINE [LANtus] 3 ML PEN SC SCH (21:08)
--- NOTE | 2016-04-12 23:45 | CONS ---
Date/Time of Note Date/Time of Note DATE: 04/12/16 TIME: 23:45 Consult Date/Type/Reason Admit Date/Time Mar 23, 2016 at 21:33 Initial Consult Date 03/24/16 Type of Consultation: ID Subjective Patient is status post amputation of right fifth toe gangrene with incision and drainage of right fifth foot abscess on April 07, 2016. Reports improvement. Denies significant pain. Denies fever chills nausea or vomiting. Objective Morbidly obese male in no acute distress. Right foot bandages were removed. Right foot is improved since his surgery. There is decrease in edema. There is decrease in erythema as well with mild tenderness to palpation. Decrease in malodor. Continues to have nonpalpable dorsalis pedis pulse secondary to the edema present. Labs reviewed. Vital Signs Date Time Temp Pulse Resp B/P Pulse Ox O2 Delivery O2 Flow Rate FiO2 04/12/16 20:28 97.8 90 19 116/76 98 04/08/16 08:00 Room Air Intake and Output 04/11/16 04/11/16 04/12/16 15:00 23:00 07:00 Intake Total 250 ml 1210 ml 1250 ml Balance 250 ml 1210 ml 1250 ml Results/Medications Result Diagram: 04/09/16 0505 Results 24 hrs Laboratory Tests Test 04/12/16 08:05 04/12/16 11:57 04/12/16 16:46 04/12/16 20:02 Bedside Glucose 125 159 122 174 Medications Current Medications Ondansetron HCl (Zofran Inj) 4 mg Q6H PRN IV NAUSEA AND/OR VOMITING; Start 03/23 at 23:00 Acetaminophen (Tylenol Tab) 650 mg Q6H PRN PO PAIN LEVEL 1-3 OR FEVER Last administered on 04/04/16 20:41; Admin Dose 650 MG; Start 03/23/16 at 23:00 Acetaminophen/ Hydrocodone Bitart ([place] (5/325)) 1 tab Q6H PRN PO MODERATE PAIN LEVEL 4-6 Last administered on 04/07/16 12:27; Admin Dose 1 TAB; Start 03/23/16 at 23:00 Morphine Sulfate (morphine) 2 mg Q4H PRN IV SEVERE PAIN LEVEL 7-10 Last administered on 04/04/16 02:04; Admin Dose 2 MG; Start 03/23/16 at 23:00 Docusate Sodium (Colace) 100 mg Q12H PRN PO CONSTIPATION Last administered on 15:04; Admin Dose 100 MG; Start 03/23/16 at 23:00 Nicotine (Nicoderm 14 Mg/ 24hr) 1 patch DAILY TRANSDERM Last administered on 09:31; Admin Dose 1 PATCH; Start 03/24/16 at 09:00 Miscellaneous Information 1 ea NOTE XX ; Start 03/24/16 at 09:00 Glucose (Glutose) 15 gm Q15M PRN PO DECREASED GLUCOSE; Start 03/24/16 at 09:00 Glucose (Glutose) 22.5 gm Q15M PRN PO DECREASED GLUCOSE; Start 03/24/16 at 09:00 Dextrose (D50w Syringe) 25 ml Q15M PRN IV DECREASED GLUCOSE; Start 03/24/16 at 09:00 Dextrose (D50w Syringe) 50 ml Q15M PRN IV DECREASED GLUCOSE; Start 03/24/16 at 09:00 Glucagon (Glucagen) 1 mg Q15M PRN IM DECREASED GLUCOSE; Start 03/24/16 at 09:00 Glucose (Glutose) 15 gm Q15M PRN BUCCAL DECREASED GLUCOSE; Start 03/24/16 at 09: 00 Lorazepam (Ativan) 1 mg Q2H PRN IV AGITATION Last administered on 04/12/16 13: 43; Admin Dose 1 MG; Start 03/24/16 at 11:30 Nystatin (Nystatin Oint) 1 applic TID TOP Last administered on 04/12/16 21:06 ; Admin Dose 1 APPLIC; Start 03/27/16 at 09:00 Metronidazole (Flagyl) 500 mg Q8 PO Last administered on 04/12/16 21:03; Admin Dose 500 MG; Start 03/28/16 at 14:00 Zolpidem Tartrate (Ambien) 5 mg QHS PRN PO INSOMNIA Last administered on 22:14; Admin Dose 5 MG; Start 04/01/16 at 13:30 Levofloxacin (Levaquin) 750 mg DAILY@06 PO Last administered on 04/12/16 05:39 ; Admin Dose 750 MG; Start 04/03/16 at 06:00 Lactobacillus Acidophilus/ Rhamnosus (Culturelle) 1 cap BID PO Last administered on 04/12/16 21:03; Admin Dose 1 CAP; Start 04/02/16 at 12:00 Multivitamins Therapeutic (Theragran) 1 tab DAILY PO Last administered on 09:30; Admin Dose 1 TAB; Start 04/02/16 at 12:00 Insulin Glargine (Lantus) 20 unit HS SC Last administered on 04/12/16 21:08; Admin Dose 20 UNIT; Start 04/02/16 at 21:00 Acetaminophen/ Hydrocodone Bitart ([place] (10/325)) 1 tab Q3H PRN PO PAIN Last administered on 04/12/16 21:04; Admin Dose 1 TAB; Start 04/02/16 at 13:00 Collagenase 1 applic 1 applic DAILY TOP Last administered on 04/12/16 09:29; Admin Dose 1 APPLIC; Start 04/06/16 at 13:30 Vancomycin HCl/ Sodium Chloride (Vancocin/NS) 250 ml @ 83.333 mls/ hr Q8H IVPB Last administered on 04/12/16 15:15; Admin Dose 83.333 MLS/HR; Start at 23:00 Enoxaparin Sodium (Lovenox) 40 mg DAILY SC ; Start 04/13/16 at 09:00 Assessment/Plan Problems: (1) Non-pressure chronic ulcer of other part of right foot with fat layer exposed (2) Acquired absence of right great toe (3) Drug abuse and dependence (4) Morbid obesity due to excess calories (5) Diabetes, polyneuropathy Additional Assessment/Plan Normal postop findings. Prognosis is guarded. At risk for limb loss. Will be followed in-house. ESTEE IBRAHIM DPM Apr 12, 2016 23:45
[2016-04-13] MEDS: SOD CHLORIDE 0.9% IVPB SCH ×4 (00:01→23:16)
[2016-04-13] MEDS: VANCOMYCIN IVPB SCH ×4 (00:01→23:16)
[2016-04-13] MEDS: HYDROCODONE/APAP (10/325) TAB PO PRN ×8 (00:01→23:16)
[2016-04-13] MEDS: ZOLPIDEM 5 MG TAB PO PRN (00:08)
[2016-04-13] MEDS: LEVOFLOXACIN 750 MG TABLET PO SCH (06:23)
[2016-04-13] MEDS: metroNIDAZOLE 500 MG TAB PO SCH ×3 (06:23→21:26)
[2016-04-13 06:43] LABS: CREATININE 0.73 mg/dl (0.61-1.24)
[2016-04-13] MEDS: INSULIN ASPART [NOVOLOG] 3 ML PEN SC SCH ×7 (07:30→20:26)
[2016-04-13 08:11] VITALS: BP 106/65; RESP 20
[2016-04-13] MEDS: LACTOBACILLUS RHAMNOSUS CAP PO SCH ×2 (08:36→20:16)
[2016-04-13] MEDS: NICOTINE (14 MG/24 HR) PATCH TRANSDERM SCH (08:36)
[2016-04-13] MEDS: COLLAGENASE 30 GM TUBE TOP SCH (08:36)
[2016-04-13] MEDS: MULTIVITAMINS THERAPEUTIC TAB PO SCH (08:36)
[2016-04-13] MEDS: NYSTATIN TOP SCH ×3 (08:37→20:24)
[2016-04-13] MEDS: ENOXAPARIN 40 MG/0.4 ML SYG SC SCH (08:39)
--- NOTE | 2016-04-13 10:51 | PN ---
Date/Time of Note Date/Time of Note DATE: 04/13/16 TIME: 10:47 Assessment/Plan VTE Prophylaxis VTE Prophylaxis Intervention: heparin Lines/Catheters IV [facility] (from [facility] Saline Lock Urinary Cath still in place: No Assessment/Plan Chief Complaint/Hosp Course ASSESSMENT AND PLAN: 36-year-old male, presumably noncompliant history of type 2 diabetes, uncontrolled, and osteomyelitis of the right foot, diagnosed in February 2016, who comes in with sepsis secondary to osteomyelitis and gas gangrene findings. 1. Right foot cellulitis/abscess with suspect osteomyelitis. Patient is status post amputation of gangrenous right fifth toe and debridement on 04/07/16. - Continue with wound care per podiatry. - Continue on antibiotics per ID recommendations (per their rec's a few days ago, needs 6 wks total of abx) - Analgesics as needed. s/p podiatry intervention - Continue with surgeon recommendations. Nonweightbearing for now (although pt appears to not be following this recommendation) 2. Diabetic foot infection. Continue with insulin regimen. Adjust as needed 3. Medical noncompliance. Patient advised about consequences of medical noncompliance. We'll follow-up 4. History of substance abuse with methamphetamine. Patient did have positive history of methamphetamine with also admission of amphetamine use. - Patient educated about cessation. 5. Morbid obese. Reduction advised 6. Corynebacterium Pseudomonas wound infection on right foot. Continue antibiotics per ID 7. History of hepatitis C. No active issue noted at this time. Patient to follow -up with this as outpatient Disposition and plan: Continue antibiotics and wound care per podiatry. Still having difficulty with placement due to patient's insurance issue as well as previous amphetamine use and need for IV antibiotic. Follow-up with case management for discharge planning. cont supportive care for now PPx- Heparin Problems: Subjective 24 Hr Interval Summary Free Text/Dictation Pt had no acute events overnight. Exam/Review of Systems Vital Signs Vitals Vital Signs Date Time Temp Pulse Resp B/P Pulse Ox O2 Delivery O2 Flow Rate FiO2 04/13/16 08:11 98.8 76 20 106/65 96 Intake and Output 04/12/16 04/12/16 04/13/16 15:00 23:00 07:00 Intake Total 250.00 ml 1126.66 ml 730 ml Balance 250.00 ml 1126.66 ml 730 ml Exam Constitutional: alert, oriented Respiratory: clear to auscultation Cardiovascular: regular rate and rhythm Gastrointestinal: soft, No distended Musculoskeletal: No nl extremities to inspection Results Result Diagram: 04/13/16 0515 Results 24 hrs Laboratory Tests Test 04/12/16 11:57 04/12/16 16:46 04/12/16 20:02 04/13/16 05:15 Bedside Glucose 159 122 174 Blood Urea Nitrogen 19 Creatinine 0.73 Test 04/13/16 07:57 Bedside Glucose 108 Medications Medications Current Medications Ondansetron HCl (Zofran Inj) 4 mg Q6H PRN IV NAUSEA AND/OR VOMITING; Start 03/23 at 23:00 Acetaminophen (Tylenol Tab) 650 mg Q6H PRN PO PAIN LEVEL 1-3 OR FEVER Last administered on 04/04/16 20:41; Admin Dose 650 MG; Start 03/23/16 at 23:00 Acetaminophen/ Hydrocodone Bitart ([place] (5/325)) 1 tab Q6H PRN PO MODERATE PAIN LEVEL 4-6 Last administered on 04/07/16 12:27; Admin Dose 1 TAB; Start 03/23/16 at 23:00 Morphine Sulfate (morphine) 2 mg Q4H PRN IV SEVERE PAIN LEVEL 7-10 Last administered on 04/04/16 02:04; Admin Dose 2 MG; Start 03/23/16 at 23:00 Docusate Sodium (Colace) 100 mg Q12H PRN PO CONSTIPATION Last administered on 15:04; Admin Dose 100 MG; Start 03/23/16 at 23:00 Nicotine (Nicoderm 14 Mg/ 24hr) 1 patch DAILY TRANSDERM Last administered on 08:36; Admin Dose 1 PATCH; Start 03/24/16 at 09:00 Miscellaneous Information 1 ea NOTE XX ; Start 03/24/16 at 09:00 Glucose (Glutose) 15 gm Q15M PRN PO DECREASED GLUCOSE; Start 03/24/16 at 09:00 Glucose (Glutose) 22.5 gm Q15M PRN PO DECREASED GLUCOSE; Start 03/24/16 at 09:00 Dextrose (D50w Syringe) 25 ml Q15M PRN IV DECREASED GLUCOSE; Start 03/24/16 at 09:00 Dextrose (D50w Syringe) 50 ml Q15M PRN IV DECREASED GLUCOSE; Start 03/24/16 at 09:00 Glucagon (Glucagen) 1 mg Q15M PRN IM DECREASED GLUCOSE; Start 03/24/16 at 09:00 Glucose (Glutose) 15 gm Q15M PRN BUCCAL DECREASED GLUCOSE; Start 03/24/16 at 09: 00 Lorazepam (Ativan) 1 mg Q2H PRN IV AGITATION Last administered on 04/12/16 13: 43; Admin Dose 1 MG; Start 03/24/16 at 11:30 Nystatin (Nystatin Oint) 1 applic TID TOP Last administered on 04/13/16 08:37 ; Admin Dose 1 APPLIC; Start 03/27/16 at 09:00 Metronidazole (Flagyl) 500 mg Q8 PO Last administered on 04/13/16 06:23; Admin Dose 500 MG; Start 03/28/16 at 14:00 Zolpidem Tartrate (Ambien) 5 mg QHS PRN PO INSOMNIA Last administered on 00:08; Admin Dose 5 MG; Start 04/01/16 at 13:30 Levofloxacin (Levaquin) 750 mg DAILY@06 PO Last administered on 04/13/16 06:23 ; Admin Dose 750 MG; Start 04/03/16 at 06:00 Lactobacillus Acidophilus/ Rhamnosus (Culturelle) 1 cap BID PO Last administered on 04/13/16 08:36; Admin Dose 1 CAP; Start 04/02/16 at 12:00 Multivitamins Therapeutic (Theragran) 1 tab DAILY PO Last administered on 08:36; Admin Dose 1 TAB; Start 04/02/16 at 12:00 Insulin Glargine (Lantus) 20 unit HS SC Last administered on 04/12/16 21:08; Admin Dose 20 UNIT; Start 04/02/16 at 21:00 Acetaminophen/ Hydrocodone Bitart ([place] (10325)) 1 tab Q3H PRN PO PAIN Last administered on 04/13/16 09:48; Admin Dose 1 TAB; Start 04/02/16 at 13:00 Collagenase 1 applic 1 applic DAILY TOP Last administered on 04/12/16 09:29; Admin Dose 1 APPLIC; Start 04/06/16 at 13:30 Vancomycin HCl/ Sodium Chloride (Vancocin/NS) 250 ml @ 83.333 mls/ hr Q8H IVPB Last administered on 04/13/16 06:26; Admin Dose 83.333 MLS/HR; Start at 23:00 Enoxaparin Sodium (Lovenox) 40 mg DAILY SC Last administered on 04/13/16 08:39 ; Admin Dose 40 MG; Start 04/13/16 at 09:00 AYAAN YAO Apr 13, 2016 10:51
[2016-04-13] MEDS: INSULIN GLARGINE [LANtus] 3 ML PEN SC SCH (20:18)
[2016-04-13 20:47] VITALS: BP 124/84; RESP 20
[2016-04-14] MEDS: ZOLPIDEM 5 MG TAB PO PRN (01:01)
[2016-04-14] MEDS: LEVOFLOXACIN 750 MG TABLET PO SCH (05:00)
[2016-04-14] MEDS: HYDROCODONE/APAP (10/325) TAB PO PRN ×3 (05:00→20:36)
[2016-04-14] MEDS: metroNIDAZOLE 500 MG TAB PO SCH ×3 (05:00→22:09)
[2016-04-14] MEDS: SOD CHLORIDE 0.9% IVPB SCH ×3 (06:13→23:24)
[2016-04-14] MEDS: VANCOMYCIN IVPB SCH ×3 (06:13→23:24)
[2016-04-14] MEDS: INSULIN ASPART [NOVOLOG] 3 ML PEN SC SCH ×7 (07:30→20:35)
[2016-04-14] MEDS: NICOTINE (14 MG/24 HR) PATCH TRANSDERM SCH (08:12)
[2016-04-14] MEDS: MULTIVITAMINS THERAPEUTIC TAB PO SCH (08:12)
[2016-04-14] MEDS: NYSTATIN TOP SCH ×3 (08:12→20:37)
[2016-04-14] MEDS: LACTOBACILLUS RHAMNOSUS CAP PO SCH ×2 (08:13→20:31)
[2016-04-14] MEDS: COLLAGENASE 30 GM TUBE TOP SCH (08:14)
[2016-04-14] MEDS: ENOXAPARIN 40 MG/0.4 ML SYG SC SCH (08:16)
[2016-04-14 08:23] VITALS: BP 130/79; RESP 20
--- NOTE | 2016-04-14 11:22 | PN ---
Date/Time of Note Date/Time of Note DATE: 04/14/16 TIME: 11:20 Assessment/Plan VTE Prophylaxis VTE Prophylaxis Intervention: other Lines/Catheters [facility]from [facility] Saline Lock Urinary Cath still in place: No Assessment/Plan Problems: (1) Drug abuse and dependence Status: Chronic Comment: Patient reports he wants to go to sober living after he is done with the medical rehabilitation. Please note is my impression that at least at this point in time despite being reportedly 13 days clean and sober that he is not in a position to quit. (2) Osteomyelitis Status: Acute Comment: As per Dr. Cuellar. He will need long-term antibiotics. If this fails he is going to end up with an amputation the patient knows this and actually reiterates this to me Qualifiers: Osteomyelitis location: foot Laterality: right Chronicity: acute Qualified Code: M86.171 - Acute osteomyelitis of right foot (3) Gas gangrene of foot Status: Chronic Comment: Noted (4) Diabetes, polyneuropathy Status: Chronic Comment: Adequate glycemic control. Qualifiers: Diabetes mellitus type: type 2 Qualified Code: E11.42 - Diabetic polyneuropathy associated with type 2 diabetes mellitus Subjective 24 Hr Interval Summary Free Text/Dictation Patient extremely animated with push of speech Respiratory: no complaints Cardiovascular: no complaints Gastrointestinal: no complaints Genitourinary: no complaints Exam/Review of Systems Vital Signs Vitals Vital Signs Date Time Temp Pulse Resp B/P Pulse Ox O2 Delivery O2 Flow Rate FiO2 04/14/16 08:23 97.8 89 20 130/79 98 Intake and Output 04/13/16 04/13/16 04/14/16 15:00 23:00 07:00 Intake Total 1500 ml 1050 ml Balance 1500 ml 1050 ml Exam Constitutional: alert, oriented Respiratory: clear to auscultation, normal air movement Results Result Diagram: 04/13/16 0515 Results 24 hrs Laboratory Tests Test 04/13/16 12:10 04/13/16 16:52 04/13/16 19:37 04/14/16 07:38 Bedside Glucose 101 106 143 112 Medications Medications Current Medications Ondansetron HCl (Zofran Inj) 4 mg Q6H PRN IV NAUSEA AND/OR VOMITING; Start 03/23 at 23:00 Acetaminophen (Tylenol Tab) 650 mg Q6H PRN PO PAIN LEVEL 1-3 OR FEVER Last administered on 04/04/16 20:41; Admin Dose 650 MG; Start 03/23/16 at 23:00 Acetaminophen/ Hydrocodone Bitart ([place] (5/325)) 1 tab Q6H PRN PO MODERATE PAIN LEVEL 4-6 Last administered on 04/07/16 12:27; Admin Dose 1 TAB; Start 03/23/16 at 23:00 Morphine Sulfate (morphine) 2 mg Q4H PRN IV SEVERE PAIN LEVEL 7-10 Last administered on 04/04/16 02:04; Admin Dose 2 MG; Start 03/23/16 at 23:00 Docusate Sodium (Colace) 100 mg Q12H PRN PO CONSTIPATION Last administered on 15:04; Admin Dose 100 MG; Start 03/23/16 at 23:00 Nicotine (Nicoderm 14 Mg/ 24hr) 1 patch DAILY TRANSDERM Last administered on 08:12; Admin Dose 1 PATCH; Start 03/24/16 at 09:00 Miscellaneous Information 1 ea NOTE XX ; Start 03/24/16 at 09:00 Glucose (Glutose) 15 gm Q15M PRN PO DECREASED GLUCOSE; Start 03/24/16 at 09:00 Glucose (Glutose) 22.5 gm Q15M PRN PO DECREASED GLUCOSE; Start 03/24/16 at 09:00 Dextrose (D50w Syringe) 25 ml Q15M PRN IV DECREASED GLUCOSE; Start 03/24/16 at 09:00 Dextrose (D50w Syringe) 50 ml Q15M PRN IV DECREASED GLUCOSE; Start 03/24/16 at 09:00 Glucagon (Glucagen) 1 mg Q15M PRN IM DECREASED GLUCOSE; Start 03/24/16 at 09:00 Glucose (Glutose) 15 gm Q15M PRN BUCCAL DECREASED GLUCOSE; Start 03/24/16 at 09: 00 Lorazepam (Ativan) 1 mg Q2H PRN IV AGITATION Last administered on 04/12/16 13: 43; Admin Dose 1 MG; Start 03/24/16 at 11:30 Nystatin (Nystatin Oint) 1 applic TID TOP Last administered on 04/14/16 08:12 ; Admin Dose 1 APPLIC; Start 03/27/16 at 09:00 Metronidazole (Flagyl) 500 mg Q8 PO Last administered on 04/14/16 05:00; Admin Dose 500 MG; Start 03/28/16 at 14:00 Zolpidem Tartrate (Ambien) 5 mg QHS PRN PO INSOMNIA Last administered on 01:01; Admin Dose 5 MG; Start 04/01/16 at 13:30 Levofloxacin (Levaquin) 750 mg DAILY@06 PO Last administered on 04/14/16 05:00 ; Admin Dose 750 MG; Start 04/03/16 at 06:00 Lactobacillus Acidophilus/ Rhamnosus (Culturelle) 1 cap BID PO Last administered on 04/14/16 08:13; Admin Dose 1 CAP; Start 04/02/16 at 12:00 Multivitamins Therapeutic (Theragran) 1 tab DAILY PO Last administered on 08:12; Admin Dose 1 TAB; Start 04/02/16 at 12:00 Insulin Glargine (Lantus) 20 unit HS SC Last administered on 04/13/16 20:18; Admin Dose 20 UNIT; Start 04/02/16 at 21:00 Acetaminophen/ Hydrocodone Bitart ([place] (10/325)) 1 tab Q3H PRN PO PAIN Last administered on 04/14/16 05:00; Admin Dose 1 TAB; Start 04/02/16 at 13:00 Collagenase 1 applic 1 applic DAILY TOP Last administered on 04/14/16 08:14; Admin Dose 1 APPLIC; Start 04/06/16 at 13:30 Vancomycin HCl/ Sodium Chloride (Vancocin/NS) 250 ml @ 83.333 mls/ hr Q8H IVPB Last administered on 04/14/16 06:13; Admin Dose 83.333 MLS/HR; Start at 23:00 Enoxaparin Sodium (Lovenox) 40 mg DAILY SC Last administered on 04/14/16 08:16 ; Admin Dose 40 MG; Start 04/13/16 at 09:00 SLIME ORTEGA MD Apr 14, 2016 11:22
[2016-04-14 20:30] VITALS: BP 127/59; RESP 18
[2016-04-14] MEDS: INSULIN GLARGINE [LANtus] 3 ML PEN SC SCH (20:34)
[2016-04-15] MEDS: HYDROCODONE/APAP (10/325) TAB PO PRN ×5 (02:36→20:17)
[2016-04-15] MEDS: LORAZEPAM 2 MG INJ IV PRN (03:32)
[2016-04-15] MEDS: metroNIDAZOLE 500 MG TAB PO SCH ×3 (05:07→21:30)
[2016-04-15] MEDS: LEVOFLOXACIN 750 MG TABLET PO SCH (05:07)
[2016-04-15] MEDS: SOD CHLORIDE 0.9% IVPB SCH ×3 (06:04→22:38)
[2016-04-15] MEDS: VANCOMYCIN IVPB SCH ×3 (06:04→22:38)
[2016-04-15] MEDS: INSULIN ASPART [NOVOLOG] 3 ML PEN SC SCH ×7 (07:30→20:19)
[2016-04-15 07:53] VITALS: BP 121/69; RESP 16
[2016-04-15] MEDS: LACTOBACILLUS RHAMNOSUS CAP PO SCH ×2 (09:13→20:18)
[2016-04-15] MEDS: MULTIVITAMINS THERAPEUTIC TAB PO SCH (09:13)
[2016-04-15] MEDS: ENOXAPARIN 40 MG/0.4 ML SYG SC SCH (09:14)
[2016-04-15] MEDS: NYSTATIN TOP SCH ×3 (09:15→20:23)
[2016-04-15] MEDS: NICOTINE (14 MG/24 HR) PATCH TRANSDERM SCH (09:15)
[2016-04-15] MEDS: COLLAGENASE 30 GM TUBE TOP SCH (09:15)
--- NOTE | 2016-04-15 11:00 | PN ---
Date/Time of Note Date/Time of Note DATE: 04/15/16 TIME: 10:56 Assessment/Plan VTE Prophylaxis VTE Prophylaxis Intervention: LMWH Lines/Catheters [facility] Urinary Cath still in place: No Assessment/Plan Problems: (1) Diabetes, polyneuropathy Status: Chronic Comment: He is doing relatively well regarding his diabetes with excellent glycemic control. His peripheral neuropathy remains an issue however he is in a safe situation present. Qualifiers: Diabetes mellitus type: type 2 Qualified Code: E11.42 - Diabetic polyneuropathy associated with type 2 diabetes mellitus (2) Gas gangrene of foot Status: Chronic Comment: Is status post I&D. He will need long-term antibiotics. As we cannot get the oral Zyvox due to insurance issues as forces us to use IV. He can go out with an IV because of his history of drug abuse and our belief that he would use the IV access for administration of drugs. Therefore we are looking for an ECF or were going to be forced to keep him (3) Drug abuse and dependence Status: Chronic Comment: The patient says all of the right things and is working on this although at this time he still at a critical juncture regarding successful sobriety (4) Osteomyelitis Status: Acute Comment: On IV antibiotics Qualifiers: Osteomyelitis location: foot Laterality: right Chronicity: acute Qualified Code: M86.171 - Acute osteomyelitis of right foot (5) Foot osteomyelitis, right Status: Acute Comment: On IV antibiotics (6) Foot abscess, right Comment: Status post IND Subjective 24 Hr Interval Summary Free Text/Dictation Patient at times ambulating but presently sitting in a wheelchair in the hallway meditating Constitutional: no complaints (Denies fever chills or sweats) Respiratory: no complaints (Generalized shortness of breath or dyspnea or chest pain) Cardiovascular: no complaints (No chest pain palpitations) Gastrointestinal: no complaints (No nausea vomiting) Exam/Review of Systems Vital Signs Vitals Vital Signs Date Time Temp Pulse Resp B/P Pulse Ox O2 Delivery O2 Flow Rate FiO2 04/15/16 07:53 98.0 78 16 121/69 91 Intake and Output 04/14/16 04/14/16 04/15/16 15:00 23:00 07:00 Intake Total 250 ml 1450 ml 1290 ml Balance 250 ml 1450 ml 1290 ml Exam Constitutional: alert, oriented Respiratory: clear to auscultation, normal air movement Cardiovascular: nl pulses, regular rate and rhythm Gastrointestinal: nl liver, spleen, non-tender, soft Results Result Diagram: 04/13/16 0515 Results 24 hrs Laboratory Tests Test 04/14/16 11:33 04/14/16 16:27 04/14/16 19:43 04/14/16 22:03 Bedside Glucose 125 126 166 Vancomycin Level Trough 13.3 Test 04/15/16 07:45 Bedside Glucose 110 Medications Medications Current Medications Ondansetron HCl (Zofran Inj) 4 mg Q6H PRN IV NAUSEA AND/OR VOMITING; Start 03/23 at 23:00 Acetaminophen (Tylenol Tab) 650 mg Q6H PRN PO PAIN LEVEL 1-3 OR FEVER Last administered on 04/04/16 20:41; Admin Dose 650 MG; Start 03/23/16 at 23:00 Acetaminophen/ Hydrocodone Bitart ([place] (5/325)) 1 tab Q6H PRN PO MODERATE PAIN LEVEL 4-6 Last administered on 04/07/16 12:27; Admin Dose 1 TAB; Start 03/23/16 at 23:00 Morphine Sulfate (morphine) 2 mg Q4H PRN IV SEVERE PAIN LEVEL 7-10 Last administered on 04/04/16 02:04; Admin Dose 2 MG; Start 03/23/16 at 23:00 Docusate Sodium (Colace) 100 mg Q12H PRN PO CONSTIPATION Last administered on 15:04; Admin Dose 100 MG; Start 03/23/16 at 23:00 Nicotine (Nicoderm 14 Mg/ 24hr) 1 patch DAILY TRANSDERM Last administered on 09:15; Admin Dose 1 PATCH; Start 03/24/16 at 09:00 Miscellaneous Information 1 ea NOTE XX ; Start 03/24/16 at 09:00 Glucose (Glutose) 15 gm Q15M PRN PO DECREASED GLUCOSE; Start 03/24/16 at 09:00 Glucose (Glutose) 22.5 gm Q15M PRN PO DECREASED GLUCOSE; Start 03/24/16 at 09:00 Dextrose (D50w Syringe) 25 ml Q15M PRN IV DECREASED GLUCOSE; Start 03/24/16 at 09:00 Dextrose (D50w Syringe) 50 ml Q15M PRN IV DECREASED GLUCOSE; Start 03/24/16 at 09:00 Glucagon (Glucagen) 1 mg Q15M PRN IM DECREASED GLUCOSE; Start 03/24/16 at 09:00 Glucose (Glutose) 15 gm Q15M PRN BUCCAL DECREASED GLUCOSE; Start 03/24/16 at 09: 00 Lorazepam (Ativan) 1 mg Q2H PRN IV AGITATION Last administered on 04/15/16 03: 32; Admin Dose 1 MG; Start 03/24/16 at 11:30 Nystatin (Nystatin Oint) 1 applic TID TOP Last administered on 04/15/16 09:15 ; Admin Dose 1 APPLIC; Start 03/27/16 at 09:00 Metronidazole (Flagyl) 500 mg Q8 PO Last administered on 04/15/16 05:07; Admin Dose 500 MG; Start 03/28/16 at 14:00 Zolpidem Tartrate (Ambien) 5 mg QHS PRN PO INSOMNIA Last administered on 01:01; Admin Dose 5 MG; Start 04/01/16 at 13:30 Levofloxacin (Levaquin) 750 mg DAILY@06 PO Last administered on 04/15/16 05:07 ; Admin Dose 750 MG; Start 04/03/16 at 06:00 Lactobacillus Acidophilus/ Rhamnosus (Culturelle) 1 cap BID PO Last administered on 04/15/16 09:13; Admin Dose 1 CAP; Start 04/02/16 at 12:00 Multivitamins Therapeutic (Theragran) 1 tab DAILY PO Last administered on 09:13; Admin Dose 1 TAB; Start 04/02/16 at 12:00 Insulin Glargine (Lantus) 20 unit HS SC Last administered on 04/14/16 20:34; Admin Dose 20 UNIT; Start 04/02/16 at 21:00 Acetaminophen/ Hydrocodone Bitart ([place] (10/325)) 1 tab Q3H PRN PO PAIN Last administered on 04/15/16 09:22; Admin Dose 1 TAB; Start 04/02/16 at 13:00 Collagenase 1 applic 1 applic DAILY TOP Last administered on 04/15/16 09:15; Admin Dose 1 APPLIC; Start 04/06/16 at 13:30 Vancomycin HCl/ Sodium Chloride (Vancocin/NS) 250 ml @ 83.333 mls/ hr Q8H IVPB Last administered on 04/15/16 06:04; Admin Dose 83.333 MLS/HR; Start at 23:00 Enoxaparin Sodium (Lovenox) 40 mg DAILY SC Last administered on 04/15/16 09:14 ; Admin Dose 40 MG; Start 04/13/16 at 09:00 SLIME ORTEGA MD Apr 15, 2016 11:00
[2016-04-15] MEDS: INSULIN GLARGINE [LANtus] 3 ML PEN SC SCH (20:19)
[2016-04-15 20:34] VITALS: BP 117/72; RESP 18
[2016-04-16] MEDS: ACETAMINOPHEN 325 MG TAB PO PRN ×2 (01:46→07:59)
[2016-04-16] MEDS: LEVOFLOXACIN 750 MG TABLET PO SCH (06:13)
[2016-04-16] MEDS: metroNIDAZOLE 500 MG TAB PO SCH ×3 (06:13→21:10)
[2016-04-16] MEDS: VANCOMYCIN IVPB SCH ×3 (06:14→23:52)
[2016-04-16] MEDS: SOD CHLORIDE 0.9% IVPB SCH ×3 (06:14→23:52)
[2016-04-16 07:48] VITALS: BP 132/77; RESP 18
[2016-04-16] MEDS: LACTOBACILLUS RHAMNOSUS CAP PO SCH ×2 (08:01→21:10)
[2016-04-16] MEDS: NICOTINE (14 MG/24 HR) PATCH TRANSDERM SCH (08:01)
[2016-04-16] MEDS: MULTIVITAMINS THERAPEUTIC TAB PO SCH (08:01)
[2016-04-16] MEDS: ENOXAPARIN 40 MG/0.4 ML SYG SC SCH (08:02)
[2016-04-16] MEDS: INSULIN ASPART [NOVOLOG] 3 ML PEN SC SCH ×7 (08:03→21:00)
[2016-04-16] MEDS: NYSTATIN TOP SCH ×3 (08:07→21:14)
[2016-04-16] MEDS: COLLAGENASE 30 GM TUBE TOP SCH (08:07)
--- NOTE | 2016-04-16 14:33 | PN ---
Date/Time of Note Date/Time of Note DATE: 04/16/16 TIME: 14:32 Assessment/Plan VTE Prophylaxis VTE Prophylaxis Intervention: heparin Lines/Catheters [facility] Saline Lock Urinary Cath still in place: No Assessment/Plan Chief Complaint/Hosp Course 1. Right foot cellulitis/abscess with suspect osteomyelitis. Patient is status post debridement. Continue with wound care per podiatry. Continue on antibiotics per ID recommendations. Analgesics as needed. s/p podiatry intervention 04/07/16. Continue with surgeon recommendations. Nonweightbearing for now 2. Diabetic foot infection. Continue with insulin regimen. Adjust as needed 3. Medical noncompliance. Patient advised about consequences of medical noncompliance. We'll follow-up 4. History of substance abuse with methamphetamine. Patient did have positive history of methamphetamine with also admission of amphetamine use. Patient educated about cessation. 5. Morbid obese. Reduction advised 6. Corynebacterium Pseudomonas wound infection on right foot. Continue antibiotics per ID 7. History of hepatitis C. No active issue noted at this time. Patient to follow -up with this as outpatient Disposition and plan: Continue antibiotics and wound care per podiatry. Still having difficulty with placement due to patient's insurance issue as well as previous amphetamine use and need for IV antibiotic. Follow-up with case management for discharge planning. cont supportive care for now PPx- Heparin Problems: Subjective 24 Hr Interval Summary Constitutional: no complaints Exam/Review of Systems Vital Signs Vitals Vital Signs Date Time Temp Pulse Resp B/P Pulse Ox O2 Delivery O2 Flow Rate FiO2 04/16/16 07:48 98.0 96 18 132/77 97 Intake and Output 04/15/16 04/15/16 04/16/16 15:00 23:00 07:00 Intake Total 2420 ml 1250 ml Balance 2420 ml 1250 ml Exam Constitutional: alert, oriented Respiratory: clear to auscultation Cardiovascular: regular rate and rhythm Gastrointestinal: soft, No distended Musculoskeletal: No nl extremities to inspection Results Result Diagram: 04/13/16 0515 Results 24 hrs Laboratory Tests Test 04/15/16 17:03 04/15/16 20:13 04/16/16 01:36 04/16/16 07:50 Bedside Glucose 112 172 140 147 Test 04/16/16 11:54 Bedside Glucose 121 Medications Medications Current Medications Ondansetron HCl (Zofran Inj) 4 mg Q6H PRN IV NAUSEA AND/OR VOMITING; Start 03/23 at 23:00 Acetaminophen (Tylenol Tab) 650 mg Q6H PRN PO PAIN LEVEL 1-3 OR FEVER Last administered on 04/16/16 07:59; Admin Dose 650 MG; Start 03/23/16 at 23:00 Acetaminophen/ Hydrocodone Bitart ([place] (5/325)) 1 tab Q6H PRN PO MODERATE PAIN LEVEL 4-6 Last administered on 04/07/16 12:27; Admin Dose 1 TAB; Start 03/23/16 at 23:00 Morphine Sulfate (morphine) 2 mg Q4H PRN IV SEVERE PAIN LEVEL 7-10 Last administered on 04/04/16 02:04; Admin Dose 2 MG; Start 03/23/16 at 23:00 Docusate Sodium (Colace) 100 mg Q12H PRN PO CONSTIPATION Last administered on 15:04; Admin Dose 100 MG; Start 03/23/16 at 23:00 Nicotine (Nicoderm 14 Mg/ 24hr) 1 patch DAILY TRANSDERM Last administered on 08:01; Admin Dose 1 PATCH; Start 03/24/16 at 09:00 Miscellaneous Information 1 ea NOTE XX ; Start 03/24/16 at 09:00 Glucose (Glutose) 15 gm Q15M PRN PO DECREASED GLUCOSE; Start 03/24/16 at 09:00 Glucose (Glutose) 22.5 gm Q15M PRN PO DECREASED GLUCOSE; Start 03/24/16 at 09:00 Dextrose (D50w Syringe) 25 ml Q15M PRN IV DECREASED GLUCOSE; Start 03/24/16 at 09:00 Dextrose (D50w Syringe) 50 ml Q15M PRN IV DECREASED GLUCOSE; Start 03/24/16 at 09:00 Glucagon (Glucagen) 1 mg Q15M PRN IM DECREASED GLUCOSE; Start 03/24/16 at 09:00 Glucose (Glutose) 15 gm Q15M PRN BUCCAL DECREASED GLUCOSE; Start 03/24/16 at 09: 00 Lorazepam (Ativan) 1 mg Q2H PRN IV AGITATION Last administered on 04/15/16 03: 32; Admin Dose 1 MG; Start 03/24/16 at 11:30 Nystatin (Nystatin Oint) 1 applic TID TOP Last administered on 04/16/16 12:17 ; Admin Dose 1 APPLIC; Start 03/27/16 at 09:00 Metronidazole (Flagyl) 500 mg Q8 PO Last administered on 04/16/16 06:13; Admin Dose 500 MG; Start 03/28/16 at 14:00 Zolpidem Tartrate (Ambien) 5 mg QHS PRN PO INSOMNIA Last administered on 01:01; Admin Dose 5 MG; Start 04/01/16 at 13:30 Levofloxacin (Levaquin) 750 mg DAILY@06 PO Last administered on 04/16/16 06:13 ; Admin Dose 750 MG; Start 04/03/16 at 06:00 Lactobacillus Acidophilus/ Rhamnosus (Culturelle) 1 cap BID PO Last administered on 04/16/16 08:01; Admin Dose 1 CAP; Start 04/02/16 at 12:00 Multivitamins Therapeutic (Theragran) 1 tab DAILY PO Last administered on 08:01; Admin Dose 1 TAB; Start 04/02/16 at 12:00 Insulin Glargine (Lantus) 20 unit HS SC Last administered on 04/15/16 20:19; Admin Dose 20 UNIT; Start 04/02/16 at 21:00 Acetaminophen/ Hydrocodone Bitart ([place] (10/325)) 1 tab Q3H PRN PO PAIN Last administered on 04/15/16 20:17; Admin Dose 1 TAB; Start 04/02/16 at 13:00 Collagenase 1 applic 1 applic DAILY TOP Last administered on 04/16/16 08:07; Admin Dose 1 APPLIC; Start 04/06/16 at 13:30 Vancomycin HCl/ Sodium Chloride (Vancocin/NS) 250 ml @ 83.333 mls/ hr Q8H IVPB Last administered on 04/16/16 06:14; Admin Dose 83.333 MLS/HR; Start at 23:00 Enoxaparin Sodium (Lovenox) 40 mg DAILY SC Last administered on 04/16/16 08:02 ; Admin Dose 40 MG; Start 04/13/16 at 09:00 KYLEE LAWRENCE Apr 16, 2016 14:33
[2016-04-16] MEDS: KETOROLAC 15 MG INJ IV PRN ×2 (15:22→21:46)
[2016-04-16 20:44] VITALS: BP 139/78; RESP 18
[2016-04-16] MEDS: ZOLPIDEM 5 MG TAB PO PRN (21:11)
[2016-04-16] MEDS: INSULIN GLARGINE [LANtus] 3 ML PEN SC SCH (21:11)
[2016-04-17] MEDS: metroNIDAZOLE 500 MG TAB PO SCH ×3 (05:22→22:49)
[2016-04-17] MEDS: LEVOFLOXACIN 750 MG TABLET PO SCH (05:22)
[2016-04-17] MEDS: SOD CHLORIDE 0.9% IVPB SCH ×3 (05:24→22:49)
[2016-04-17] MEDS: VANCOMYCIN IVPB SCH ×3 (05:24→22:49)
[2016-04-17] MEDS: KETOROLAC 15 MG INJ IV PRN ×3 (05:24→18:59)
[2016-04-17 06:11] LABS: CREATININE 0.74 mg/dl (0.61-1.24)
[2016-04-17] MEDS: INSULIN ASPART [NOVOLOG] 3 ML PEN SC SCH ×7 (07:30→20:34)
[2016-04-17] MEDS: MULTIVITAMINS THERAPEUTIC TAB PO SCH (08:09)
[2016-04-17] MEDS: LACTOBACILLUS RHAMNOSUS CAP PO SCH ×2 (08:09→20:32)
[2016-04-17] MEDS: ENOXAPARIN 40 MG/0.4 ML SYG SC SCH (08:11)
[2016-04-17] MEDS: NICOTINE (14 MG/24 HR) PATCH TRANSDERM SCH (08:11)
[2016-04-17] MEDS: NYSTATIN TOP SCH ×3 (08:16→20:34)
[2016-04-17 08:28] VITALS: BP 127/58; RESP 18
[2016-04-17] MEDS: COLLAGENASE 30 GM TUBE TOP SCH (12:07)
--- NOTE | 2016-04-17 15:06 | PN ---
Date/Time of Note Date/Time of Note DATE: 04/17/16 TIME: 15:06 Assessment/Plan VTE Prophylaxis VTE Prophylaxis Intervention: heparin Lines/Catheters IV C[facility] Type [facility] Saline Lock Urinary Cath still in place: No Assessment/Plan Chief Complaint/Hosp Course 1. Right foot cellulitis/abscess with suspect osteomyelitis. Patient is status post debridement. Continue with wound care per podiatry. Continue on antibiotics per ID recommendations. Analgesics as needed. s/p podiatry intervention 04/07/16. Continue with surgeon recommendations. Nonweightbearing for now 2. Diabetic foot infection. Continue with insulin regimen. Adjust as needed 3. Medical noncompliance. Patient advised about consequences of medical noncompliance. We'll follow-up 4. History of substance abuse with methamphetamine. Patient did have positive history of methamphetamine with also admission of amphetamine use. Patient educated about cessation. 5. Morbid obese. Reduction advised 6. Corynebacterium Pseudomonas wound infection on right foot. Continue antibiotics per ID 7. History of hepatitis C. No active issue noted at this time. Patient to follow -up with this as outpatient Disposition and plan: Continue antibiotics and wound care per podiatry. Still having difficulty with placement due to patient's insurance issue as well as previous amphetamine use and need for IV antibiotic. Follow-up with case management for discharge planning. cont supportive care for now PPx- Heparin Problems: Subjective 24 Hr Interval Summary Constitutional: no complaints Exam/Review of Systems Vital Signs Vitals Vital Signs Date Time Temp Pulse Resp B/P Pulse Ox O2 Delivery O2 Flow Rate FiO2 04/17/16 08:28 97.0 80 18 127/58 97 Intake and Output 04/16/16 04/16/16 04/17/16 15:00 23:00 07:00 Intake Total 2330 ml 1450 ml Balance 2330 ml 1450 ml Exam Constitutional: alert, oriented Respiratory: clear to auscultation Cardiovascular: regular rate and rhythm Gastrointestinal: soft, No distended Musculoskeletal: No nl extremities to inspection Results Result Diagram: 04/17/16 0534 Results 24 hrs Laboratory Tests Test 04/16/16 16:26 04/16/16 21:00 04/17/16 05:34 04/17/16 08:06 Bedside Glucose 130 155 136 Blood Urea Nitrogen 24 H Creatinine 0.74 Test 04/17/16 12:05 Bedside Glucose 137 Medications Medications Current Medications Ondansetron HCl (Zofran Inj) 4 mg Q6H PRN IV NAUSEA AND/OR VOMITING; Start 03/23 at 23:00 Acetaminophen (Tylenol Tab) 650 mg Q6H PRN PO PAIN LEVEL 1-3 OR FEVER Last administered on 04/16/16 07:59; Admin Dose 650 MG; Start 03/23/16 at 23:00 Docusate Sodium (Colace) 100 mg Q12H PRN PO CONSTIPATION Last administered on 15:04; Admin Dose 100 MG; Start 03/23/16 at 23:00 Nicotine (Nicoderm 14 Mg/ 24hr) 1 patch DAILY TRANSDERM Last administered on 08:11; Admin Dose 1 PATCH; Start 03/24/16 at 09:00 Miscellaneous Information 1 ea NOTE XX ; Start 03/24/16 at 09:00 Glucose (Glutose) 15 gm Q15M PRN PO DECREASED GLUCOSE; Start 03/24/16 at 09:00 Glucose (Glutose) 22.5 gm Q15M PRN PO DECREASED GLUCOSE; Start 03/24/16 at 09:00 Dextrose (D50w Syringe) 25 ml Q15M PRN IV DECREASED GLUCOSE; Start 03/24/16 at 09:00 Dextrose (D50w Syringe) 50 ml Q15M PRN IV DECREASED GLUCOSE; Start 03/24/16 at 09:00 Glucagon (Glucagen) 1 mg Q15M PRN IM DECREASED GLUCOSE; Start 03/24/16 at 09:00 Glucose (Glutose) 15 gm Q15M PRN BUCCAL DECREASED GLUCOSE; Start 03/24/16 at 09: 00 Lorazepam (Ativan) 1 mg Q2H PRN IV AGITATION Last administered on 04/15/16 03: 32; Admin Dose 1 MG; Start 03/24/16 at 11:30 Nystatin (Nystatin Oint) 1 applic TID TOP Last administered on 04/17/16 14:54 ; Admin Dose 1 APPLIC; Start 03/27/16 at 09:00 Metronidazole (Flagyl) 500 mg Q8 PO Last administered on 04/17/16 14:54; Admin Dose 500 MG; Start 03/28/16 at 14:00 Zolpidem Tartrate (Ambien) 5 mg QHS PRN PO INSOMNIA Last administered on 21:11; Admin Dose 5 MG; Start 04/01/16 at 13:30 Levofloxacin (Levaquin) 750 mg DAILY@06 PO Last administered on 04/17/16 05:22 ; Admin Dose 750 MG; Start 04/03/16 at 06:00 Lactobacillus Acidophilus/ Rhamnosus (Culturelle) 1 cap BID PO Last administered on 04/17/16 08:09; Admin Dose 1 CAP; Start 04/02/16 at 12:00 Multivitamins Therapeutic (Theragran) 1 tab DAILY PO Last administered on 08:09; Admin Dose 1 TAB; Start 04/02/16 at 12:00 Insulin Glargine (Lantus) 20 unit HS SC Last administered on 04/16/16 21:11; Admin Dose 20 UNIT; Start 04/02/16 at 21:00 Collagenase 1 applic 1 applic DAILY TOP Last administered on 04/17/16 12:07; Admin Dose 1 APPLIC; Start 04/06/16 at 13:30 Vancomycin HCl/ Sodium Chloride (Vancocin/NS) 250 ml @ 83.333 mls/ hr Q8H IVPB Last administered on 04/17/16 14:55; Admin Dose 83.333 MLS/HR; Start at 23:00 Enoxaparin Sodium (Lovenox) 40 mg DAILY SC Last administered on 04/17/16 08:11 ; Admin Dose 40 MG; Start 04/13/16 at 09:00 Ketorolac Tromethamine (Toradol) 15 mg Q6H PRN IV PAIN Last administered on 12:10; Admin Dose 15 MG; Start 04/16/16 at 15:00; Stop 04/19/16 at 14:59 KYLEE LAWRENCE Apr 17, 2016 15:06
[2016-04-17] MEDS: INSULIN GLARGINE [LANtus] 3 ML PEN SC SCH (20:32)
[2016-04-17 20:57] VITALS: BP 137/81; RESP 20
[2016-04-18] MEDS: ZOLPIDEM 5 MG TAB PO PRN (00:57)
[2016-04-18] MEDS: KETOROLAC 15 MG INJ IV PRN ×3 (01:02→14:45)
[2016-04-18] MEDS: metroNIDAZOLE 500 MG TAB PO SCH ×3 (06:54→21:28)
[2016-04-18] MEDS: LEVOFLOXACIN 750 MG TABLET PO SCH (06:54)
[2016-04-18 07:34] VITALS: BP 131/80; RESP 18
[2016-04-18] MEDS: LACTOBACILLUS RHAMNOSUS CAP PO SCH ×2 (08:41→21:28)
[2016-04-18] MEDS: MULTIVITAMINS THERAPEUTIC TAB PO SCH (08:41)
[2016-04-18] MEDS: NICOTINE (14 MG/24 HR) PATCH TRANSDERM SCH (08:43)
[2016-04-18] MEDS: INSULIN ASPART [NOVOLOG] 3 ML PEN SC SCH ×7 (08:43→21:00)
[2016-04-18] MEDS: ENOXAPARIN 40 MG/0.4 ML SYG SC SCH (08:43)
[2016-04-18] MEDS: SOD CHLORIDE 0.9% IVPB SCH ×2 (08:46→15:48)
[2016-04-18] MEDS: VANCOMYCIN IVPB SCH ×2 (08:46→15:48)
[2016-04-18] MEDS: COLLAGENASE 30 GM TUBE TOP SCH (08:55)
[2016-04-18] MEDS: NYSTATIN TOP SCH ×3 (08:55→21:29)
--- NOTE | 2016-04-18 13:48 | PN ---
Date/Time of Note Date/Time of Note DATE: 04/18/16 TIME: 13:48 Assessment/Plan VTE Prophylaxis VTE Prophylaxis Intervention: heparin Lines/Catheters [facility] Saline Lock Urinary Cath still in place: No Assessment/Plan Chief Complaint/Hosp Course 1. Right foot cellulitis/abscess with suspect osteomyelitis. Patient is status post debridement. Continue with wound care per podiatry. Continue on antibiotics per ID recommendations. Analgesics as needed. s/p podiatry intervention 04/07/16. Continue with surgeon recommendations. Nonweightbearing for now 2. Diabetic foot infection. Continue with insulin regimen. Adjust as needed 3. Medical noncompliance. Patient advised about consequences of medical noncompliance. We'll follow-up 4. History of substance abuse with methamphetamine. Patient did have positive history of methamphetamine with also admission of amphetamine use. Patient educated about cessation. 5. Morbid obese. Reduction advised 6. Corynebacterium Pseudomonas wound infection on right foot. Continue antibiotics per ID 7. History of hepatitis C. No active issue noted at this time. Patient to follow -up with this as outpatient Disposition and plan: Continue antibiotics and wound care per podiatry. Still having difficulty with placement due to patient's insurance issue as well as previous amphetamine use and need for IV antibiotic. Follow-up with case management for discharge planning. cont supportive care for now PPx- Heparin Problems: Subjective 24 Hr Interval Summary Constitutional: no complaints Exam/Review of Systems Vital Signs Vitals Vital Signs Date Time Temp Pulse Resp B/P Pulse Ox O2 Delivery O2 Flow Rate FiO2 04/18/16 07:34 97.9 78 18 131/80 91 Intake and Output 04/17/16 04/17/16 04/18/16 15:00 23:00 07:00 Intake Total 250 ml 2150 ml 1210 ml Balance 250 ml 2150 ml 1210 ml Exam Constitutional: alert Respiratory: clear to auscultation Cardiovascular: regular rate and rhythm Gastrointestinal: soft, No distended Musculoskeletal: No nl extremities to inspection Results Result Diagram: 04/17/16 0534 Results 24 hrs Laboratory Tests Test 04/17/16 17:20 04/17/16 20:25 04/18/16 07:48 04/18/16 12:03 Bedside Glucose 112 142 117 154 Medications Medications Current Medications Ondansetron HCl (Zofran Inj) 4 mg Q6H PRN IV NAUSEA AND/OR VOMITING; Start 03/23 at 23:00 Acetaminophen (Tylenol Tab) 650 mg Q6H PRN PO PAIN LEVEL 1-3 OR FEVER Last administered on 04/16/16 07:59; Admin Dose 650 MG; Start 03/23/16 at 23:00 Docusate Sodium (Colace) 100 mg Q12H PRN PO CONSTIPATION Last administered on 15:04; Admin Dose 100 MG; Start 03/23/16 at 23:00 Nicotine (Nicoderm 14 Mg/ 24hr) 1 patch DAILY TRANSDERM Last administered on 08:43; Admin Dose 1 PATCH; Start 03/24/16 at 09:00 Miscellaneous Information 1 ea NOTE XX ; Start 03/24/16 at 09:00 Glucose (Glutose) 15 gm Q15M PRN PO DECREASED GLUCOSE; Start 03/24/16 at 09:00 Glucose (Glutose) 22.5 gm Q15M PRN PO DECREASED GLUCOSE; Start 03/24/16 at 09:00 Dextrose (D50w Syringe) 25 ml Q15M PRN IV DECREASED GLUCOSE; Start 03/24/16 at 09:00 Dextrose (D50w Syringe) 50 ml Q15M PRN IV DECREASED GLUCOSE; Start 03/24/16 at 09:00 Glucagon (Glucagen) 1 mg Q15M PRN IM DECREASED GLUCOSE; Start 03/24/16 at 09:00 Glucose (Glutose) 15 gm Q15M PRN BUCCAL DECREASED GLUCOSE; Start 03/24/16 at 09: 00 Lorazepam (Ativan) 1 mg Q2H PRN IV AGITATION Last administered on 04/15/16 03: 32; Admin Dose 1 MG; Start 03/24/16 at 11:30 Nystatin (Nystatin Oint) 1 applic TID TOP Last administered on 04/18/16 12:08; Admin Dose 1 APPLIC; Start 03/27/16 at 09:00 Metronidazole (Flagyl) 500 mg Q8 PO Last administered on 04/18/16 06:54; Admin Dose 500 MG; Start 03/28/16 at 14:00 Zolpidem Tartrate (Ambien) 5 mg QHS PRN PO INSOMNIA Last administered on 00:57; Admin Dose 5 MG; Start 04/01/16 at 13:30 Levofloxacin (Levaquin) 750 mg DAILY@06 PO Last administered on 04/18/16 06:54 ; Admin Dose 750 MG; Start 04/03/16 at 06:00 Lactobacillus Acidophilus/ Rhamnosus (Culturelle) 1 cap BID PO Last administered on 04/18/16 08:41; Admin Dose 1 CAP; Start 04/02/16 at 12:00 Multivitamins Therapeutic (Theragran) 1 tab DAILY PO Last administered on 08:41; Admin Dose 1 TAB; Start 04/02/16 at 12:00 Insulin Glargine (Lantus) 20 unit HS SC Last administered on 04/17/16 20:32; Admin Dose 20 UNIT; Start 04/02/16 at 21:00 Collagenase 1 applic 1 applic DAILY TOP Last administered on 04/18/16 08:55; Admin Dose 1 APPLIC; Start 04/06/16 at 13:30 Vancomycin HCl/ Sodium Chloride (Vancocin/NS) 250 ml @ 83.333 mls/ hr Q8H IVPB Last administered on 04/18/16 08:46; Admin Dose 83.333 MLS/HR; Start 04/07/16 at 23:00 Enoxaparin Sodium (Lovenox) 40 mg DAILY SC Last administered on 04/18/16 08:43 ; Admin Dose 40 MG; Start 04/13/16 at 09:00 Ketorolac Tromethamine (Toradol) 15 mg Q6H PRN IV PAIN Last administered on 04/18 08:45; Admin Dose 15 MG; Start 04/16/16 at 15:00; Stop 04/19/16 at 14:59 KYLEE LAWRENCE Apr 18, 2016 13:48
[2016-04-18 20:48] VITALS: BP 142/82; RESP 19
[2016-04-18] MEDS: INSULIN GLARGINE [LANtus] 3 ML PEN SC SCH (21:29)
[2016-04-19] MEDS: metroNIDAZOLE 500 MG TAB PO SCH ×3 (05:40→21:35)
[2016-04-19] MEDS: LEVOFLOXACIN 750 MG TABLET PO SCH (05:40)
[2016-04-19] MEDS: INSULIN ASPART [NOVOLOG] 3 ML PEN SC SCH ×7 (07:30→21:00)
[2016-04-19 07:48] VITALS: BP 140/86; RESP 18
[2016-04-19] MEDS: MULTIVITAMINS THERAPEUTIC TAB PO SCH (08:26)
[2016-04-19] MEDS: LACTOBACILLUS RHAMNOSUS CAP PO SCH ×2 (08:26→21:39)
[2016-04-19] MEDS: ENOXAPARIN 40 MG/0.4 ML SYG SC SCH (08:28)
[2016-04-19] MEDS: NYSTATIN TOP SCH ×3 (08:28→23:36)
[2016-04-19] MEDS: COLLAGENASE 30 GM TUBE TOP SCH (08:28)
[2016-04-19] MEDS: NICOTINE (14 MG/24 HR) PATCH TRANSDERM SCH (08:29)
[2016-04-19] MEDS: SOD CHLORIDE 0.9% IVPB SCH ×4 (10:14→17:31)
[2016-04-19] MEDS: VANCOMYCIN IVPB SCH ×4 (10:14→17:31)
[2016-04-19] MEDS: KETOROLAC 15 MG INJ IV PRN (10:22)
--- NOTE | 2016-04-19 15:42 | PN ---
Date/Time of Note Date/Time of Note DATE: 04/19/16 TIME: 15:41 Assessment/Plan VTE Prophylaxis VTE Prophylaxis Intervention: heparin Lines/Catheters IV [facility] Saline Lock Urinary Cath still in place: No Assessment/Plan Chief Complaint/Hosp Course 1. Right foot cellulitis/abscess with suspect osteomyelitis. Patient is status post debridement. Continue with wound care per podiatry. Continue on antibiotics per ID recommendations. Analgesics as needed. s/p podiatry intervention 04/07/16. Continue with surgeon recommendations. Nonweightbearing for now 2. Diabetic foot infection. Continue with insulin regimen. Adjust as needed 3. Medical noncompliance. Patient advised about consequences of medical noncompliance. We'll follow-up 4. History of substance abuse with methamphetamine. Patient did have positive history of methamphetamine with also admission of amphetamine use. Patient educated about cessation. 5. Morbid obese. Reduction advised 6. Corynebacterium Pseudomonas wound infection on right foot. Continue antibiotics per ID 7. History of hepatitis C. No active issue noted at this time. Patient to follow -up with this as outpatient Disposition and plan: Continue antibiotics and wound care per podiatry. Still having difficulty with placement due to patient's insurance issue as well as previous amphetamine use and need for IV antibiotic. Follow-up with case management for discharge planning. cont supportive care for now PPx- Heparin Problems: Subjective 24 Hr Interval Summary Constitutional: no complaints Exam/Review of Systems Vital Signs Vitals Vital Signs Date Time Temp Pulse Resp B/P Pulse Ox O2 Delivery O2 Flow Rate FiO2 04/19/16 07:48 98.0 89 18 140/86 98 Intake and Output 04/18/16 04/18/16 04/19/16 14:59 22:59 06:59 Intake Total 250 ml 2290 ml 910 ml Balance 250 ml 2290 ml 910 ml Exam Constitutional: alert Respiratory: clear to auscultation Cardiovascular: regular rate and rhythm Gastrointestinal: soft, No distended Musculoskeletal: No nl extremities to inspection Results Result Diagram: 04/17/16 0534 Results 24 hrs Laboratory Tests Test 04/18/16 17:21 04/18/16 20:00 04/19/16 08:04 04/19/16 11:45 Bedside Glucose 105 133 124 122 Medications Medications Current Medications Ondansetron HCl (Zofran Inj) 4 mg Q6H PRN IV NAUSEA AND/OR VOMITING; Start 03/23 at 23:00 Acetaminophen (Tylenol Tab) 650 mg Q6H PRN PO PAIN LEVEL 1-3 OR FEVER Last administered on 04/16/16 07:59; Admin Dose 650 MG; Start 03/23/16 at 23:00 Docusate Sodium (Colace) 100 mg Q12H PRN PO CONSTIPATION Last administered on 15:04; Admin Dose 100 MG; Start 03/23/16 at 23:00 Nicotine (Nicoderm 14 Mg/ 24hr) 1 patch DAILY TRANSDERM Last administered on 08:29; Admin Dose 1 PATCH; Start 03/24/16 at 09:00 Miscellaneous Information 1 ea NOTE XX ; Start 03/24/16 at 09:00 Glucose (Glutose) 15 gm Q15M PRN PO DECREASED GLUCOSE; Start 03/24/16 at 09:00 Glucose (Glutose) 22.5 gm Q15M PRN PO DECREASED GLUCOSE; Start 03/24/16 at 09:00 Dextrose (D50w Syringe) 25 ml Q15M PRN IV DECREASED GLUCOSE; Start 03/24/16 at 09:00 Dextrose (D50w Syringe) 50 ml Q15M PRN IV DECREASED GLUCOSE; Start 03/24/16 at 09:00 Glucagon (Glucagen) 1 mg Q15M PRN IM DECREASED GLUCOSE; Start 03/24/16 at 09:00 Glucose (Glutose) 15 gm Q15M PRN BUCCAL DECREASED GLUCOSE; Start 03/24/16 at 09: 00 Lorazepam (Ativan) 1 mg Q2H PRN IV AGITATION Last administered on 04/15/16 03: 32; Admin Dose 1 MG; Start 03/24/16 at 11:30 Nystatin (Nystatin Oint) 1 applic TID TOP Last administered on 04/19/16 12:21; Admin Dose 1 APPLIC; Start 03/27/16 at 09:00 Metronidazole (Flagyl) 500 mg Q8 PO Last administered on 04/19/16 13:13; Admin Dose 500 MG; Start 03/28/16 at 14:00 Zolpidem Tartrate (Ambien) 5 mg QHS PRN PO INSOMNIA Last administered on 00:57; Admin Dose 5 MG; Start 04/01/16 at 13:30 Levofloxacin (Levaquin) 750 mg DAILY@06 PO Last administered on 04/19/16 05:40 ; Admin Dose 750 MG; Start 04/03/16 at 06:00 Lactobacillus Acidophilus/ Rhamnosus (Culturelle) 1 cap BID PO Last administered on 04/19/16 08:26; Admin Dose 1 CAP; Start 04/02/16 at 12:00 Multivitamins Therapeutic (Theragran) 1 tab DAILY PO Last administered on 08:26; Admin Dose 1 TAB; Start 04/02/16 at 12:00 Insulin Glargine (Lantus) 20 unit HS SC Last administered on 04/18/16 21:29; Admin Dose 20 UNIT; Start 04/02/16 at 21:00 Collagenase (Santyl) 1 applic DAILY TOP Last administered on 04/19/16 08:28; Admin Dose 1 APPLIC; Start 04/06/16 at 13:30 Enoxaparin Sodium (Lovenox) 40 mg DAILY SC Last administered on 04/19/16 08:28 ; Admin Dose 40 MG; Start 04/13/16 at 09:00 Miscellaneous Information VANCO TROUGH @ 0,100 ON... ONCE ONCE XX ; Start 04/20 at 01:00; Stop 04/20/16 at 01:01 Vancomycin HCl/ Sodium Chloride (Vancocin/NS) 250 ml @ 83.333 mls/ hr Q8H IVPB ; Start 04/19/16 at 18:00 KYLEE LAWRENCE Apr 19, 2016 15:42
[2016-04-19 20:49] VITALS: BP 144/81; RESP 18
[2016-04-19] MEDS: ACETAMINOPHEN 325 MG TAB PO PRN (21:36)
[2016-04-19] MEDS: INSULIN GLARGINE [LANtus] 3 ML PEN SC SCH (23:33)
[2016-04-19] MEDS: ZOLPIDEM 5 MG TAB PO PRN (23:34)
[2016-04-20] MEDS: VANCOMYCIN IVPB SCH (03:46)
[2016-04-20] MEDS: SOD CHLORIDE 0.9% IVPB SCH (03:46)
[2016-04-20] MEDS: LEVOFLOXACIN 750 MG TABLET PO SCH (05:54)
[2016-04-20] MEDS: metroNIDAZOLE 500 MG TAB PO SCH ×3 (05:54→23:02)
[2016-04-20] MEDS: INSULIN ASPART [NOVOLOG] 3 ML PEN SC SCH ×7 (07:30→20:39)
[2016-04-20 08:10] VITALS: BP 135/90; RESP 18
[2016-04-20] MEDS: MULTIVITAMINS THERAPEUTIC TAB PO SCH (08:21)
[2016-04-20] MEDS: NICOTINE (14 MG/24 HR) PATCH TRANSDERM SCH (08:21)
[2016-04-20] MEDS: ENOXAPARIN 40 MG/0.4 ML SYG SC SCH (08:23)
--- NOTE | 2016-04-20 11:51 | PN ---
Date/Time of Note Date/Time of Note DATE: 04/20/16 TIME: 11:50 Assessment/Plan VTE Prophylaxis VTE Prophylaxis Intervention: heparin Lines/Catheters IV Catheter Type (from [facility]): Saline Lock Urinary Cath still in place: No Assessment/Plan Chief Complaint/Hosp Course 1. Right foot cellulitis/abscess with suspect osteomyelitis. Patient is status post debridement. Continue with wound care per podiatry. Continue on antibiotics per ID recommendations. Analgesics as needed. s/p podiatry intervention 04/07/16. Continue with surgeon recommendations. Nonweightbearing for now 2. Diabetic foot infection. Continue with insulin regimen. Adjust as needed 3. Medical noncompliance. Patient advised about consequences of medical noncompliance. We'll follow-up 4. History of substance abuse with methamphetamine. Patient did have positive history of methamphetamine with also admission of amphetamine use. Patient educated about cessation. 5. Morbid obese. Reduction advised 6. Corynebacterium Pseudomonas wound infection on right foot. Continue antibiotics per ID 7. History of hepatitis C. No active issue noted at this time. Patient to follow -up with this as outpatient Disposition and plan: Continue antibiotics and wound care per podiatry. Still having difficulty with placement due to patient's insurance issue as well as previous amphetamine use and need for IV antibiotic. Follow-up with case management for discharge planning. cont supportive care for now PPx- Heparin Problems: Subjective 24 Hr Interval Summary Constitutional: no complaints Exam/Review of Systems Vital Signs Vitals Vital Signs Date Time Temp Pulse Resp B/P Pulse Ox O2 Delivery O2 Flow Rate FiO2 04/20/16 08:10 97.6 87 18 135/90 98 Intake and Output 04/19/16 04/19/16 04/20/16 15:00 23:00 07:00 Intake Total 250 ml 2040 ml 1165 ml Balance 250 ml 2040 ml 1165 ml Exam Constitutional: alert, oriented Respiratory: clear to auscultation Cardiovascular: regular rate and rhythm Gastrointestinal: soft, No distended Musculoskeletal: No nl extremities to inspection Results Result Diagram: 04/17/16 0534 Results 24 hrs Laboratory Tests Test 04/19/16 16:55 04/19/16 21:33 04/20/16 01:00 04/20/16 08:16 Bedside Glucose 128 131 126 Vancomycin Level Trough 11.0 Medications Medications Current Medications Ondansetron HCl (Zofran Inj) 4 mg Q6H PRN IV NAUSEA AND/OR VOMITING; Start 03/23 at 23:00 Acetaminophen (Tylenol Tab) 650 mg Q6H PRN PO PAIN LEVEL 1-3 OR FEVER Last administered on 04/19/16 21:36; Admin Dose 650 MG; Start 03/23/16 at 23:00 Docusate Sodium (Colace) 100 mg Q12H PRN PO CONSTIPATION Last administered on 15:04; Admin Dose 100 MG; Start 03/23/16 at 23:00 Nicotine (Nicoderm 14 Mg/ 24hr) 1 patch DAILY TRANSDERM Last administered on 08:21; Admin Dose 1 PATCH; Start 03/24/16 at 09:00 Miscellaneous Information 1 ea NOTE XX ; Start 03/24/16 at 09:00 Glucose (Glutose) 15 gm Q15M PRN PO DECREASED GLUCOSE; Start 03/24/16 at 09:00 Glucose (Glutose) 22.5 gm Q15M PRN PO DECREASED GLUCOSE; Start 03/24/16 at 09:00 Dextrose (D50w Syringe) 25 ml Q15M PRN IV DECREASED GLUCOSE; Start 03/24/16 at 09:00 Dextrose (D50w Syringe) 50 ml Q15M PRN IV DECREASED GLUCOSE; Start 03/24/16 at 09:00 Glucagon (Glucagen) 1 mg Q15M PRN IM DECREASED GLUCOSE; Start 03/24/16 at 09:00 Glucose (Glutose) 15 gm Q15M PRN BUCCAL DECREASED GLUCOSE; Start 03/24/16 at 09: 00 Lorazepam (Ativan) 1 mg Q2H PRN IV AGITATION Last administered on 04/15/16 03: 32; Admin Dose 1 MG; Start 03/24/16 at 11:30 Nystatin (Nystatin Oint) 1 applic TID TOP Last administered on 04/19/16 23:36; Admin Dose 1 APPLIC; Start 03/27/16 at 09:00 Metronidazole (Flagyl) 500 mg Q8 PO Last administered on 04/20/16 05:54; Admin Dose 500 MG; Start 03/28/16 at 14:00 Zolpidem Tartrate (Ambien) 5 mg QHS PRN PO INSOMNIA Last administered on 23:34; Admin Dose 5 MG; Start 04/01/16 at 13:30 Levofloxacin (Levaquin) 750 mg DAILY@06 PO Last administered on 04/20/16 05:54 ; Admin Dose 750 MG; Start 04/03/16 at 06:00 Lactobacillus Acidophilus/ Rhamnosus (Culturelle) 1 cap BID PO Last administered on 04/19/16 21:39; Admin Dose 1 CAP; Start 04/02/16 at 12:00 Multivitamins Therapeutic (Theragran) 1 tab DAILY PO Last administered on 08:21; Admin Dose 1 TAB; Start 04/02/16 at 12:00 Insulin Glargine (Lantus) 20 unit HS SC Last administered on 04/19/16 23:33; Admin Dose 20 UNIT; Start 04/02/16 at 21:00 Collagenase (Santyl) 1 applic DAILY TOP Last administered on 04/19/16 08:28; Admin Dose 1 APPLIC; Start 04/06/16 at 13:30 Enoxaparin Sodium 40 mg 40 mg DAILY SC Last administered on 04/20/16 08:23; Admin Dose 40 MG; Start 04/13/16 at 09:00 Vancomycin HCl/ Sodium Chloride (Vancocin/NS) 250 ml @ 83.333 mls/ hr Q8H IVPB ; Start 04/20/16 at 12:00 Miscellaneous Information (*Rx Drug Level Order Reminder*) VANCO TROUGH @ 1, 100 ON... ONCE ONCE XX ; Start 04/21/16 at 11:00; Stop 04/21/16 at 11:01 KYLEE LAWRENCE Apr 20, 2016 11:51
[2016-04-20] MEDS: NYSTATIN TOP SCH ×3 (11:55→20:48)
[2016-04-20] MEDS ORDERED: VANCOMYCIN IVPB SCH (12:00)
[2016-04-20] MEDS ORDERED: SOD CHLORIDE 0.9% IVPB SCH (12:00)
[2016-04-20] MEDS: VANCOMYCIN 1.25 GM in SOD CHLORIDE 0.9% 250 ML IVPB SCH ×2 (12:43→20:29)
[2016-04-20] MEDS: ACETAMINOPHEN 325 MG TAB PO PRN ×2 (12:54→20:45)
[2016-04-20] MEDS: COLLAGENASE 30 GM TUBE TOP SCH (12:55)
[2016-04-20] MEDS: LACTOBACILLUS RHAMNOSUS CAP PO SCH ×2 (14:29→20:41)
[2016-04-20] MEDS: INSULIN GLARGINE [LANtus] 3 ML PEN SC SCH (20:45)
[2016-04-20 21:18] VITALS: BP 128/57; RESP 18
[2016-04-20] MEDS: ZOLPIDEM 5 MG TAB PO PRN (23:03)
[2016-04-21] MEDS: VANCOMYCIN 1.25 GM in SOD CHLORIDE 0.9% 250 ML IVPB SCH ×3 (04:25→19:54)
[2016-04-21] MEDS: LEVOFLOXACIN 750 MG TABLET PO SCH (06:17)
[2016-04-21] MEDS: metroNIDAZOLE 500 MG TAB PO SCH ×3 (06:17→21:31)
[2016-04-21] MEDS: ACETAMINOPHEN 325 MG TAB PO PRN ×2 (06:17→19:58)
[2016-04-21 07:54] VITALS: BP 129/90; RESP 18
[2016-04-21] MEDS: LACTOBACILLUS RHAMNOSUS CAP PO SCH (08:11)
[2016-04-21] MEDS: MULTIVITAMINS THERAPEUTIC TAB PO SCH (08:11)
[2016-04-21] MEDS: ENOXAPARIN 40 MG/0.4 ML SYG SC SCH (08:13)
[2016-04-21] MEDS: INSULIN ASPART [NOVOLOG] 3 ML PEN SC SCH ×7 (08:13→21:00)
[2016-04-21] MEDS: COLLAGENASE 30 GM TUBE TOP SCH (08:18)
[2016-04-21] MEDS: NICOTINE (14 MG/24 HR) PATCH TRANSDERM SCH (08:18)
[2016-04-21] MEDS: NYSTATIN TOP SCH ×3 (08:18→21:32)
[2016-04-21 12:29] LABS: CREATININE 0.65 mg/dl (0.61-1.24)
--- NOTE | 2016-04-21 14:49 | CONS ---
Date/Time of Note Date/Time of Note DATE: 04/21/16 TIME: 14:46 Assessment/Plan Assessment/Plan Chief Complaint/Hosp Course MICROBIOLOGY: Wound culture growing Stenotrophomonas maltophilia susceptible to Bactrim and Levaquin and Corynebact sp. Blood cultures have been negative. ANTIMICROBIALS: 1. Vancomycin. 2. Levaquin. 3. Flagyl OBJECTIVE: GENERAL: This is a morbidly obese, well-developed, middle-aged white man who is alert, in no distress. HEENT: Head atraumatic, normocephalic. Sclerae anicteric. Buccal mucosa dry. NECK: Supple. CHEST: Rise symmetrical. Breath sounds clear. HEART: S1, S2. ABDOMEN: Soft, bowel tones present. EXTREMITIES: Left foot dressing intact, still with foul odor that you can feel standing about 2 meters away from the patient. ASSESSMENT 1. Status post severe sepsis with shock and acute encephalopathy. 2. Left foot ongoing osteomyelitis, gangrene, status post incision and drainage. 3. Morbid obesity. 4. Substance abuse==> ongoing. 5. Poorly controlled diabetes. 6. History of noncompliance. PLAN: Doing good, completed 4 weeks abx, recommend to send home on PO Levaquin for 3 more weeks to cover Stenotrophomonas that grows in his wound and complete Rx for [facility] DW staff DW Dr Reed Problems: Consultation Date/Type/Reason Admit Date/Time Mar 23, 2016 at 21:33 Initial Consult Date 03/24/16 Type of Consultation: ID [id number] HR Interval Summary Constitutional: no complaints Exam/Review of Systems Vital Signs Vitals Vital Signs Date Time Temp Pulse Resp B/P Pulse Ox O2 Delivery O2 Flow Rate FiO2 04/21/16 07:54 98.8 98 18 129/90 98 Intake and Output 04/20/16 04/20/16 04/21/16 15:00 23:00 07:00 Intake Total 1800 ml Balance 1800 ml Results Result Diagram: 04/21/16 1131 Results 24 hrs Laboratory Tests Test 04/20/16 16:54 04/20/16 20:37 04/21/16 07:52 04/21/16 11:31 Bedside Glucose 138 176 145 Blood Urea Nitrogen 22 H Creatinine 0.65 Vancomycin Level Trough 12.8 Test 04/21/16 11:43 Bedside Glucose 135 Medications Medications Current Medications Ondansetron HCl (Zofran Inj) 4 mg Q6H PRN IV NAUSEA AND/OR VOMITING; Start 03/23 at 23:00 Acetaminophen (Tylenol Tab) 650 mg Q6H PRN PO PAIN LEVEL 1-3 OR FEVER Last administered on 04/21/16 06:17; Admin Dose 650 MG; Start 03/23/16 at 23:00 Docusate Sodium (Colace) 100 mg Q12H PRN PO CONSTIPATION Last administered on 15:04; Admin Dose 100 MG; Start 03/23/16 at 23:00 Nicotine (Nicoderm 14 Mg/ 24hr) 1 patch DAILY TRANSDERM Last administered on 08:18; Admin Dose 1 PATCH; Start 03/24/16 at 09:00 Miscellaneous Information 1 ea NOTE XX ; Start 03/24/16 at 09:00 Glucose (Glutose) 15 gm Q15M PRN PO DECREASED GLUCOSE; Start 03/24/16 at 09:00 Glucose (Glutose) 22.5 gm Q15M PRN PO DECREASED GLUCOSE; Start 03/24/16 at 09:00 Dextrose (D50w Syringe) 25 ml Q15M PRN IV DECREASED GLUCOSE; Start 03/24/16 at 09:00 Dextrose (D50w Syringe) 50 ml Q15M PRN IV DECREASED GLUCOSE; Start 03/24/16 at 09:00 Glucagon (Glucagen) 1 mg Q15M PRN IM DECREASED GLUCOSE; Start 03/24/16 at 09:00 Glucose (Glutose) 15 gm Q15M PRN BUCCAL DECREASED GLUCOSE; Start 03/24/16 at 09: 00 Lorazepam (Ativan) 1 mg Q2H PRN IV AGITATION Last administered on 04/15/16 03: 32; Admin Dose 1 MG; Start 03/24/16 at 11:30 Nystatin (Nystatin Oint) 1 applic TID TOP Last administered on 04/21/16 13:03; Admin Dose 1 APPLIC; Start 03/27/16 at 09:00 Metronidazole (Flagyl) 500 mg Q8 PO Last administered on 04/21/16 13:02; Admin Dose 500 MG; Start 03/28/16 at 14:00 Zolpidem Tartrate (Ambien) 5 mg QHS PRN PO INSOMNIA Last administered on 23:03; Admin Dose 5 MG; Start 04/01/16 at 13:30 Levofloxacin (Levaquin) 750 mg DAILY@06 PO Last administered on 04/21/16 06:17 ; Admin Dose 750 MG; Start 04/03/16 at 06:00 Lactobacillus Acidophilus/ Rhamnosus (Culturelle) 1 cap BID PO Last administered on 04/21/16 08:11; Admin Dose 1 CAP; Start 04/02/16 at 12:00 Multivitamins Therapeutic (Theragran) 1 tab DAILY PO Last administered on 08:11; Admin Dose 1 TAB; Start 04/02/16 at 12:00 Insulin Glargine (Lantus) 20 unit HS SC Last administered on 04/20/16 20:45; Admin Dose 20 UNIT; Start 04/02/16 at 21:00 Collagenase (Santyl) 1 applic DAILY TOP Last administered on 04/21/16 08:18; Admin Dose 1 APPLIC; Start 04/06/16 at 13:30 Enoxaparin Sodium 40 mg 40 mg DAILY SC Last administered on 04/21/16 08:13; Admin Dose 40 MG; Start 04/13/16 at 09:00 Vancomycin HCl/ Sodium Chloride (Vancocin/NS) 250 ml @ 83.333 mls/ hr Q8H IVPB Last administered on 04/21/16 12:57; Admin Dose 83.333 MLS/HR; Start 04/20/16 at 12:00 KIRSTEN OLIVAREZ NP Apr 21, 2016 14:49
--- NOTE | 2016-04-21 14:57 | PN ---
Date/Time of Note Date/Time of Note DATE: 04/21/16 TIME: 14:54 Assessment/Plan VTE Prophylaxis VTE Prophylaxis Intervention: other Lines/Catheters IV Catheter Type (from Nrsg): Saline Lock Urinary Cath still in place: No Assessment/Plan Problems: (1) Diabetes, polyneuropathy Status: Chronic Comment: Noted. Diabetic control is adequate at this time. Dr. Cuellar from [facility] is following the patient. He is ready for rehab. Qualifiers: Diabetes mellitus type: type 2 Qualified Code: E11.42 - Diabetic polyneuropathy associated with type 2 diabetes mellitus (2) Drug abuse and dependence Status: Chronic Comment: Recheck tox screen (3) Osteomyelitis Status: Acute Comment: On antibiotics Qualifiers: Osteomyelitis location: foot Laterality: right Chronicity: acute Qualified Code: M86.171 - Acute osteomyelitis of right foot Subjective 24 Hr Interval Summary Free Text/Dictation Patient has visitors and is very animated Exam/Review of Systems Vital Signs Vitals Vital Signs Date Time Temp Pulse Resp B/P Pulse Ox O2 Delivery O2 Flow Rate FiO2 04/21/16 07:54 98.8 98 18 129/90 98 Intake and Output 04/20/16 04/20/16 04/21/16 15:00 23:00 07:00 Intake Total 1800 ml Balance 1800 ml Exam No changes Constitutional: alert Respiratory: clear to auscultation, normal air movement Cardiovascular: nl pulses, regular rate and rhythm Gastrointestinal: nl liver, spleen, non-tender, soft Results Result Diagram: 04/21/16 1131 Results 24 hrs Laboratory Tests Test 04/20/16 16:54 04/20/16 20:37 04/21/16 07:52 04/21/16 11:31 Bedside Glucose 138 176 145 Blood Urea Nitrogen 22 H Creatinine 0.65 Vancomycin Level Trough 12.8 Test 04/21/16 11:43 Bedside Glucose 135 Medications Medications Current Medications Ondansetron HCl (Zofran Inj) 4 mg Q6H PRN IV NAUSEA AND/OR VOMITING; Start 03/23 at 23:00 Acetaminophen (Tylenol Tab) 650 mg Q6H PRN PO PAIN LEVEL 1-3 OR FEVER Last administered on 04/21/16t 06:17; Admin Dose 650 MG; Start 03/23/16 at 23:00 Docusate Sodium (Colace) 100 mg Q12H PRN PO CONSTIPATION Last administered on 15:04; Admin Dose 100 MG; Start 03/23/16 at 23:00 Nicotine (Nicoderm 14 Mg/ 24hr) 1 patch DAILY TRANSDERM Last administered on 08:18; Admin Dose 1 PATCH; Start 03/24/16 at 09:00 Miscellaneous Information 1 ea NOTE XX ; Start 03/24/16 at 09:00 Glucose (Glutose) 15 gm Q15M PRN PO DECREASED GLUCOSE; Start 03/24/16 at 09:00 Glucose (Glutose) 22.5 gm Q15M PRN PO DECREASED GLUCOSE; Start 03/24/16 at 09:00 Dextrose (D50w Syringe) 25 ml Q15M PRN IV DECREASED GLUCOSE; Start 03/24/16 at 09:00 Dextrose (D50w Syringe) 50 ml Q15M PRN IV DECREASED GLUCOSE; Start 03/24/16 at 09:00 Glucagon (Glucagen) 1 mg Q15M PRN IM DECREASED GLUCOSE; Start 03/24/16 at 09:00 Glucose (Glutose) 15 gm Q15M PRN BUCCAL DECREASED GLUCOSE; Start 03/24/16 at 09: 00 Lorazepam (Ativan) 1 mg Q2H PRN IV AGITATION Last administered on 04/15/16 03: 32; Admin Dose 1 MG; Start 03/24/16 at 11:30 Nystatin (Nystatin Oint) 1 applic TID TOP Last administered on 04/21/16 13:03; Admin Dose 1 APPLIC; Start 03/27/16 at 09:00 Metronidazole (Flagyl) 500 mg Q8 PO Last administered on 04/21/16 13:02; Admin Dose 500 MG; Start 03/28/16 at 14:00 Zolpidem Tartrate (Ambien) 5 mg QHS PRN PO INSOMNIA Last administered on 23:03; Admin Dose 5 MG; Start 04/01/16 at 13:30 Levofloxacin (Levaquin) 750 mg DAILY@06 PO Last administered on 04/21/16 06:17 ; Admin Dose 750 MG; Start 04/03/16 at 06:00 Lactobacillus Acidophilus/ Rhamnosus (Culturelle) 1 cap BID PO Last administered on 04/21/16 08:11; Admin Dose 1 CAP; Start 04/02/16 at 12:00 Multivitamins Therapeutic (Theragran) 1 tab DAILY PO Last administered on 08:11; Admin Dose 1 TAB; Start 04/02/16 at 12:00 Insulin Glargine (Lantus) 20 unit HS SC Last administered on 04/20/16 20:45; Admin Dose 20 UNIT; Start 04/02/16 at 21:00 Collagenase (Santyl) 1 applic DAILY TOP Last administered on 04/21/16 08:18; Admin Dose 1 APPLIC; Start 04/06/16 at 13:30 Enoxaparin Sodium 40 mg 40 mg DAILY SC Last administered on 04/21/16 08:13; Admin Dose 40 MG; Start 04/13/16 at 09:00 Vancomycin HCl/ Sodium Chloride (Vancocin/NS) 250 ml @ 83.333 mls/ hr Q8H IVPB Last administered on 04/21/16 12:57; Admin Dose 83.333 MLS/HR; Start 04/20/16 at 12:00 SLIME ORTEGA MD Apr 21, 2016 14:57
[2016-04-21 20:44] VITALS: BP 132/86; RESP 20
[2016-04-21] MEDS: INSULIN GLARGINE [LANtus] 3 ML PEN SC SCH (21:34)
[2016-04-22] MEDS: LACTOBACILLUS RHAMNOSUS CAP PO SCH ×3 (00:03→20:32)
[2016-04-22] MEDS: ZOLPIDEM 5 MG TAB PO PRN ×2 (01:47→23:17)
[2016-04-22] MEDS: VANCOMYCIN 1.25 GM in SOD CHLORIDE 0.9% 250 ML IVPB SCH ×3 (05:07→19:45)
[2016-04-22] MEDS: LEVOFLOXACIN 750 MG TABLET PO SCH (05:47)
[2016-04-22] MEDS: metroNIDAZOLE 500 MG TAB PO SCH ×3 (05:47→23:12)
[2016-04-22] MEDS: INSULIN ASPART [NOVOLOG] 3 ML PEN SC SCH ×7 (07:30→21:00)
[2016-04-22 08:00] VITALS: BP 127/80; PULSE 94; RESP 18
[2016-04-22] MEDS: ENOXAPARIN 40 MG/0.4 ML SYG SC SCH (08:32)
[2016-04-22] MEDS: MULTIVITAMINS THERAPEUTIC TAB PO SCH (08:32)
[2016-04-22] MEDS: NICOTINE (14 MG/24 HR) PATCH TRANSDERM SCH (08:33)
[2016-04-22] MEDS: NYSTATIN TOP SCH ×3 (08:34→20:32)
[2016-04-22] MEDS: ACETAMINOPHEN 325 MG TAB PO PRN ×2 (08:36→14:43)
--- NOTE | 2016-04-22 13:13 | PN ---
Date/Time of Note Date/Time of Note DATE: 04/22/16 TIME: 13:11 Assessment/Plan VTE Prophylaxis VTE Prophylaxis Intervention: other Lines/Catheters IV [facility] Saline Lock Urinary Cath still in place: No Assessment/Plan Problems: (1) Chronic hepatitis C Status: Chronic Comment: This is an issue that will need to be addressed as an outpatient. He probably be a decent candidate for [facility] if and only if he remains clean and sober Qualifiers: Hepatic coma status: without hepatic coma Qualified Code: B18.2 - Chronic hepatitis C without hepatic coma (2) Diabetes, polyneuropathy Status: Chronic Comment: Diabetes is well controlled. He will need special shoes once these issues have stabilized Qualifiers: Diabetes mellitus type: type 2 Qualified Code: E11.42 - Diabetic polyneuropathy associated with type 2 diabetes mellitus (3) Gas gangrene of foot Status: Chronic Comment: He is doing relatively well. ID is written for outpatient oral medication regimen. Please note the bone biopsy did not show osteomyelitis. (4) Foot abscess, right Status: Acute Comment: Postop and improved nicely. Subjective 24 Hr Interval Summary Free Text/Dictation Patient vibrant and talkative but nervous Constitutional: no complaints Respiratory: no complaints Cardiovascular: no complaints Gastrointestinal: no complaints Genitourinary: no complaints Exam/Review of Systems Vital Signs Vitals Vital Signs Date Time Temp Pulse Resp B/P Pulse Ox O2 Delivery O2 Flow Rate FiO2 04/22/16 08:00 98.7 94 18 127/80 98 Room Air Intake and Output 04/21/16 04/21/16 04/22/16 15:00 23:00 07:00 Intake Total 250 ml 1340 ml Balance 250 ml 1340 ml Exam Constitutional: alert Respiratory: clear to auscultation, normal air movement Cardiovascular: nl pulses, regular rate and rhythm Gastrointestinal: nl liver, spleen, non-tender, soft Results Result Diagram: 04/21/16 1131 Results 24 hrs Laboratory Tests Test 04/21/16 16:51 04/21/16 21:29 04/22/16 08:27 04/22/16 12:18 Bedside Glucose 190 173 124 146 Medications Medications Current Medications Ondansetron HCl (Zofran Inj) 4 mg Q6H PRN IV NAUSEA AND/OR VOMITING; Start 03/23 at 23:00 Acetaminophen (Tylenol Tab) 650 mg Q6H PRN PO PAIN LEVEL 1-3 OR FEVER Last administered on 04/22/16 08:36; Admin Dose 650 MG; Start 03/23/16 at 23:00 Docusate Sodium (Colace) 100 mg Q12H PRN PO CONSTIPATION Last administered on 15:04; Admin Dose 100 MG; Start 03/23/16 at 23:00 Nicotine (Nicoderm 14 Mg/ 24hr) 1 patch DAILY TRANSDERM Last administered on 08:33; Admin Dose 1 PATCH; Start 03/24/16 at 09:00 Miscellaneous Information 1 ea NOTE XX ; Start 03/24/16 at 09:00 Glucose (Glutose) 15 gm Q15M PRN PO DECREASED GLUCOSE; Start 03/24/16 at 09:00 Glucose (Glutose) 22.5 gm Q15M PRN PO DECREASED GLUCOSE; Start 03/24/16 at 09:00 Dextrose (D50w Syringe) 25 ml Q15M PRN IV DECREASED GLUCOSE; Start 03/24/16 at 09:00 Dextrose (D50w Syringe) 50 ml Q15M PRN IV DECREASED GLUCOSE; Start 03/24/16 at 09:00 Glucagon (Glucagen) 1 mg Q15M PRN IM DECREASED GLUCOSE; Start 03/24/16 at 09:00 Glucose (Glutose) 15 gm Q15M PRN BUCCAL DECREASED GLUCOSE; Start 03/24/16 at 09: 00 Lorazepam (Ativan) 1 mg Q2H PRN IV AGITATION Last administered on 04/15/16 03: 32; Admin Dose 1 MG; Start 03/24/16 at 11:30 Nystatin (Nystatin Oint) 1 applic TID TOP Last administered on 04/22/16 08:34; Admin Dose 1 APPLIC; Start 03/27/16 at 09:00 Metronidazole (Flagyl) 500 mg Q8 PO Last administered on 04/22/16 05:47; Admin Dose 500 MG; Start 03/28/16 at 14:00 Zolpidem Tartrate (Ambien) 5 mg QHS PRN PO INSOMNIA Last administered on 01:47; Admin Dose 5 MG; Start 04/01/16 at 13:30 Levofloxacin (Levaquin) 750 mg DAILY@06 PO Last administered on 04/22/16 05:47 ; Admin Dose 750 MG; Start 04/03/16 at 06:00 Lactobacillus Acidophilus/ Rhamnosus (Culturelle) 1 cap BID PO Last administered on 04/22/16 08:32; Admin Dose 1 CAP; Start 04/02/16 at 12:00 Multivitamins Therapeutic (Theragran) 1 tab DAILY PO Last administered on 08:32; Admin Dose 1 TAB; Start 04/02/16 at 12:00 Insulin Glargine (Lantus) 20 unit HS SC Last administered on 04/21/16 21:34; Admin Dose 20 UNIT; Start 04/02/16 at 21:00 Collagenase (Santyl) 1 applic DAILY TOP Last administered on 04/21/16 08:18; Admin Dose 1 APPLIC; Start 04/06/16 at 13:30 Enoxaparin Sodium 40 mg 40 mg DAILY SC Last administered on 04/22/16 08:32; Admin Dose 40 MG; Start 04/13/16 at 09:00 Vancomycin HCl/ Sodium Chloride (Vancocin/NS) 250 ml @ 83.333 mls/ hr Q8H IVPB Last administered on 04/22/16 12:20; Admin Dose 83.333 MLS/HR; Start 04/20/16 at 12:00 SLIME ORTEGA MD Apr 22, 2016 13:13
[2016-04-22] MEDS: COLLAGENASE 30 GM TUBE TOP SCH (14:30)
[2016-04-22 19:59] VITALS: BP 137/82; RESP 18
[2016-04-22] MEDS: INSULIN GLARGINE [LANtus] 3 ML PEN SC SCH (20:34)
[2016-04-23] MEDS: VANCOMYCIN 1.25 GM in SOD CHLORIDE 0.9% 250 ML IVPB SCH ×2 (04:11→11:49)
[2016-04-23] MEDS: metroNIDAZOLE 500 MG TAB PO SCH (05:44)
[2016-04-23] MEDS: LEVOFLOXACIN 750 MG TABLET PO SCH (05:44)
[2016-04-23 07:03] LABS: ADD UMIC NO; URINE BILIRUBIN (Dip) NEGATIVE (NEGATIVE); URINE BLOOD (Dip) NEGATIVE (NEGATIVE); URINE COLOR LT. YELLOW (YELLOW); URINE GLUCOSE (Dip) NEGATIVE (NEGATIVE); URINE KETONES (Dip) NEGATIVE (NEGATIVE); URINE LEUKOCYTE ESTERASE (Dip) NEGATIVE (NEGATIVE); URINE NITRITE (Dip) NEGATIVE (NEGATIVE); URINE TOTAL PROTEIN (Dip) NEGATIVE (NEGATIVE); URINE UROBILINOGEN (Dip) 0.2 E.U./dL (0.1-1.0)
[2016-04-23] MEDS: INSULIN ASPART [NOVOLOG] 3 ML PEN SC SCH ×4 (08:44→12:01)
[2016-04-23] MEDS: LACTOBACILLUS RHAMNOSUS CAP PO SCH (09:00)
[2016-04-23] MEDS: MULTIVITAMINS THERAPEUTIC TAB PO SCH (10:02)
[2016-04-23] MEDS: ENOXAPARIN 40 MG/0.4 ML SYG SC SCH (10:03)
[2016-04-23] MEDS: NICOTINE (14 MG/24 HR) PATCH TRANSDERM SCH (10:04)
[2016-04-23] MEDS: COLLAGENASE 30 GM TUBE TOP SCH (10:06)
[2016-04-23] MEDS: NYSTATIN TOP SCH ×2 (10:09→11:54)
[2016-04-23] MEDS: ACETAMINOPHEN 325 MG TAB PO PRN (10:42)
--- NOTE | 2016-04-23 12:09 | PDOCDIS ---
Discharge Instructions CONDITION Patient Condition: Good HOME CARE INSTRUCTIONS: Diet Instructions: 1800 ada,carbohydrate controlledSpecial Diet: 1800 ada ACTIVITY: Activity Restrictions: Rest between Activity Avoid heavy lifting Avoid Heavy Housework No Weight Bearing Activity Restrictions Comment: non-weight bearing to right lower extremity FOLLOW UP/APPOINTMENTS Appointments Follow up with PCP in one week Follow up with ID as out-pt LIOR TOTH MD Apr 23, 2016 12:08
[2016-04-23] MEDS ORDERED: MULTI PO (12:12)
[2016-04-23] MEDS ORDERED: LACT1CAP57 PO (12:12)
[2016-04-23] MEDS ORDERED: LANT3I SC (12:12)
[2016-04-23] MEDS ORDERED: NOVO3I SC (12:12)
[2016-04-23] MEDS ORDERED: LEVO750T25 PO (12:12)
--- NOTE | 2016-04-24 00:35 | DS ---
DATE OF ADMISSION: 03/23/2016 DATE OF DISCHARGE: 04/23/2016 CONSULTANTS: 1. Dr. Jasson Patterson 2. Dr. Colten Cuellar 3. Dr. Maritza Hall PROCEDURES: 1. Incision and drainage of the right foot abscess with cellulitis. 2. Surgical debridement of necrotic open wound of the left foot. DISCHARGE DIAGNOSES: 1. Right foot abscess with cellulitis. 2. Necrotic right foot open wound. 3. Gangrene of right 5th toe. 4. History of prior amputation of the right hallux. 5. Diabetes mellitus. 6. Peripheral neuropathy. 7. Peripheral vascular disease. 8. History of substance abuse. MEDICATIONS: 1. Insulin aspart 4 units with meals. 2. Lantus 20 units subcu at bedtime. 3. Culturelle 1 cap p.o. b.i.d. 4. Levofloxacin 750 mg p.o. daily. 5. Multivitamin 1 tab p.o. daily. 6. Wellbutrin-XL 150 mg daily. 7. Metformin 500 mg p.o. b.i.d. 8. Topamax 25 mg p.o. b.i.d. 9. Nicotine patch. ALLERGIES: CODEINE. HOSPITAL COURSE: This is a 36-year-old gentleman with past medical history of diabetes mellitus, os teomyelitis of the right foot and peripheral neuropathy, diabetic mellitus, nicotine dependency who was recently discharged from [facility] on February 2016 and had recent I and D of right foot abscess during the hospitalization, MRI did show osteomyelitis of right foot. Patient h as uncontrolled diabetes mellitus, morbid obesity, history of right toe amputation in the past and w as found to be lethargic and confused at the time of admission. His WBC 18.7, hemoglobin 7.3, hemato crit 30.6, platelet 206. Podiatry, infectious disease doctor was consulted. Patient was started on broad spectrum IV antibiotics, IV fluids, Lantus, insulin sliding scale. His mentation started to improve significantly. On 03/31/2016, patient was taken to OR by Podiatry for incision and drainage of right foot abscess with cellulitis and surgical debridement of necrotic open wound of the left f oot The patient tolerated the procedure well and was continued on aggressive medical management on 0 04/07/2015 he had an amputation of gangrenous right 5th toe and surgical debridement of multiple open wounds using a sharp 15 blade to bleeding tendon and muscle tissue measuring 8.8 cm. The patient t olerated the procedure well and was continued to be seen and evaluated by the wound care, infectious disease and was continued to be followed by podiatry. He has been continued on broad-spectrum IV a ntibiotics. PLAN: 1. As of today, patient has been cleared by infectious disease doctor to be discharged on Levaquin 750 mg p.o. daily x21 days/3 weeks. Patient also will be discharged on Culturelle and he will be co ntinued on his home medication. 2. Diabetes mellitus. His diabetes mellitus is well controlled on insulin sliding scale, Lantus and premeal. At this time the patient is medically stable to be discharged home with a close followup with podiat ry and infectious disease as outpatient. Total amount of time spent for patient's discharge workup 40 minutes. Dictated By: LIOR PEARL/ROBIN Conf#: [id number] DID#: [id number]
== END 2016-04-23 16:31 | disposition home health service (06) | DRG 853 ==
LOC: E/R 16:01 → MS4 21:33 → PP2 03-29 20:51
PROVIDERS: ADMIT Internal Medicine; ATTEND Internal Medicine
PROC: 0QBL0ZZ Excision of Right Tarsal, Open Approach (ICD-10-PCS; 2016-03-31)
PROC: 0QBQ0ZZ Excision of Right Toe Phalanx, Open Approach (ICD-10-PCS; 2016-03-31)
PROC: 0QBN0ZZ Excision of Right Metatarsal, Open Approach (ICD-10-PCS; principal; 2016-03-31 10:30)
PROC: 0Y6X0Z1 Detachment at Right 5th Toe, High, Open Approach (ICD-10-PCS; 2016-04-07)
PROC: 0QBL0ZZ Excision of Right Tarsal, Open Approach (ICD-10-PCS; 2016-04-07)
PROC: 0QBN0ZZ Excision of Right Metatarsal, Open Approach (ICD-10-PCS; 2016-04-07)
DX: A41.9 Sepsis, unspecified organism (principal); G93.40 Encephalopathy, unspecified; E11.52 Type 2 diabetes mellitus with diabetic peripheral angiopathy with gangrene; E11.621 Type 2 diabetes mellitus with foot ulcer; M86.171 Other acute osteomyelitis, right ankle and foot; Z68.41 Body mass index [BMI] 40.0-44.9, adult; L03.115 Cellulitis of right lower limb; F19.20 Other psychoactive substance dependence, uncomplicated; Z79.4 Long term (current) use of insulin; E66.01 Morbid (severe) obesity due to excess calories; Z91.19 Patient's noncompliance with other medical treatment and regimen; Z78.1 Physical restraint status; E11.65 Type 2 diabetes mellitus with hyperglycemia; L97.512 Non-pressure chronic ulcer of other part of right foot with fat layer exposed; E11.69 Type 2 diabetes mellitus with other specified complication; F41.8 Other specified anxiety disorders; Z89.411 Acquired absence of right great toe; Z72.0 Tobacco use; R65.20 Severe sepsis without septic shock; B96.5 Pseudomonas (aeruginosa) (mallei) (pseudomallei) as the cause of diseases classified elsewhere; B96.89 Other specified bacterial agents as the cause of diseases classified elsewhere; B95.1 Streptococcus, group B, as the cause of diseases classified elsewhere; B18.2 Chronic viral hepatitis C; F15.10 Other stimulant abuse, uncomplicated
CPT/HCPCS: 36415; 71010; 73630; 80048; 80053; 80076; 80202; 80306; 80307; 81001; 81003; 82565; 82962; 83036; 83540; 83605; 83735; 84100; 84443; 84484; 84520; 85025; 85610; 85730; 86360; 86703; 86704; 86706; 86709; 86803; 87040; 87070; 87086; 87340; 87522; 87536; 88304; 88305; 88311; 93306; 96372; 96374; 96375; 96376; C9113; J0690; J1100; J1200; J1630; J1650; J1815; J1885; J1956; J2001; J2060; J2250; J2270; J2405; J2543; J2710; J3010; J3370; J3480; J7030; J7040; J7050

== ENCOUNTER 2016-05-30 15:05 | Emergency (ER) | payer OTHER ==
[~2016-05-30] VITALS: Ht 172.7 cm; Wt 50.5 kg
[~2016-05-30 15:05] MED LIST changes: -CEPASTAT MT; +LACT1CAP57 PO; -LEVO500T72 PO; +LEVO750T25 PO; +MULTI PO
--- NOTE | 2016-05-30 15:21 | QN ---
Documentation Comment Medical screening exam initiated upon arrival. Chief complaint diarrhea will be sent to intake for vitals and will be seen by another provider. KELIN LESTER MD May 30, 2016 15:21
[2016-05-30 16:17] VITALS: Ht 172.7 cm; Wt 50.5 kg
[2016-05-30] MEDS ORDERED: BELLADONNA/PHENOBARBITAL TAB PO STA (18:38)
[2016-05-30] MEDS ORDERED: SOD CHLORIDE 0.9% 1,000 ML IV STA (18:38)
[2016-05-30] MEDS ORDERED: ONDANSETRON 4 MG INJ IV STA (18:38)
[2016-05-30] MEDS ORDERED: FAMOTIDINE 20 MG INJ IV STA (18:38)
[2016-05-30] MEDS ORDERED: LIDOCAINE/MYLANTA 40 ML BTL PO STA (18:38)
[2016-05-30 19:16] LABS: ADD SCAN DIFF NO
[2016-05-30 19:19] LABS: ADD UMIC YES; BASOPHILS % 0.5 % (0.0-2.0); EOSINOPHILS % 0.3 % (0.0-7.0); HEMATOCRIT 46.8 % (42.0-52.0); HEMOGLOBIN 14.8 g/dl (14.0-18.0); LYMPHOCYTES % 11.2 % (15.0-51.0); MEAN CORPUSCULAR HEMOGLOBIN 25.1 pg (29.0-33.0); MEAN CORPUSCULAR HGB CONC 31.6 g/dl (32.0-37.0); MEAN CORPUSCULAR VOLUME 79.5 fl (82.0-101.0); MEAN PLATELET VOLUME 9.4 fl (7.4-10.4); MONOCYTE # 0.6 10^3/ul (0.3-0.9); MONOCYTES % 7.3 % (0.0-11.0); NEUTROPHILS % 80.1 % (39.0-77.0); PLATELET COUNT 262 10^3/UL (140-415); RED BLOOD COUNT 5.89 10^6/ul (4.70-6.10); URINE BILIRUBIN (Dip) NEGATIVE (NEGATIVE); URINE BLOOD (Dip) NEGATIVE (NEGATIVE); URINE COLOR YELLOW (YELLOW); URINE GLUCOSE (Dip) NEGATIVE (NEGATIVE); URINE KETONES (Dip) NEGATIVE (NEGATIVE); URINE LEUKOCYTE ESTERASE (Dip) NEGATIVE (NEGATIVE); URINE NITRITE (Dip) NEGATIVE (NEGATIVE); URINE TOTAL PROTEIN (Dip) 1+ (NEGATIVE); URINE UROBILINOGEN (Dip) 0.2 E.U./dL (0.1-1.0); WHITE BLOOD COUNT 8.7 10^3/ul (4.8-10.8)
[2016-05-30 19:30] LABS: URINE RBCS NONE SEEN /HPF (0)
[2016-05-30 19:31] LABS: ALBUMIN 3.6 g/dl (3.3-4.9); BACTERIA,URINE FEW
[2016-05-30 19:34] LABS: ALBUMIN/GLOBULIN RATIO 0.92; BILIRUBIN,INDIRECT 0.2 mg/dl (0-1.1); BILIRUBIN,TOTAL 0.2 mg/dl (0.2-1.3); CALCIUM 8.6 mg/dl (8.4-10.2); CREATININE 1.01 mg/dl (0.61-1.24); TOTAL PROTEIN 7.5 g/dl (6.1-8.1)
[2016-05-30] MEDS ORDERED: ONDA4TAB8 PO (19:48)
[2016-05-30] MEDS ORDERED: DICY10CA60 PO (19:49)
[2016-05-30] MEDS ORDERED: LOPE2CAP PO (19:49)
--- NOTE | 2016-05-30 19:59 | ERD ---
ER Documentation Chief Complaint Date/Time DATE: 05/30/16 TIME: 19:53 Chief Complaint BROUGHT IN VIA EMS DUE TO DIARRHEA AND VOMITING WITH NONE PRESENT HPI This is a 36-year-old male that is brought into the ER via ambulance due to nausea vomiting and diarrhea. Patient has had this for the last 3 days. He denies any fevers or chills. He does complain of generalized abdominal pain. Patient states that he is unable to eat or drink anything. Patient has a past medical history of diabetes. Vomiting is nonbilious nonbloody. Diarrhea is nonbloody. Patient has not traveled anywhere. He denies any sick contacts at home. She denies any urinary frequency or dysuria, he denies any hematuria. ROS 12 point review of systems was done, all negative except per HPI. Medications Home Meds Active Scripts Dicyclomine Hcl* (Bentyl*) 10 Mg Capsule, 10 MG PO QID for 5 Days, CAP Prov:DANIEL BETTENCOURT 05/30/16 Loperamide Hcl* (Imodium*) 2 Mg Capsule, 2 MG PO .AFTER EA LOOSE BM Y for DIARRHEA, #10 TAB Prov:DANIEL BETTENCOURT 05/30/16 Ondansetron Hcl* (Zofran*) 4 Mg Tablet, 4 MG PO Q6H for NAUSEA AND/OR VOMITING, #30 TAB Prov:DANIEL BETTENCOURT 05/30/16 Multivitamins* (Theragran*) 1 Tab Tab, 1 TAB PO DAILY, #30 TAB Prov:LIOR TOTH MD 04/23/16 Levofloxacin* (Levaquin*) 750 Mg Tablet, 750 MG PO DAILY@06 for 21 Days, TAB Prov:LIOR TOTH MD 04/23/16 Lactobacillus Rhamnosus* (Culturelle*) 1 Each Cap.sprink, 1 CAP PO BID, #60 CAP Prov:LIOR TOTH MD 04/23/16 Insulin Glargine* (Lantus*) 100 Unit/Ml Soln, 20 UNIT SC HS for 30 Days Prov:LIOR TOTH MD 04/23/16 Insulin Aspart* (Novolog Insulin Pen*) 100 Unit/Ml Soln, 4 UNIT SC AC MEALS for 30 Days Prov:LIOR TOTH MD 2/6/17 Topiramate* (Topamax*) 25 Mg Tablet, 25 MG PO BID for 30 Days, #60 TAB 1 Refill Prov:AYAAN YAO S. 03/10/16 Bupropion Hcl* (Bupropion XL*) 150 Mg Tab.er.24h, 150 MG PO DAILY for 30 Days, # 30 1 Refill Prov:IVETTE YOAP S. 03/10/16 [Nicotine (14 Mg/24 Hr)] 1 PATCH PATCH No Conflict Check, 1 PATCH TRANSDERM DAILY for 30 Days, #30 1 Refill Prov:IVETTE YAOP S. 03/10/16 Metformin Hcl (Glucophage) 500 Mg Tablet, 500 MG PO BID WITH MEALS for 30 Days, #60 TAB 2 Refills Prov:AYAAN YAO S. 03/10/16 Allergies Allergies: Coded Allergies: codeine (Verified Allergy, Mild, UNKNOWN, 03/23/16) PMhx/Soc Medical and Surgical Hx: pt denies Medical Hx, pt denies Surgical Hx History of Surgery: No Hx Neurological Disorder: No Hx Respiratory Disorders: No Hx Cardiac Disorders: No Hx Psychiatric Problems: No Hx Miscellaneous Medical Probl: Yes (Metamphetamine abuse) Hx Alcohol Use: Yes Hx Substance Use: Yes (meth) Hx Tobacco Use: Yes Smoking Status: Current some day smoker Physical Exam Vitals Vital Signs Date Time Temp Pulse Resp B/P Pulse Ox O2 Delivery O2 Flow Rate FiO2 05/30/16 16:17 98.5 107 18 116/70 98 Physical Exam GENERAL: The patient is well-developed, well-nourished, in no acute distress. HEENT: Atraumatic. Pupils equal, round and reactive to light. Extraocular muscles are grossly intact. Conjunctivae pink, no discharge. The oropharynx is clear with no erythema or exudates and the mucosa is moist. No signs of dehydration. RESPIRATORY: Clear to auscultation bilaterally. There are no rales, wheezes or rhonchi. There is no inspiratory stridor or retractions. No flaring/retractions. HEART: Regular rate and rhythm. No murmurs, clicks, rubs or gallops. ABDOMEN: Soft, nontender, nondistended. Active bowel sounds in all 4 quadrants. No rebounding or guarding. Negative McBurney point tenderness. NEUROLOGIC: Alert and oriented. SKIN: The skin is warm and dry. Normal capillary refill. Result Diagram: 05/30/16185105/30/161851 Results 24 hrs Laboratory Tests Test 05/30/16 18:52 Alanine Aminotransferase (ALT/SGPT) 39IU/L Albumin 3.6g/dl Albumin/Globulin Ratio 0.92 Alkaline Phosphatase 86IU/L Anion Gap 18 Aspartate Amino Transf (AST/SGOT) 24IU/L Basophils # 0.010^3/ul Basophils % 0.5% Blood Urea Nitrogen 24mg/dl Calcium Level 8.6mg/dl Carbon Dioxide Level 26mmol/L Chloride Level 99mmol/L Creatinine 1.01mg/dl Direct Bilirubin 0.00mg/dl Eosinophils # 0.010^3/ul Eosinophils % 0.3% Globulin 3.90g/dl Glucose Level 172mg/dl Hematocrit 46.8% Hemoglobin 14.8g/dl Indirect Bilirubin 0.2mg/dl Lipase 26U/L Lymphocytes # 1.010^3/ul Lymphocytes % 11.2% Mean Corpuscular Hemoglobin 25.1pg Mean Corpuscular Hemoglobin Concent 31.6g/dl Mean Corpuscular Volume 79.5fl Mean Platelet Volume 9.4fl Monocytes # 0.610^3/ul Monocytes % 7.3% Neutrophils # 7.010^3/ul Neutrophils % 80.1% Nucleated Red Blood Cells # 0.010^3/ul Nucleated Red Blood Cells % 0.0/100WBC Platelet Count 34499^3/UL Potassium Level 4.0mmol/L Red Blood Count 5.8910^6/ul Red Cell Distribution Width 15.0% Sodium Level 139mmol/L Total Bilirubin 0.2mg/dl Total Protein 7.5g/dl Urine Bacteria FEW Urine Bilirubin NEGATIVE Urine Clarity SLIGHTLY CLOUDY Urine Color YELLOW Urine Epithelial Cells MODERATE Urine Glucose NEGATIVE% Urine Hemoglobin NEGATIVE Urine Ketones NEGATIVE Urine Leukocyte Esterase NEGATIVE Urine Microscopic RBC NONE SEEN/HPF Urine Microscopic WBC 0-2/HPF Urine Nitrite NEGATIVE Urine Specific [place] >=1.030 Urine Total Protein 1+ Urine Urobilinogen 0.2 E.U./dL Urine pH 6.0 White Blood Count 8.710^3/ul Current Medications Medications (Trade) Dose Ordered Sig/Jovita Route PRN Reason Start Time Stop Time Status Last Admin Dose Admin Sodium Chloride (NS) 1,000 ml @ 1,000 mls/hr Q1H STAT IV 05/30/16 18:38 05/30/16 19:37 DC 05/30/16 19:04 Ondansetron HCl (Zofran Inj) 4 mg ONCE STAT IV 05/30/16 18:38 05/30/16 18:40 DC 05/30/16 19:04 Famotidine (Pepcid Iv) 20 mg ONCE STAT IV 05/30/16 18:38 05/30/16 18:40 DC 05/30/16 19:04 Miscellaneous Medication (Gi Cocktail (2)) 40 ml ONCE STAT PO 05/30/16 18:38 05/30/16 18:40 DC 05/30/16 19:04 Belladonna/ Phenobarbital () 2 tab ONCE STAT PO 05/30/16 18:38 05/30/16 18:40 DC 05/30/16 19:04 Procedures/MDM Differential Diagnosis includes but is not limited to; Acute gastroenteritis, small bowel obstruction, appendicitis, DKA, ICH, meningitis. This is likely viral gastroenteritis. Patient's physical examination was benign. Patient is afebrile and well-appearing. Patient was given fluids in the ER. There was no evidence of leukocytosis or any electrolyte abnormality. Patient's blood sugar was also within normal limits. Suspicion for acute abdomen is low. Patient will be sent home with Zofran, ImArianna garza. He needs to follow-up with his primary care doctor within 1-2 days or return to ER sooner if symptoms worsen. My medical decision making was shared with the patient he understands and agrees with plan. Departure Diagnosis: Primary Impression: Nausea vomiting and diarrhea Condition: Stable Patient Instructions: Food Poisoning Or Gastroenteritis (6Y-Adult) Additional Instructions: Call your primary care doctor TOMORROW for an appointment during the next 1-2 days.See the doctor sooner or return here if your condition worsens before your appointment time. DANIEL BETTENCOURT May 30, 2016 19:59
[2016-05-30 20:50] VITALS: BP 115/59; PULSE 98; RESP 18; TEMP 98
== END 2016-05-30 20:51 | disposition home or self-care (01) ==
LOC: FTE 15:05
DX: R11.2 Nausea with vomiting, unspecified (principal); F17.210 Nicotine dependence, cigarettes, uncomplicated; R19.7 Diarrhea, unspecified; E11.9 Type 2 diabetes mellitus without complications; Z79.84 Long term (current) use of oral hypoglycemic drugs; Z79.4 Long term (current) use of insulin
CPT/HCPCS: 36415; 80053; 81001; 83690; 85025; 96374; 96375; J2405; J7030; Z7502; Z7610; 81003

== ENCOUNTER 2016-07-27 01:01 | Emergency (ER) | payer OTHER ==
[~2016-07-27] VITALS: Ht 172.7 cm; Wt 113.5 kg
[~2016-07-27 01:01] MED LIST changes: +DICY10CA60 PO; +LOPE2CAP PO; +ONDA4TAB8 PO
[2016-07-27 01:04] VITALS: Ht 172.7 cm; Wt 113.5 kg
[2016-07-27] MEDS ORDERED: SOD CHLORIDE 0.9% 1,000 ML IV ONE (03:30)
[2016-07-27 04:10] LABS: ADD SCAN DIFF NO
[2016-07-27 04:18] LABS: BASOPHIL # 0.1 10^3/ul (0.0-0.1); BASOPHILS % 0.5 % (0.0-2.0); EOSINOPHILS # 0.5 10^3/ul (0.0-0.5); EOSINOPHILS % 4.6 % (0.0-7.0); HEMATOCRIT 39.5 % (42.0-52.0); LYMPHOCYTES # 2.4 10^3/ul (0.8-2.9); LYMPHOCYTES % 23.4 % (15.0-51.0); MEAN CORPUSCULAR HEMOGLOBIN 24.6 pg (29.0-33.0); MEAN CORPUSCULAR HGB CONC 30.4 g/dl (32.0-37.0); MEAN CORPUSCULAR VOLUME 80.9 fl (82.0-101.0); MEAN PLATELET VOLUME 9.9 fl (7.4-10.4); MONOCYTE # 0.6 10^3/ul (0.3-0.9); MONOCYTES % 5.8 % (0.0-11.0); NEUTROPHIL # 6.6 10^3/ul (1.6-7.5); NEUTROPHILS % 64.8 % (39.0-77.0); PLATELET COUNT 368 10^3/UL (140-415); RED BLOOD COUNT 4.88 10^6/ul (4.70-6.10); RED CELL DISTRIBUTION WIDTH 14.3 % (11.5-14.5); WHITE BLOOD COUNT 10.2 10^3/ul (4.8-10.8)
--- NOTE | 2016-07-27 04:21 | RADRPT ---
PROCEDURE: LEFT SECOND DIGIT - 3 VIEWS CLINICAL INDICATION: 36-year-old male with left second digit pain and swelling. TECHNIQUE: AP, lateral and oblique views of the left second digit were obtained. The images review ed on a PACS workstation. COMPARISON: None. FINDINGS: The bones of the second digit appear intact, with no evidence of fracture, dislocation, or subluxati on. There is no evidence for cortical erosion. The joint spaces are preserved. Bone mineralization i s within normal limits. Diffuse soft tissue swelling is noted. There is no evidence for radiopaque foreign body. IMPRESSION: 1. No acute fracture, dislocation or cortical erosion. 2. Diffuse soft tissue swelling. .Edgard Douglas MD, MD Date Time Electronically viewed and signed by .Edgard Douglas MD, on 07/27/2016 04:21 .M/
[2016-07-27] MEDS ORDERED: PIPER-TAZO 3.375 GM IV (PMX) 100 ML IVPB ONE (04:30)
[2016-07-27] MEDS ORDERED: VANCOMYCIN 1 GM (PMX) 250 ML IVPB SCH (04:30)
[2016-07-27 04:36] LABS: ALBUMIN 3.4 g/dl (3.3-4.9); ALBUMIN/GLOBULIN RATIO 0.75; BILIRUBIN,INDIRECT 0.1 mg/dl (0-1.1); BILIRUBIN,TOTAL 0.1 mg/dl (0.2-1.3); CALCIUM 8.8 mg/dl (8.4-10.2); CREATININE 0.84 mg/dl (0.61-1.24); POTASSIUM 3.7 mmol/L (3.5-5.1); TOTAL PROTEIN 7.9 g/dl (6.1-8.1)
--- NOTE | 2016-07-27 04:52 | ERA ---
ER Documentation Chief Complaint Date/Time DATE: 07/27/16 TIME: 04:48 [facility] The patient is a 36-year-[facility] male, presenting to the ER because of left index finger wound for the last 4 days. It first started out from the Accu-Chek needle, then get infected now is getting worse. The left index finger is now ulcerated with discharge. He denies fever, chills, neck pain, chest pain, abdominal pain, vomiting, dysuria, diarrhea. ROS All systems reviewed and are negative except as per history of present illness. Medications Home Meds Active Scripts Dicyclomine Hcl* (Bentyl*) 10 Mg Capsule, 10 MG PO QID for 5 Days, CAP Prov:DANIEL BETTENCOURT 05/30/16 Loperamide Hcl* (Imodium*) 2 Mg Capsule, 2 MG PO .AFTER EA LOOSE BM Y for DIARRHEA, #10 TAB Prov:DANIEL BETTENCOURT 05/30/16 Ondansetron Hcl* (Zofran*) 4 Mg Tablet, 4 MG PO Q6H for NAUSEA AND/OR VOMITING, #30 TAB Prov:DANIEL BETTENCOURT 05/30/16 Multivitamins* (Theragran*) 1 Tab Tab, 1 TAB PO DAILY, #30 TAB Prov:LIOR TOTH MD 04/23/16 Levofloxacin* (Levaquin*) 750 Mg Tablet, 750 MG PO DAILY@06 for 21 Days, TAB Prov:LIOR TOTH MD 04/23/16 Lactobacillus Rhamnosus* (Culturelle*) 1 Each Cap.sprink, 1 CAP PO BID, #60 CAP Prov:LIOR TOTH MD 04/23/16 Insulin Glargine* (Lantus*) 100 Unit/Ml Soln, 20 UNIT SC HS for 30 Days Prov:LIOR TOTH MD 04/23/16 Insulin Aspart* (Novolog Insulin Pen*) 100 Unit/Ml Soln, 4 UNIT SC AC MEALS for 30 Days Prov:LIOR TOTH MD 04/23/16 Topiramate* (Topamax*) 25 Mg Tablet, 25 MG PO BID for 30 Days, #60 TAB 1 Refill Prov:AYAAN YAO 03/10/16 Bupropion Hcl* (Bupropion XL*) 150 Mg Tab.er.24h, 150 MG PO DAILY for 30 Days, # 30 1 Refill Prov:AYAAN YAO S. 03/10/16 [Nicotine (14 Mg/24 Hr)] 1 PATCH PATCH No Conflict Check, 1 PATCH TRANSDERM DAILY for 30 Days, #30 1 Refill Prov:AYAAN YAO S. 03/10/16 Metformin Hcl (Glucophage) 500 Mg Tablet, 500 MG PO BID WITH MEALS for 30 Days, #60 TAB 2 Refills Prov:AYAAN YAO S. 03/10/16 Allergies Allergies: Coded Allergies: codeine (Verified Allergy, Mild, UNKNOWN, 03/23/16) PMhx/Soc Medical and Surgical Hx: pt denies Medical Hx, pt denies Surgical Hx History of Surgery: No Hx Neurological Disorder: No Hx Respiratory Disorders: No Hx Cardiac Disorders: No Hx Psychiatric Problems: No Hx Miscellaneous Medical Probl: Yes (Metamphetamine abuse, DM) Hx Alcohol Use: Yes Hx Substance Use: Yes (meth) Hx Tobacco Use: Yes Smoking Status: Never smoker Physical Exam Vitals Vital Signs Date Time Temp Pulse Resp B/P Pulse Ox O2 Delivery O2 Flow Rate FiO2 07/27/16 01:04 97.8 104 20 127/79 98 Physical Exam Const: No acute distress. Head: Atraumatic. Eyes: Normal Conjunctiva. ENT: Normal External Ears, Nose and Mouth. Neck: Full range of motion. No meningismus. Resp: Clear to auscultation bilaterally. Cardio: Regular rate and rhythm, no murmurs. Abd: Soft, non distended, normal bowel sounds, non tender. Skin: No petechiae or rashes. Back: No midline or flank tenderness. Ext: Left volar index finger is ulcerated with discharge and erythema and edema Neur: Awake and alert. No focal deficit Psych: Normal Mood and Affect. Result Diagram: 07/27/1634907/27/16349 Results 24 hrs Laboratory Tests Test 07/27/16 03:50 White Blood Count 10.210^3/ul Red Blood Count 4.8810^6/ul Hemoglobin 12.0g/dl Hematocrit 39.5% Mean Corpuscular Volume 80.9fl Mean Corpuscular Hemoglobin 24.6pg Mean Corpuscular Hemoglobin Concent 30.4g/dl Red Cell Distribution Width 14.3% Platelet Count 83043^3/UL Mean Platelet Volume 9.9fl Neutrophils % 64.8% Lymphocytes % 23.4% Monocytes % 5.8% Eosinophils % 4.6% Basophils % 0.5% Nucleated Red Blood Cells % 0.0/100WBC Neutrophils # 6.610^3/ul Lymphocytes # 2.410^3/ul Monocytes # 0.610^3/ul Eosinophils # 0.510^3/ul Basophils # 0.110^3/ul Nucleated Red Blood Cells # 0.010^3/ul Sodium Level 137mmol/L Potassium Level 3.7mmol/L Chloride Level 100mmol/L Carbon Dioxide Level 28mmol/L Anion Gap 13 Blood Urea Nitrogen 26mg/dl Creatinine 0.84mg/dl Glucose Level 170mg/dl Lactic Acid Level 1.6mmol/L Calcium Level 8.8mg/dl Total Bilirubin 0.1mg/dl Direct Bilirubin 0.00mg/dl Indirect Bilirubin 0.1mg/dl Aspartate Amino Transf (AST/SGOT) 22IU/L Alanine Aminotransferase (ALT/SGPT) 39IU/L Alkaline Phosphatase 79IU/L Total Protein 7.9g/dl Albumin 3.4g/dl Globulin 4.50g/dl Albumin/Globulin Ratio 0.75 Current Medications Medications (Trade) Dose Ordered Sig/Jovita Route PRN Reason Start Time Stop Time Status Last Admin Dose Admin Sodium Chloride 1,000 ml @ 1,000 mls/hr Q1H ONCE IV 07/27/16 03:30 07/27/16 04:29 DC 07/27/16 03:54 Vancomycin HCl 250 ml @ 125 mls/hr ONCE IVPB 07/27/16 04:30 07/27/16 06:29 Piperacillin Sod/ Tazobactam Sod (Zosyn 3.375gm/ 100 ml (Pmx)) 100 ml @ 200 mls/hr ONCE ONCE IVPB 07/27/16 04:30 07/27/16 04:59 07/27/16 04:16 Procedures/MDM [place] [id number] Radiology Main Line: [phone] DIAGNOSTIC IMAGING REPORT Patient: SHANE PIRES : 1980 Age: 36 Sex: M MR #: [id number] [facility] #: [id number] DOS: 07/27/16 0310 Ordering MD: CARL ISAAC NP Location: [facility] Room/Bed: PROCEDURE: LEFT SECOND DIGIT - 3 VIEWS CLINICAL INDICATION: 36-year-old male with left second digit pain and swelling. TECHNIQUE: AP, lateral and oblique views of the left second digit were obtained. The images reviewed on a PACS workstation. COMPARISON: None. FINDINGS: The bones of the second digit appear intact, with no evidence of fracture, dislocation, or subluxation. There is no evidence for cortical erosion. The joint spaces are preserved. Bone mineralization is within normal limits. Diffuse soft tissue swelling is noted. There is no evidence for radiopaque foreign body. IMPRESSION: 1. No acute fracture, dislocation or cortical erosion. 2. Diffuse soft tissue swelling. .Edgard Douglas MD, MD Date Time Electronically viewed and signed by .Edgard Douglas MD, MD on 07/27/2016 04:21 .M/ CC: CARL ISAAC NP MEDICAL MAKING DECISION: The patient is a 36-year-old male, presenting with left index finger diabetic ulcer. He will need to be admitted for IV antibiotic The differential diagnoses considered include but are not limited to colitis, abscess, osteomyelitis, gangrene Departure Diagnosis: Primary Impression: Cellulitis of left index finger Additional Impression: Anemia Condition: Stable Comments I discussed the findings with the patient. I discussed the patient with the hospitalist Dr. Saldana who was made aware of the lab, the treatment, the patient condition. The patient is admitted to medical surgery bed at 4:50 AM SHANE URIAS MD July 27, 2016 04:52
[2016-07-27 07:00] VITALS: BP 118/60; PULSE 62; RESP 20; TEMP 97.8
[2016-07-27] MEDS ORDERED: ONDANSETRON 4 MG INJ IV PRN ×2 (09:00→13:00)
[2016-07-27] MEDS ORDERED: ACETAMINOPHEN 325 MG TAB PO PRN (09:00)
--- NOTE | 2016-07-27 09:58 | EN ---
Date/Time of Note Date/Time of Note DATE: 07/27/16 TIME: 09:52 Event Note Medicine Medicine Event Note Patient has a deep infection of the 2nd index finger. I recommend that pt be evaluated by a hand surgeon or any surgeon willing to do debridement. i am cancelling admitting pt until pt is evaluated by a specialist. It is extremely difficult to get a hand surgeon to come to this hospital and we don't have one on stuff. note that this is not a diagnosis of cellulitis as mentioned on ER note. EMELIA JOINER MD July 27, 2016 09:58
--- NOTE | 2016-07-27 11:20 | EN ---
Date/Time of Note Date/Time of Note DATE: 07/27/16 TIME: 11:19 ER Progress Note I was asked by Dr. Saldana to consult Dr. Gong, orthopedic surgeon, in case of need for debridement or amputation for soft tissue infection and possible underlying osteomyelitis. I spoke with Dr. Gong, who agrees to consult on this patient as an inpatient. PEDRO PABLO THORNE MD July 27, 2016 11:20
--- NOTE | 2016-07-27 12:50 | HP ---
Date/Time of Note Date/Time of Note DATE: 07/27/16 TIME: 12:46 Assessment/Plan VTE Prophylaxis VTE Prophylaxis Intervention: SCD's Lines/Catheters IV Catheter Type (from Nrsg): Saline Lock Assessment/Plan Assessment/Plan 1. Left Index finder infection, with open wound - broad spectrum abx - pain mgmt - awaiting ortho eval 2. Right foot Osteomyelitis - pt f/u with Dr. Colten Cuellar, last seen 3 days ago. Will notify about pt's admission HPI/ROS Admit Date/Time Admit Date/Time Hx of Present Illness This is a 36 yo male with hx of Right foot osteomyelitis who presented to ER c/ o index finger infection. He said 5 days ago, he noted small infection and pain after checking his blood glucose. He bandaged it up and when he opened it, he realized how much it has worsened. he reported yellowing pus that has been draining from wound. Denied fever/chills. Xray in Er showed Diffuse soft tissue swelling. PMH/Family/Social Social History Smoking Status: Never smoker Exam/Review of Systems Vital Signs Vitals Vital Signs Date Time Temp Pulse Resp B/P Pulse Ox O2 Delivery O2 Flow Rate FiO2 07/27/16 07:00 97.8 62 20 118/60 98 Exam Constitutional: alert, oriented, well developed Head: atraumatic, normocephalic Eyes: EOMI, PERRL Neck: non-tender, supple Respiratory: clear to auscultation, normal air movement Cardiovascular: nl pulses, regular rate and rhythm Gastrointestinal: non-tender, soft Extremities: other (left 2nd finger with open wound with yellowish draining pus ) Labs Result Diagram: 07/27/16 0350 07/27/16 0350 EMELIA JOINER MD July 27, 2016 12:50
[2016-07-27] MEDS ORDERED: traMADol 50 MG TAB PO PRN (13:00)
[2016-07-27] MEDS ORDERED: VANCOMYCIN IV PER PHARMACY XX SCH (13:00)
[2016-07-27] MEDS ORDERED: PIPER-TAZO 3.375 GM IV (PMX) 100 ML IVPB SCH (18:00)
== END 2016-07-27 12:04 | disposition left against medical advice (07) ==
LOC: FTE 01:01
DX: L03.012 Cellulitis of left finger (principal); D64.9 Anemia, unspecified; E11.9 Type 2 diabetes mellitus without complications; Z79.4 Long term (current) use of insulin; Z79.84 Long term (current) use of oral hypoglycemic drugs; Z87.891 Personal history of nicotine dependence
CPT/HCPCS: 73140; 80053; 82962; 83605; 85025; 85651; 87040; 87070; J2543; J3370; J7030; 36415; 96374; 96375

== ENCOUNTER 2016-11-29 16:34 | Inpatient (IN) | payer OTHER ==
[~2016-11-29] VITALS: Ht 172.7 cm; Wt 124.2 kg
[~2016-11-29 16:34] MED LIST changes: -TOPI25TA38 PO; +TOPI25TA51 PO
[2016-11-29 18:59] VITALS: PULSE 81; TEMP 99.4
[2016-11-29] MEDS ORDERED: VANCOMYCIN 1 GM (PMX) 250 ML IVPB STA (19:12)
[2016-11-29] MEDS ORDERED: PIPER-TAZO 3.375 GM IV (PMX) 100 ML IVPB STA (19:12)
--- NOTE | 2016-11-29 19:12 | ERA ---
ER Documentation Chief Complaint Date/Time DATE: 11/29/16 TIME: 19:11 Chief Complaint RIGHT FOOT PAIN/INJURY X 1 WEEK HPI 36y/o male, h/o diabetes mellitus not compliant with insulin for over 2 weeks and recurrent diabetic foor infctions and osteomyelitis presents to the ED c/o one week increasing pain, swelling,redness and foul smelling drainage from right foot. Generalized weakness but no headache, chest pain, palpitations, shortness of breath, fevers or chills. ROS All systems reviewed and are negative except as per history of present illness. Medications Home Meds Active Scripts Multivitamins* (Theragran*) 1 Tab Tab, 1 TAB PO DAILY, #30 TAB Prov:LIOR TOTH MD 04/23/16 Lactobacillus Rhamnosus* (Culturelle*) 1 Each Cap.sprink, 1 CAP PO BID, #60 CAP Prov:LIOR TOTH MD 04/23/16 Topiramate* (Topamax*) 25 Mg Tablet, 25 MG PO BID for 30 Days, #60 TAB 1 Refill Prov:AYAAN YAO S. 03/10/16 Bupropion Hcl* (Bupropion XL*) 150 Mg Tab.er.24h, 150 MG PO DAILY for 30 Days, # 30 1 Refill Prov:AYAAN YAO S. 03/10/16 Metformin Hcl (Glucophage) 500 Mg Tablet, 500 MG PO BID WITH MEALS for 30 Days, #60 TAB 2 Refills Prov:AYAAN YAO S. 03/10/16 Reported Medications Insulin Glargine* (Lantus*) 100 Unit/Ml Soln, 40 UNIT SC QHS, #1 VIAL 11/30/16 Insulin Aspart* (Novolog Insulin Pen*) 100 Unit/Ml Soln, 12 UNIT SC AC MEALS, EA 11/30/16 Discontinued Scripts Dicyclomine Hcl* (Bentyl*) 10 Mg Capsule, 10 MG PO QID for 5 Days, CAP Prov:RUTDANIEL MEEKS 05/30/16 Loperamide Hcl* (Imodium*) 2 Mg Capsule, 2 MG PO .AFTER EA LOOSE BM Y for DIARRHEA, #10 TAB Prov:DANIEL BETTENCOURT 05/30/16 Ondansetron Hcl* (Zofran*) 4 Mg Tablet, 4 MG PO Q6H for NAUSEA AND/OR VOMITING, #30 TAB Prov:DANIEL BETTENCOURT 05/30/16 Levofloxacin* (Levaquin*) 750 Mg Tablet, 750 MG PO DAILY@06 for 21 Days, TAB Prov:LIOR TOTH MD 04/23/16 Insulin Glargine* (Lantus*) 100 Unit/Ml Soln, 20 UNIT SC HS for 30 Days Prov:LIOR TOTH MD 04/23/16 Insulin Aspart* (Novolog Insulin Pen*) 100 Unit/Ml Soln, 4 UNIT SC AC MEALS for 30 Days Prov:LIOR TOTH MD 04/23/16 [Nicotine (14 Mg/24 Hr)] 1 PATCH PATCH No Conflict Check, 1 PATCH TRANSDERM DAILY for 30 Days, #30 1 Refill Prov:AYAAN YAO 03/10/16 Allergies Allergies: Coded Allergies: codeine (Unverified Allergy, Mild, UNKNOWN, 11/30/16) PMhx/Soc reviewed in chart. As per HPI. History of Surgery: No Hx Neurological Disorder: No Hx Respiratory Disorders: No Hx Cardiac Disorders: No Hx Psychiatric Problems: No Hx Miscellaneous Medical Probl: Yes (Metamphetamine abuse, DM) Hx Alcohol Use: Yes Hx Substance Use: Yes (meth) Hx Tobacco Use: Yes Smoking Status: Current every day smoker FmHx No family history relevant to presenting complaint Physical Exam Vitals Vital Signs Date Time Temp Pulse Resp B/P Pulse Ox O2 Delivery O2 Flow Rate FiO2 11/29/16 18:59 99.4 81 19 151/81 96 Room Air 11/29/16 16:53 99.3 120 19 154/88 94 Physical Exam Const: Alert, moderate distress Head: Atraumatic Eyes: Normal Conjunctiva ENT: Normal External Ears, Nose and Mouth. Neck: Full range of motion. Nontender. Resp: Clear to auscultation bilaterally Cardio: Regular rate and rhythm, no murmurs Abd: Soft, non tender, non distended. Normal bowel sounds Skin: No petechiae or rashes Back: No midline or flank tenderness Ext: RLE: Swelling, rubor and calor below the ankle. S/P 1rst toe amputation. Plantar ulcer. Open wound with purulent, foul smelling drainage. No crepitus. Neur: Awake and alert Psych: Normal Mood and Affect Result Diagram: 11/30/16 0446 11/30/16 0446 Results 24 hrs Laboratory Tests Test 11/29/16 19:50 11/29/16 20:18 11/29/16 20:20 11/29/16 21:53 White Blood Count 10.310^3/ul Red Blood Count 5.4510^6/ul Hemoglobin 13.2g/dl Hematocrit 42.8% Mean Corpuscular Volume 78.5fl Mean Corpuscular Hemoglobin 24.2pg Mean Corpuscular Hemoglobin Concent 30.8g/dl Red Cell Distribution Width 14.1% Platelet Count 53911^3/UL Mean Platelet Volume 8.9fl Neutrophils % 73.5% Lymphocytes % 16.6% Monocytes % 5.9% Eosinophils % 2.2% Basophils % 0.6% Nucleated Red Blood Cells % 0.0/100WBC Neutrophils # 7.610^3/ul Lymphocytes # 1.710^3/ul Monocytes # 0.610^3/ul Eosinophils # 0.210^3/ul Basophils # 0.110^3/ul Nucleated Red Blood Cells # 0.010^3/ul Sodium Level 134mmol/L Potassium Level 4.2mmol/L Chloride Level 97mmol/L Carbon Dioxide Level 30mmol/L Anion Gap 11 Blood Urea Nitrogen 17mg/dl Creatinine 0.72mg/dl Glucose Level 414mg/dl Calcium Level 9.3mg/dl Total Bilirubin 0.2mg/dl Direct Bilirubin 0.00mg/dl Indirect Bilirubin 0.2mg/dl Aspartate Amino Transf (AST/SGOT) 16IU/L Alanine Aminotransferase (ALT/SGPT) 31IU/L Alkaline Phosphatase 103IU/L Total Protein 8.0g/dl Albumin 3.6g/dl Globulin 4.40g/dl Albumin/Globulin Ratio 0.81 Bedside Glucose 432mg/dL 326mg/dL Blood Gas Specimen Source Blood arterial Arterial Blood Date Drawn 11/29/2016 8:15:41 PM Arterial Blood pH (Temp corrected) 7.434 Arterial Blood pCO2 (Temp correct) 35.1mmhg Arterial Blood pO2 (Temp corrected) 62.6mmHG Arterial Blood HCO3 23.0mmol/L Arterial Blood Base Excess -0.7mmol/L Arterial Blood Oxygen Saturation 92.7mmHG Sukhdev Test ACCEPTAB Arterial Blood Gas Puncture Site Right Radial Arterial Blood Carboxyhemoglobin 1.2% Arterial Blood Methemoglobin 0% Blood Gas A-a O2 Differential 45.1mmHg Oxyhemoglobin Percent 91.6% Total Hemoglobin 13.5g/dl Blood Gas Temperature 37.0C Blood Gas Modality ROOM AIR FiO2 21.0% Blood Gas Notified Whom MA Blood Gas Notified Time 11/29/2016 8:32:07 PM Current Medications Medications (Trade) Dose Ordered Sig/Jovita Route PRN Reason Start Time Stop Time Status Last Admin Dose Admin Vancomycin HCl 250 ml @ 125 mls/hr ONCE STAT IVPB 11/29/16 19:12 11/29/16 21:11 DC 11/29/16 20:51 Piperacillin Sod/ Tazobactam Sod 100 ml @ 100 mls/hr ONCE STAT IVPB 11/29/16 19:12 11/29/16 20:11 DC 11/29/16 20:09 Sodium Chloride (NS) 1,000 ml @ 1,000 mls/hr Q1H STAT IV 11/29/16 20:20 11/29/16 21:19 DC 11/29/16 20:51 Insulin Human Lispro (Humalog) 10 unit ONCE STAT SC 11/29/16 21:48 11/29/16 21:50 DC 11/29/16 22:04 PROCEDURE: XR Right Foot CLINICAL INDICATION: Cellulitis/osteomyelitis TECHNIQUE: AP, oblique, and lateral radiographs were submitted. COMPARISON: 04/07/2016 FINDINGS: Osseous structures: To the previous study demonstrated amputation of the great toe at the metatarsal phalangeal joint and now there is lucency in destruction of the distal right first metatarsal head compatible with changes of osteomyelitis. There is a large soft tissue ulceration overlying this area while previously there was an amputation at the distal proximal phalanx of the right fifth toe there is now a penciling deformity at the mid right fifth metatarsal with absence of the more distal fifth ray. This is likely postsurgical as no associated osseous destruction is evident. Joint spaces: There is flattening of the articular surfaces on either side of the second metatarsal phalangeal joint with widening of the joint space. There is slight widening of the third metatarsal phalangeal joint with flattening of the articular surface of the distal third metatarsal head. Soft tissues: There is an ulceration plantar are to the distal right first metatarsal head. IMPRESSION: 1. Previous amputation of the great toe at the first metatarsal phalangeal joint but with no increase lucency in destruction of the distal right first metatarsal head compatible with changes of osteomyelitis. 2. Penciling deformity out the mid right fifth metatarsal which is likely postsurgical with more proximal amputation is seen on the previous study. 3. 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 4. There is a large ulceration plantar are to the distal first metatarsal head. Physician Sean Date Time Electronically viewed and signed by Physician Sean on 11/29/2016 21:23 RH/ Procedures/MDM DOCUMENTS REVIEWED: ED nurse, prior records, prior ED MEDICAL DECISION MAKINy/o male, h/o diabetes mellitus not compliant with insulin for over 2 weeks and recurrent diabetic foot infections and osteomyelitis presents to the ED c/o one week increasing pain, swelling,redness and foul smelling drainage from right foot. Patient with diabetic, right foot infection and osteomyelitis. No necrotizing fasciitis or ascending lymphangiitis. Zosyn and Cefepime pending cultures. No criteria for SIRS or sepsis. Hyperglycemia but no DKA or HONK improved with IV hydration and subcutaneous insulin. Admit to med/surg. Counseled patient regarding diagnosis, diagnostic results and plan for admission. CALLS/CONSULTS: Time 21:45, Dr. Saldana. PATIENT CARE TRANSITIONED: Time: 21`:55, Dr. Saldana. Departure Diagnosis: Primary Impression: Foot pain, right Additional Impressions: Diabetic infection of right foot Diabetes mellitus out of control Qualified Code: E11.8 - Uncontrolled type 2 diabetes mellitus with complication, with long-term current use of insulin Foot osteomyelitis, right Qualified Code: M86.9 - Osteomyelitis of right foot, unspecified type Condition: Serious RUDDY MILLER MD Nov 29, 2016 19:12
[2016-11-29 20:08] LABS: BASOPHIL # 0.1 10^3/ul (0.0-0.1); BASOPHILS % 0.6 % (0.0-2.0); EOSINOPHILS # 0.2 10^3/ul (0.0-0.5); EOSINOPHILS % 2.2 % (0.0-7.0); HEMATOCRIT 42.8 % (42.0-52.0); HEMOGLOBIN 13.2 g/dl (14.0-18.0); LYMPHOCYTES # 1.7 10^3/ul (0.8-2.9); LYMPHOCYTES % 16.6 % (15.0-51.0); MEAN CORPUSCULAR HEMOGLOBIN 24.2 pg (29.0-33.0); MEAN CORPUSCULAR HGB CONC 30.8 g/dl (32.0-37.0); MEAN CORPUSCULAR VOLUME 78.5 fl (82.0-101.0); MEAN PLATELET VOLUME 8.9 fl (7.4-10.4); MONOCYTE # 0.6 10^3/ul (0.3-0.9); MONOCYTES % 5.9 % (0.0-11.0); NEUTROPHIL # 7.6 10^3/ul (1.6-7.5); NEUTROPHILS % 73.5 % (39.0-77.0); PLATELET COUNT 359 10^3/UL (140-415); RED BLOOD COUNT 5.45 10^6/ul (4.70-6.10); RED CELL DISTRIBUTION WIDTH 14.1 % (11.5-14.5); WHITE BLOOD COUNT 10.3 10^3/ul (4.8-10.8)
[2016-11-29] MEDS ORDERED: SOD CHLORIDE 0.9% 1,000 ML IV STA (20:20)
[2016-11-29 20:32] LABS: AADO2 Arterial 45.1 mmHg (7.0-24.0); Allen Test ACCEPTAB; Arterial Base Excess -0.7 mmol/L (-3.0-3); Arterial COHb 1.2 % (0.0-3.0); Arterial Fraction of Oxyhgb 91.6 % (93.0-99.0); Arterial MetHb 0 % (0.0-1.5); Arterial Total Hemglobin 13.5 g/dl (12.0-18.0); MODE ROOM AIR
[2016-11-29 20:50] LABS: ALBUMIN 3.6 g/dl (3.3-4.9); ALBUMIN/GLOBULIN RATIO 0.81; BILIRUBIN,INDIRECT 0.2 mg/dl (0-1.1); BILIRUBIN,TOTAL 0.2 mg/dl (0.2-1.3); CALCIUM 9.3 mg/dl (8.4-10.2); CREATININE 0.72 mg/dl (0.61-1.24); POTASSIUM 4.2 mmol/L (3.5-5.1)
--- NOTE | 2016-11-29 21:23 | RADRPT ---
PROCEDURE: XR Right Foot CLINICAL INDICATION: Cellulitis/osteomyelitis TECHNIQUE: AP, oblique, and lateral radiographs were submitted. COMPARISON: 04/07/2016 FINDINGS: Osseous structures: To the previous study demonstrated amputation of the great toe at the metatarsal phalangeal joint and now there is lucency in destruction of the distal right first metatarsal head compatible with changes of osteomyelitis. There is a large soft tissue ulceration overlying this are a while previously there was an amputation at the distal proximal phalanx of the right fifth toe the re is now a penciling deformity at the mid right fifth metatarsal with absence of the more distal fi fth ray. This is likely postsurgical as no associated osseous destruction is evident. Joint spaces: There is flattening of the articular surfaces on either side of the second metatarsal phalangeal joint with widening of the joint space. There is slight widening of the third metatarsal phalangeal joint with flattening of the articular surface of the distal third metatarsal head. Soft tissues: There is an ulceration plantar are to the distal right first metatarsal head. IMPRESSION: 1. Previous amputation of the great toe at the first metatarsal phalangeal joint but with no increa se lucency in destruction of the distal right first metatarsal head compatible with changes of osteo myelitis. 2. Penciling deformity out the mid right fifth metatarsal which is likely postsurgical with more pr oximal amputation is seen on the previous study. 3. 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 4. There is a large ulceration plantar are to the distal first metatarsal head. Physician Sean Date Time Electronically viewed and signed by Physician Sean on 11/29/2016 21:23 /
[2016-11-29] MEDS ORDERED: INSULIN LISPRO 100 UNIT/ML VIAL SC STA (21:48)
[2016-11-29] MEDS ORDERED: ACETAMINOPHEN 325 MG TAB PO PRN (22:30)
[2016-11-29] MEDS ORDERED: ONDANSETRON 4 MG INJ IV PRN (22:30)
[2016-11-30 00:55] VITALS: Ht 172.7 cm; Wt 124.2 kg
[2016-11-30] MEDS ORDERED: NOVO3I SC (01:06)
[2016-11-30] MEDS ORDERED: LANT3I SC (01:06)
[2016-11-30 01:27] VITALS: BP 119/73; RESP 20
[2016-11-30] MEDS ORDERED: INSULIN ASPART [NOVOLOG] 3 ML PEN SC ONE (02:00)
[2016-11-30] MEDS ORDERED: GLUCOSE GEL 15 GRAM TUBE PO PRN ×2 (02:30)
[2016-11-30] MEDS ORDERED: NACL 0.9% 3 ML SYG IV SCH (02:30)
[2016-11-30] MEDS ORDERED: GLUCAGON 1 MG INJ IM PRN (02:30)
[2016-11-30] MEDS ORDERED: VANCOMYCIN IV PER PHARMACY XX SCH (02:30)
[2016-11-30] MEDS ORDERED: ONDANSETRON 4 MG INJ IV PRN (02:30)
[2016-11-30] MEDS ORDERED: DEXTROSE 50% 50 ML SYRINGE IV PRN ×2 (02:30)
[2016-11-30] MEDS ORDERED: ACETAMINOPHEN 325 MG TAB PO PRN (02:30)
[2016-11-30] MEDS ORDERED: GLUCOSE GEL 15 GRAM TUBE BUCCAL PRN (02:30)
[2016-11-30] MEDS: VANCOMYCIN 1.5 GM in SOD CHLORIDE 0.9% 250 ML IVPB SCH ×3 (05:53→22:35)
[2016-11-30] MEDS ORDERED: PENDING SANTYL ORDER FOR WOUND CARE XX PRN (07:00)
[2016-11-30 07:01] LABS: BASOPHIL # 0.1 10^3/ul (0.0-0.1); BASOPHILS % 0.7 % (0.0-2.0); EOSINOPHILS # 0.4 10^3/ul (0.0-0.5); EOSINOPHILS % 4.4 % (0.0-7.0); HEMATOCRIT 40.4 % (42.0-52.0); HEMOGLOBIN 12.9 g/dl (14.0-18.0); LYMPHOCYTES # 2.3 10^3/ul (0.8-2.9); LYMPHOCYTES % 24.1 % (15.0-51.0); MEAN CORPUSCULAR HEMOGLOBIN 24.7 pg (29.0-33.0); MEAN CORPUSCULAR HGB CONC 31.9 g/dl (32.0-37.0); MEAN CORPUSCULAR VOLUME 77.4 fl (82.0-101.0); MEAN PLATELET VOLUME 9.9 fl (7.4-10.4); MONOCYTE # 0.6 10^3/ul (0.3-0.9); MONOCYTES % 6.8 % (0.0-11.0); NEUTROPHIL # 5.9 10^3/ul (1.6-7.5); NEUTROPHILS % 62.8 % (39.0-77.0); POSITIVE DIFF @See below; RED BLOOD COUNT 5.22 10^6/ul (4.70-6.10); RED CELL DISTRIBUTION WIDTH 13.8 % (11.5-14.5); WHITE BLOOD COUNT 9.4 10^3/ul (4.8-10.8)
[2016-11-30 07:02] LABS: PLATELET COUNT 281 10^3/UL (140-415)
[2016-11-30 07:38] LABS: ALBUMIN 3.3 g/dl (3.3-4.9); ALBUMIN/GLOBULIN RATIO 0.8; BILIRUBIN,INDIRECT 0.2 mg/dl (0-1.1); BILIRUBIN,TOTAL 0.2 mg/dl (0.2-1.3); CALCIUM 9.2 mg/dl (8.4-10.2); CREATININE 0.63 mg/dl (0.61-1.24); POTASSIUM 4.1 mmol/L (3.5-5.1); TOTAL PROTEIN 7.4 g/dl (6.1-8.1)
[2016-11-30] MEDS: INSULIN ASPART [NOVOLOG] 3 ML PEN SC SCH ×7 (07:53→21:15)
[2016-11-30 08:00] VITALS: BP 146/91; RESP 18
[2016-11-30] MEDS ORDERED: COLLAGENASE 30 GM TUBE TOP PRN (08:00)
[2016-11-30 08:58] VITALS: BP 146/91; RESP 18
[2016-11-30] MEDS: TOPIRAMATE 25 MG TAB PO SCH ×2 (08:58→21:21)
[2016-11-30] MEDS: BUPROPION (XL) 150 MG TAB PO SCH (08:58)
[2016-11-30] MEDS: metFORMIN 500 MG TAB PO SCH ×2 (08:58→17:33)
[2016-11-30] MEDS: LACTOBACILLUS RHAMNOSUS CAP PO SCH ×2 (08:58→21:21)
[2016-11-30] MEDS: MULTIVITAMINS THERAPEUTIC TAB PO SCH (08:58)
[2016-11-30] MEDS: HEPARIN 5,000 UNIT/0.5 ML VIAL SC SCH ×2 (09:00→21:20)
--- NOTE | 2016-11-30 09:45 | HP ---
Date/Time of Note Date/Time of Note DATE: 11/30/16 TIME: 09:35 Assessment/Plan Lines/Catheters IV [facility]from [facility] Saline Lock Urinary Cath still in place: No Assessment/Plan Assessment/Plan 1. Right foot Osteomyelitis who is overlying chronic diabetic foot ulcer - broad spectrum abx -Wound culture -Wound care consult - pain mgmt -Podiatry consult 2. Insulin-dependent diabetes -Check A1c -Adjust insulin as needed HPI/ROS Admit Date/Time Admit Date/Time Nov 29, 2016 at 22:15 Hx of Present Illness This is a 36-year-old male with history of insulin-dependent diabetes, right foot osteomyelitis, methamphetamine abuse in the right hand/index finger infection who presented to the emergency department complaining of right foot infection. Patient has been following with [facility] for chronic right foot infection but he said he was "kicked out" because of multiple missed appointments. Now he presented to the ER complaining of draining wound from his right foot. Denied fever/chills, chest pain, shortness of breath. Of note, patient was here in July of this year for right index finger infection, which he attributed to fingerstick glucose check. I actually saw him in the ER and had significant infection. Unfortunately left AMA from ER. PMH/Family/Social Social History Smoking Status: Current every day smoker Exam/Review of Systems Vital Signs Vitals Vital Signs Date Time Temp Pulse Resp B/P Pulse Ox O2 Delivery O2 Flow Rate FiO2 11/30/16 08:58 98.5 100 18 146/91 94 11/29/16 18:59 Room Air Intake and Output 11/29/16 11/29/16 11/30/16 15:00 23:00 07:00 Intake Total 350 ml 1450 ml Balance 350 ml 1450 ml Exam Constitutional: alert, oriented, well developed Head: atraumatic, normocephalic Eyes: EOMI, PERRL Respiratory: clear to auscultation, normal air movement Cardiovascular: nl pulses, regular rate and rhythm Gastrointestinal: non-tender, soft Extremities: other (Right foot with draining wound including plantar ulcer) Labs Result Diagram: 11/30/16 0446 11/30/16 0446 Medications Medications Current Medications Ondansetron HCl (Zofran Inj) 4 mg Q6H PRN IV NAUSEA AND/OR VOMITING; Start at 02:30 Acetaminophen (Tylenol Tab) 650 mg Q6H PRN PO PAIN LEVEL 1-3 OR FEVER; Start at 02:30 Heparin Sodium (Porcine) (Heparin (5000 Units/0.5 ml)) 5,000 unit Q12 SC Last administered on 11/30/16 09:00; Admin Dose 5,000 UNIT; Start 11/30/16 at 09:00 Bupropion HCl (Wellbutrin Xl) 150 mg DAILY PO Last administered on 11/30/16 08 :58; Admin Dose 150 MG; Start 11/30/16 at 09:00 Insulin Glargine (Lantus) 40 unit QHS SC ; Start 11/30/16 at 21:00 Lactobacillus Acidophilus/ Rhamnosus (Culturelle) 1 cap BID PO Last administered on 11/30/16 08:58; Admin Dose 1 CAP; Start 11/30/16 at 09:00 Multivitamins Therapeutic (Theragran) 1 tab DAILY PO Last administered on 08:58; Admin Dose 1 TAB; Start 11/30/16 at 09:00 Topiramate 25 mg 25 mg BID PO Last administered on 11/30/16 08:58; Admin Dose 25 MG; Start 11/30/16 at 09:00 Ceftazidime (Fortaz 1gm/50 ml (Pmx)) 50 ml @ 100 mls/hr Q12 IVPB ; Start at 09:00 Diagnostic Test (Pha) (Accu-Chek) 1 ea 02 XX ; Start 12/01/16 at 02:00 Miscellaneous Information 1 ea NOTE XX ; Start 11/30/16 at 02:30 Glucose (Glutose) 15 gm Q15M PRN PO DECREASED GLUCOSE; Start 11/30/16 at 02:30 Glucose (Glutose) 22.5 gm Q15M PRN PO DECREASED GLUCOSE; Start 11/30/16 at 02: 30 Dextrose (D50w Syringe) 25 ml Q15M PRN IV DECREASED GLUCOSE; Start 11/30/16 at 02:30 Dextrose (D50w Syringe) 50 ml Q15M PRN IV DECREASED GLUCOSE; Start 11/30/16 at 02:30 Glucagon (Glucagen) 1 mg Q15M PRN IM DECREASED GLUCOSE; Start 11/30/16 at 02:30 Glucose 15 gm 15 gm Q15M PRN BUCCAL DECREASED GLUCOSE; Start 11/30/16 at 02:30 Vancomycin HCl/ Sodium Chloride (Vancocin/NS) 250 ml @ 83.333 mls/ hr Q8H IVPB Last administered on 11/30/16t 05:53; Admin Dose 83.333 MLS/HR; Start at 06:00 Miscellaneous Information Patients own medicat... BID@10,16 XX ; Start 11/30/16 at 10:00 Collagenase (Santyl) 1 applic DAILY TOP ; Start 11/30/16 at 09:00 Collagenase (Santyl) 1 applic PRN PRN TOP WOUND CARE; Start 11/30/16 at 08:00 EMELIA JOINER MD Nov 30, 2016 09:45
[2016-11-30] MEDS: CEFTAZIDIME 1GM/50 ML (PMX) 50 ML IVPB SCH ×2 (10:24→21:21)
[2016-11-30 14:00] VITALS: BP 139/82; RESP 20
[2016-11-30] MEDS: COLLAGENASE 30 GM TUBE TOP SCH (14:06)
--- NOTE | 2016-11-30 16:42 | PN ---
Date/Time of Note Date/Time of Note DATE: 11/30/16 TIME: 16:34 Assessment/Plan VTE Prophylaxis VTE Prophylaxis Intervention: SCD's Lines/Catheters [facility] Saline Lock Urinary Cath still in place: No Assessment/Plan Assessment/Plan 1. Right foot diabetic ulcer with osteomyelitis, on antibiotics with vancomycin and cefepime, follow up with culture and lead sql developer 2. Insulin-dependent diabetes, on insulins/metformin 3. s/p amputation of the great toe at the first metatarsal phalangeal joint 3 years ago with chronic ulcer for 2 years Exam/Review of Systems Vital Signs Vitals Vital Signs Date Time Temp Pulse Resp B/P Pulse Ox O2 Delivery O2 Flow Rate FiO2 11/30/16 14:00 98.0 103 20 139/82 98 11/29/16 18:59 Room Air Intake and Output 11/29/16 11/29/16 11/30/16 15:00 23:00 07:00 Intake Total 350 ml 1450 ml Balance 350 ml 1450 ml Exam Constitutional: alert, oriented, well developed Psych: nl mood/affect, no complaints Head: atraumatic, normocephalic Eyes: EOMI, PERRL, nl conjunctiva, nl lids ENMT: nl external ears & nose, nl lips & teeth, nl nasal mucosa & septum Neck: non-tender, supple Respiratory: clear to auscultation, normal air movement, No congested cough, No crackles/rales, No diminished breath sounds, No intercostal retraction, No labored breathing, No other, No respirations, No tactile fremitus, No wheezing Cardiovascular: regular rate and rhythm, No S3, No S4, No bruits, No diastolic murmur, No edema, No gallop, No irregular rhythm, No jugular venous distention (JVD), No murmurs/extra sounds, No nl pulses, No other, No rub, No systolic murmur Gastrointestinal: nl liver, spleen, non-tender, soft, No ascites, No bowel sounds, No distended, No firm, No hepatomegaly, No mass , No other, No rebound or guarding, No splenomegaly, No surgical scars, No tender Musculoskeletal: nl extremities to inspection Neurological: PUNCH [employer]ESS FEEDER II-XII intact, nl mental status, nl speech, nl strength, other (right foot wound) Results Result Diagram: 11/30/16 0446 11/30/16 0446 Results 24 hrs Laboratory Tests Test 11/29/16 19:50 11/29/16 20:18 11/29/16 20:20 11/29/16 21:53 White Blood Count 10.3 Red Blood Count 5.45 Hemoglobin 13.2 L Hematocrit 42.8 Mean Corpuscular Volume 78.5 L Mean Corpuscular Hemoglobin 24.2 L Mean Corpuscular Hemoglobin Concent 30.8 L Red Cell Distribution Width 14.1 Platelet Count 359 Mean Platelet Volume 8.9 Neutrophils % 73.5 Lymphocytes % 16.6 Monocytes % 5.9 Eosinophils % 2.2 Basophils % 0.6 Nucleated Red Blood Cells % 0.0 Neutrophils # 7.6 H Lymphocytes # 1.7 Monocytes # 0.6 Eosinophils # 0.2 Basophils # 0.1 Nucleated Red Blood Cells # 0.0 Sodium Level 134 L Potassium Level 4.2 Chloride Level 97 Carbon Dioxide Level 30 Anion Gap 11 Blood Urea Nitrogen 17 Creatinine 0.72 Glucose Level 414 *H Calcium Level 9.3 Total Bilirubin 0.2 Direct Bilirubin 0.00 Indirect Bilirubin 0.2 Aspartate Amino Transf (AST/SGOT) 16 Alanine Aminotransferase (ALT/SGPT) 31 Alkaline Phosphatase 103 Total Protein 8.0 Albumin 3.6 Globulin 4.40 H Albumin/Globulin Ratio 0.81 Bedside Glucose 432 *H 326 H Blood Gas Specimen Source Blood arterial Arterial Blood Date Drawn 11/29/2016 8:15:41 PM Arterial Blood pH (Temp corrected) 7.434 Arterial Blood pCO2 (Temp correct) 35.1 Arterial Blood pO2 (Temp corrected) 62.6 L Arterial Blood HCO3 23.0 Arterial Blood Base Excess -0.7 Arterial Blood Oxygen Saturation 92.7 L Sukhdev Test ACCEPTAB Arterial Blood Gas Puncture Site Right Radial Arterial Blood Carboxyhemoglobin 1.2 Arterial Blood Methemoglobin 0 Blood Gas A-a O2 Differential 45.1 H Oxyhemoglobin Percent 91.6 L Total Hemoglobin 13.5 Blood Gas Temperature 37.0 Blood Gas Modality ROOM AIR FiO2 21.0 Blood Gas Notified Whom LA Blood Gas Notified Time 11/29/2016 8:32:07 PM Test 11/30/16 01:02 11/30/16 04:46 11/30/16 07:50 11/30/16 11:48 Bedside Glucose 240 H 211 197 White Blood Count 9.4 Red Blood Count 5.22 Hemoglobin 12.9 L Hematocrit 40.4 L Mean Corpuscular Volume 77.4 L Mean Corpuscular Hemoglobin 24.7 L Mean Corpuscular Hemoglobin Concent 31.9 L Red Cell Distribution Width 13.8 Platelet Count 281 # Mean Platelet Volume 9.9 Neutrophils % 62.8 Lymphocytes % 24.1 Monocytes % 6.8 Eosinophils % 4.4 Basophils % 0.7 Nucleated Red Blood Cells % 0.0 Neutrophils # 5.9 Lymphocytes # 2.3 Monocytes # 0.6 Eosinophils # 0.4 Basophils # 0.1 Nucleated Red Blood Cells # 0.0 Sodium Level 140 Potassium Level 4.1 Chloride Level 106 Carbon Dioxide Level 26 Anion Gap 12 Blood Urea Nitrogen 16 Creatinine 0.63 Glucose Level 204 # Calcium Level 9.2 Total Bilirubin 0.2 Direct Bilirubin 0.00 Indirect Bilirubin 0.2 Aspartate Amino Transf (AST/SGOT) 19 Alanine Aminotransferase (ALT/SGPT) 23 Alkaline Phosphatase 88 Total Protein 7.4 Albumin 3.3 Globulin 4.10 H Albumin/Globulin Ratio 0.80 Medications Medications Current Medications Ondansetron HCl (Zofran Inj) 4 mg Q6H PRN IV NAUSEA AND/OR VOMITING; Start at 02:30 Acetaminophen (Tylenol Tab) 650 mg Q6H PRN PO PAIN LEVEL 1-3 OR FEVER; Start at 02:30 Heparin Sodium (Porcine) (Heparin (5000 Units/0.5 ml)) 5,000 unit Q12 SC Last administered on 11/30/16 09:00; Admin Dose 5,000 UNIT; Start 11/30/16 at 09:00 Bupropion HCl (Wellbutrin Xl) 150 mg DAILY PO Last administered on 11/30/16 08 :58; Admin Dose 150 MG; Start 11/30/16 at 09:00 Insulin Glargine (Lantus) 40 unit QHS SC ; Start 11/30/16 at 21:00 Lactobacillus Acidophilus/ Rhamnosus (Culturelle) 1 cap BID PO Last administered on 11/30/16 08:58; Admin Dose 1 CAP; Start 11/30/16 at 09:00 Multivitamins Therapeutic (Theragran) 1 tab DAILY PO Last administered on 08:58; Admin Dose 1 TAB; Start 11/30/16 at 09:00 Topiramate 25 mg 25 mg BID PO Last administered on 11/30/16 08:58; Admin Dose 25 MG; Start 11/30/16 at 09:00 Ceftazidime (Fortaz 1gm/50 ml (Pmx)) 50 ml @ 100 mls/hr Q12 IVPB Last administered on 11/30/16 10:24; Admin Dose 100 MLS/HR; Start 11/30/16 at 09:00 Diagnostic Test (Pha) (Accu-Chek) 1 ea 02 XX ; Start 12/01/16 at 02:00 Miscellaneous Information 1 ea NOTE XX ; Start 11/30/16 at 02:30 Glucose (Glutose) 15 gm Q15M PRN PO DECREASED GLUCOSE; Start 11/30/16 at 02:30 Glucose (Glutose) 22.5 gm Q15M PRN PO DECREASED GLUCOSE; Start 11/30/16 at 02: 30 Dextrose (D50w Syringe) 25 ml Q15M PRN IV DECREASED GLUCOSE; Start 11/30/16 at 02:30 Dextrose (D50w Syringe) 50 ml Q15M PRN IV DECREASED GLUCOSE; Start 11/30/16 at 02:30 Glucagon (Glucagen) 1 mg Q15M PRN IM DECREASED GLUCOSE; Start 11/30/16 at 02:30 Glucose 15 gm 15 gm Q15M PRN BUCCAL DECREASED GLUCOSE; Start 11/30/16 at 02:30 Vancomycin HCl/ Sodium Chloride (Vancocin/NS) 250 ml @ 83.333 mls/ hr Q8H IVPB Last administered on 11/30/16 14:05; Admin Dose 83.333 MLS/HR; Start at 06:00 Miscellaneous Information Patients own medicat... BID@,16 XX ; Start 11/30/16 at 10:00 Collagenase (Santyl) 1 applic DAILY TOP Last administered on 11/30/16 14:06; Admin Dose 1 APPLIC; Start 11/30/16 at 09:00 Collagenase (Santyl) 1 applic PRN PRN TOP WOUND CARE; Start 11/30/16 at 08:00 Miscellaneous Information (*Rx Drug Level Order Reminder*) VANCO TR LEVEL PRIOR... ONCE ONCE XX ; Start 12/01/16 at 05:00; Stop 12/01/16 at 05:01 AUDI MENJIVAR MD Nov 30, 2016 16:42
[2016-11-30 20:26] VITALS: BP 129/80; RESP 16
[2016-11-30] MEDS: INSULIN GLARGINE [LANtus] 3 ML PEN SC SCH (21:17)
[2016-11-30] MEDS: IBUPROFEN 600 MG TAB PO PRN (22:35)
[2016-12-01] MEDS ORDERED: ACCU-CHEK XX SCH (02:00)
[2016-12-01] MEDS: ACCU-CHEK XX SCH ×2 (02:14→21:09)
--- NOTE | 2016-12-01 02:41 | PN ---
DATE: 11/30/2016 REQUESTING PHYSICIAN: Aurelio Ramey MD. Thank you for this consultation. HISTORY OF PRESENT ILLNESS: This is an obese, 36-year-old, white man, well known to our service from multiple previous admissions. The patient has a history of polysubstance abuse, chronic right foot cellulitis with osteomyelitis, history of septicemia, poorly- controlled diabetes, peripheral vascular disease, right hallux amputation. The patient was previously treated by our service for osteomyelitis and completed 6 weeks' antibiotics. He is being seen by Dr. Cuellar in podiatry consultation. He was re- admitted with worsening pain and swelling of his right foot. Vital signs on admission revealed temperature of 99.3, pulse 120, respirations 19, blood pressure 154/88, saturation 94 percent on room air. LABORATORY AND DIAGNOSTIC DATA: WBC 10.8, H and H 13.2 and 42.8, platelets 259, no shift, no bands. Blood sugar 414, sodium 134, potassium 4.2, BUN 17, creatinine 0.72. Normal bilirubin and LFT. MICROBIOLOGY: Wound cultures are pending. DIAGNOSTICS: X-ray of the foot revealed previous amputation of the great toe at first metatarsal phalangeal joint. No increased lucency and destruction of distal right first metatarsal head. Large ulceration plantar area to the distal first metatarsal head. The patient is not allergic to any antibiotics. He was started on Fortaz and vancomycin. Right foot wound culture in July 2016 grew Pseudomonas aeruginosa, MRSA, strep pyogenes and beta hemolytic strep species. PAST MEDICAL HISTORY: As per history of present illness. SOCIAL HISTORY: The patient has a history of tobacco abuse and polysubstance abuse, but state but that he quit a while ago. REVIEW OF SYSTEMS: Review of systems as per history of present illness. The patient is also complaining of subjective fevers. PHYSICAL EXAMINATION: GENERAL: This is an obese, well developed, middle-aged, white man, who is awake in no distress. HEENT: Head is atraumatic and normocephalic. Sclerae are anicteric. Buccal mucosa is pink. NECK: Supple. LUNGS: Chest rise is symmetrical. Breath sounds are clear. HEART: S1, S2. ABDOMEN: Soft. Bowel sounds are present. EXTREMITIES: Right foot dressing intact. DIAGNOSTIC IMPRESSION: This is a 36-year-old, obese man with uncontrolled diabetes who was admitted with recurrent right foot infection. So far, there is no osteomyelitis as per x-ray. The patient is going to be seen by Dr. Cuellar in podiatry consultation. Recent wound culture grew multiple bacteria. He is on appropriate antibiotics. We will order MRI of the foot. Await for podiatry input. Await for final cultures. Discussed with Dr. Jasson Patterson. Dictated By: Eliane Sloan NP /slime/luciana /Document#: [id number] JOSE
[2016-12-01 03:10] VITALS: BP 131/89; RESP 18
[2016-12-01] MEDS: VANCOMYCIN 1.5 GM in SOD CHLORIDE 0.9% 250 ML IVPB SCH ×3 (05:06→22:07)
[2016-12-01] MEDS: IBUPROFEN 600 MG TAB PO PRN ×2 (05:07→17:21)
[2016-12-01 05:25] LABS: BASOPHIL # 0.1 10^3/ul (0.0-0.1); BASOPHILS % 0.8 % (0.0-2.0); EOSINOPHILS # 0.3 10^3/ul (0.0-0.5); EOSINOPHILS % 4.1 % (0.0-7.0); HEMATOCRIT 44.3 % (42.0-52.0); HEMOGLOBIN 13.4 g/dl (14.0-18.0); LYMPHOCYTES # 2.6 10^3/ul (0.8-2.9); LYMPHOCYTES % 31.3 % (15.0-51.0); MEAN CORPUSCULAR HEMOGLOBIN 23.8 pg (29.0-33.0); MEAN CORPUSCULAR HGB CONC 30.2 g/dl (32.0-37.0); MEAN CORPUSCULAR VOLUME 78.8 fl (82.0-101.0); MEAN PLATELET VOLUME 9.3 fl (7.4-10.4); MONOCYTE # 0.5 10^3/ul (0.3-0.9); MONOCYTES % 6.1 % (0.0-11.0); NEUTROPHIL # 4.7 10^3/ul (1.6-7.5); NEUTROPHILS % 56.4 % (39.0-77.0); PLATELET COUNT 332 10^3/UL (140-415); RED BLOOD COUNT 5.62 10^6/ul (4.70-6.10); RED CELL DISTRIBUTION WIDTH 13.8 % (11.5-14.5); WHITE BLOOD COUNT 8.3 10^3/ul (4.8-10.8)
[2016-12-01 06:28] LABS: CALCIUM 9.7 mg/dl (8.4-10.2); CREATININE 0.81 mg/dl (0.61-1.24); MAGNESIUM 1.9 mg/dl (1.7-2.5); PHOSPHORUS 5.5 mg/dl (2.5-4.9); POTASSIUM 4.3 mmol/L (3.5-5.1)
[2016-12-01 08:08] VITALS: BP 153/83; RESP 20
[2016-12-01] MEDS: INSULIN ASPART [NOVOLOG] 3 ML PEN SC SCH ×7 (08:52→20:58)
[2016-12-01] MEDS: HEPARIN 5,000 UNIT/0.5 ML VIAL SC SCH ×2 (08:55→20:57)
[2016-12-01] MEDS: metFORMIN 500 MG TAB PO SCH ×2 (08:59→17:17)
[2016-12-01] MEDS: MULTIVITAMINS THERAPEUTIC TAB PO SCH (08:59)
[2016-12-01] MEDS: BUPROPION (XL) 150 MG TAB PO SCH (09:00)
[2016-12-01] MEDS: COLLAGENASE 30 GM TUBE TOP SCH ×2 (09:00→12:10)
[2016-12-01] MEDS: TOPIRAMATE 25 MG TAB PO SCH ×2 (09:00→20:56)
[2016-12-01] MEDS: LACTOBACILLUS RHAMNOSUS CAP PO SCH ×2 (09:03→20:55)
[2016-12-01 09:55] LABS: CANNABINOIDS Negative (NEGATIVE)
[2016-12-01] MEDS: CEFTAZIDIME 1GM/50 ML (PMX) 50 ML IVPB SCH ×2 (10:23→20:55)
[2016-12-01 10:29] LABS: BARBITURATES Negative (NEGATIVE); BENZODIAZEPINES Negative (NEGATIVE); COCAINE Negative (NEGATIVE); OPIATES Negative (NEGATIVE)
[2016-12-01] MEDS: SODIUM HYPOCHLORITE 0.125% 473 ML BTL TOP SCH (11:32)
--- NOTE | 2016-12-01 11:37 | PN ---
Date/Time of Note Date/Time of Note DATE: 12/01/16 TIME: 11:32 Assessment/Plan VTE Prophylaxis VTE Prophylaxis Intervention: heparin Lines/Catheters IV [facility] Urinary Cath still in place: No Assessment/Plan Problems: (1) Foot osteomyelitis, right Status: Acute Comment: Patient has a wound again. He will need IV antibiotics debridement. According to the progress notes Dr. Cuellar has already been contacted. I have formalized entering the order into the system. Qualifiers: Osteomyelitis type: other acute Qualified Code: M86.171 - Other acute osteomyelitis of right foot (2) Non-pressure chronic ulcer of other part of right foot with fat layer exposed Status: Acute Comment: Noted. Ultimately I suspect she is going to end up with part of his foot amputated him a due to the severe noncompliance (3) Acquired absence of right great toe Status: Acute Comment: Noted. (4) Drug abuse and dependence Status: Chronic Comment: This is a major issue. I have attempted to talk to the patient about this however at this point he is offering multiple denials. We will continue trying to work with this but he understands has been counseled this time as well as a prior visits that this is going to have a significantly major detrimental impact on his life (5) Diabetes mellitus out of control Status: Acute Comment: Adjust medications to bring his sugars under control Qualifiers: Diabetes mellitus type: type 2 Diabetes mellitus complication status: with unspecified complications Diabetes mellitus longterm insulin use: with longterm use Qualified Code: E11.8 - Uncontrolled type 2 diabetes mellitus with complication, with long-term current use of insulin (6) Chronic hepatitis C Status: Chronic Comment: Noted. At this time getting him to cooperate with taking the hepatitis C medication regimen might be a bit of a challenge however this will be evaluated (7) Diabetes, polyneuropathy Status: Chronic Comment: He has a chronic neuropathy. Will try and keep his sugars under control Qualifiers: Diabetes mellitus type: type 2 Qualified Code: E11.42 - Diabetic polyneuropathy associated with type 2 diabetes mellitus (8) Depression with anxiety Status: Chronic Comment: This is part and parcel the reason he has an addiction issue. He refuses treatment Subjective 24 Hr Interval Summary Free Text/Dictation Patient reports that he was not using any drugs until confronted with information. He reports he is feeling better Constitutional: no complaints Respiratory: no complaints Cardiovascular: no complaints Gastrointestinal: no complaints Neurologic: no complaints Psychological: no complaints (Denies issues.) Exam/Review of Systems Vital Signs Vitals Vital Signs Date Time Temp Pulse Resp B/P Pulse Ox O2 Delivery O2 Flow Rate FiO2 12/01/16 08:08 98.0 82 20 153/83 99 11/29/16 18:59 Room Air Intake and Output 11/30/16 11/30/16 12/01/16 15:00 23:00 07:00 Intake Total 300 ml 1940 ml 550 ml Balance 300 ml 1940 ml 550 ml Exam Constitutional: alert, oriented Neck: non-tender, supple Respiratory: clear to auscultation, normal air movement Cardiovascular: nl pulses, regular rate and rhythm Extremities: normal pulses, other (Neuropathic changes of both feet with the right great toe absent and wound there which is clearly infected) Results Result Diagram: 12/01/16 0443 12/01/16 0443 Results 24 hrs Laboratory Tests Test 11/30/16 11:48 11/30/16 17:29 11/30/16 21:12 12/01/16 02:13 Bedside Glucose 197 186 199 197 Test 12/01/16 04:43 12/01/16 08:43 12/01/16 09:00 White Blood Count 8.3 Red Blood Count 5.62 Hemoglobin 13.4 L Hematocrit 44.3 Mean Corpuscular Volume 78.8 L Mean Corpuscular Hemoglobin 23.8 L Mean Corpuscular Hemoglobin Concent 30.2 L Red Cell Distribution Width 13.8 Platelet Count 332 Mean Platelet Volume 9.3 Neutrophils % 56.4 Lymphocytes % 31.3 Monocytes % 6.1 Eosinophils % 4.1 Basophils % 0.8 Nucleated Red Blood Cells % 0.0 Neutrophils # 4.7 Lymphocytes # 2.6 Monocytes # 0.5 Eosinophils # 0.3 Basophils # 0.1 Nucleated Red Blood Cells # 0.0 Sodium Level 136 Potassium Level 4.3 Chloride Level 99 Carbon Dioxide Level 31 Anion Gap 10 Blood Urea Nitrogen 17 Creatinine 0.81 Glucose Level 222 H Calcium Level 9.7 Phosphorus Level 5.5 H Magnesium Level 1.9 Vancomycin Level Trough 14.0 Bedside Glucose 325 H Urine Opiates Screen Negative Urine Barbiturates Negative Urine Amphetamines Screen POSITIVE Urine Benzodiazepines Screen Negative Urine Cocaine Screen Negative Urine Cannabinoids Negative Medications Medications Current Medications Ondansetron HCl (Zofran Inj) 4 mg Q6H PRN IV NAUSEA AND/OR VOMITING; Start at 02:30 Acetaminophen (Tylenol Tab) 650 mg Q6H PRN PO PAIN LEVEL 1-3 OR FEVER Last administered on 11/30/16 17:00; Admin Dose 650 MG; Start 11/30/16 at 02:30 Heparin Sodium (Porcine) (Heparin (5000 Units/0.5 ml)) 5,000 unit Q12 SC Last administered on 12/01/16 08:55; Admin Dose 5,000 UNIT; Start 11/30/16 at 09:00 Bupropion HCl (Wellbutrin Xl) 150 mg DAILY PO Last administered on 12/01/16 09 :00; Admin Dose 150 MG; Start 11/30/16 at 09:00 Insulin Glargine (Lantus) 40 unit QHS SC Last administered on 11/30/16 21:17; Admin Dose 40 UNIT; Start 11/30/16 at 21:00 Lactobacillus Acidophilus/ Rhamnosus (Culturelle) 1 cap BID PO Last administered on 12/01/16 09:03; Admin Dose 1 CAP; Start 11/30/16 at 09:00 Multivitamins Therapeutic (Theragran) 1 tab DAILY PO Last administered on 08:59; Admin Dose 1 TAB; Start 11/30/16 at 09:00 Topiramate 25 mg 25 mg BID PO Last administered on 12/01/16 09:00; Admin Dose 25 MG; Start 11/30/16 at 09:00 Ceftazidime (Fortaz 1gm/50 ml (Pmx)) 50 ml @ 100 mls/hr Q12 IVPB Last administered on 12/01/16 10:23; Admin Dose 100 MLS/HR; Start 11/30/16 at 09:00 Diagnostic Test (Pha) (Accu-Chek) 1 ea 02 XX Last administered on 12/01/16 02: 14; Admin Dose 1 EA; Start 12/01/16 at 02:00 Miscellaneous Information 1 ea NOTE XX ; Start 11/30/16 at 02:30 Glucose (Glutose) 15 gm Q15M PRN PO DECREASED GLUCOSE; Start 11/30/16 at 02:30 Glucose (Glutose) 22.5 gm Q15M PRN PO DECREASED GLUCOSE; Start 11/30/16 at 02: 30 Dextrose (D50w Syringe) 25 ml Q15M PRN IV DECREASED GLUCOSE; Start 11/30/16 at 02:30 Dextrose (D50w Syringe) 50 ml Q15M PRN IV DECREASED GLUCOSE; Start 11/30/16 at 02:30 Glucagon (Glucagen) 1 mg Q15M PRN IM DECREASED GLUCOSE; Start 11/30/16 at 02:30 Glucose 15 gm 15 gm Q15M PRN BUCCAL DECREASED GLUCOSE; Start 11/30/16 at 02:30 Vancomycin HCl/ Sodium Chloride (Vancocin/NS) 250 ml @ 83.333 mls/ hr Q8H IVPB Last administered on 12/01/16 05:06; Admin Dose 83.333 MLS/HR; Start at 06:00 Miscellaneous Information Patients own medicat... BID@10,16 XX ; Start 11/30/16 at 10:00 Collagenase (Santyl) 1 applic DAILY TOP Last administered on 11/30/16 14:06; Admin Dose 1 APPLIC; Start 11/30/16 at 09:00 Collagenase (Santyl) 1 applic PRN PRN TOP WOUND CARE; Start 11/30/16 at 08:00 Ibuprofen (Motrin) 600 mg Q6 PRN PO for moderate pain Last administered on 12/01 05:07; Admin Dose 600 MG; Start 11/30/16 at 21:30 Sodium Hypochlorite (Dakin'S (1/4 Strength)) 1 applic DAILY TOP ; Start at 11:00 SLIME ORTEGA MD Dec 01, 2016 11:37
[2016-12-01 14:59] VITALS: BP 159/88; RESP 20
[2016-12-01] MEDS: NICOTINE (21 MG/24 HR) PATCH TRANSDERM SCH (16:32)
--- NOTE | 2016-12-01 16:53 | RADRPT ---
PROCEDURE: MRI OF THE RIGHT FOOT. CLINICAL INDICATION: Possible abscess, osteomyelitis. Open wound around the first metatarsal. TECHNIQUE: Multiple MRI images of the right foot were obtained in multiple planes utilizing multip le pulse sequences. Images were interpreted on the high-resolution PACS system. COMPARISON: Radiographs from 11/29/2016 and MRI from 03/03/2016 FINDINGS: 1st ray: Since the prior MRI, there is increased bone marrow edema with abnormal dark T1 signal thro ughout the first metatarsal with progression of the osteomyelitis. Amputation of the phalanges is ag ain noted. There are bony destructive changes within the first metatarsal head/neck. There is edema within the overlying soft tissues with a small sinus tract extending to the bone on axial images 14 - 15. A small amount of loculated fluid is also noted surrounding the metatarsal head/neck. There is mild irregularity of the skin along the plantar aspect of the first digit over the first metatarsal stump from an ulcer. 2nd and 3rd ray: There is similar appearance of the chronic fragmentation and subchondral collapse o f the second and third metatarsal heads and to a lesser degree the second and third proximal phalang es, similar to the prior study. There is no acute fracture or significant bone marrow edema within t he second or third digits. 4th and 5th ray: There has been interval postsurgical changes of amputation of the fifth phalanges a nd a portion of the fifth metatarsal. There is bone marrow edema with abnormal dark T1 signal within the proximal fifth metatarsal stump. This extends to about 1.3 cm distal to the fifth tarsometatars al articulation. There is no acute fracture, bone marrow edema, or osteomyelitis within the fourth digit. MIDFOOT: There is partial thickness chondral loss at the first tarsometatarsal joint. The tarsometat arsal joints are otherwise intact with minimal osseous spurring. The Lisfranc's ligament is intact. Other findings: There is no Rankin's neuroma. There is scarring and thickening of the plantar fascia but no discrete fibroma is visualized. There is denervation/atrophy of the muscles around the forefoot. There is mild scarring of the dista l flexor hallucis longus tendon from prior postsurgical change. The flexor and extensor tendons are otherwise unremarkable in appearance. RPTAT: ZZ IMPRESSION: 1. Progression of the osteomyelitis within the first metatarsal post amputation of the phalanges. Rui ny destructive changes the first metatarsal stump with increased abnormal marrow signal throughout t he first metatarsal and an underlying plantar skin ulcer. 2. Post amputation of the fifth phalanges and a portion of the fifth metatarsal with osteomyelitis i nvolving the proximal fifth metatarsal stump. 3. Similar appearance of the fragmentation and subchondral collapse of the second and third metatars al heads and proximal phalanx bases which may be from prior avascular necrosis, prior trauma, or rem ote infection. .Michelle Moncada MD, MD Date Time Electronically viewed and signed by .Michelle Moncada MD, MD on 12/01/2016 16:53 .T/
--- NOTE | 2016-12-01 19:42 | CONS ---
Date/Time of Note Date/Time of Note DATE: 12/01/16 TIME: 19:42 Assessment/Plan Assessment/Plan Chief Complaint/Hosp Course ID PROGRESS NOTE CURRENT ABX: =>Vanco IV + Fortaz 24H INTERVAL SUMMARY * Clinically stable, calm, resting comfortable, no fevers * 11/29/16 wound cx: WOUND CULTURE Preliminary Organism 1 NON LACTOSE FERMENTING GNR QUANTITY 3+ Organism 2 GRAM NEGATIVE KAITLYN QUANTITY 2+ Organism 3 STREP, BETA HEMOLYTIC GRP G QUANTITY 2+ * MRI * 1. Progression of the osteomyelitis within the first metatarsal post amputation of the phalanges. Bony destructive changes the first metatarsal stump with increased abnormal marrow signal throughout the first metatarsal and an underlying plantar skin ulcer. * 2. Post amputation of the fifth phalanges and a portion of the fifth metatarsal with osteomyelitis involving the proximal fifth metatarsal stump. * 3. Similar appearance of the fragmentation and subchondral collapse of the second and third metatarsal heads and proximal phalanx bases which may be from prior avascular necrosis, prior trauma, or remote infection. EXAM GEN: VSS, NAD HEENT: Unremarkable NECK: supple CVS: RRR CHEST: Equal chest rise bilaterally without dyspnea on observation ABD: Soft, NT, EXT: warm SKIN: No rash, no diaphoresis ID ASSESSMENT 36 yo M admit with: 1. Recurrent Left foot infection with progression of osteomyelitis since last admission, debridement, treatment * ESR 108 => consistent with osteomyelitis 3. Morbid obesity. 4. Substance abuse==> ongoing. 5. Poorly controlled diabetes. 6. History of noncompliance. (-)MRSA Nares CURRENT ABX: =>Vanco IV + Fortaz ID RECOMMENDATIONS 1. Await final wound Cx results 2. Further recs podiatry 3. He will need repeat course IV ABX 6-8 weeks 4. Check MRSA Nares, he has hx of MRSA finger wound Problems: Consultation Date/Type/Reason Admit Date/Time Nov 29, 2016 at 22:15 Initial Consult Date Exam/Review of Systems Vital Signs Vitals Vital Signs Date Time Temp Pulse Resp B/P Pulse Ox O2 Delivery O2 Flow Rate FiO2 12/01/16 14:59 98.0 98 20 159/88 98 11/29/16 18:59 Room Air Intake and Output 11/30/16 11/30/16 12/01/16 15:00 23:00 07:00 Intake Total 300 ml 1940 ml 550 ml Balance 300 ml 1940 ml 550 ml Results Result Diagram: 12/01/16 0443 12/01/16 0443 Results 24 hrs Laboratory Tests Test 11/30/16 21:12 12/01/16 02:13 12/01/16 04:43 12/01/16 08:43 Bedside Glucose 199 197 325 H White Blood Count 8.3 Red Blood Count 5.62 Hemoglobin 13.4 L Hematocrit 44.3 Mean Corpuscular Volume 78.8 L Mean Corpuscular Hemoglobin 23.8 L Mean Corpuscular Hemoglobin Concent 30.2 L Red Cell Distribution Width 13.8 Platelet Count 332 Mean Platelet Volume 9.3 Neutrophils % 56.4 Lymphocytes % 31.3 Monocytes % 6.1 Eosinophils % 4.1 Basophils % 0.8 Nucleated Red Blood Cells % 0.0 Neutrophils # 4.7 Lymphocytes # 2.6 Monocytes # 0.5 Eosinophils # 0.3 Basophils # 0.1 Nucleated Red Blood Cells # 0.0 Sodium Level 136 Potassium Level 4.3 Chloride Level 99 Carbon Dioxide Level 31 Anion Gap 10 Blood Urea Nitrogen 17 Creatinine 0.81 Glucose Level 222 H Calcium Level 9.7 Phosphorus Level 5.5 H Magnesium Level 1.9 Vancomycin Level Trough 14.0 Test 12/01/16 09:00 12/01/16 11:41 12/01/16 15:07 12/01/16 17:14 Urine Opiates Screen Negative Urine Barbiturates Negative Urine Amphetamines Screen POSITIVE Urine Benzodiazepines Screen Negative Urine Cocaine Screen Negative Urine Cannabinoids Negative Bedside Glucose 178 106 123 Medications Medications Current Medications Ondansetron HCl (Zofran Inj) 4 mg Q6H PRN IV NAUSEA AND/OR VOMITING; Start at 02:30 Acetaminophen (Tylenol Tab) 650 mg Q6H PRN PO PAIN LEVEL 1-3 OR FEVER Last administered on 11/30/16 17:00; Admin Dose 650 MG; Start 11/30/16 at 02:30 Heparin Sodium (Porcine) (Heparin (5000 Units/0.5 ml)) 5,000 unit Q12 SC Last administered on 12/01/16 08:55; Admin Dose 5,000 UNIT; Start 11/30/16 at 09:00 Bupropion HCl (Wellbutrin Xl) 150 mg DAILY PO Last administered on 12/01/16 09 :00; Admin Dose 150 MG; Start 11/30/16 at 09:00 Insulin Glargine (Lantus) 40 unit QHS SC Last administered on 11/30/16 21:17; Admin Dose 40 UNIT; Start 11/30/16 at 21:00 Lactobacillus Acidophilus/ Rhamnosus (Culturelle) 1 cap BID PO Last administered on 12/01/16 09:03; Admin Dose 1 CAP; Start 11/30/16 at 09:00 Multivitamins Therapeutic (Theragran) 1 tab DAILY PO Last administered on 08:59; Admin Dose 1 TAB; Start 11/30/16 at 09:00 Topiramate 25 mg 25 mg BID PO Last administered on 12/01/16 09:00; Admin Dose 25 MG; Start 11/30/16 at 09:00 Ceftazidime (Fortaz 1gm/50 ml (Pmx)) 50 ml @ 100 mls/hr Q12 IVPB Last administered on 12/01/16 10:23; Admin Dose 100 MLS/HR; Start 11/30/16 at 09:00 Diagnostic Test (Pha) (Accu-Chek) 1 ea 02 XX Last administered on 12/01/16 02: 14; Admin Dose 1 EA; Start 12/01/16 at 02:00 Miscellaneous Information 1 ea NOTE XX ; Start 11/30/16 at 02:30 Glucose (Glutose) 15 gm Q15M PRN PO DECREASED GLUCOSE; Start 11/30/16 at 02:30 Glucose (Glutose) 22.5 gm Q15M PRN PO DECREASED GLUCOSE; Start 11/30/16 at 02: 30 Dextrose (D50w Syringe) 25 ml Q15M PRN IV DECREASED GLUCOSE; Start 11/30/16 at 02:30 Dextrose (D50w Syringe) 50 ml Q15M PRN IV DECREASED GLUCOSE; Start 11/30/16 at 02:30 Glucagon (Glucagen) 1 mg Q15M PRN IM DECREASED GLUCOSE; Start 11/30/16 at 02:30 Glucose 15 gm 15 gm Q15M PRN BUCCAL DECREASED GLUCOSE; Start 11/30/16 at 02:30 Vancomycin HCl/ Sodium Chloride (Vancocin/NS) 250 ml @ 83.333 mls/ hr Q8H IVPB Last administered on 12/01/16 14:49; Admin Dose 83.333 MLS/HR; Start at 06:00 Miscellaneous Information Patients own medicat... BID@ XX ; Start 11/30/16 at 10:00 Collagenase (Santyl) 1 applic DAILY TOP Last administered on 12/01/16 12:10; Admin Dose 1 APPLIC; Start 11/30/16 at 09:00 Collagenase (Santyl) 1 applic PRN PRN TOP WOUND CARE; Start 11/30/16 at 08:00 Ibuprofen (Motrin) 600 mg Q6 PRN PO for moderate pain Last administered on 12/01 17:21; Admin Dose 600 MG; Start 11/30/16 at 21:30 Sodium Hypochlorite (Dakin'S (1/4 Strength)) 1 applic DAILY TOP Last administered on 12/01/16 11:32; Admin Dose 1 APPLIC; Start 12/01/16 at 11:00 Nicotine (Nicoderm 21 Mg/ 24hr) 1 patch DAILY TRANSDERM Last administered on 16:32; Admin Dose 1 PATCH; Start 12/01/16 at 16:00 LORIE DARLING NP Dec 01, 2016 19:42
[2016-12-01 20:12] VITALS: BP 147/78; RESP 19
[2016-12-01] MEDS: INSULIN GLARGINE [LANtus] 3 ML PEN SC SCH (20:57)
[2016-12-01] MEDS: ZOLPIDEM 5 MG TAB PO PRN (22:07)
--- NOTE | 2016-12-01 22:36 | CONS ---
Date/Time of Note Date/Time of Note DATE: 12/01/16 TIME: 22:35 Assessment/Plan Assessment/Plan Problems: (1) Non-pressure chronic ulcer of other part of left foot with fat layer exposed (2) Non-pressure chronic ulcer of other part of right foot with necrosis of bone Status: Chronic (3) Drug abuse and dependence Status: Chronic (4) Acquired absence of other right toe(s) (5) Morbid obesity due to excess calories Status: Chronic (6) Depression with anxiety Status: Chronic (7) Diabetes, polyneuropathy Status: Chronic Qualifiers: Qualified Code: E11.42 - Diabetic polyneuropathy associated with type 2 diabetes mellitus (8) Chronic hepatitis C Status: Chronic Qualifiers: Qualified Code: B18.2 - Chronic hepatitis C without hepatic coma Additional Assessment/Plan Awaiting MRI of the right foot. Patient will be followed up in-house. May require surgery pending MRI findings. Continue IV antibiotics. Continue nonweightbearing on the right foot. Thank you again for involving me in the care of this patient. If you have any questions regarding this case, please feel free to contact me at pager: [phone] or reach me at mobile: [phone]. Consultation Date/Type/Reason Admit Date/Time Nov 29, 2016 at 22:15 Date of Consultation: Dec 01, 2016 Type of Consultation: Foot and ankle surgery Reason for Consultation Evaluation open wound right foot and left fifth toe Hx of Present Illness Thank you very much for involving me in the care of this patient. 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 Patient presented complaining of a draining wound from the right foot. Reports bad smell from the right foot. He says that he was doing a "job" and he neglected his foot. Patient is currently on IV antibiotics. Constitutional: no complaints Respiratory: no complaints Cardiovascular: no complaints Gastrointestinal: no complaints Neurologic: no complaints Psychological: no complaints (Denies issues.) Past Medical History As per history of present illness. Past Surgical History As per history of present illness. Social History As per history of present illness. Smoking Status: Current every day smoker Exam/Review of Systems Vital Signs Vitals Vital Signs Date Time Temp Pulse Resp B/P Pulse Ox O2 Delivery O2 Flow Rate FiO2 12/01/16 20:12 98.1 99 19 147/78 97 11/29/16 18:59 Room Air Intake and Output 11/30/16 11/30/16 12/01/16 15:00 23:00 07:00 Intake Total 300 ml 1940 ml 550 ml Balance 300 ml 1940 ml 550 ml Exam Patient is moderately obese in no acute distress. Left fifth toe open wound present with erythema and edema of the lateral distal foot. There is no pus and no bleeding noted. 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 Open wound present on the plantar aspect of the hallux amputation site with necrotic tissue and malodor. Right foot edema noted with maceration. There is no active pus or bleeding noted. There is no tenderness to palpation. Labs reviewed. MRI pending. Results Result Diagram: 12/01/16 0443 12/01/16 0443 Results 24 hrs Laboratory Tests Test 12/01/16 02:13 12/01/16 04:43 12/01/16 08:43 12/01/16 09:00 Bedside Glucose 197 325 H White Blood Count 8.3 Red Blood Count 5.62 Hemoglobin 13.4 L Hematocrit 44.3 Mean Corpuscular Volume 78.8 L Mean Corpuscular Hemoglobin 23.8 L Mean Corpuscular Hemoglobin Concent 30.2 L Red Cell Distribution Width 13.8 Platelet Count 332 Mean Platelet Volume 9.3 Neutrophils % 56.4 Lymphocytes % 31.3 Monocytes % 6.1 Eosinophils % 4.1 Basophils % 0.8 Nucleated Red Blood Cells % 0.0 Neutrophils # 4.7 Lymphocytes # 2.6 Monocytes # 0.5 Eosinophils # 0.3 Basophils # 0.1 Nucleated Red Blood Cells # 0.0 Sodium Level 136 Potassium Level 4.3 Chloride Level 99 Carbon Dioxide Level 31 Anion Gap 10 Blood Urea Nitrogen 17 Creatinine 0.81 Glucose Level 222 H Calcium Level 9.7 Phosphorus Level 5.5 H Magnesium Level 1.9 Vancomycin Level Trough 14.0 Urine Opiates Screen Negative Urine Barbiturates Negative Urine Amphetamines Screen POSITIVE Urine Benzodiazepines Screen Negative Urine Cocaine Screen Negative Urine Cannabinoids Negative Test 12/01/16 11:41 12/01/16 15:07 12/01/16 17:14 12/01/16 20:53 Bedside Glucose 178 106 123 138 Medications Medications Current Medications Ondansetron HCl (Zofran Inj) 4 mg Q6H PRN IV NAUSEA AND/OR VOMITING; Start at 02:30 Acetaminophen (Tylenol Tab) 650 mg Q6H PRN PO PAIN LEVEL 1-3 OR FEVER Last administered on 11/30/16 17:00; Admin Dose 650 MG; Start 11/30/16 at 02:30 Heparin Sodium (Porcine) (Heparin (5000 Units/0.5 ml)) 5,000 unit Q12 SC Last administered on 12/01/16 20:57; Admin Dose 5,000 UNIT; Start 11/30/16 at 09:00 Bupropion HCl (Wellbutrin Xl) 150 mg DAILY PO Last administered on 12/01/16 09 :00; Admin Dose 150 MG; Start 11/30/16 at 09:00 Insulin Glargine (Lantus) 40 unit QHS SC Last administered on 12/01/16 20:57; Admin Dose 40 UNIT; Start 11/30/16 at 21:00 Lactobacillus Acidophilus/ Rhamnosus (Culturelle) 1 cap BID PO Last administered on 12/01/16 20:55; Admin Dose 1 CAP; Start 11/30/16 at 09:00 Multivitamins Therapeutic (Theragran) 1 tab DAILY PO Last administered on 08:59; Admin Dose 1 TAB; Start 11/30/16 at 09:00 Topiramate 25 mg 25 mg BID PO Last administered on 12/01/16 20:56; Admin Dose 25 MG; Start 11/30/16 at 09:00 Ceftazidime (Fortaz 1gm/50 ml (Pmx)) 50 ml @ 100 mls/hr Q12 IVPB Last administered on 12/01/16 20:55; Admin Dose 100 MLS/HR; Start 11/30/16 at 09:00 Diagnostic Test (Pha) (Accu-Chek) 1 ea 02 XX Last administered on 12/01/16 02: 14; Admin Dose 1 EA; Start 12/01/16 at 02:00 Miscellaneous Information 1 ea NOTE XX ; Start 11/30/16 at 02:30 Glucose (Glutose) 15 gm Q15M PRN PO DECREASED GLUCOSE; Start 11/30/16 at 02:30 Glucose (Glutose) 22.5 gm Q15M PRN PO DECREASED GLUCOSE; Start 11/30/16 at 02: 30 Dextrose (D50w Syringe) 25 ml Q15M PRN IV DECREASED GLUCOSE; Start 11/30/16 at 02:30 Dextrose (D50w Syringe) 50 ml Q15M PRN IV DECREASED GLUCOSE; Start 11/30/16 at 02:30 Glucagon (Glucagen) 1 mg Q15M PRN IM DECREASED GLUCOSE; Start 11/30/16 at 02:30 Glucose 15 gm 15 gm Q15M PRN BUCCAL DECREASED GLUCOSE; Start 11/30/16 at 02:30 Vancomycin HCl/ Sodium Chloride (Vancocin/NS) 250 ml @ 83.333 mls/ hr Q8H IVPB Last administered on 12/01/16 22:07; Admin Dose 83.333 MLS/HR; Start at 06:00 Miscellaneous Information Patients own medicat... BID@10,16 XX ; Start 11/30/16 at 10:00 Collagenase (Santyl) 1 applic DAILY TOP Last administered on 12/01/16 12:10; Admin Dose 1 APPLIC; Start 11/30/16 at 09:00 Collagenase (Santyl) 1 applic PRN PRN TOP WOUND CARE; Start 11/30/16 at 08:00 Ibuprofen (Motrin) 600 mg Q6 PRN PO for moderate pain Last administered on 12/01 17:21; Admin Dose 600 MG; Start 11/30/16 at 21:30 Sodium Hypochlorite (Dakin'S (1/4 Strength)) 1 applic DAILY TOP Last administered on 12/01/16 11:32; Admin Dose 1 APPLIC; Start 12/01/16 at 11:00 Nicotine (Nicoderm 21 Mg/ 24hr) 1 patch DAILY TRANSDERM Last administered on 16:32; Admin Dose 1 PATCH; Start 12/01/16 at 16:00 Zolpidem Tartrate (Ambien) 10 mg HS PRN PO INSOMNIA Last administered on 22:07; Admin Dose 10 MG; Start 12/01/16 at 22:00 ESTEE IBRAHIM DPM Dec 01, 2016 22:36
[2016-12-02] MEDS: VANCOMYCIN 1.5 GM in SOD CHLORIDE 0.9% 250 ML IVPB SCH ×3 (05:28→22:09)
[2016-12-02 05:34] LABS: BASOPHIL # 0.1 10^3/ul (0.0-0.1); BASOPHILS % 0.8 % (0.0-2.0); EOSINOPHILS # 0.3 10^3/ul (0.0-0.5); EOSINOPHILS % 3.8 % (0.0-7.0); HEMATOCRIT 43.5 % (42.0-52.0); HEMOGLOBIN 13.4 g/dl (14.0-18.0); LYMPHOCYTES # 2.2 10^3/ul (0.8-2.9); LYMPHOCYTES % 24.8 % (15.0-51.0); MEAN CORPUSCULAR HEMOGLOBIN 23.7 pg (29.0-33.0); MEAN CORPUSCULAR HGB CONC 30.8 g/dl (32.0-37.0); MEAN PLATELET VOLUME 9.5 fl (7.4-10.4); MONOCYTE # 0.6 10^3/ul (0.3-0.9); MONOCYTES % 6.2 % (0.0-11.0); NEUTROPHIL # 5.6 10^3/ul (1.6-7.5); NEUTROPHILS % 63.3 % (39.0-77.0); PLATELET COUNT 346 10^3/UL (140-415); RED BLOOD COUNT 5.65 10^6/ul (4.70-6.10); WHITE BLOOD COUNT 8.9 10^3/ul (4.8-10.8)
[2016-12-02] MEDS: IBUPROFEN 600 MG TAB PO PRN ×3 (06:26→18:37)
[2016-12-02 06:45] LABS: ALBUMIN 3.4 g/dl (3.3-4.9); ALBUMIN/GLOBULIN RATIO 0.79; CALCIUM 9.5 mg/dl (8.4-10.2); CREATININE 0.74 mg/dl (0.61-1.24); POTASSIUM 3.7 mmol/L (3.5-5.1); TOTAL PROTEIN 7.7 g/dl (6.1-8.1)
[2016-12-02] MEDS: INSULIN ASPART [NOVOLOG] 3 ML PEN SC SCH ×7 (08:12→20:33)
[2016-12-02 08:14] VITALS: BP 121/71; RESP 20
[2016-12-02] MEDS: HEPARIN 5,000 UNIT/0.5 ML VIAL SC SCH ×2 (08:14→20:35)
[2016-12-02] MEDS: MULTIVITAMINS THERAPEUTIC TAB PO SCH (08:16)
[2016-12-02] MEDS: BUPROPION (XL) 150 MG TAB PO SCH (08:16)
[2016-12-02] MEDS: metFORMIN 500 MG TAB PO SCH ×2 (08:16→17:06)
[2016-12-02] MEDS: TOPIRAMATE 25 MG TAB PO SCH ×2 (08:16→20:36)
[2016-12-02] MEDS: LACTOBACILLUS RHAMNOSUS CAP PO SCH ×2 (08:16→20:36)
[2016-12-02] MEDS: NICOTINE (21 MG/24 HR) PATCH TRANSDERM SCH (08:18)
--- NOTE | 2016-12-02 10:01 | PN ---
Date/Time of Note Date/Time of Note DATE: 12/02/16 TIME: 09:58 Assessment/Plan VTE Prophylaxis VTE Prophylaxis Intervention: heparin Lines/Catheters IV [facility] Urinary Cath still in place: No Assessment/Plan Problems: (1) Chronic hepatitis C Status: Chronic Comment: As noted yesterday treatment of this will be done as an outpatient once he has had somewhat better resolution of the distal extremity foot wounds. Qualifiers: Hepatic coma status: without hepatic coma Qualified Code: B18.2 - Chronic hepatitis C without hepatic coma (2) Diabetes, polyneuropathy Status: Chronic Comment: Noted. Attempt to get sugars as best of control as possible. Please note he is in a controlled environment with controlled diet and under treatment with antibiotics for his infection Qualifiers: Diabetes mellitus type: type 2 Qualified Code: E11.42 - Diabetic polyneuropathy associated with type 2 diabetes mellitus (3) Depression with anxiety Status: Chronic Comment: Noted. This is part and parcel that leads to the chemical dependency (4) Morbid obesity due to excess calories Status: Chronic Comment: Calorie restriction diet (5) Non-pressure chronic ulcer of other part of right foot with necrosis of bone Status: Chronic Comment: As per Dr. Cuellar and [facility]. He is going to need some type of procedure and then long-term antibiotics again (6) Diabetes mellitus out of control Status: Acute Comment: Management of sugars and medication Qualifiers: Diabetes mellitus type: type 2 Diabetes mellitus complication status: with unspecified complications Diabetes mellitus half-way insulin use: with rn long term care use Qualified Code: E11.8 - Uncontrolled type 2 diabetes mellitus with complication, with long-term current use of insulin (7) Drug abuse and dependence Status: Chronic Comment: Noted. While in the hospital he should not have access to his drugs of choice which are crystal meth Subjective 24 Hr Interval Summary Free Text/Dictation Patient reports he is concerned about how long he will be in the hospital. No specific localizing complaints Constitutional: no complaints (Denies fevers chills or sweats) Respiratory: no complaints Cardiovascular: no complaints Gastrointestinal: no complaints Genitourinary: no complaints Musculoskeletal: other (Some foot pain but unfortunately not as much as he should have indicating neuropathy) Exam/Review of Systems Vital Signs Vitals Vital Signs Date Time Temp Pulse Resp B/P Pulse Ox O2 Delivery O2 Flow Rate FiO2 12/02/16 08:14 98.3 94 20 121/71 96 11/29/16 18:59 Room Air Intake and Output 12/01/16 12/01/16 12/02/16 15:00 23:00 07:00 Intake Total 50 ml 2660 ml 983 ml Output Total 1750 ml Balance 50 ml 910 ml 983 ml Exam Constitutional: alert, oriented Respiratory: clear to auscultation, normal air movement Cardiovascular: nl pulses, regular rate and rhythm Gastrointestinal: nl liver, spleen, non-tender, soft Results Result Diagram: 12/02/163 12/02/16 0443 Results 24 hrs Laboratory Tests Test 12/01/16 11:41 12/01/16 15:07 12/01/16 17:14 12/01/16 20:53 Bedside Glucose 178 106 123 138 Test 12/02/16 04:43 12/02/16 07:55 White Blood Count 8.9 Red Blood Count 5.65 Hemoglobin 13.4 L Hematocrit 43.5 Mean Corpuscular Volume 77.0 L Mean Corpuscular Hemoglobin 23.7 L Mean Corpuscular Hemoglobin Concent 30.8 L Red Cell Distribution Width 14.0 Platelet Count 346 Mean Platelet Volume 9.5 Neutrophils % 63.3 Lymphocytes % 24.8 Monocytes % 6.2 Eosinophils % 3.8 Basophils % 0.8 Nucleated Red Blood Cells % 0.0 Neutrophils # 5.6 Lymphocytes # 2.2 Monocytes # 0.6 Eosinophils # 0.3 Basophils # 0.1 Nucleated Red Blood Cells # 0.0 Erythrocyte Sedimentation Rate 80 H Sodium Level 136 Potassium Level 3.7 Chloride Level 101 Carbon Dioxide Level 29 Anion Gap 10 Blood Urea Nitrogen 18 Creatinine 0.74 Glucose Level 198 Calcium Level 9.5 Total Bilirubin 0.0 L Direct Bilirubin 0.00 Indirect Bilirubin 0.0 Aspartate Amino Transf (AST/SGOT) 20 Alanine Aminotransferase (ALT/SGPT) 27 Alkaline Phosphatase 102 Total Protein 7.7 Albumin 3.4 Globulin 4.30 H Albumin/Globulin Ratio 0.79 Bedside Glucose 215 Medications Medications Current Medications Ondansetron HCl (Zofran Inj) 4 mg Q6H PRN IV NAUSEA AND/OR VOMITING; Start at 02:30 Acetaminophen (Tylenol Tab) 650 mg Q6H PRN PO PAIN LEVEL 1-3 OR FEVER Last administered on 11/30/16t 17:00; Admin Dose 650 MG; Start 11/30/16 at 02:30 Heparin Sodium (Porcine) (Heparin (5000 Units/0.5 ml)) 5,000 unit Q12 SC Last administered on 12/02/16 08:14; Admin Dose 5,000 UNIT; Start 11/30/16 at 09:00 Bupropion HCl (Wellbutrin Xl) 150 mg DAILY PO Last administered on 12/02/16 08 :16; Admin Dose 150 MG; Start 11/30/16 at 09:00 Insulin Glargine (Lantus) 40 unit QHS SC Last administered on 12/01/16 20:57; Admin Dose 40 UNIT; Start 11/30/16 at 21:00 Lactobacillus Acidophilus/ Rhamnosus (Culturelle) 1 cap BID PO Last administered on 12/02/16 08:16; Admin Dose 1 CAP; Start 11/30/16 at 09:00 Multivitamins Therapeutic (Theragran) 1 tab DAILY PO Last administered on 08:16; Admin Dose 1 TAB; Start 11/30/16 at 09:00 Topiramate 25 mg 25 mg BID PO Last administered on 12/02/16 08:16; Admin Dose 25 MG; Start 11/30/16 at 09:00 Ceftazidime (Fortaz 1gm/50 ml (Pmx)) 50 ml @ 100 mls/hr Q12 IVPB Last administered on 12/01/16 20:55; Admin Dose 100 MLS/HR; Start 11/30/16 at 09:00 Diagnostic Test (Pha) (Accu-Chek) 1 ea 02 XX Last administered on 12/01/16 02: 14; Admin Dose 1 EA; Start 12/01/16 at 02:00 Miscellaneous Information 1 ea NOTE XX ; Start 11/30/16 at 02:30 Glucose (Glutose) 15 gm Q15M PRN PO DECREASED GLUCOSE; Start 11/30/16 at 02:30 Glucose (Glutose) 22.5 gm Q15M PRN PO DECREASED GLUCOSE; Start 11/30/16 at 02: 30 Dextrose (D50w Syringe) 25 ml Q15M PRN IV DECREASED GLUCOSE; Start 11/30/16 at 02:30 Dextrose (D50w Syringe) 50 ml Q15M PRN IV DECREASED GLUCOSE; Start 11/30/16 at 02:30 Glucagon (Glucagen) 1 mg Q15M PRN IM DECREASED GLUCOSE; Start 11/30/16 at 02:30 Glucose 15 gm 15 gm Q15M PRN BUCCAL DECREASED GLUCOSE; Start 11/30/16 at 02:30 Vancomycin HCl/ Sodium Chloride (Vancocin/NS) 250 ml @ 83.333 mls/ hr Q8H IVPB Last administered on 12/02/16 05:28; Admin Dose 83.333 MLS/HR; Start at 06:00 Miscellaneous Information Patients own medicat... BID@ XX ; Start 11/30/16 at 10:00 Collagenase (Santyl) 1 applic DAILY TOP Last administered on 12/01/16 12:10; Admin Dose 1 APPLIC; Start 11/30/16 at 09:00 Collagenase (Santyl) 1 applic PRN PRN TOP WOUND CARE; Start 11/30/16 at 08:00 Ibuprofen (Motrin) 600 mg Q6 PRN PO for moderate pain Last administered on 12/02 06:26; Admin Dose 600 MG; Start 11/30/16 at 21:30 Sodium Hypochlorite (Dakin'S (1/4 Strength)) 1 applic DAILY TOP Last administered on 12/01/16 11:32; Admin Dose 1 APPLIC; Start 12/01/16 at 11:00 Nicotine (Nicoderm 21 Mg/ 24hr) 1 patch DAILY TRANSDERM Last administered on 08:18; Admin Dose 1 PATCH; Start 12/01/16 at 16:00 Zolpidem Tartrate (Ambien) 10 mg HS PRN PO INSOMNIA Last administered on 22:07; Admin Dose 10 MG; Start 12/01/16 at 22:00 SLIME ORTEGA MD Dec 02, 2016 10:01
[2016-12-02] MEDS: CEFTAZIDIME 1GM/50 ML (PMX) 50 ML IVPB SCH ×2 (12:39→20:36)
--- NOTE | 2016-12-02 12:49 | CONS ---
Date/Time of Note Date/Time of Note DATE: 12/02/16 TIME: 12:43 Assessment/Plan Assessment/Plan Chief Complaint/Hosp Course ID PROGRESS NOTE CURRENT ABX: =>Vanco IV + Fortaz 24H INTERVAL SUMMARY * Awake, no new issues, VSS, calm * ESR elevated to 80 = consistent w/osteomyelitis * 12/01/16 Right Foot Cx: WOUND CULTURE Preliminary Organism 1 GRAM NEGATIVE KAITLYN QUANTITY 3+ * 11/29/16 wound cx: WOUND CULTURE Preliminary Organism 1 PROTEUS MIRABILIS QUANTITY 3+ Organism 2 GRAM NEGATIVE KAITLYN QUANTITY 2+ Organism 3 STREP, BETA HEMOLYTIC GRP G QUANTITY 2+ Organism 4 DIPTHEROIDS QUANTITY 1+ P. MIRAB M.I.C. RX --------- --- AMPICILLIN <=2 S CEFOTAXIME S CIPROFLOXACIN <=0.25 S GENTAMICIN <=1 S LEVOFLOXACIN <=0.12 S TOBRAMYCIN <=1 S TRIMETHOPRIM/SULFAMETHOXAZOLE <=20 S * MRI * 1. Progression of the osteomyelitis within the first metatarsal post amputation of the phalanges. Bony destructive changes the first metatarsal stump with increased abnormal marrow signal throughout the first metatarsal and an underlying plantar skin ulcer. * 2. Post amputation of the fifth phalanges and a portion of the fifth metatarsal with osteomyelitis involving the proximal fifth metatarsal stump. * 3. Similar appearance of the fragmentation and subchondral collapse of the second and third metatarsal heads and proximal phalanx bases which may be from prior avascular necrosis, prior trauma, or remote infection. EXAM GEN: VSS, NAD HEENT: Unremarkable NECK: supple CVS: RRR CHEST: Equal chest rise bilaterally without dyspnea on observation ABD: Soft, NT, EXT: warm SKIN: No rash, no diaphoresis ID ASSESSMENT 36 yo M admit with: 1. Recurrent Left foot infection with progression of osteomyelitis since last admission, debridement, treatment * ESR 108 -> down to 80 12/02/16 => consistent with osteomyelitis * 12/01/16 Right Foot Cx: WOUND CULTURE Preliminary Organism 1 GRAM NEGATIVE KAITLYN QUANTITY 3+ 3. Morbid obesity. 4. Substance abuse==> ongoing. 5. Poorly controlled diabetes. 6. History of noncompliance. (? )MRSA Nares ? CURRENT ABX: =>Vanco IV + Fortaz ID RECOMMENDATIONS 1. Await final wound Cx results -> Need to finalize GNR sensitivities for final ABX recommendations 2. Further recs podiatry 3. He will need repeat course IV ABX 6-8 weeks 4. Check MRSA Nares, he has hx of MRSA finger wound Problems: Consultation Date/Type/Reason Admit Date/Time Nov 29, 2016 at 22:15 Exam/Review of Systems Vital Signs Vitals Vital Signs Date Time Temp Pulse Resp B/P Pulse Ox O2 Delivery O2 Flow Rate FiO2 12/02/16 08:14 98.3 94 20 121/71 96 11/29/16 18:59 Room Air Intake and Output 12/01/16 12/01/16 12/02/16 15:00 23:00 07:00 Intake Total 50 ml 2660 ml 983 ml Output Total 1750 ml Balance 50 ml 910 ml 983 ml Results Result Diagram: 12/02/16 0443 12/02/16 0443 Results 24 hrs Laboratory Tests Test 12/01/16 15:07 12/01/16 17:14 12/01/16 20:53 12/02/16 04:43 Bedside Glucose 106 123 138 White Blood Count 8.9 Red Blood Count 5.65 Hemoglobin 13.4 L Hematocrit 43.5 Mean Corpuscular Volume 77.0 L Mean Corpuscular Hemoglobin 23.7 L Mean Corpuscular Hemoglobin Concent 30.8 L Red Cell Distribution Width 14.0 Platelet Count 346 Mean Platelet Volume 9.5 Neutrophils % 63.3 Lymphocytes % 24.8 Monocytes % 6.2 Eosinophils % 3.8 Basophils % 0.8 Nucleated Red Blood Cells % 0.0 Neutrophils # 5.6 Lymphocytes # 2.2 Monocytes # 0.6 Eosinophils # 0.3 Basophils # 0.1 Nucleated Red Blood Cells # 0.0 Erythrocyte Sedimentation Rate 80 H Sodium Level 136 Potassium Level 3.7 Chloride Level 101 Carbon Dioxide Level 29 Anion Gap 10 Blood Urea Nitrogen 18 Creatinine 0.74 Glucose Level 198 Calcium Level 9.5 Total Bilirubin 0.0 L Direct Bilirubin 0.00 Indirect Bilirubin 0.0 Aspartate Amino Transf (AST/SGOT) 20 Alanine Aminotransferase (ALT/SGPT) 27 Alkaline Phosphatase 102 Total Protein 7.7 Albumin 3.4 Globulin 4.30 H Albumin/Globulin Ratio 0.79 Test 12/02/16 07:55 12/02/16 11:59 Bedside Glucose 215 200 Medications Medications Current Medications Ondansetron HCl (Zofran Inj) 4 mg Q6H PRN IV NAUSEA AND/OR VOMITING; Start at 02:30 Acetaminophen (Tylenol Tab) 650 mg Q6H PRN PO PAIN LEVEL 1-3 OR FEVER Last administered on 11/30/16 17:00; Admin Dose 650 MG; Start 11/30/16 at 02:30 Heparin Sodium (Porcine) (Heparin (5000 Units/0.5 ml)) 5,000 unit Q12 SC Last administered on 12/02/16 08:14; Admin Dose 5,000 UNIT; Start 11/30/16 at 09:00 Bupropion HCl (Wellbutrin Xl) 150 mg DAILY PO Last administered on 12/02/16 08 :16; Admin Dose 150 MG; Start 11/30/16 at 09:00 Lactobacillus Acidophilus/ Rhamnosus (Culturelle) 1 cap BID PO Last administered on 12/02/16 08:16; Admin Dose 1 CAP; Start 11/30/16 at 09:00 Multivitamins Therapeutic (Theragran) 1 tab DAILY PO Last administered on 08:16; Admin Dose 1 TAB; Start 11/30/16 at 09:00 Topiramate 25 mg 25 mg BID PO Last administered on 12/02/16 08:16; Admin Dose 25 MG; Start 11/30/16 at 09:00 Ceftazidime (Fortaz 1gm/50 ml (Pmx)) 50 ml @ 100 mls/hr Q12 IVPB Last administered on 12/02/16 12:39; Admin Dose 100 MLS/HR; Start 11/30/16 at 09:00 Diagnostic Test (Pha) (Accu-Chek) 1 ea 02 XX Last administered on 12/01/16 02: 14; Admin Dose 1 EA; Start 12/01/16 at 02:00 Miscellaneous Information 1 ea NOTE XX ; Start 11/30/16 at 02:30 Glucose (Glutose) 15 gm Q15M PRN PO DECREASED GLUCOSE; Start 11/30/16 at 02:30 Glucose (Glutose) 22.5 gm Q15M PRN PO DECREASED GLUCOSE; Start 11/30/16 at 02: 30 Dextrose (D50w Syringe) 25 ml Q15M PRN IV DECREASED GLUCOSE; Start 11/30/16 at 02:30 Dextrose (D50w Syringe) 50 ml Q15M PRN IV DECREASED GLUCOSE; Start 11/30/16 at 02:30 Glucagon (Glucagen) 1 mg Q15M PRN IM DECREASED GLUCOSE; Start 11/30/16 at 02:30 Glucose 15 gm 15 gm Q15M PRN BUCCAL DECREASED GLUCOSE; Start 11/30/16 at 02:30 Vancomycin HCl/ Sodium Chloride (Vancocin/NS) 250 ml @ 83.333 mls/ hr Q8H IVPB Last administered on 12/02/16 05:28; Admin Dose 83.333 MLS/HR; Start at 06:00 Miscellaneous Information Patients own medicat... BID@,16 XX ; Start 11/30/16 at 10:00 Collagenase (Santyl) 1 applic DAILY TOP Last administered on 12/01/16 12:10; Admin Dose 1 APPLIC; Start 11/30/16 at 09:00 Collagenase (Santyl) 1 applic PRN PRN TOP WOUND CARE; Start 11/30/16 at 08:00 Ibuprofen (Motrin) 600 mg Q6 PRN PO for moderate pain Last administered on 12/02 12:37; Admin Dose 600 MG; Start 11/30/16 at 21:30 Sodium Hypochlorite (Dakin'S (1/4 Strength)) 1 applic DAILY TOP Last administered on 12/01/16 11:32; Admin Dose 1 APPLIC; Start 12/01/16 at 11:00 Nicotine (Nicoderm 21 Mg/ 24hr) 1 patch DAILY TRANSDERM Last administered on 08:18; Admin Dose 1 PATCH; Start 12/01/16 at 16:00 Zolpidem Tartrate (Ambien) 10 mg HS PRN PO INSOMNIA Last administered on 22:07; Admin Dose 10 MG; Start 12/01/16 at 22:00 Insulin Glargine (Lantus) 42 unit QHS SC ; Start 12/02/16 at 21:00 LORIE DARLING NP Dec 02, 2016 12:49
[2016-12-02] MEDS: COLLAGENASE 30 GM TUBE TOP SCH (13:30)
[2016-12-02] MEDS: SODIUM HYPOCHLORITE 0.125% 473 ML BTL TOP SCH (13:30)
[2016-12-02 14:00] VITALS: BP 135/71; RESP 18
[2016-12-02 20:24] VITALS: BP 147/80; RESP 20
[2016-12-02] MEDS: INSULIN GLARGINE [LANtus] 3 ML PEN SC SCH (20:34)
[2016-12-02] MEDS: ZOLPIDEM 5 MG TAB PO PRN (22:14)
[2016-12-03] MEDS: ACCU-CHEK XX SCH (02:07)
[2016-12-03 02:49] VITALS: BP 132/83; RESP 19
[2016-12-03] MEDS: VANCOMYCIN 1.5 GM in SOD CHLORIDE 0.9% 250 ML IVPB SCH ×3 (05:13→22:00)
[2016-12-03 08:00] VITALS: BP 126/73; RESP 20
[2016-12-03] MEDS: INSULIN ASPART [NOVOLOG] 3 ML PEN SC SCH ×7 (08:23→21:00)
[2016-12-03] MEDS: HEPARIN 5,000 UNIT/0.5 ML VIAL SC SCH ×2 (08:24→21:09)
[2016-12-03] MEDS: LACTOBACILLUS RHAMNOSUS CAP PO SCH ×2 (08:25→21:07)
[2016-12-03] MEDS: metFORMIN 500 MG TAB PO SCH ×2 (08:25→17:48)
[2016-12-03] MEDS: BUPROPION (XL) 150 MG TAB PO SCH (08:25)
[2016-12-03] MEDS: TOPIRAMATE 25 MG TAB PO SCH ×2 (08:25→21:07)
[2016-12-03] MEDS: NICOTINE (21 MG/24 HR) PATCH TRANSDERM SCH (08:25)
[2016-12-03] MEDS: IBUPROFEN 600 MG TAB PO PRN ×2 (08:25→17:54)
[2016-12-03] MEDS: MULTIVITAMINS THERAPEUTIC TAB PO SCH (08:25)
[2016-12-03] MEDS: CEFTAZIDIME 1GM/50 ML (PMX) 50 ML IVPB SCH (08:32)
[2016-12-03] MEDS: SODIUM HYPOCHLORITE 0.125% 473 ML BTL TOP SCH (14:13)
[2016-12-03] MEDS: COLLAGENASE 30 GM TUBE TOP SCH (14:13)
--- NOTE | 2016-12-03 14:25 | CONS ---
Date/Time of Note Date/Time of Note DATE: 12/03/16 TIME: 14:19 Assessment/Plan Assessment/Plan Chief Complaint/Hosp Course No acute changes, alert, feels good, no fevers, no n/v/d MRI * 1. Progression of the osteomyelitis within the first metatarsal post amputation of the phalanges. Bony destructive changes the first metatarsal stump with increased abnormal marrow signal throughout the first metatarsal and an underlying plantar skin ulcer. * 2. Post amputation of the fifth phalanges and a portion of the fifth metatarsal with osteomyelitis involving the proximal fifth metatarsal stump. * 3. Similar appearance of the fragmentation and subchondral collapse of the second and third metatarsal heads and proximal phalanx bases which may be from prior avascular necrosis, prior trauma, or remote infection. Abx: Vanco, Fortaz EXAM HEENT: Unremarkable NECK: supple CVS: RRR CHEST: Equal chest rise bilaterally without dyspnea on observation ABD: Soft, NT, EXT: warm, L foot dsg intact SKIN: No rash, no diaphoresis Assessment: 1. Recurrent Left foot infection with progression of osteomyelitis since last admission, debridement, treatment * ESR 108 -> down to 80 12/02/16 => consistent with osteomyelitis * 12/01/16 Right Foot Cx: WOUND CULTURE Preliminary Organism 1 GRAM NEGATIVE [place] QUANTITY 3+ 3. Morbid obesity. 4. Substance abuse==> ongoing. 5. Poorly controlled diabetes. 6. History of noncompliance. Abx: Vanco, Fortaz Plan: Clinically stable, change Fortaz to Levaquin, continue Vanco for now, f/u podiatry rec-s, BS control Problems: Consultation Date/Type/Reason Admit Date/Time Nov 29, 2016 at 22:15 Initial Consult Date Exam/Review of Systems Vital Signs Vitals Vital Signs Date Time Temp Pulse Resp B/P Pulse Ox O2 Delivery O2 Flow Rate FiO2 12/03/16 08:00 98.3 87 20 126/73 98 11/29/16 18:59 Room Air Intake and Output 12/02/16 12/02/16 12/03/16 15:00 23:00 07:00 Intake Total 250 ml 2340 ml 1100 ml Output Total 800 ml 1000 ml Balance 250 ml 1540 ml 100 ml Results Result Diagram: 12/02/16 0443 12/02/16 0443 Results 24 hrs Laboratory Tests Test 12/02/16 17:03 12/02/16 20:30 12/03/16 02:06 12/03/16 08:21 Bedside Glucose 173 210 160 166 Test 12/03/16 09:34 12/03/16 12:00 Hemoglobin A1c 10.7 H Bedside Glucose 158 Medications Medications Current Medications Ondansetron HCl (Zofran Inj) 4 mg Q6H PRN IV NAUSEA AND/OR VOMITING; Start at 02:30 Acetaminophen (Tylenol Tab) 650 mg Q6H PRN PO PAIN LEVEL 1-3 OR FEVER Last administered on 11/30/16 17:00; Admin Dose 650 MG; Start 11/30/16 at 02:30 Heparin Sodium (Porcine) (Heparin (5000 Units/0.5 ml)) 5,000 unit Q12 SC Last administered on 12/03/16 08:24; Admin Dose 5,000 UNIT; Start 11/30/16 at 09:00 Bupropion HCl (Wellbutrin Xl) 150 mg DAILY PO Last administered on 12/03/16 08 :25; Admin Dose 150 MG; Start 11/30/16 at 09:00 Lactobacillus Acidophilus/ Rhamnosus (Culturelle) 1 cap BID PO Last administered on 12/03/16 08:25; Admin Dose 1 CAP; Start 11/30/16 at 09:00 Multivitamins Therapeutic (Theragran) 1 tab DAILY PO Last administered on 08:25; Admin Dose 1 TAB; Start 11/30/16 at 09:00 Topiramate 25 mg 25 mg BID PO Last administered on 12/03/16 08:25; Admin Dose 25 MG; Start 11/30/16 at 09:00 Ceftazidime (Fortaz 1gm/50 ml (Pmx)) 50 ml @ 100 mls/hr Q12 IVPB Last administered on 12/03/16 08:32; Admin Dose 100 MLS/HR; Start 11/30/16 at 09:00 Diagnostic Test (Pha) (Accu-Chek) 1 ea 02 XX Last administered on 12/03/16 02: 07; Admin Dose 1 EA; Start 12/01/16 at 02:00 Miscellaneous Information 1 ea NOTE XX ; Start 11/30/16 at 02:30 Glucose (Glutose) 15 gm Q15M PRN PO DECREASED GLUCOSE; Start 11/30/16 at 02:30 Glucose (Glutose) 22.5 gm Q15M PRN PO DECREASED GLUCOSE; Start 11/30/16 at 02: 30 Dextrose (D50w Syringe) 25 ml Q15M PRN IV DECREASED GLUCOSE; Start 11/30/16 at 02:30 Dextrose (D50w Syringe) 50 ml Q15M PRN IV DECREASED GLUCOSE; Start 11/30/16 at 02:30 Glucagon (Glucagen) 1 mg Q15M PRN IM DECREASED GLUCOSE; Start 11/30/16 at 02:30 Glucose 15 gm 15 gm Q15M PRN BUCCAL DECREASED GLUCOSE; Start 11/30/16 at 02:30 Vancomycin HCl/ Sodium Chloride (Vancocin/NS) 250 ml @ 83.333 mls/ hr Q8H IVPB Last administered on 12/03/16 13:54; Admin Dose 83.333 MLS/HR; Start at 06:00 Miscellaneous Information Patients own medicat... BID@10,16 XX ; Start 11/30/16 at 10:00 Collagenase (Santyl) 1 applic DAILY TOP Last administered on 12/03/16 14:13; Admin Dose 1 APPLIC; Start 11/30/16 at 09:00 Collagenase (Santyl) 1 applic PRN PRN TOP WOUND CARE; Start 11/30/16 at 08:00 Ibuprofen (Motrin) 600 mg Q6 PRN PO for moderate pain Last administered on 12/03 08:25; Admin Dose 600 MG; Start 11/30/16 at 21:30 Sodium Hypochlorite (Dakin'S (1/4 Strength)) 1 applic DAILY TOP Last administered on 12/03/16 14:13; Admin Dose 1 APPLIC; Start 12/01/16 at 11:00 Nicotine (Nicoderm 21 Mg/ 24hr) 1 patch DAILY TRANSDERM Last administered on 08:25; Admin Dose 1 PATCH; Start 12/01/16 at 16:00 Zolpidem Tartrate (Ambien) 10 mg HS PRN PO INSOMNIA Last administered on 22:14; Admin Dose 10 MG; Start 12/01/16 at 22:00 Insulin Glargine (Lantus) 42 unit QHS SC Last administered on 9/17/17at 20:34; Admin Dose 42 UNIT; Start 12/02/16 at 21:00 Miscellaneous Information (*Rx Drug Level Order Reminder*) 1 ONCE ONCE XX ; Start 12/03/16 at 21:00; Stop 12/03/16 at 21:01 CHRISTY SARABIA Dec 03, 2016 14:25
[2016-12-03] MEDS ORDERED: LEVOFLOXACIN 750 MG TABLET PO ONE (14:30)
[2016-12-03 15:12] VITALS: BP 116/65; RESP 20
--- NOTE | 2016-12-03 17:10 | PN ---
Date/Time of Note Date/Time of Note DATE: 12/03/16 TIME: 17:08 Assessment/Plan VTE Prophylaxis VTE Prophylaxis Intervention: SCD's Lines/Catheters IV Catheter Type (from Nrsg): Saline Lock Urinary Cath still in place: No Assessment/Plan Assessment/Plan 36 yo M with very poorly controlled DM (a1c >10), h/o diabetic OM here for progression of diabetic OM -podiatry following. MRI results discussed with podiatry service earlier today. await podiatry recs re operative v non operative management. cannot determine abx duration until this is known -abx as per ID of note, will ask if vanc can be changed to bactrim given its excellent bone penetration to facilitate ease of administration CDE consult already in place sw consult for help with drug abuse as this likely contributing to nonadherence to previous plans for pt's diabetic foot infection and overall poor DM control Subjective 24 Hr Interval Summary Free Text/Dictation Foot wrapped. no complaints Exam/Review of Systems Vital Signs Vitals Vital Signs Date Time Temp Pulse Resp B/P Pulse Ox O2 Delivery O2 Flow Rate FiO2 12/03/16 15:12 98.4 100 20 116/65 98 11/29/16 18:59 Room Air Intake and Output 12/02/16 12/02/16 12/03/16 15:00 23:00 07:00 Intake Total 250 ml 2340 ml 1100 ml Output Total 800 ml 1000 ml Balance 250 ml 1540 ml 100 ml Exam nad no mrg lungs clear abd soft foot wrapped MRI results reviewed Results Result Diagram: 12/02/16 0443 12/02/16 0443 Results 24 hrs Laboratory Tests Test 12/02/16 20:30 12/03/16 02:06 12/03/16 08:21 12/03/16 09:34 Bedside Glucose 210 160 166 Hemoglobin A1c 10.7 H Test 12/03/16 12:00 Bedside Glucose 158 Medications Medications Current Medications Ondansetron HCl (Zofran Inj) 4 mg Q6H PRN IV NAUSEA AND/OR VOMITING; Start at 02:30 Acetaminophen (Tylenol Tab) 650 mg Q6H PRN PO PAIN LEVEL 1-3 OR FEVER Last administered on 11/30/16t 17:00; Admin Dose 650 MG; Start 11/30/16 at 02:30 Heparin Sodium (Porcine) (Heparin (5000 Units/0.5 ml)) 5,000 unit Q12 SC Last administered on 12/03/16 08:24; Admin Dose 5,000 UNIT; Start 11/30/16 at 09:00 Bupropion HCl (Wellbutrin Xl) 150 mg DAILY PO Last administered on 12/03/16 08 :25; Admin Dose 150 MG; Start 11/30/16 at 09:00 Lactobacillus Acidophilus/ Rhamnosus (Culturelle) 1 cap BID PO Last administered on 12/03/16 08:25; Admin Dose 1 CAP; Start 11/30/16 at 09:00 Multivitamins Therapeutic (Theragran) 1 tab DAILY PO Last administered on 08:25; Admin Dose 1 TAB; Start 11/30/16 at 09:00 Topiramate (Topamax) 25 mg BID PO Last administered on 12/03/16 08:25; Admin Dose 25 MG; Start 11/30/16 at 09:00 Diagnostic Test (Pha) (Accu-Chek) 1 ea 02 XX Last administered on 12/03/16 02: 07; Admin Dose 1 EA; Start 12/01/16 at 02:00 Miscellaneous Information 1 ea NOTE XX ; Start 11/30/16 at 02:30 Glucose (Glutose) 15 gm Q15M PRN PO DECREASED GLUCOSE; Start 11/30/16 at 02:30 Glucose (Glutose) 22.5 gm Q15M PRN PO DECREASED GLUCOSE; Start 11/30/16 at 02: 30 Dextrose (D50w Syringe) 25 ml Q15M PRN IV DECREASED GLUCOSE; Start 11/30/16 at 02:30 Dextrose (D50w Syringe) 50 ml Q15M PRN IV DECREASED GLUCOSE; Start 11/30/16 at 02:30 Glucagon (Glucagen) 1 mg Q15M PRN IM DECREASED GLUCOSE; Start 11/30/16 at 02:30 Glucose 15 gm 15 gm Q15M PRN BUCCAL DECREASED GLUCOSE; Start 11/30/16 at 02:30 Vancomycin HCl/ Sodium Chloride (Vancocin/NS) 250 ml @ 83.333 mls/ hr Q8H IVPB Last administered on 12/03/16 13:54; Admin Dose 83.333 MLS/HR; Start at 06:00 Miscellaneous Information Patients own medicat... BID@16 XX ; Start 11/30/16 at 10:00 Collagenase (Santyl) 1 applic DAILY TOP Last administered on 12/03/16 14:13; Admin Dose 1 APPLIC; Start 11/30/16 at 09:00 Collagenase (Santyl) 1 applic PRN PRN TOP WOUND CARE; Start 11/30/16 at 08:00 Ibuprofen (Motrin) 600 mg Q6 PRN PO for moderate pain Last administered on 12/03 08:25; Admin Dose 600 MG; Start 11/30/16 at 21:30 Sodium Hypochlorite (Dakin'S (1/4 Strength)) 1 applic DAILY TOP Last administered on 12/03/16 14:13; Admin Dose 1 APPLIC; Start 12/01/16 at 11:00 Nicotine (Nicoderm 21 Mg/ 24hr) 1 patch DAILY TRANSDERM Last administered on 08:25; Admin Dose 1 PATCH; Start 12/01/16 at 16:00 Zolpidem Tartrate (Ambien) 10 mg HS PRN PO INSOMNIA Last administered on 22:14; Admin Dose 10 MG; Start 12/01/16 at 22:00 Insulin Glargine (Lantus) 42 unit QHS SC Last administered on 12/02/16 20:34; Admin Dose 42 UNIT; Start 12/02/16 at 21:00 Miscellaneous Information (*Rx Drug Level Order Reminder*) 1 ONCE ONCE XX ; Start 12/03/16 at 21:00; Stop 12/03/16 at 21:01 Levofloxacin (Levaquin) 750 mg DAILY@06 PO ; Start 12/04/16 at 06:00 PRIYANKA ZULUAGA MD Dec 03, 2016 17:10
[2016-12-03 20:49] VITALS: BP 121/66; RESP 18
[2016-12-03] MEDS: INSULIN GLARGINE [LANtus] 3 ML PEN SC SCH (21:09)
[2016-12-03] MEDS ORDERED: ZOLPIDEM 5 MG TAB PO PRN (21:30)
--- NOTE | 2016-12-03 23:55 | PN ---
Date/Time of Note Date/Time of Note DATE: 12/03/16 TIME: 23:55 Assessment/Plan Lines/Catheters IV C[facility]ter Type (from [facility] Saline Lock [place]cal in Place (from [facility]): No Assessment/Plan Problems: (1) Foot osteomyelitis, right Status: Acute Qualifiers: Osteomyelitis type: other acute Qualified Code: M86.171 - Other acute osteomyelitis of right foot (2) Non-pressure chronic ulcer of other part of right foot with fat layer exposed Status: Acute (3) Acquired absence of right great toe Status: Acute (4) Acquired absence of other right toe(s) (5) Non-pressure chronic ulcer of other part of left foot with fat layer exposed (6) Diabetes, polyneuropathy Status: Chronic Qualifiers: Diabetes mellitus type: type 2 Qualified Code: E11.42 - Diabetic polyneuropathy associated with type 2 diabetes mellitus (7) Morbid obesity due to excess calories Status: Chronic Assessment/Plan Patient demonstrates extensive osteomyelitis of his right foot involving the entire first metatarsal and 80% of the fifth metatarsal along with the second third and fourth metatarsophalangeal joints. Patient is at extremely high risk for limb loss. His previous track record of noncompliance and drug abuse will hinder any type of treatment. Patient may require a Ch[place] type amputation versus a below-knee amputation. Patient will be followed in-house. Subjective 24 Hr Interval Summary Patient was seen at bedside. Patient is in no acute distress. Patient reports no new adverse events. Patient denies fever, chills, nausea or vomiting. Patient denies pain. Patient denies recent trauma. Patient reports bandages are being changed as directed. Patient does not report any new problems. Constitutional: no complaints Pain Control: well controlled Exam/Review of Systems Vital Signs Vitals Vital Signs Date Time Temp Pulse Resp B/P Pulse Ox O2 Delivery O2 Flow Rate FiO2 12/04/16 08:06 98.1 100 18 131/76 94 Intake and Output 12/03/16 12/03/16 12/04/16 15:00 23:00 07:00 Intake Total 300 ml 2410 ml 1290 ml Output Total 1300 ml 1200 ml Balance 300 ml 1110 ml 90 ml Exam Free Text/Dictation MRI was reviewed which shows progression of osteomyelitis within the first metatarsal post amputation of the phalanges. Bony destructive changes noted in the first metatarsal stump throughout the first metatarsal and underlying plantar skin ulceration. with increased abnormal signal post amputation of the fifth phalanges and a portion of the fifth metatarsal with osteomyelitis involving the proximal fifth metatarsal stump. Similar appearance of fragmentation and subchondral collapse of the second and third metatarsal heads and proximal phalanx bases which may be from prior avascular necrosis, prior trauma or remote infection. No significant changes noted on examination of both feet. Results Result Diagram: 12/02/16 0443 12/02/16 0443 ESTEE IBRAHIM DPM Dec 03, 2016 23:55
[2016-12-04] MEDS: ACCU-CHEK XX SCH (02:00)
[2016-12-04 02:52] VITALS: BP 134/65; RESP 16
[2016-12-04] MEDS: LEVOFLOXACIN 750 MG TABLET PO SCH (05:27)
[2016-12-04] MEDS: IBUPROFEN 600 MG TAB PO PRN ×3 (05:32→21:08)
[2016-12-04 08:06] VITALS: BP_SYST 101; BP_SYST 131; BP_DIAS 66; BP_DIAS 76; RESP 18; RESP 19
[2016-12-04] MEDS: INSULIN ASPART [NOVOLOG] 3 ML PEN SC SCH ×7 (08:08→21:00)
[2016-12-04] MEDS: LACTOBACILLUS RHAMNOSUS CAP PO SCH ×2 (08:11→21:01)
[2016-12-04] MEDS: BUPROPION (XL) 150 MG TAB PO SCH (08:11)
[2016-12-04] MEDS: MULTIVITAMINS THERAPEUTIC TAB PO SCH (08:11)
[2016-12-04] MEDS: NICOTINE (21 MG/24 HR) PATCH TRANSDERM SCH (08:11)
[2016-12-04] MEDS: metFORMIN 500 MG TAB PO SCH ×2 (08:11→17:44)
[2016-12-04] MEDS: TOPIRAMATE 25 MG TAB PO SCH ×2 (08:11→21:01)
[2016-12-04] MEDS: HEPARIN 5,000 UNIT/0.5 ML VIAL SC SCH ×2 (08:12→21:09)
[2016-12-04] MEDS: VANCOMYCIN 1.25 GM in SOD CHLORIDE 0.9% 250 ML IVPB SCH ×3 (08:13→23:32)
--- NOTE | 2016-12-04 13:52 | PN ---
Date/Time of Note Date/Time of Note DATE: 12/04/16 TIME: 13:51 Assessment/Plan VTE Prophylaxis VTE Prophylaxis Intervention: SCD's Lines/Catheters IV Catheter Type (from Nrsg): Saline Lock Urinary Cath still in place: No Assessment/Plan Assessment/Plan 36 yo M with very poorly controlled DM (a1c >10), h/o diabetic OM here for progression of diabetic OM -podiatry following.podiatry advising surgical managment, suspect pt will refuse and I will then talk to ID about PO abx options as I am not inclined to request a PICC line it pt with active illicit drug abuse CDE consult already in place sw consult for help with drug abuse as this likely contributing to nonadherence to previous plans for pt's diabetic foot infection and overall poor DM control Exam/Review of Systems Vital Signs Vitals Vital Signs Date Time Temp Pulse Resp B/P Pulse Ox O2 Delivery O2 Flow Rate FiO2 12/04/16 08:06 98.1 100 18 131/76 94 Intake and Output 12/03/16 12/03/16 12/04/16 15:00 23:00 07:00 Intake Total 300 ml 2410 ml 1290 ml Output Total 1300 ml 1200 ml Balance 300 ml 1110 ml 90 ml Results Result Diagram: 12/02/16 0443 12/02/16 0443 Results 24 hrs Laboratory Tests Test 12/03/16 17:38 12/03/16 20:58 12/03/16 21:06 12/04/16 08:06 Bedside Glucose 139 118 152 Vancomycin Level Trough 18.4 Test 12/04/16 12:04 Bedside Glucose 164 Medications Medications Current Medications Ondansetron HCl (Zofran Inj) 4 mg Q6H PRN IV NAUSEA AND/OR VOMITING; Start at 02:30 Acetaminophen (Tylenol Tab) 650 mg Q6H PRN PO PAIN LEVEL 1-3 OR FEVER Last administered on 11/30/16 17:00; Admin Dose 650 MG; Start 11/30/16 at 02:30 Heparin Sodium (Porcine) (Heparin (5000 Units/0.5 ml)) 5,000 unit Q12 SC Last administered on 12/04/16 08:12; Admin Dose 5,000 UNIT; Start 11/30/16 at 09:00 Bupropion HCl (Wellbutrin Xl) 150 mg DAILY PO Last administered on 12/04/16 08 :11; Admin Dose 150 MG; Start 11/30/16 at 09:00 Lactobacillus Acidophilus/ Rhamnosus (Culturelle) 1 cap BID PO Last administered on 12/04/16 08:11; Admin Dose 1 CAP; Start 11/30/16 at 09:00 Multivitamins Therapeutic (Theragran) 1 tab DAILY PO Last administered on 08:11; Admin Dose 1 TAB; Start 11/30/16 at 09:00 Topiramate (Topamax) 25 mg BID PO Last administered on 12/04/16 08:11; Admin Dose 25 MG; Start 11/30/16 at 09:00 Diagnostic Test (Pha) (Accu-Chek) 1 ea 02 XX Last administered on 12/03/16 02: 07; Admin Dose 1 EA; Start 12/01/16 at 02:00 Miscellaneous Information 1 ea NOTE XX ; Start 11/30/16 at 02:30 Glucose (Glutose) 15 gm Q15M PRN PO DECREASED GLUCOSE; Start 11/30/16 at 02:30 Glucose (Glutose) 22.5 gm Q15M PRN PO DECREASED GLUCOSE; Start 11/30/16 at 02: 30 Dextrose (D50w Syringe) 25 ml Q15M PRN IV DECREASED GLUCOSE; Start 11/30/16 at 02:30 Dextrose (D50w Syringe) 50 ml Q15M PRN IV DECREASED GLUCOSE; Start 11/30/16 at 02:30 Glucagon (Glucagen) 1 mg Q15M PRN IM DECREASED GLUCOSE; Start 11/30/16 at 02:30 Glucose (Glutose) 15 gm Q15M PRN BUCCAL DECREASED GLUCOSE; Start 11/30/16 at 02 :30 Miscellaneous Information Patients own medicat... BID@10,16 XX ; Start 11/30/16 at 10:00 Collagenase (Santyl) 1 applic DAILY TOP Last administered on 12/03/16 14:13; Admin Dose 1 APPLIC; Start 11/30/16 at 09:00 Collagenase (Santyl) 1 applic PRN PRN TOP WOUND CARE; Start 11/30/16 at 08:00 Ibuprofen (Motrin) 600 mg Q6 PRN PO for moderate pain Last administered on 12/04 05:32; Admin Dose 600 MG; Start 11/30/16 at 21:30 Sodium Hypochlorite (Dakin'S (1/4 Strength)) 1 applic DAILY TOP Last administered on 12/03/16 14:13; Admin Dose 1 APPLIC; Start 12/01/16 at 11:00 Nicotine (Nicoderm 21 Mg/ 24hr) 1 patch DAILY TRANSDERM Last administered on 08:11; Admin Dose 1 PATCH; Start 12/01/16 at 16:00 Insulin Glargine (Lantus) 42 unit QHS SC Last administered on 12/03/16 21:09; Admin Dose 42 UNIT; Start 12/02/16 at 21:00 Levofloxacin (Levaquin) 750 mg DAILY@06 PO Last administered on 12/04/16 05:27 ; Admin Dose 750 MG; Start 12/04/16 at 06:00 Zolpidem Tartrate 10 mg 10 mg HS PRN PO INSOMNIA Last administered on 21:50; Admin Dose 10 MG; Start 12/03/16 at 21:30 Vancomycin HCl/ Sodium Chloride (Vancocin/NS) 250 ml @ 83.333 mls/ hr Q8H IVPB Last administered on 12/04/16 08:13; Admin Dose 83.333 MLS/HR; Start at 08:30 PRIYANKA ZULUAGA MD Dec 04, 2016 13:52
[2016-12-04] MEDS: COLLAGENASE 30 GM TUBE TOP SCH (13:57)
[2016-12-04] MEDS: SODIUM HYPOCHLORITE 0.125% 473 ML BTL TOP SCH (13:57)
[2016-12-04 14:00] VITALS: BP 132/96; RESP 19
--- NOTE | 2016-12-04 18:19 | PN ---
DATE: 12/04/2016 SUBJECTIVE DATA: Patient is alert, feels good, looks comfortable. No fevers. Wound culture growing Proteus, Pseudomonas, strep, and Corynebacterium species, all susceptible to Levaquin. ANTIMICROBIALS: Patient is on Levaquin and vancomycin. OBJECTIVE DATA: GENERAL: Morbidly obese, well developed middle-aged man who is alert in no distress. HEENT: Head atraumatic, normocephalic. Sclerae anicteric. Buccal mucosa pink. NECK: Supple. CHEST: Rise symmetrical. Breath sounds clear. HEART: S1, S2. ABDOMEN: Soft, bowel sounds present. EXTREMITIES: With left foot dressing intact. ASSESSMENT: 1. Left foot ongoing osteomyelitis. 2. Morbid obesity. 3. Substance abuse. 4. Poorly controlled diabetes. 5. Noncompliance. PLAN: Patient remains stable. Continue present care, antibiotics. Follow Podiatry recommendations. Possible transmetatarsal versus below-knee amputation per Podiatry note. Dictated By: Eliane Sloan NP /slime/terri /Document#: [id number]
[2016-12-04] MEDS: INSULIN GLARGINE [LANtus] 3 ML PEN SC SCH (21:12)
[2016-12-04 21:39] VITALS: BP 125/67; RESP 16
[2016-12-04] MEDS ORDERED: ZOLPIDEM 5 MG TAB PO ONE (23:18)
[2016-12-05] MEDS: ACCU-CHEK XX SCH (02:00)
[2016-12-05 02:55] VITALS: BP 128/67; RESP 16
[2016-12-05] MEDS: LEVOFLOXACIN 750 MG TABLET PO SCH (06:24)
[2016-12-05 07:55] LABS: CREATININE 0.6 mg/dl (0.61-1.24)
[2016-12-05 08:00] VITALS: BP 111/61; RESP 19
[2016-12-05] MEDS: INSULIN ASPART [NOVOLOG] 3 ML PEN SC SCH ×7 (08:09→21:00)
[2016-12-05] MEDS: BUPROPION (XL) 150 MG TAB PO SCH (08:55)
[2016-12-05] MEDS: TOPIRAMATE 25 MG TAB PO SCH ×2 (08:55→21:56)
[2016-12-05] MEDS: VANCOMYCIN 1.25 GM in SOD CHLORIDE 0.9% 250 ML IVPB SCH (08:55)
[2016-12-05] MEDS: MULTIVITAMINS THERAPEUTIC TAB PO SCH (08:56)
[2016-12-05] MEDS: HEPARIN 5,000 UNIT/0.5 ML VIAL SC SCH ×2 (08:56→21:58)
[2016-12-05] MEDS: metFORMIN 500 MG TAB PO SCH ×2 (08:56→17:42)
[2016-12-05] MEDS: COLLAGENASE 30 GM TUBE TOP SCH (08:56)
[2016-12-05] MEDS: SODIUM HYPOCHLORITE 0.125% 473 ML BTL TOP SCH (08:56)
[2016-12-05] MEDS: LACTOBACILLUS RHAMNOSUS CAP PO SCH ×2 (08:56→21:56)
[2016-12-05] MEDS: NICOTINE (21 MG/24 HR) PATCH TRANSDERM SCH (08:56)
--- NOTE | 2016-12-05 13:25 | CONS ---
Date/Time of Note Date/Time of Note DATE: 12/05/16 TIME: 13:24 Assessment/Plan Assessment/Plan Chief Complaint/Hosp Course SUBJECTIVE DATA: Patient is alert, feels good, looks comfortable. No fevers. ANTIMICROBIALS: Levaquin and vancomycin. OBJECTIVE DATA: GENERAL: Morbidly obese, well developed middle-aged man who is alert in no distress. HEENT: Head atraumatic, normocephalic. Sclerae anicteric. Buccal mucosa pink. NECK: Supple. CHEST: Rise symmetrical. Breath sounds clear. HEART: S1, S2. ABDOMEN: Soft, bowel sounds present. EXTREMITIES: With left foot dressing intact. ASSESSMENT: 1. Left foot ongoing osteomyelitis. 2. Morbid obesity. 3. Substance abuse. 4. Poorly controlled diabetes. 5. Noncompliance. PLAN: Patient remains stable. Continue antibiotics. Follow Podiatry recommendations. Possible transmetatarsal versus below-knee amputation per Podiatry note. Problems: Consultation Date/Type/Reason Admit Date/Time Nov 29, 2016 at 22:15 Initial Consult Date 12/01/16 Type of Consultation: ID Exam/Review of Systems Vital Signs Vitals Vital Signs Date Time Temp Pulse Resp B/P Pulse Ox O2 Delivery O2 Flow Rate FiO2 12/05/16 08:00 98.8 84 19 111/61 94 Intake and Output 12/04/16 12/04/16 12/05/16 15:00 23:00 07:00 Intake Total 250 ml 1570 ml 1690 ml Balance 250 ml 1570 ml 1690 ml Results Result Diagram: 12/02/16 0443 12/05/16 0712 Results 24 hrs Laboratory Tests Test 12/04/16 17:34 12/04/16 20:59 12/05/16 07:12 12/05/16 08:05 Bedside Glucose 128 116 156 Blood Urea Nitrogen 20 Creatinine 0.60 L Vancomycin Level Trough 13.7 Test 12/05/16 11:54 Bedside Glucose 151 Medications Medications Current Medications Ondansetron HCl (Zofran Inj) 4 mg Q6H PRN IV NAUSEA AND/OR VOMITING; Start at 02:30 Acetaminophen (Tylenol Tab) 650 mg Q6H PRN PO PAIN LEVEL 1-3 OR FEVER Last administered on 11/30/16t 17:00; Admin Dose 650 MG; Start 11/30/16 at 02:30 Heparin Sodium (Porcine) (Heparin (5000 Units/0.5 ml)) 5,000 unit Q12 SC Last administered on 12/05/16 08:56; Admin Dose 5,000 UNIT; Start 11/30/16 at 09:00 Bupropion HCl (Wellbutrin Xl) 150 mg DAILY PO Last administered on 12/05/16 08 :55; Admin Dose 150 MG; Start 11/30/16 at 09:00 Lactobacillus Acidophilus/ Rhamnosus (Culturelle) 1 cap BID PO Last administered on 12/05/16 08:56; Admin Dose 1 CAP; Start 11/30/16 at 09:00 Multivitamins Therapeutic (Theragran) 1 tab DAILY PO Last administered on 08:56; Admin Dose 1 TAB; Start 11/30/16 at 09:00 Topiramate (Topamax) 25 mg BID PO Last administered on 12/05/16 08:55; Admin Dose 25 MG; Start 11/30/16 at 09:00 Diagnostic Test (Pha) (Accu-Chek) 1 ea 02 XX Last administered on 12/03/16 02: 07; Admin Dose 1 EA; Start 12/01/16 at 02:00 Miscellaneous Information 1 ea NOTE XX ; Start 11/30/16 at 02:30 Glucose (Glutose) 15 gm Q15M PRN PO DECREASED GLUCOSE; Start 11/30/16 at 02:30 Glucose (Glutose) 22.5 gm Q15M PRN PO DECREASED GLUCOSE; Start 11/30/16 at 02: 30 Dextrose (D50w Syringe) 25 ml Q15M PRN IV DECREASED GLUCOSE; Start 11/30/16 at 02:30 Dextrose (D50w Syringe) 50 ml Q15M PRN IV DECREASED GLUCOSE; Start 11/30/16 at 02:30 Glucagon (Glucagen) 1 mg Q15M PRN IM DECREASED GLUCOSE; Start 11/30/16 at 02:30 Glucose (Glutose) 15 gm Q15M PRN BUCCAL DECREASED GLUCOSE; Start 11/30/16 at 02 :30 Miscellaneous Information Patients own medicat... BID@10,16 XX ; Start 11/30/16 at 10:00 Collagenase (Santyl) 1 applic DAILY TOP Last administered on 12/04/16 13:57; Admin Dose 1 APPLIC; Start 11/30/16 at 09:00 Collagenase (Santyl) 1 applic PRN PRN TOP WOUND CARE; Start 11/30/16 at 08:00 Ibuprofen (Motrin) 600 mg Q6 PRN PO for moderate pain Last administered on 12/04 21:08; Admin Dose 600 MG; Start 11/30/16 at 21:30 Sodium Hypochlorite (Dakin'S (1/4 Strength)) 1 applic DAILY TOP Last administered on 12/04/16 13:57; Admin Dose 1 APPLIC; Start 12/01/16 at 11:00 Nicotine (Nicoderm 21 Mg/ 24hr) 1 patch DAILY TRANSDERM Last administered on 08:56; Admin Dose 1 PATCH; Start 12/01/16 at 16:00 Insulin Glargine (Lantus) 42 unit QHS SC Last administered on 12/04/16 21:12; Admin Dose 42 UNIT; Start 12/02/16 at 21:00 Levofloxacin 750 mg 750 mg DAILY@06 PO Last administered on 12/05/16 06:24; Admin Dose 750 MG; Start 12/04/16 at 06:00 Vancomycin HCl/ Sodium Chloride (Vancocin/NS) 250 ml @ 83.333 mls/ hr Q8H IVPB Last administered on 12/05/16 08:55; Admin Dose 83.333 MLS/HR; Start at 08:30 KIRSTEN OLIVAREZ NP Dec 05, 2016 13:25
[2016-12-05 14:00] VITALS: BP 137/78; RESP 20
[2016-12-05 20:40] VITALS: BP 112/88; RESP 18
[2016-12-05] MEDS ORDERED: ZOLPIDEM 5 MG TAB PO ONE (21:00)
[2016-12-05] MEDS: INSULIN GLARGINE [LANtus] 3 ML PEN SC SCH (21:58)
[2016-12-06] MEDS: ACCU-CHEK XX SCH (02:00)
[2016-12-06 03:04] VITALS: BP 113/64; RESP 16
[2016-12-06] MEDS: LEVOFLOXACIN 750 MG TABLET PO SCH (06:20)
[2016-12-06 08:28] VITALS: BP 133/85; RESP 18
[2016-12-06] MEDS: INSULIN ASPART [NOVOLOG] 3 ML PEN SC SCH ×6 (08:41→16:47)
[2016-12-06] MEDS: HEPARIN 5,000 UNIT/0.5 ML VIAL SC SCH (08:42)
[2016-12-06] MEDS: TOPIRAMATE 25 MG TAB PO SCH (08:44)
[2016-12-06] MEDS: LACTOBACILLUS RHAMNOSUS CAP PO SCH (08:44)
[2016-12-06] MEDS: BUPROPION (XL) 150 MG TAB PO SCH (08:44)
[2016-12-06] MEDS: MULTIVITAMINS THERAPEUTIC TAB PO SCH (08:44)
[2016-12-06] MEDS: metFORMIN 500 MG TAB PO SCH (08:44)
[2016-12-06] MEDS: NICOTINE (21 MG/24 HR) PATCH TRANSDERM SCH (08:45)
--- NOTE | 2016-12-06 08:56 | PN ---
Date/Time of Note Date/Time of Note DATE: 12/06/16 TIME: 08:51 Assessment/Plan Lines/Catheters IV Catheter Type (from [facility]): Saline Lock Mariscal in Place (from [facility]): No Assessment/Plan Problems: (1) Foot osteomyelitis, right Status: Acute Qualifiers: Osteomyelitis type: other acute Qualified Code: M86.171 - Other acute osteomyelitis of right foot (2) Non-pressure chronic ulcer of other part of right foot with fat layer exposed Status: Acute (3) Acquired absence of right great toe Status: Acute (4) Drug abuse and dependence Status: Chronic (5) Diabetes, polyneuropathy Status: Chronic Qualifiers: Diabetes mellitus type: type 2 Qualified Code: E11.42 - Diabetic polyneuropathy associated with type 2 diabetes mellitus (6) Chronic hepatitis C Status: Chronic Qualifiers: Hepatic coma status: without hepatic coma Qualified Code: B18.2 - Chronic hepatitis C without hepatic coma Assessment/Plan Patient has extensive osteomyelitis involvement of the forefoot, first metatarsal bone, fifth metatarsal bone, second through fourth metatarsophalangeal joints. Patient at this point, given his previous history of noncompliance and IV drug use, will be a candidate for either a proximal transmetatarsal amputation versus below-knee amputation. Of course, wound healing will be of great concern and may require more proximal amputation pending failed surgical management. I am concerned about postoperative follow- up with this patient given his previous noncompliance with his medical care. Patient says that he lives in [place] and has had transportation issues and has recently gotten the application for [employer]. I have counseled patient extensively regarding his condition. Subjective 24 Hr Interval Summary Patient was seen at bedside. Patient is in no acute distress. Patient reports no new adverse events. Patient denies fever, chills, nausea or vomiting. Patient denies pain. Patient denies recent trauma. Patient reports bandages are being changed as directed. Patient does not report any new problems. Constitutional: no complaints Pain Control: well controlled Exam/Review of Systems Vital Signs Vitals Vital Signs Date Time Temp Pulse Resp B/P Pulse Ox O2 Delivery O2 Flow Rate FiO2 12/06/16 08:28 98.6 96 18 133/85 96 Intake and Output 12/05/16 12/05/16 12/06/16 15:00 23:00 07:00 Intake Total 250 ml 1340 ml 1200 ml Output Total 900 ml Balance 250 ml 440 ml 1200 ml Exam Free Text/Dictation Morbidly obese male in no acute distress. Right foot bandages present. Open wound right foot. MRI shows osteomyelitis of the entire first metatarsal and fifth metatarsal bones along with signal intensity in the second third fourth metatarsophalangeal joints and soft tissues surrounding the forefoot. Malodor is present but less than time of admission. The wound shows necrotic base. There is no active pus or bleeding. Weakly palpable pedal pulses noted. Labs reviewed. Results Result Diagram: 12/02/16 0443 12/05/16 0712 ESTEE IBRAHIM DPM Dec 06, 2016 08:56
[2016-12-06] MEDS: COLLAGENASE 30 GM TUBE TOP SCH ×2 (09:00→16:30)
[2016-12-06] MEDS: SODIUM HYPOCHLORITE 0.125% 473 ML BTL TOP SCH (09:00)
--- NOTE | 2016-12-06 12:01 | PDOCDIS ---
Discharge Instructions CONDITION Patient Condition: Stable HOME CARE INSTRUCTIONS: Special Diet: Carb controlled FOLLOW UP/APPOINTMENTS Follow-up Plan You need to take your antibiotics and your diabetes medication and follow up with the amputation prevention center. Failure to follow up with likely result in further damage to your foot which will likely lead to amputation Do not use methamphetamine If you have anxiety, please talk to your regular doctor about medication/non medication options PRIYANKA ZULUAGA MD Dec 06, 2016 12:01
[2016-12-06] MEDS ORDERED: LEVO750T25 PO (12:03)
--- NOTE | 2016-12-06 12:41 | DS ---
Date/Time of Note Date/Time of Note DATE: 12/06/16 TIME: 12:39 Discharge Summary Admission/Discharge Info Admit Date/Time Nov 29, 2016 at 22:15 Discharge Date/Time Discharge Diagnosis osteomyelitis of R foot, poorly controlled DM2, methamphetamine abuse Patient Condition: Stable Consults podiatry, infectious disease Procedures 12.01 MRI R foot IMPRESSION: 1. Progression of the osteomyelitis within the first metatarsal post amputation of the phalanges. Bony destructive changes the first metatarsal stump with increased abnormal marrow signal throughout the first metatarsal and an underlying plantar skin ulcer. 2. Post amputation of the fifth phalanges and a portion of the fifth metatarsal with osteomyelitis involving the proximal fifth metatarsal stump. 3. Similar appearance of the fragmentation and subchondral collapse of the second and third metatarsal heads and proximal phalanx bases which may be from prior avascular necrosis, prior trauma, or remote infection. 12.01 foot wound culture Microbiology GRAM STAIN Final POLYMORPH. LEUKOCYTE NONE SEEN GRAM POS COCCI IN PAIRS 3+ GRAM POSITIVE RODS 1+ GRAM NEGATIVE RODS 3+ WOUND CULTURE Final Organism 1 PROTEUS MIRABILIS QUANTITY 3+ Organism 2 PSEUDOMONAS SPECIES QUANTITY 2+ Organism 3 STREP, BETA HEMOLYTIC GRP G QUANTITY 2+ Organism 4 CORYNEBACTERIUM SPECIES QUANTITY 1+ CORYNEBACTERIUM SPECIES: Clinical susceptibiltiy testing standard for this organism have not been established. However, this organism has demonstrated in vitro growth inhibition to the following chemotherapeutic agents listed as susceptible. P. MIRAB M.I.C. RX --------- --- AMPICILLIN <=2 S CEFOTAXIME S CIPROFLOXACIN <=0.25 S GENTAMICIN <=1 S LEVOFLOXACIN <=0.12 S TOBRAMYCIN <=1 S TRIMETHOPRIM/SULFAMETHOXAZOLE <=20 S Hx of Present Illness This is a 36-year-old male with history of insulin-dependent diabetes, right foot osteomyelitis, methamphetamine abuse in the right hand/index finger infection who presented to the emergency department complaining of right foot infection. Patient has been following with [facility] for chronic right foot infection but he said he was "kicked out" because of multiple missed appointments. Now he presented to the ER complaining of draining wound from his right foot. Denied fever/chills, chest pain, shortness of breath. Of note, patient was here in July of this year for right index finger infection, which he attributed to fingerstick glucose check. I actually saw him in the ER and had significant infection. Unfortunately left AMA from ER. Hospital Course 36 yo M with very poorly controlled DM (a1c >10), h/o diabetic OM here for progression of diabetic OM. Pt seen by podiatry, who ultimately advised against surgical intervention at this time. Pt discharged on pathogen directed antimicrobials and close APC follow up advised. Pt also issued new rx's for insulin and BG testing supplies. Home Meds Active Scripts Levofloxacin* (Levaquin*) 750 Mg Tablet, 750 MG PO DAILY@06 for 21 Days, #21 TAB Prov:PRIYANKA ZULUAGA MD 12/06/16 Multivitamins* (Theragran*) 1 Tab Tab, 1 TAB PO DAILY, #30 TAB Prov:LIOR TOTH MD 04/23/16 Lactobacillus Rhamnosus* (Culturelle*) 1 Each Cap.sprink, 1 CAP PO BID, #60 CAP Prov:LIOR TOTH MD 04/23/16 Topiramate* (Topamax*) 25 Mg Tablet, 25 MG PO BID for 30 Days, #60 TAB 1 Refill Prov:AYAAN YAO S. 03/10/16 Bupropion Hcl* (Bupropion XL*) 150 Mg Tab.er.24h, 150 MG PO DAILY for 30 Days, # 30 1 Refill Prov:AYAAN YAO S. 03/10/16 Metformin Hcl (Glucophage) 500 Mg Tablet, 500 MG PO BID WITH MEALS for 30 Days, #60 TAB 2 Refills Prov:AYAAN YAO S. 03/10/16 Reported Medications Insulin Glargine* (Lantus*) 100 Unit/Ml Soln, 40 UNIT SC QHS, #1 VIAL 11/30/16 Insulin Aspart* (Novolog Insulin Pen*) 100 Unit/Ml Soln, 12 UNIT SC AC MEALS, EA 11/30/16 Discontinued Scripts Dicyclomine Hcl* (Bentyl*) 10 Mg Capsule, 10 MG PO QID for 5 Days, CAP Prov:RUTDANIEL C 05/30/16 Loperamide Hcl* (Imodium*) 2 Mg Capsule, 2 MG PO .AFTER EA LOOSE BM Y for DIARRHEA, #10 TAB Prov:RUTDANIEL C 05/30/16 Ondansetron Hcl* (Zofran*) 4 Mg Tablet, 4 MG PO Q6H for NAUSEA AND/OR VOMITING, #30 TAB Prov:DANIEL BETTENCOURT 05/30/16 Levofloxacin* (Levaquin*) 750 Mg Tablet, 750 MG PO DAILY@06 for 21 Days, TAB Prov:LIOR TOTH MD 04/23/16 Insulin Glargine* (Lantus*) 100 Unit/Ml Soln, 20 UNIT SC HS for 30 Days Prov:LIOR TOTH MD 04/23/16 Insulin Aspart* (Novolog Insulin Pen*) 100 Unit/Ml Soln, 4 UNIT SC AC MEALS for 30 Days Prov:LIOR TOTH MD 04/23/16 [Nicotine (14 Mg/24 Hr)] 1 PATCH PATCH No Conflict Check, 1 PATCH TRANSDERM DAILY for 30 Days, #30 1 Refill Prov:AYAAN YAO 03/10/16 Follow-up Plan You need to take your antibiotics and your diabetes medication and follow up with the amputation prevention center. Failure to follow up with likely result in further damage to your foot which will likely lead to amputation Do not use methamphetamine If you have anxiety, please talk to your regular doctor about medication/non medication options Primary Care Provider Domingo Rose Time spent on discharge: > 30 minutes Pending Labs Laboratory Tests Test 12/05/16 17:19 12/05/16 21:55 12/06/16 08:17 12/06/16 12:09 Bedside Glucose 177mg/dL (70-220) 152mg/dL (70-220) 171mg/dL (70-220) 209mg/dL (70-220) Copies To: CC: ESTEE IBRAHIM DPM, ELLEN MD Dec 06, 2016 12:41 CC: ESTEE IBRAHIM DPM, ELLEN MD Dec 06, 2016 12:41
[2016-12-06 15:03] VITALS: BP 133/80; RESP 18
--- NOTE | 2016-12-06 15:03 | CONS ---
Date/Time of Note Date/Time of Note DATE: 12/06/16 TIME: 15:02 Assessment/Plan Assessment/Plan Chief Complaint/Hosp Course SUBJECTIVE DATA: Patient is alert, feels good, looks comfortable. No fevers. ANTIMICROBIALS: Levaquin and vancomycin. OBJECTIVE DATA: GENERAL: Morbidly obese, well developed middle-aged man who is alert in no distress. HEENT: Head atraumatic, normocephalic. Sclerae anicteric. Buccal mucosa pink. NECK: Supple. CHEST: Rise symmetrical. Breath sounds clear. HEART: S1, S2. ABDOMEN: Soft, bowel sounds present. EXTREMITIES: With left foot dressing intact. ASSESSMENT: 1. Left foot ongoing osteomyelitis. 2. Morbid obesity. 3. Substance abuse. 4. Poorly controlled diabetes. 5. Noncompliance. PLAN: Patient remains stable. Wound culture growing multiple bacteria's all susceptible to fluoroquinolones. Patient is not candidate for PICC line given his drug abuse history. We will send him home on oral Levaquin for 6 weeks. Patient to follow with podiatry for further recommendations Problems: Consultation Date/Type/Reason Admit Date/Time Nov 29, 2016 at 22:15 Initial Consult Date 12/01/16 Type of Consultation: ID Exam/Review of Systems Vital Signs Vitals Vital Signs Date Time Temp Pulse Resp B/P Pulse Ox O2 Delivery O2 Flow Rate FiO2 12/06/16 08:28 98.6 96 18 133/85 96 Intake and Output 12/05/16 12/05/16 12/06/16 15:00 23:00 07:00 Intake Total 250 ml 1340 ml 1200 ml Output Total 900 ml Balance 250 ml 440 ml 1200 ml Results Result Diagram: 12/02/16 0443 12/05/16 0712 Results 24 hrs Laboratory Tests Test 12/05/16 17:19 12/05/16 21:55 12/06/16 08:17 12/06/16 12:09 Bedside Glucose 177 152 171 209 Medications Medications Current Medications Ondansetron HCl (Zofran Inj) 4 mg Q6H PRN IV NAUSEA AND/OR VOMITING; Start at 02:30 Acetaminophen (Tylenol Tab) 650 mg Q6H PRN PO PAIN LEVEL 1-3 OR FEVER Last administered on 11/30/16t 17:00; Admin Dose 650 MG; Start 11/30/16 at 02:30 Heparin Sodium (Porcine) (Heparin (5000 Units/0.5 ml)) 5,000 unit Q12 SC Last administered on 12/06/16 08:42; Admin Dose 5,000 UNIT; Start 11/30/16 at 09:00 Bupropion HCl (Wellbutrin Xl) 150 mg DAILY PO Last administered on 12/06/16 08 :44; Admin Dose 150 MG; Start 11/30/16 at 09:00 Lactobacillus Acidophilus/ Rhamnosus (Culturelle) 1 cap BID PO Last administered on 12/06/16 08:44; Admin Dose 1 CAP; Start 11/30/16 at 09:00 Multivitamins Therapeutic (Theragran) 1 tab DAILY PO Last administered on 08:44; Admin Dose 1 TAB; Start 11/30/16 at 09:00 Topiramate (Topamax) 25 mg BID PO Last administered on 12/06/16 08:44; Admin Dose 25 MG; Start 11/30/16 at 09:00 Diagnostic Test (Pha) (Accu-Chek) 1 ea 02 XX Last administered on 12/03/16 02: 07; Admin Dose 1 EA; Start 12/01/16 at 02:00 Miscellaneous Information 1 ea NOTE XX ; Start 11/30/16 at 02:30 Glucose (Glutose) 15 gm Q15M PRN PO DECREASED GLUCOSE; Start 11/30/16 at 02:30 Glucose (Glutose) 22.5 gm Q15M PRN PO DECREASED GLUCOSE; Start 11/30/16 at 02: 30 Dextrose (D50w Syringe) 25 ml Q15M PRN IV DECREASED GLUCOSE; Start 11/30/16 at 02:30 Dextrose (D50w Syringe) 50 ml Q15M PRN IV DECREASED GLUCOSE; Start 11/30/16 at 02:30 Glucagon (Glucagen) 1 mg Q15M PRN IM DECREASED GLUCOSE; Start 11/30/16 at 02:30 Glucose (Glutose) 15 gm Q15M PRN BUCCAL DECREASED GLUCOSE; Start 11/30/16 at 02 :30 Miscellaneous Information Patients own medicat... BID@10,16 XX ; Start 11/30/16 at 10:00 Collagenase (Santyl) 1 applic DAILY TOP Last administered on 12/04/16 13:57; Admin Dose 1 APPLIC; Start 11/30/16 at 09:00 Collagenase (Santyl) 1 applic PRN PRN TOP WOUND CARE; Start 11/30/16 at 08:00 Ibuprofen (Motrin) 600 mg Q6 PRN PO for moderate pain Last administered on 12/04 21:08; Admin Dose 600 MG; Start 11/30/16 at 21:30 Sodium Hypochlorite (Dakin'S (1/4 Strength)) 1 applic DAILY TOP Last administered on 12/04/16 13:57; Admin Dose 1 APPLIC; Start 12/01/16 at 11:00 Nicotine (Nicoderm 21 Mg/ 24hr) 1 patch DAILY TRANSDERM Last administered on 08:45; Admin Dose 1 PATCH; Start 12/01/16 at 16:00 Insulin Glargine (Lantus) 42 unit QHS SC Last administered on 12/05/16 21:58; Admin Dose 42 UNIT; Start 12/02/16 at 21:00 Levofloxacin (Levaquin) 750 mg DAILY@06 PO Last administered on 12/06/16 06:20 ; Admin Dose 750 MG; Start 12/04/16 at 06:00 KIRSTEN OLIVAREZ NP Dec 06, 2016 15:03
== END 2016-12-06 17:45 | disposition home or self-care (01) | DRG 638 ==
LOC: FTE 16:34 → PP2 22:15
PROVIDERS: ADMIT Internal Medicine; ATTEND Internal Medicine
DX: E11.69 Type 2 diabetes mellitus with other specified complication (principal); M86.671 Other chronic osteomyelitis, right ankle and foot; E11.42 Type 2 diabetes mellitus with diabetic polyneuropathy; E11.621 Type 2 diabetes mellitus with foot ulcer; E11.65 Type 2 diabetes mellitus with hyperglycemia; F15.10 Other stimulant abuse, uncomplicated; B18.2 Chronic viral hepatitis C; E66.01 Morbid (severe) obesity due to excess calories; F32.9 Major depressive disorder, single episode, unspecified; L97.522 Non-pressure chronic ulcer of other part of left foot with fat layer exposed; L97.514 Non-pressure chronic ulcer of other part of right foot with necrosis of bone; Z89.421 Acquired absence of other right toe(s); Z68.41 Body mass index [BMI] 40.0-44.9, adult; Z79.4 Long term (current) use of insulin; Z91.19 Patient's noncompliance with other medical treatment and regimen; Z89.411 Acquired absence of right great toe
CPT/HCPCS: 36600; 73630; 73721; 80048; 80053; 80202; 80307; 82565; 82803; 82962; 83036; 83735; 84100; 84520; 85025; 85651; 87070; 87081; 96365; 96366; 96367; 96372; J1644; J1815; J2543; J3370; J7030; J7050